=== PATIENT | male | born 1960 | race African-American/Black ===

== ENCOUNTER 2017-07-04 22:22 | Emergency (ER) | payer OTHER, MEDICAID ==
[~2017-07-04] VITALS: Ht 182.9 cm; Wt 102.1 kg
[2017-07-04] MEDS ORDERED: NS 1000ml 3,100 ML IVLG ONE (22:45)
[2017-07-04] MEDS ORDERED: levETIRAcetam 500mg/NS100ml 100 ML IVPB ONE (22:45)
[2017-07-04 23:15] LABS: APPEARANCE,URINE CLEAR; KETONES,URINE NEGATIVE (NEGATIVE); LEUKOCYTE ESTERASE ,URINE NEGATIVE (NEGATIVE); NITRITE,URINE NEGATIVE (NEGATIVE); PH,URINE 6.5 (4.5-8.0); PROTEIN,URINE NEGATIVE (NEGATIVE); UROBILINOGEN,URINE NORMAL MG/DL (0.0-1.0)
[2017-07-04 23:22] LABS: ABG ALLEN TEST POSITIVE; ABG BASE EXCESS 2.7; ABG PCO2 37.9 mmHg (35.0-45.0)
[2017-07-04 23:38] LABS: MEAN CORPUSCULAR HGB CONC 34.3 G/DL (32.0-36.0); MEAN CORPUSCULAR VOLUME 96 FL (80-99); MEAN PLATELET VOLUME 8.9 FL (6.5-10.1); PLATELET COUNT 90 K/UL (150-450); RED BLOOD COUNT 4.21 M/UL (4.70-6.10); RED CELL DISTRIBUTION WIDTH 14.3 % (11.6-14.8); WHITE BLOOD COUNT 10.4 K/UL (4.8-10.8)
[2017-07-04 23:40] LABS: RBC,URINE 0-2 /HPF (0 - 0); WBC,URINE 0 /HPF (0 - 0)
[2017-07-04 23:53] LABS: ALANINE AMINOTRANSFERASE 17 U/L (3-41); ALBUMIN/GLOBULIN RATIO 0.8 (1.0-2.7); ANION GAP 16 (5-15); ASPARTATE AMINO TRANSFERASE 15 U/L (5-40); CALCIUM 10.1 mg/dL (8.6-10.2); CARBON DIOXIDE 27 mEQ/L (20-30); CHLORIDE 100 mEQ/L (98-107); CREATININE 0.7 mg/dL (0.7-1.2); GLOMERULAR FILTRATION RATE > 60 mL/min (>60); HEMOLYSIS 21; SODIUM 143 mEQ/L (135-145); TOTAL PROTEIN 8.8 g/dL (6.6-8.7)
[2017-07-04 23:54] LABS: TROPONIN I < 0.30 ng/mL (<=0.30)
[2017-07-04 23:55] LABS: REFLEX LACTIC ACID YES OR NO YES
[2017-07-05] VITALS (8 sets, daily range): BP systolic 107–157; BP diastolic 55–96
[2017-07-05 00:04] LABS: CKMB 2.5 ng/mL (< 6.7)
[2017-07-05] MEDS ORDERED: Phenytoin 250mg/5ml vial ONE (00:20)
[2017-07-05] MEDS ORDERED: Phenytoin 500 MG in NS 110 ML IVPB ONE (00:30)
[2017-07-05] MEDS ORDERED: Acetaminophen 650 MG SUPP RECTAL ONE (01:15)
[2017-07-05] MEDS ORDERED: Piperacillin/Tazobactam 4.5 GM in NS 110 ML IVPB ONE (01:30)
[2017-07-05] MEDS ORDERED: Zosyn 4.5gm inj ONE ×2 (01:30→01:36)
--- NOTE | 2017-07-05 01:58 | Emergency Room Report ---
History of Present Illness General Chief Complaint: Seizure Source: Family Member, Medical Record, EMS Present Illness HPI Is a 57-year-old male with a history of childhood asthma. Currently he is taking Dilantin Keppra. He is in a shelter. He presents with chief complaint altered mental status and seizure activity. It was focal seizure with right arm twitching. EMS gave him IM Ativan to break it. According to family who came later, his been acting normally and eating normally. No fever or chills. No nausea no vomiting. Allergies: Coded Allergies: ACETAMINOPHEN (Verified Allergy, Unknown, 07/04/17) HYDROCODONE (Verified Allergy, Unknown, 07/04/17) Patient History Past Medical History: see triage record, old chart reviewed Past Surgical History: other Pertinent Family History: none Social History: Denies: smoking Immunizations: other Reviewed Nursing Documentation: PMH: Agreed, PSxH: Agreed Nursing Documentation-PMH Hx Hypertension: Yes Hx Seizures: Yes Review of Systems Eye: Denies: eye pain, blurred vision ENT: Denies: ear pain, nose congestion, throat swelling Respiratory: Denies: cough, shortness of breath Cardiovascular: Denies: chest pain, palpitations Gastrointestinal: Denies: abdominal pain, diarrhea, nausea, vomiting Musculoskeletal: Denies: back pain, joint pain Skin: Denies: rash Neurological: Denies: headache, numbness Endocrine: Denies: increased thirst, increased urine Hematologic/Lymphatic: Denies: easy bruising All Other Systems: negative except mentioned in HPI Physical Exam Vital Signs Date Time Temp Pulse Resp B/P (MAP) Pulse Ox O2 Delivery O2 Flow Rate FiO2 07/04/17 22:15 153 20 133/76 93 Non-Rebreather 15.0 vital with fever and tachycardia. Also hypoxia. Sp02 EP Interpretation: reviewed, abnormal General Appearance: well appearing, moderate distress Head: normocephalic, atraumatic Eyes: bilateral eye PERRL, bilateral eye EOMI ENT: hearing grossly normal, normal pharynx Neck: no meningismus, other - Neck is stiff Respiratory: chest non-tender, decreased breath sounds, accessory muscle use, rhonchi Cardiovascular #1: regular rate, rhythm, no murmur, tachycardia Gastrointestinal: normal bowel sounds, non tender, no mass, no organomegaly, no bruit, non-distended Musculoskeletal: other - Extremities very stiff Neurologic: other - Moans to painful stimuli Psychiatric: mood/affect normal Skin: warm/dry Procedures Critical Care Time Critical Care Time Critical care is mandated in this patient who presented with sepsis. Patient require my urgent intervention to attenuate the risks of metabolic which may lead to cardiovascular collapse and . Critical care time is 35 minutes excluding any reportable procedure. Critical care time included evaluation, multiple reevaluation, looking at old charts, interpreting laboratory and diagnostic data, discussing case with patient and family and consultants, and charting. Central Line Central Line : Consent: Verbal Central Line Lumen: triple Maximal Sterile Barrier Tech: yes cap, yes mask, yes sterile gown, yes sterile gloves, yes large sterile sheet, yes hand hygiene, yes chlorhexidine prep Central Line Postion: femoral (R) Anesthesia: local cc's of anesthesia: 10 Complications: none Central Line Post Position: sutured, good blood return Attempts: One Patient Tolerated: Well Complications: None Medical Decision Making Diagnostic Impression: Primary Impression: Sepsis Qualified Codes: A41.9 - Sepsis, unspecified organism Additional Impressions: Pneumonia Qualified Codes: J18.1 - Lobar pneumonia, unspecified organism Seizure disorder ER Course Patient with seizure. He has a fever. This may be secondary to sepsis versus from his seizure activity. Heart rate much improved after antibiotics and fluid. Lactic acid dropping. Mental status improving. He's recognizing his parents. Patient is stable for transfer to [place]. I gave him a dose of Keppra and here. Antibiotics given. Laboratory Tests Test 07/04/17 22:41 07/04/17 23:15 07/04/17 23:18 07/05/17 00:24 Urine Color Pale yellow Urine Appearance Clear Urine pH 6.5 (4.5-8.0) Urine Specific [place] 1.010 (1.005-1.035) Urine Protein Negative (NEGATIVE) Urine Glucose (UA) Negative (NEGATIVE) Urine Ketones Negative (NEGATIVE) Urine Occult Blood 1+ (NEGATIVE) H Urine Nitrite Negative (NEGATIVE) Urine Bilirubin Negative (NEGATIVE) Urine Urobilinogen Normal MG/DL (0.0-1.0) Urine Leukocyte Esterase Negative (NEGATIVE) Urine RBC 0-2 /HPF (0 - 0) H Urine WBC 0 /HPF (0 - 0) Urine Squamous Epithelial Cells None /LPF (NONE/OCC) Urine Bacteria None /HPF (NONE) White Blood Count 10.4 K/UL (4.8-10.8) Red Blood Count 4.21 M/UL (4.70-6.10) L Hemoglobin 13.9 G/DL (14.2-18.0) L Hematocrit 40.5 % (42.0-52.0) L Mean Corpuscular Volume 96 FL (80-99) Mean Corpuscular Hemoglobin 33.0 PG (27.0-31.0) H Mean Corpuscular Hemoglobin Concent 34.3 G/DL (32.0-36.0) Red Cell Distribution Width 14.3 % (11.6-14.8) Platelet Count 90 K/UL (150-450) L Mean Platelet Volume 8.9 FL (6.5-10.1) Neutrophils (%) (Auto) % (45.0-75.0) Lymphocytes (%) (Auto) % (20.0-45.0) Monocytes (%) (Auto) % (1.0-10.0) Eosinophils (%) (Auto) % (0.0-3.0) Basophils (%) (Auto) % (0.0-2.0) Prothrombin Time 10.0 SEC (9.30-11.50) Prothromb Time International Ratio 1.0 (0.9-1.1) Activated Partial Thromboplast Time 23 SEC (23-33) Sodium Level 143 mEQ/L (135-145) Potassium Level 4.0 mEQ/L (3.4-4.9) Chloride Level 100 mEQ/L (98-107) Carbon Dioxide Level 27 mEQ/L (20-30) Anion Gap 16 (5-15) H Blood Urea Nitrogen 10 mg/dL (7-23) Creatinine 0.7 mg/dL (0.7-1.2) Estimat Glomerular Filtration Rate > 60 mL/min (>60) Glucose Level 141 mg/dL (74-106) H Lactic Acid Level 3.20 mmol/L (0.66-2.22) H 2.90 mmol/L (0.66-2.22) H Calcium Level 10.1 mg/dL (8.6-10.2) Total Bilirubin 0.4 mg/dL (0.0-1.2) Aspartate Amino Transf (AST/SGOT) 15 U/L (5-40) Alanine Aminotransferase (ALT/SGPT) 17 U/L (3-41) Alkaline Phosphatase 218 U/L (40-129) H Total Creatine Kinase 110 U/L (38-174) Creatine Kinase MB 2.5 ng/mL (< 6.7) Creatine Kinase MB Relative Index 2.2 Troponin I < 0.30 ng/mL (<=0.30) Total Protein 8.8 g/dL (6.6-8.7) H Albumin 4.0 g/dL (3.5-5.2) Globulin 4.8 g/dL Albumin/Globulin Ratio 0.8 (1.0-2.7) L Phenytoin (Dilantin) Level 5.2 ug/mL (10-20) L Arterial Blood pH 7.461 (7.350-7.450) Arterial Blood Partial Pressure CO2 37.9 mmHg (35.0-45.0) Arterial Blood Partial Pressure O2 169.6 mmHg (75.0-100.0) H Arterial Blood HCO3 26.4 mmol/L (22.0-26.0) H Arterial Blood Oxygen Saturation 99.0 % (92.0-98.0) H Arterial Blood Base Excess 2.7 Chandan Test Positive Lab Results Impression labs unremarkable EKG Diagnostic Results EKG Time: 01:56 Rate: tachycardiac Rhythm: NSR ST Segments: other - Nonspecific ST changes Rhythm Strip Diag. Results Rhythm Strip Time: 01:57 EP Interpretation: yes Rate: 120 Rhythm: NSR, no PVC's, no ectopy Chest X-Ray Diagnostic Results Chest X-Ray Diagnostic Results : Chest X-Ray Ordered: Yes # of Views/Limited/Complete: 1 View Indication: Shortness of Breath EP Interpretation: Yes Interpretation: no consolidation, no effusion, no pneumothorax, other - atelectasis, interstitial infiltrate in RLL Impression: Other - atelectasis Interpreting ER Provider: Electronically signed by Akin Julien MD Last Vital Signs Date Time Temp Pulse Resp B/P (MAP) Pulse Ox O2 Delivery O2 Flow Rate FiO2 07/04/17 22:30 145 20 Non-Rebreather 15.0 07/04/17 22:15 133/76 93 Status: improved Disposition: XFER SHT-TRM HOSP Condition: Serious Referrals: [facility] (PCP) AKIN JULIEN M.D. Jul 05, 2017 01:58
--- NOTE | 2017-07-05 11:09 | Diagnostic Imaging Report ---
Indication: Dyspnea Comparison: None A single view chest radiograph was obtained. Findings: Some mild basilar densities are present. Heart size is normal. The bones are unremarkable. Impression: Basilar densities likely atelectasis. Pneumonia not entirely excludable. Please correlate clinically
--- NOTE | 2017-07-06 16:24 | Cardiology Report ---
APPROVED REPORT EKG Measurement Heart [id number] OR 136P [id number] Sinus tachycardia Left axis deviation Pulmonary disease pattern Abnormal ECG
== END 2017-07-05 09:05 | disposition short-term general hospital (02) ==
LOC: EDBD 22:22 → EMR 22:39
DX: A41.9 Sepsis, unspecified organism (principal); J18.1 Lobar pneumonia, unspecified organism; G40.909 Epilepsy, unspecified, not intractable, without status epilepticus; Z88.6 Allergy status to analgesic agent; I10 Essential (primary) hypertension; R00.0 Tachycardia, unspecified; J98.11 Atelectasis
CPT/HCPCS: 36415; 36569; 36600; 71010; 80053; 80185; 81003; 82550; 82553; 82803; 83605; 84484; 85025; 85610; 85730; 87040; 87081; 87181; 93005; 96361; 96365; 96367; 99291; J1165; J1956; J2543

== ENCOUNTER 2017-11-07 05:38 | Emergency (ER) | payer OTHER, MEDICAID ==
[2017-11-07] VITALS (8 sets, daily range): BP systolic 121–140; BP diastolic 59–94
[~2017-11-07] VITALS: Ht 167.6 cm; Wt 77.1 kg
--- NOTE | 2017-11-07 05:57 | Emergency Room Report ---
History of Present Illness General Chief Complaint: Dyspnea/Respdistress Source: Medical Record, EMS Present Illness HPI Patient is a 57-year-old male who presented after increased had desaturation. Patient had prior history of seizure disorder. Patient was noted to have decreased oxygen saturation is facility. Patient was sent for further evaluation. And started on supplemental oxygen. Patient is normally bed or wheelchair-bound. He had been taking Keppra as well as Dilantin and phenobarbital. Allergies: Coded Allergies: ACETAMINOPHEN (Verified Allergy, Unknown, 07/04/17) HYDROCODONE (Verified Allergy, Unknown, 07/04/17) Patient History Past Medical History: see triage record Reviewed Nursing Documentation: PMH: Agreed, PSxH: Agreed Nursing Documentation-PMH Past Medical History: No History, Except For Hx Cardiac Problems: No - Hyperlipidemia, Hypothyroidism Hx Hypertension: Yes Hx Asthma: No - Acute Resp. failure Hx Gastrointestinal Problems: Yes - Dysphagia Hx Dialysis: No - UTI, Obstructive sleep apnea Hx Seizures: Yes Review of Systems All Other Systems: limited - by poor historian Physical Exam Vital Signs Date Time Temp Pulse Resp B/P (MAP) Pulse Ox O2 Delivery O2 Flow Rate FiO2 11/07/17 05:29 98.8 113 17 140/82 98 Non-Rebreather 15.0 Sp02 EP Interpretation: reviewed, normal General Appearance: alert, Chronically Ill Head: atraumatic ENT: normal ENT inspection, hearing grossly normal, normal voice Neck: normal inspection, full range of motion, supple, no bony tend Respiratory: normal inspection, no respiratory distress, no retraction, no wheezing, decreased breath sounds Cardiovascular #1: regular rate, rhythm, no edema Gastrointestinal: normal inspection, normal bowel sounds, non tender, soft, no guarding, no hernia Genitourinary: no CVA tenderness Neurologic: normal inspection, alert, responsive Psychiatric: depressed affect Skin: normal inspection, normal color, no rash Medical Decision Making Diagnostic Impression: Primary Impression: Pneumonia ER Course The patient presented for shortness of breath. Differential included but was not limited to anemia, pneumonia, pneumothorax, myocardial infarction, pericardial effusion, congestive heart failure, acidosis. The patient was started on supplemental oxygen. This x-ray one view interpreted by me showed a left pleural effusion and mild hyperinflation with right-sided infiltrate. Patient given IV antibiotics were possible pneumonia. Patient will likely require IV antibiotics and further evaluation. The patient was discussed with Dr. Lamb at [facility]. The patient currently pending return contacted [facility] for laboratory testing results status that the patient will be transferred for continuity of care. The patient was endorsed to Dr. jenkins pending likely transfer to [facility]. Labs Test 11/07/17 06:05 White Blood Count 6.3 K/UL (4.8-10.8) Red Blood Count 4.78 M/UL (4.70-6.10) Hemoglobin 13.9 G/DL (14.2-18.0) Hematocrit 44.6 % (42.0-52.0) Mean Corpuscular Volume 93 FL (80-99) Mean Corpuscular Hemoglobin 29.0 PG (27.0-31.0) Mean Corpuscular Hemoglobin Concent 31.1 G/DL (32.0-36.0) Red Cell Distribution Width 14.0 % (11.6-14.8) Platelet Count 196 K/UL (150-450) Mean Platelet Volume 7.3 FL (6.5-10.1) Neutrophils (%) (Auto) 55.3 % (45.0-75.0) Lymphocytes (%) (Auto) 31.8 % (20.0-45.0) Monocytes (%) (Auto) 8.5 % (1.0-10.0) Eosinophils (%) (Auto) 3.8 % (0.0-3.0) Basophils (%) (Auto) 0.6 % (0.0-2.0) Sodium Level 141 MMOL/L (136-145) Potassium Level 3.4 MMOL/L (3.5-5.1) Chloride Level 102 MMOL/L (98-107) Carbon Dioxide Level 38 MMOL/L (21-32) Anion Gap 1 mmol/L (5-15) Blood Urea Nitrogen 6 mg/dL (7-18) Creatinine 0.7 MG/DL (0.55-1.30) Estimat Glomerular Filtration Rate > 60 mL/min (>60) Glucose Level 119 MG/DL (74-106) Lactic Acid Level 0.90 mmol/L (0.66-2.22) Calcium Level 8.1 MG/DL (8.5-10.1) Total Bilirubin 0.3 MG/DL (0.2-1.0) Aspartate Amino Transf (AST/SGOT) 11 U/L (15-37) Alanine Aminotransferase (ALT/SGPT) 14 U/L (12-78) Alkaline Phosphatase 166 U/L (46-116) Total Creatine Kinase 100 U/L (26-308) Creatine Kinase MB < 0.5 NG/ML (0.0-3.6) Creatine Kinase MB Relative Index 0.5 Troponin I 0.000 ng/mL (0.000-0.056) Total Protein 9.4 G/DL (6.4-8.2) Albumin 2.9 G/DL (3.4-5.0) Globulin 6.5 g/dL Albumin/Globulin Ratio 0.4 (1.0-2.7) Phenytoin (Dilantin) Level 9.6 ug/mL (10-20) Phenobarbital Level 30.3 ug/mL (15-40) EKG Diagnostic Results Rate: normal Rhythm: NSR ST Segments: no acute changes Last Vital Signs Date Time Temp Pulse Resp B/P (MAP) Pulse Ox O2 Delivery O2 Flow Rate FiO2 11/07/17 05:29 98.8 113 17 140/82 98 Non-Rebreather 15.0 Status: unchanged Disposition: XFER SHT-TRM HOSP Condition: Serious Jacob Lucero Nov 07, 2017 05:57
[2017-11-07 06:34] LABS: BASOPHILS % (AUTO) 0.6 % (0.0-2.0); EOSINOPHILS % (AUTO) 3.8 % (0.0-3.0); HEMATOCRIT 44.6 % (42.0-52.0); HEMOGLOBIN 13.9 G/DL (14.2-18.0); LYMPHOCYTES % (AUTO) 31.8 % (20.0-45.0); MEAN CORPUSCULAR VOLUME 93 FL (80-99); MONOCYTES % (AUTO) 8.5 % (1.0-10.0); NEUTROPHILS % (AUTO) 55.3 % (45.0-75.0); PLATELET COUNT 196 K/UL (150-450); RED BLOOD COUNT 4.78 M/UL (4.70-6.10); WHITE BLOOD COUNT 6.3 K/UL (4.8-10.8)
[2017-11-07 06:41] LABS: ANION GAP 1 mmol/L (5-15); BLOOD UREA NITROGEN 6 mg/dL (7-18); CALCIUM 8.1 MG/DL (8.5-10.1); CARBON DIOXIDE 38 MMOL/L (21-32); CHLORIDE 102 MMOL/L (98-107); CREATININE 0.7 MG/DL (0.55-1.30); POTASSIUM 3.4 MMOL/L (3.5-5.1); SODIUM 141 MMOL/L (136-145)
[2017-11-07 06:55] LABS: ALANINE AMINOTRANSFERASE 14 U/L (12-78); ALBUMIN 2.9 G/DL (3.4-5.0); ALBUMIN/GLOBULIN RATIO 0.4 (1.0-2.7); ALKALINE PHOSPHATASE 166 U/L (46-116); ASPARTATE AMINO TRANSFERASE 11 U/L (15-37); BILIRUBIN,TOTAL 0.3 MG/DL (0.2-1.0); CKMB < 0.5 NG/ML (0.0-3.6); CREATINE KINASE 100 U/L (26-308)
[2017-11-07] MEDS ORDERED: Ampicillin/Sulbactam Sod 3 GM in NS 110 ML IVPB ONE (07:30)
[2017-11-07] MEDS ORDERED: Unasyn 3gm Inj ONE (08:42)
[2017-11-07 08:45] LABS: APPEARANCE,URINE CLEAR; BILIRUBIN, URINE NEGATIVE (NEGATIVE); GLUCOSE, URINE (UA) NEGATIVE (NEGATIVE); KETONES,URINE NEGATIVE (NEGATIVE); LEUKOCYTE ESTERASE ,URINE NEGATIVE (NEGATIVE); NITRITE,URINE NEGATIVE (NEGATIVE); PH,URINE 6 (4.5-8.0); PROTEIN,URINE 2+ (NEGATIVE); UROBILINOGEN,URINE 1 MG/DL (0.0-1.0)
[2017-11-07 08:46] LABS: COLOR,URINE YELLOW
[2017-11-07] MEDS ORDERED: KEPPRA1000 MG ORAL (09:03)
[2017-11-07] MEDS ORDERED: MINERAL OIL EN133 ML RC (09:03)
[2017-11-07] MEDS ORDERED: LEVOTHYROXINE75 MCG ORAL (09:03)
[2017-11-07] MEDS ORDERED: FOLIC ACID1 MG ORAL (09:03)
[2017-11-07] MEDS ORDERED: CALCIUM CARBO2500 GM PO (09:03)
[2017-11-07] MEDS ORDERED: BISACODYL5 MG RECTAL (09:03)
[2017-11-07] MEDS ORDERED: DOCUSATE SODIU100 MG ORAL (09:03)
[2017-11-07] MEDS ORDERED: SORBITOL 70%30 ML PO (09:03)
[2017-11-07] MEDS ORDERED: PHENOBARBITAL30 MG ORAL (09:03)
[2017-11-07] MEDS ORDERED: VITAMIN D1000 UNI1 ORAL (09:03)
[2017-11-07] MEDS ORDERED: MULTIVITAMINS1 EAC8 ORAL (09:03)
[2017-11-07] MEDS ORDERED: DILANTIN100 MG ORAL (09:03)
[2017-11-07] MEDS ORDERED: ROBITUSSIN NIG237 ML PO (09:03)
[2017-11-07] MEDS ORDERED: SENNA8.6 M2 PO (09:03)
[2017-11-07] MEDS ORDERED: ACETAMINOPHEN325 M1 ORAL (09:03)
[2017-11-07] MEDS ORDERED: ASPIR 8181 MG ORAL (09:03)
[2017-11-07] MEDS ORDERED: ZOCOR20 MG ORAL (09:03)
--- NOTE | 2017-11-07 21:47 | Diagnostic Imaging Report ---
Indication: Dyspnea Comparison: 07/04/2017 A single view chest radiograph was obtained. Findings: There is basilar atelectasis versus infiltrate. Lung volumes are low. There is slight blunting of the left costophrenic angle. Bones are unremarkable. IMPRESSION: Basilar atelectasis versus infiltrate. Suspected small left pleural effusion. No change
--- NOTE | 2017-11-07 21:47 | Diagnostic Imaging Report ---
Indication: Altered mental status Technique: Contiguous 5 mm thick transaxial imaging of the head obtained in a Siemens Sensation [address] scanner. Soft tissue and bone windows generated. Automatic Exposure Control was utilized. Total Dose length Product (DLP): [address] Dose Index Volume (CTDIvol): 0.15, 0.15, 70.38 mGy Comparison: none Findings: There is moderate prominence of the ventricles, basal cisterns, and cerebral sulci consistent with atrophy. Moderate, nonspecific, white matter hypoattenuation is noted throughout the brain consistent with chronic small vessel disease. There is no midline shift, edema, acute hemorrhage, mass effect, or abnormal extra-axial fluid collections. Bones and extra osseous soft tissues are unremarkable. Impression: No acute intracranial bleed, mass effect or edema. Moderate atrophy of the brain. Evidence of chronic small vessel disease involving white matter tracts. The CT scanner at [facility] is accredited by the [employer] and the scans are performed using dose optimization techniques as appropriate to a performed exam including Automatic Exposure control.
== END 2017-11-07 16:25 | disposition short-term general hospital (02) ==
LOC: EDBD 05:38 → EMR 06:00
DX: J18.9 Pneumonia, unspecified organism (principal); I10 Essential (primary) hypertension; Z88.6 Allergy status to analgesic agent; E03.9 Hypothyroidism, unspecified; E78.5 Hyperlipidemia, unspecified; G40.909 Epilepsy, unspecified, not intractable, without status epilepticus; R41.82 Altered mental status, unspecified; G31.9 Degenerative disease of nervous system, unspecified
CPT/HCPCS: 36415; 36600; 70450; 71045; 80053; 80184; 80185; 81003; 82550; 82553; 82803; 83605; 84484; 85025; 86710; 87040; 87181; 93005; 94660; 94664; 96361; 96365; 99285; J0295

== ENCOUNTER 2020-03-04 20:13 | Inpatient (IN) | payer OTHER, MEDICAID ==
[~2020-03-04] VITALS: Ht 188 cm; Wt 93.6 kg
[~2020-03-04 20:13] MED LIST: ACETAMINOPHEN325 M1 GT; ASPIR 8181 MG ORAL; BISACODYL5 MG RECTAL; CALCIUM CARBO2500 GM PO; CARVEDILOL3.125 MG ORAL; DILANTIN100 MG ORAL; DOCUSATE SODIU100 MG ORAL; ELIQUIS5 MG PO; FOLIC ACID1 MG ORAL; KEPPRA1000 MG ORAL; LEVOTHYROXINE75 MCG ORAL; MINERAL OIL EN133 ML RC; MULTIVITAMINS1 EAC8 ORAL; PHENOBARBITAL30 MG ORAL; ROBITUSSIN NIG237 ML PO; SENNA8.6 M2 PO; SORBITOL 70%30 ML PO; VITAMIN D1000 UNI1 ORAL; ZOCOR20 MG ORAL
--- NOTE | 2020-03-04 20:30 | NUR ---
ED Nurse Note: Patient brought into ED by [facility] from [facility] c/o dyspnea, per EMS, states that patient de-satted to 82% on RA. at time of arrival patient's o2 sat is 99% via 15L, patient is hot to touch, rectal temp of 103.2, patient is obtunted and is unable to answer questions, patient does open eyes and is unresponsive to pain, IV started on right wrist 18 gauge. patient presents with a unstageable ulcer on the lower coccyx area, patient does present with a dawn cath. patient placed on a bed with padded side rails and in lowest position, will continue to monitor
--- NOTE | 2020-03-04 20:30 | NUR ---
ED Nurse Note: Received report from MARGARITA Yan. Patient stabilized.
[2020-03-04] MEDS ORDERED: cefTRIAXone 1 GM in NS 55 ML IVPB ONE (20:45)
[2020-03-04] MEDS ORDERED: Acetaminophen 650 MG SUPP RECTAL ONE ×2 (20:48→21:00)
[2020-03-04 20:49] VITALS: BP 90/62
[2020-03-04 20:55] LABS: BASOPHILS % (AUTO) 1.6 % (0.0-2.0); EOSINOPHILS % (AUTO) 6.3 % (0.0-3.0); HEMATOCRIT 39.1 % (42.0-52.0); HEMOGLOBIN 10.8 G/DL (14.2-18.0); LYMPHOCYTES % (AUTO) 36.3 % (20.0-45.0); MEAN CORPUSCULAR VOLUME 98 FL (80-99); MONOCYTES % (AUTO) 5.8 % (1.0-10.0); PLATELET COUNT 196 K/UL (150-450); RED CELL DISTRIBUTION WIDTH 19.5 % (11.6-14.8); WHITE BLOOD COUNT 10.9 K/UL (4.8-10.8)
[2020-03-04 20:59] LABS: APPEARANCE,URINE CLEAR; BILIRUBIN, URINE NEGATIVE (NEGATIVE); GLUCOSE, URINE (UA) NEGATIVE (NEGATIVE); KETONES,URINE NEGATIVE (NEGATIVE); LEUKOCYTE ESTERASE ,URINE NEGATIVE (NEGATIVE); NITRITE,URINE NEGATIVE (NEGATIVE); PH,URINE 6 (4.5-8.0); PROTEIN,URINE 3+ (NEGATIVE); UROBILINOGEN,URINE NORMAL MG/DL (0.0-1.0)
[2020-03-04] MEDS ORDERED: levETIRAcetam 500mg/NS100ml 100 ML IVPB ONE (21:15)
[2020-03-04] MEDS ORDERED: levETIRAcetam 1,000mg/NS100ml 100 ML IVPB ONE (21:15)
--- NOTE | 2020-03-04 21:18 | Emergency Room Report ---
History of Present Illness General Chief Complaint: Altered Mental Status Source: Patient Present Illness HPI Patient is a 59-year-old male sent in from [facility] for decreased oxygen saturation. Patient had recent hospitalization for pneumonia. Patient was started on supplemental oxygen by paramedics and was transferred to the hospital for further evaluation. He had recent hospitalization at [facility]. Had been noted to have increased respiratory difficulty. Prior history of developmental delay as well as seizure disorder. History is markedly limited by patient's mental status Allergies: Coded Allergies: HYDROCODONE (Verified Allergy, Unknown, 07/04/17) COVID-19 Screening Contact w/high risk pt: No Recent Travel to affected area: No Experienced COVID-19 symptoms?: No Patient History Past Medical History: see triage record Reviewed Nursing Documentation: PMH: Agreed; PSxH: Agreed Nursing Documentation-PMH Past Medical History: No History, Except For Hx Cardiac Problems: No - Hyperlipidemia, Hypothyroidism Hx Hypertension: Yes Hx Asthma: No - Acute Resp. failure Hx Gastrointestinal Problems: Yes - Dysphagia Hx Dialysis: No - UTI, Obstructive sleep apnea Hx Cerebrovascular Accident: Yes Hx Seizures: Yes Review of Systems All Other Systems: limited - Limited by poor historian Physical Exam Vital Signs Date Time Temp Pulse Resp B/P (MAP) Pulse Ox O2 Delivery O2 Flow Rate FiO2 03/04/20 20:14 98.8 140 18 135/80 (98) 98 Non-Rebreather 03/04/20 20:20 15.0 99 Sp02 EP Interpretation: reviewed, normal General Appearance: moderate distress, obese, Chronically Ill Head: atraumatic ENT: normal voice, dry mucus membranes Neck: normal inspection, supple, no bony tend, limited range of motion Respiratory: normal inspection, lungs clear, normal breath sounds, no respiratory distress, no retraction, no wheezing Cardiovascular #1: tachycardia Gastrointestinal: normal inspection, normal bowel sounds, non tender, soft, no guarding, no hernia, other - G-tube Genitourinary: other - Penaloza catheter in place with cloudy urine Musculoskeletal: decreased range of motion Neurologic: responsive, other - Somnolent, some grimacing to gag. Psychiatric: other Skin: other - Decubitus ulcers Procedures Critical Care Time Critical Care Time Patient had a critical medical condition which untreated could potentially result in life or limb threatening injury. Total critical care time excluding procedures approximately 45 minutes. Medical Decision Making Diagnostic Impression: Primary Impression: Altered mental status Additional Impressions: Pneumonia Respiratory acidosis Seizure disorder ER Course Patient presented for altered mental status and low oxygen saturation. Differential diagnosis include was not limited to pneumonia, CO2 narcosis, coronavirus infection, among others. Because of complexity of patient's case laboratory tests and imaging studies were ordered. Patient was noted to have initial ABG which showed some evidence of hypercapnia as well as hyperoxia. Patient was started on IV fluids due to hypotension. Blood cultures were obtained. Coronavirus swab was ordered due to current pandemic. Patient was noted to be initially febrile with a heart rate in the 140s and temperature greater than 103. He was loaded with IV Keppra due to a prior history of seizure disorder.Chest x-ray 1 view interpreted by me showed bilateral basilar infiltrates consistent with possible pneumonia.Patient was noted to have some CO2 retention. He was started on supplemental oxygen via nasal cannula after ABG showed metabolic respiratory acidosis.Given the patient's CO2 retention. He was started on BiPAP. End-tidal CO2 monitoring was started. Patient may require intubation if continued CO2 retention no improvement in ABG. Patient was discussed with Dr. Matthews due to [facility] physician for [facility] and patient was authorized by [facility] for admission to [place] Labs Test 03/04/20 20:25 03/04/20 21:05 White Blood Count 10.9 K/UL (4.8-10.8) Red Blood Count 4.00 M/UL (4.70-6.10) Hemoglobin 10.8 G/DL (14.2-18.0) Hematocrit 39.1 % (42.0-52.0) Mean Corpuscular Volume 98 FL (80-99) Mean Corpuscular Hemoglobin 27.0 PG (27.0-31.0) Mean Corpuscular Hemoglobin Concent 27.7 G/DL (32.0-36.0) Red Cell Distribution Width 19.5 % (11.6-14.8) Platelet Count 196 K/UL (150-450) Mean Platelet Volume 7.9 FL (6.5-10.1) Neutrophils (%) (Auto) 50.0 % (45.0-75.0) Lymphocytes (%) (Auto) 36.3 % (20.0-45.0) Monocytes (%) (Auto) 5.8 % (1.0-10.0) Eosinophils (%) (Auto) 6.3 % (0.0-3.0) Basophils (%) (Auto) 1.6 % (0.0-2.0) Lactic Acid Level 1.60 mmol/L (0.4-2.0) Troponin I 0.000 ng/mL (0.000-0.056) Arterial Blood pH 7.183 (7.350-7.450) Arterial Blood Partial Pressure CO2 126.3 mmHg (35.0-45.0) Arterial Blood Partial Pressure O2 234.8 mmHg (75.0-100.0) Arterial Blood HCO3 46.4 mmol/L (22.0-26.0) Arterial Blood Oxygen Saturation 99.0 % (95-100) Arterial Blood Base Excess 14.2 (-2-2) Chandan Test Positive EKG Diagnostic Results Rate: tachycardiac - 141 Rhythm: NSR ST Segments: no acute changes Last Vital Signs Date Time Temp Pulse Resp B/P (MAP) Pulse Ox O2 Delivery O2 Flow Rate FiO2 03/04/20 20:49 103.2 133 20 90/62 100 Non-Rebreather 15.0 03/04/20 20:20 99 Status: unchanged Disposition: ADMITTED INPATIENT Condition: Critical Referrals: Cb Chahal DO (PCP) Jacob Lucero MD March 04, 2020 21:18
[2020-03-04 21:21] LABS: ALANINE AMINOTRANSFERASE 27 U/L (12-78); ALBUMIN 2.5 G/DL (3.4-5.0); ALBUMIN/GLOBULIN RATIO 0.3 (1.0-2.7); ALKALINE PHOSPHATASE 147 U/L (46-116); ANION GAP 2 mmol/L (5-15); ASPARTATE AMINO TRANSFERASE 24 U/L (15-37); BILIRUBIN,TOTAL 0.2 MG/DL (0.2-1.0); BLOOD UREA NITROGEN 30 mg/dL (7-18); CALCIUM 9.7 MG/DL (8.5-10.1); CHLORIDE 119 MMOL/L (98-107); CKMB < 0.5 NG/ML (0.0-3.6); CREATINE KINASE 105 U/L (26-308); CREATININE 0.9 MG/DL (0.55-1.30); PHOSPHORUS 3.5 MG/DL (2.5-4.9); POTASSIUM 4.3 MMOL/L (3.5-5.1)
[2020-03-04 21:26] LABS: COLOR,URINE YELLOW
[2020-03-04 21:28] LABS: SODIUM 163 MMOL/L (136-145)
[2020-03-04 21:29] LABS: CARBON DIOXIDE 42 MMOL/L (21-32)
[2020-03-04] MEDS ORDERED: LORazepam Inj 2mg/ml 1ml ONE (21:40)
--- NOTE | 2020-03-04 21:45 | NUR ---
ED Nurse Note: Per ERMD, changed O2 to 6L nasal cannula. Patient tolerated well, O2 sat at 99-100%
--- NOTE | 2020-03-04 21:45 | NUR ---
ED Nurse Note: Pictures taken for pressure ulcers on coccyx, right heel, and right toe.
[2020-03-04 22:07] VITALS: BP 120/52
--- NOTE | 2020-03-04 22:30 | NUR ---
ED Nurse Note: Patient O2 sat low at 80%, per ERMD, place back on nonrebreather at 15L, O2 sat at 98% on nonrebreather.
--- NOTE | 2020-03-04 22:40 | NUR ---
ED Nurse Note: RT at bedside.
--- NOTE | 2020-03-04 23:06 | NUR ---
ED Nurse Note: Patient placed on full face CPAP. RT at bedside. Settings per RT 20/8 at 60% Patient O2 sat at 95%
[2020-03-05] VITALS (54 sets, daily range): BP systolic 59–154; BP diastolic 30–105
--- NOTE | 2020-03-05 00:05 | NUR ---
ED Nurse Note: Patient was found bradycardic, initiated code blue, see code blue sheet.
[2020-03-05] MEDS ORDERED: Sodium Bicarbonate 8.4% 50ml Inj ONE (00:15)
--- NOTE | 2020-03-05 00:15 | NUR ---
ED Nurse Note: Compressions initiated, RT at bedside, ERMD at bedside.
--- NOTE | 2020-03-05 00:19 | NUR ---
ED Nurse Note: ROSC achieved.
--- NOTE | 2020-03-05 00:22 | NUR ---
ED Nurse Note: ERMD at bedside for intubation. color changed achieved. 7mm ET tube used, 25cm at the lip.
[2020-03-05] MEDS ORDERED: propofoL 1,000mg/100ml 100 ML IV ONE (00:26)
--- NOTE | 2020-03-05 00:26 | NUR ---
ED Nurse Note: Per ERMD, administered 20mg Etomidate. 20mg Etomidate administered via IV on right wrist.
--- NOTE | 2020-03-05 00:31 | NUR ---
ED Nurse Note: 50mg sodium bicarbonate administered by ERMD on right wrist IV.
--- NOTE | 2020-03-05 00:35 | NUR ---
ED Nurse Note: Blood pressure at 59/40, NS 1L initiated.
--- NOTE | 2020-03-05 00:44 | Emergency Room Report ---
Physical Exam Vital Signs Date Time Temp Pulse Resp B/P (MAP) Pulse Ox O2 Delivery O2 Flow Rate FiO2 03/04/20 20:14 98.8 140 18 135/80 (98) 98 Non-Rebreather 03/04/20 20:20 15.0 99 Medical Decision Making Diagnostic Impression: Primary Impression: Altered mental status Additional Impressions: Respiratory acidosis Seizure disorder Pneumonia ER Course Called to patient bedside for CODE BLUE. Patient admitted to ICU for sepsis secondary to pneumonia and is a person under investigation for novel coronavirus 19. Labs of been showing acidosis and CO2 retention. Patient been on BiPAP. On my arrival in the room chest compressions were ongoing. At first pulse check the patient had palpable bilateral carotid pulses. The patient was intubated using glide scope on first attempt without complications. Oxygenating and ventilating well. Monitor showed sinus tachycardia following ROSC. The patient was hypotensive with pressures between 50 and 80 systolic. A central line was placed in the right internal jugular under ultrasound guidance without complications. Chest x-ray confirms position of chest tube and central line. Patient started on levo fed for hypotension. Remains in critical condition. Chest X-Ray Diagnostic Results Chest X-Ray Diagnostic Results : Chest X-Ray Ordered: Yes # of Views/Limited/Complete: 1 View Indication: Shortness of Breath EP Interpretation: Yes Interpretation: other - Right-sided consolidation and effusion. Right internal jugular tip projects over the right atrium. ET tube tip above the aleksandr Impression: Other - Worsening right lower lobe effusion and consolidation with interval intubation and central line placement Electronically Signed by: Electronically signed by Dr. Gianni Stanford Last Vital Signs Date Time Temp Pulse Resp B/P (MAP) Pulse Ox O2 Delivery O2 Flow Rate FiO2 03/04/20 22:07 120 29 120/52 100 Nasal Cannula 6.0 03/04/20 20:49 103.2 03/04/20 20:20 99 Disposition: ADMITTED INPATIENT Condition: Critical Referrals: Cb Chahal DO (PCP) Procedures Central Line Central Line : Consent: Emergent Central Line Lumen: triple No Max Barrier Tech Because: emergency insertion Central Line Postion: internal jugular (R) Complications: none Central Line Post Position: sutured, good blood return, position confirmed w / CXR Attempts: One Patient Tolerated: Well Complications: None Intubation Intubation : Consent: Emergent Intubation Method: orotracheal Tube Size (cm): 7.0 Medications: Etomidate - 20mg Breath Sounds after Intubation: equal Intubation Complications: no complications Post Intubation Xray: Yes Progress/Xray Impression: Endotracheal tube tip above the aleksandr Attempts: One Patient Tolerated: Well Complications: None Gianni Stanford MD March 05, 2020 00:44
[2020-03-05] MEDS ORDERED: Levophed 4mg/4mL Inj IV ONE ×4 (00:53→08:48)
--- NOTE | 2020-03-05 00:54 | NUR ---
ED Nurse Note: Per ERMD, administered additional 50mg Sodium Bicarbonate. Sodium Bicarbonate adminitered via IV on right wrist.
--- NOTE | 2020-03-05 00:57 | NUR ---
ED Nurse Note: ERMD at bedside, central line triple lumen cath completed. central line patent.
--- NOTE | 2020-03-05 01:25 | NUR ---
ED Nurse Note: Xray at bedside.
[2020-03-05] MEDS ORDERED: DOPamine 400mg/250ml 250 ML IV SCH (02:15)
--- NOTE | 2020-03-05 03:12 | NUR ---
ED Nurse Note: RT at bedside.
[2020-03-05] MEDS ORDERED: Vancomycin 1.5 GM in NS 275 ML IVPB ONE (04:00)
[2020-03-05] MEDS ORDERED: Phenylephrine 50 MG in D5W 245 ML IV SCH (04:00)
[2020-03-05] MEDS ORDERED: Piperacillin/Tazobactam 3.375 GM in NS 110 ML IVPB ONE (04:00)
[2020-03-05] MEDS ORDERED: Digoxin 0.5mg/2ml Inj IVP ONE (04:15)
[2020-03-05] MEDS: propofoL 1,000mg/100ml 100 ML IV SCH (04:18)
--- NOTE | 2020-03-05 04:30 | NUR ---
ED Nurse Note: Started ordered Zosyn, held Vancomycin d/t no open peripheral line and BP at 103/58. Will start infusion once Zosyn completed.
--- NOTE | 2020-03-05 04:40 | NUR ---
ED Nurse Note: CRE and MRSA swabs collected and sent to lab.
--- NOTE | 2020-03-05 05:36 | NUR ---
ED Nurse Note: Morning lab draw collected and sent to lab.
[2020-03-05] MEDS: Heparin 5000 units/ml inj SUBQ SCH ×2 (06:03→13:21)
[2020-03-05 06:11] LABS: BASOPHILS % (AUTO) 0.4 % (0.0-2.0); HEMOGLOBIN 9.2 G/DL (14.2-18.0); MEAN CORPUSCULAR VOLUME 91 FL (80-99); MONOCYTES % (AUTO) 5.2 % (1.0-10.0); NEUTROPHILS % (AUTO) 64.5 % (45.0-75.0); PLATELET COUNT 237 K/UL (150-450); RED BLOOD COUNT 3.31 M/UL (4.70-6.10); RED CELL DISTRIBUTION WIDTH 17.5 % (11.6-14.8); WHITE BLOOD COUNT 16.8 K/UL (4.8-10.8)
[2020-03-05 06:36] LABS: ALANINE AMINOTRANSFERASE 27 U/L (12-78); ALBUMIN/GLOBULIN RATIO 0.3 (1.0-2.7); ALKALINE PHOSPHATASE 129 U/L (46-116); ANION GAP 6 mmol/L (5-15); ASPARTATE AMINO TRANSFERASE 31 U/L (15-37); BILIRUBIN,TOTAL 0.6 MG/DL (0.2-1.0); BLOOD UREA NITROGEN 36 mg/dL (7-18); CALCIUM 8.5 MG/DL (8.5-10.1); CARBON DIOXIDE 37 MMOL/L (21-32); CHLORIDE 119 MMOL/L (98-107); CREATININE 1.4 MG/DL (0.55-1.30); TRIGLYCERIDES 276 MG/DL (30-150)
[2020-03-05 06:52] LABS: SODIUM 162 MMOL/L (136-145)
--- NOTE | 2020-03-05 07:11 | NUR ---
HAND-OFF: Report given to MARGARITA Echols.
[2020-03-05] MEDS ORDERED: KEPPRA LIQ100 MG/1 M GT (08:11)
[2020-03-05] MEDS ORDERED: ATIVAN2 MG/1 ML IM (08:11)
[2020-03-05] MEDS ORDERED: PHENYTOIN125 MG/5 M GT (08:11)
[2020-03-05] MEDS ORDERED: LOTRIMIN ULTRA12 GM TP (08:11)
[2020-03-05] MEDS ORDERED: LEVOTHYROXINE75 MCG GT (08:11)
[2020-03-05] MEDS ORDERED: OYSTER SHELL 51 EAC1 GT (08:11)
[2020-03-05] MEDS ORDERED: ASCORBIC ACID500 MG GT (08:11)
[2020-03-05] MEDS ORDERED: MINERAL OIL EN133 ML RC (08:11)
[2020-03-05] MEDS ORDERED: FOLIC ACID1 MG GT (08:11)
[2020-03-05] MEDS ORDERED: ALBUTEROL2.5 MG/3 M INH (08:11)
[2020-03-05] MEDS ORDERED: COREG3.125 MG GT (08:11)
[2020-03-05] MEDS ORDERED: SIMVASTATIN20 MG GT (08:12)
[2020-03-05] MEDS ORDERED: SENOKOT8.6 MG GT (08:12)
[2020-03-05] MEDS ORDERED: POLYETHYLENE GL17 GM GT (08:12)
[2020-03-05] MEDS ORDERED: VANCOMYCIN HCL1 G1 IV (08:12)
[2020-03-05] MEDS ORDERED: VITAMIN D32400 UNIT/ GT (08:12)
[2020-03-05] MEDS ORDERED: ZEGERID 20 MG1 EACH GT (08:12)
--- NOTE | 2020-03-05 08:45 | NUR ---
ED Nurse Note: Due to bp <55, Levophed given 10mcg
--- NOTE | 2020-03-05 08:55 | NUR ---
ED Nurse Note: Report given to MARGARITA Suero at ICU. Endorsed POC.
[2020-03-05] MEDS ORDERED: levETIRAcetam 500mg/NS100ml 100 ML IVPB SCH (09:00)
--- NOTE | 2020-03-05 09:02 | NUR ---
Note undone in EDM - 03/05/20 at 0951 by [email or web address] ED Nurse Note: Due to bp <55, Levophed given 10mcg
--- NOTE | 2020-03-05 09:11 | NUR ---
ED Nurse Note: Bp stable. Transffered to ICU.
--- NOTE | 2020-03-05 09:30 | NUR ---
NURSE NOTES: Report received from MARGARITA Echols from ER. Belonging list checked. Pt opens eyes spontaneously but eyes do not track. ST on electronic device monitor HR 120's. ETT 7.0/24cm at lip line. AC 20, TV 550, FiO2 100%, P 10. O2 sat 92-95%. GT in place and clamped. Penaloza in place draining to gravity. Right IJ TLC patent and asymptomatic. Pt is on Levo at 20mcg/min and Phenylephrine at 100mcg/min. Bed in lowest position. Side rails up x3. Seizure precaution initiated. Will resume plan of care.
--- NOTE | 2020-03-05 09:40 | NUR ---
NURSE NOTES: Dr Matthews here to see the patient. Updated him with pt's current condition, including vent setting and abnormal labs. Orders received, noted, and carried out.
--- NOTE | 2020-03-05 10:11 | Diagnostic Imaging Report ---
Indication: Shortness of breath Technique: One view of the chest Comparison: 5 hours earlier Findings: There is right lung volume loss again demonstrated, appears slightly increased.. Stable satisfactory positions of endotracheal tube and right jugular central venous catheter. Large right pleural effusion is again demonstrated. There is increasing parenchymal consolidation in the right lung. The left lung and pleural space remain clear. Impression: Increasing right lung volume loss, pleural and parenchymal consolidation, since prior exam of 5 hours earlier there is stable large right pleural effusion
[2020-03-05] MEDS: DOPamine 400mg/250ml 250 ML IV SCH (10:14)
--- NOTE | 2020-03-05 10:30 | NUR ---
NURSE NOTES: 2D echo is being done at bedside.
--- NOTE | 2020-03-05 10:49 | NUR ---
*-* INSURANCE *-* ALL AVAILABLE CLINICALS HAVE BEEN FAXED TO: [facility] REF#[id number] #[phone] FAX#[phone] REVIEWS/CLINICALS Addendum: 03/05/20 at 1109 by PATRICE REDDY Castillo Ref# [id number] # [phone] fax# [phone]
[2020-03-05] MEDS ORDERED: Hydroxychloroquine Fact Sheet MISC ONE (11:15)
[2020-03-05] MEDS: Norepinephrine Bitartrate 8 MG in D5W 500ml 492 ML IV SCH ×3 (11:15→23:04)
[2020-03-05] MEDS: Phenylephrine 50 MG in D5W 245 ML IV SCH ×2 (11:15→20:15)
--- NOTE | 2020-03-05 11:31 | NUR ---
CLIENT SERVICE COORDINATOR NOTE Pt had admitted to ICU on 03/05/2020. Pt is currently intubated and pending covid-19 result. SW reviewed the chart. [place] [address]. Emergency contacts listed: Jessi Reddy (mother) [phone] and [phone] and Celia Lancastervipul (sister) [phone]. There is a copy of POLST - full code in the chart, signed by Jessi Reddy. SW attempted to verify the information w/ pt's mother Jessi Reddy [phone] but the call was not answered. SW left a vm for call back. Other emergency contacts listed: Winnie Maureen (sister) [phone] and aLnce Reddy (father) [phone]
[2020-03-05] MEDS: levETIRAcetam 500mg/5ml Liquid GT SCH ×2 (12:45→20:17)
[2020-03-05] MEDS: Piperacillin/Tazobactam 3.375 GM in NS 110 ML IVPB SCH ×2 (13:20→22:06)
--- NOTE | 2020-03-05 14:09 | NUR ---
NURSE NOTES: Dr Ocampo here to see the patient. Updated him with pt's current condition, including abnormal lab results. Awaiting new orders.
--- NOTE | 2020-03-05 14:47 | NUR ---
CASE MANAGEMENT: [facility] 59[facility] CC: ALTERED MENTAL STATUS; LOW O2 SAT%< 80; BECAME UNRESPONSIVE SI:SEPSIS . ENCEPHALOPATHY . RESPIRATORY ACIDOSIS . SEIZURE DISORDER . PNA 98.7 140 18 135/80 95% 15L NON-REBREATHER-----> MECHANICAL VENT WBC 10.9 NA+ 163 CO2 42 BUN 30 PHENYTOIN 6.9 MG 2.9 ALKP 147 ABG: pCO2 61.8 pO2 57.0 HCO3 33.7 O2 SAT 87.5 ABG: pH 7.05 pCO2 167.1 pO2 112.8 HCO3 45.7 ABG: pH 7.183 pCO2 126.3 pO2 234.8 HCO3- 46.4 IS:IV ROCEPHIN X1 IV NS BOLUS X1 NM TYLENOL X1 IV KEPPRA X2 CHEST X-RAY- Increasing right lung volume loss, pleural and parenchymal consolidation, since prior exam of 5 hours earlier there is stable large right pleural effusion \: INTENSIVE CARE UNIT STATUS DCP: [facility] WHEN STABLE PLAN: INTUBATED CASE MANAGEMENT: REVIEW 03/05/2020 SI:CODED IN ICU SEPSIS . ENCEPHALOPATHY . RESPIRATORY ACIDOSIS . SEIZURE DISORDER . PNA 98.1 107 21 84/52 100% MECHANICAL VENT WBC 16.8 NA+ 162 K+ 3.0 CL- 119 CO2 37 BUN 36 CREAT 1.4 BG 138 LACTIC ACID 4.0 ALKP 129 ALB 2.0 TRIG 276 ABG: pCO2 59.6 pO2 38.0 HCO3 35.7 O2 SAT% 74.8 IS:IV PHENYLEPHRINE Q24 IV LEVOPHED Q24HR IV PROPOFOL Q24HR IV ZOSYN TID PLAQUENIL PO BID X2 DOSES KEPPRA GT BID WOUND CARE TREATMENT - MULTIPLE WOUNDS CHEST X-RAY- Satisfactory endotracheal intubation; Satisfactory right jugular central venous catheter placement; Increased right pleural fluid and basilar atelectasis CHEST X-RAY- Increasing right lung volume loss, pleural and parenchymal consolidation, since prior exam of 5 hours earlier there is stable large right pleural effusion \: INTENSIVE CARE UNIT STATUS DCP: [facility] WHEN STABLE PLAN: COVID-19 - PENDING BLOOD CX- PENDING
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
--- NOTE | 2020-03-05 14:57 | Diagnostic Imaging Report ---
Indication: Shortness of breath Technique: One view of the chest Comparison: 03/04/2020 Findings: Interim placement of a right jugular central venous catheter, tip of which projects at the level of the high right atrium. No gross pneumothorax. Interim endotracheal intubation, endotracheal tube tip projecting approximately 2 cm above the aleksandr. Interim increased right basilar opacity, likely reflect increasing pleural fluid and atelectasis. There is improved aeration of the left lung base. Impression: Satisfactory endotracheal intubation Satisfactory right jugular central venous catheter placement. Increased right pleural fluid and basilar atelectasis Decreased left basilar atelectasis
--- NOTE | 2020-03-05 15:52 | NUR ---
NURSE NOTES:WOUND CARE NOTES:Pt presented on admission with multiple pressure injuries. Unstageable Pressure injury R Buttocks. Base of wound is 100% necrotic. Sacrum, R and L Gluteal cheeks maroon with multiple partial thickness wounds with surrounding denuded and macerated skin.Dry, black borders noted Unstageable pressure injury R thoracic. Base of wound is 100% necrotic but dry. No erythema induration or fluctuance periwound. Full thickness pressure injury R heel. Base of wound is beefy red with macerated borders. periwound is necrotic and fluctuant. Full thickness pressure injury R Hallux. Base of wound is beefy red with surrounding pink granulation. Dry black borders noted. Loose dry eschar noted to L heel. Hyperpigmentation noted to R and L lateral Malleoli. Tx.Plan: Cleanse Sacral area with Saline.Apply Therahoney. Apply Moisture Barrier Paste periwound. Cover with Optifoam drsgs. Change Daily and Prn. Cleanse wound R thoracic with Saline. Apply TheraHoney. Apply Cavilon Skin Barrier Periwound. Cover with Optifoam drsg.Change every 3 days and prn. Cleanse wound R heel with Saline. Apply TheraHoney. Apply Cavilon Skin Barrier Periwound. Cover with Optifoam drsg. Change every 3 days and prn. Cleanse R Hallux with Saline. Apply Therahoney. Apply Cavilon Skin Barrier Periwound. Cover with Optifoam drsg. Change every 3 days and prn. Apply Cavilon Skin Barrier to L Heel. Cover with Optifoam drsg. Change every 7 days and prn. Reposition at least every 2hours or as tolerated. Place Pillow between knees. Off-load heels with Pillow. APM/NORM Mattress overlay.
--- NOTE | 2020-03-05 16:14 | History and Physical Report ---
DATE OF ADMISSION: 03/04/2020 REASON FOR ADMISSION: Sepsis, respiratory failure. HISTORY OF PRESENT ILLNESS: This is a 59-year-old male, sent in from [facility]. Patient with GT. Patient was noted to be in respiratory distress. Patient required intubation. Patient also noted to be septic, hypotensive, tachycardic. Patient with developmental delay and seizure disorder. Currently, patient is unable to give any history. Patient required intubation due to the above and noted to be tachycardiac requiring pressors. Patient's care discussed and reviewed. Patient admitted to the ICU for ongoing care and management. Patient placed on seizure medications for now. Patient is hypotensive. Oxygenation is improved. PAST MEDICAL HISTORY: Notable for prior history of pneumonia, probable aspiration, hyperlipidemia, hypothyroidism, seizure disorder, dysphagia, sleep apnea. MEDICATIONS: Reviewed. ALLERGIES: Reviewed. SOCIAL HISTORY: [facility] facility. REVIEW OF SYSTEMS: Unable due to patient's present state. PHYSICAL EXAMINATION: GENERAL: Ill-appearing male. VITAL SIGNS: Reviewed. Currently 101 is the heart rate, blood pressure 122/76, saturations 100% on the ventilator, respiratory rate is 20. HEENT: Negative. Patient is orally intubated. NECK: Supple. LUNGS: With coarse breath sounds. CARDIAC: Slightly tachycardic. ABDOMEN: Soft. EXTREMITIES: With chronic skin changes. Minimal edema. LABORATORY DATA: Reviewed. Notable for sodium 162, BUN 34, creatinine 1.6. Lactic acid is 4. Albumin is 2. Blood gases 7.39/59/38. White cell count 16.8, hemoglobin 9.2, hematocrit 30, platelets of 287. IMPRESSION: 1. Septic shock. 2. Hypotension. 3. Tachycardia. 4. Respiratory failure. 5. Hypoxemia. 6. Seizure disorder. 7. Hyperlipidemia. 8. Hypernatremia. 9. Acute renal failure. 10. Pulmonary edema. 11. Possible COVID. RECOMMENDATION: 1. Isolation for now. 2. Ventilator support. 3. Taper FiO2. 4. Avoid nebulized therapy. 5. ID evaluation. 6. Empiric antibiotics for fdc-related pneumonia and sepsis. 7. D5W hydration. 8. DVT prophylaxis. 9. Hold antihypertensive. 10. IV Keppra. 11. Seizure monitoring. 12. Monitoring acid-base. 13. Monitor lytes. 14. Monitor protein levels. 15. Feedings when patient is more stable. German Matthews M.D. DR: MELANIE JOB#: [id number] CC: TRACY
[2020-03-05] MEDS ORDERED: ELIQUIS2.5 MG PO (16:32)
--- NOTE | 2020-03-05 17:14 | NUR ---
NURSE NOTES: Called and notified Dr Matthews regarding mild fever and intermediate meds. Orders received, noted, and carried out. Will give Tylenol for temp 100.4 orally.
[2020-03-05] MEDS: Vancomycin 1gm/D5W 275ml IVPB SCH ×2 (17:41)
[2020-03-05] MEDS: Eliquis 2.5mg tablet GT SCH (17:41)
[2020-03-05] MEDS: Acetaminophen 650mg/20.3ml GT PRN ×2 (17:42→23:04)
[2020-03-05] MEDS ORDERED: Eliquis 2.5mg tablet GT SCH (18:00)
[2020-03-05] MEDS: NovoLOG Insulin Flexpen SUBQ SCH ×2 (18:04→23:36)
--- NOTE | 2020-03-05 19:21 | NUR ---
HAND-OFF: Report given to Rohan Camacho RN.
--- NOTE | 2020-03-05 19:51 | NUR ---
NURSE NOTES: PATIENT FLAT RESPONSE, ON ETT TO VENT AC20/TV500/FIO2 100%/PEEP10, O2 SATURATION 100%, HR 100'S/MIN ST, G TUBE INTACT AND PATENT, NPO STATUS, F/C INTACT AND PATENT, OLIGURIA NOTED, TLC TO RIGHT IJ, INTACT ONGOING LEVOPHED 26MCG/MIN, PHENYLEPHRINE 100MCG/MIN AND IV FLUID D5W W/KCL 30MEQ AT 150ML/HR VIA TLC, MADE LOWER BED POSITION, ON BED ALARM AND LOCKED, WILL CONTINUE TO MONITOR.
--- NOTE | 2020-03-05 20:00 | Consultation ---
DATE OF CONSULTATION: 03/05/2020 INFECTIOUS DISEASES CONSULTATION CONSULTING PHYSICIAN: Radha Calle MD. REFERRING PHYSICIAN: German Matthews MD. REASON FOR CONSULTATION: Septic shock. HISTORY OF PRESENTING ILLNESS: This is a 59-year-old gentleman with history of hypertension, hyperlipidemia, hypothyroidism who was transferred from [facility] for decreased O2 saturation. He was recently hospitalized for pneumonia at [facility], now he has been admitted to the ICU at [facility] and intubated and an Infectious Diseases consultation has been obtained for possibility of COVID-19 pneumonia. PAST MEDICAL HISTORY: 1. History of hypertension. 2. Hyperlipidemia. 3. Hypothyroidism. 4. Sleep apnea. 5. CVA. 6. Seizures. SOCIAL HISTORY: Unknown. FAMILY HISTORY: Unknown. REVIEW OF SYSTEMS: Unable to obtain currently. MEDICATIONS: As an inpatient, he is on norepinephrine, phenylephrine, dopamine, levetiracetam, subcutaneous heparin, propofol, IV vancomycin, and Zosyn. ALLERGIES: To hydrocodone noted. PHYSICAL EXAMINATION: VITAL SIGNS: Temperature of 99.7, T-max of 103.2, pulse of 115, respiratory rate 20, blood pressure 107/65, O2 saturation of 99%. Physical examination deferred due to possibility of COVID-19. LABORATORY AND DIAGNOSTIC DATA: White count 16.8, hemoglobin 9.2, hematocrit 30, MCV 91, platelet count 237 with neutrophils of 64%. Sodium 162, potassium 3, chloride 119, bicarb 37, BUN 36, creatinine 1.4, glucose 238, calcium 8.5. Total bilirubin 0.6, AST 31, ALT 27, alkaline phosphatase 129. Total protein 8.4, albumin of 2. UA showing 0 white cells. Chest x-ray is showing increasing right lung volume loss, parenchymal consolidation, and stable large right-sided pleural effusion. ASSESSMENT: This is a 59-year-old gentleman with history of hypertension, hyperlipidemia who comes in with decreasing O2 saturation and is found to have. 1. Pneumonia. Would like to rule out COVID-19 as a possibility. 2. Respiratory failure. 3. Hypertension. 4. CVA. 5. Seizures. 6. Septic shock. PLAN: 1. We will follow up on blood cultures. 2. We will follow up on COVID-19 testing. 3. Continue isolation. 4. We will order sputum for Gram stain and culture. 5. We will start the patient on IV vancomycin and Zosyn. 6. We will start the patient on hydroxychloroquine. 7. We will follow up cultures and adjust antibiotics accordingly. I would like to thank, Dr. Matthews, for this consultation. Radha Calle M.D. DR: PAPO JOB#: [id number] CC: German Matthews M.D.; Fax#: [phone]
[2020-03-05] MEDS: Dyna-Hex 2% Top Sol 2oz TOPIC SCH (20:15)
[2020-03-05] MEDS: Phenytoin Susp 100mg/4ml GT SCH (20:18)
[2020-03-05] MEDS ORDERED: Phenytoin Susp 100mg/4ml GT SCH (21:00)
--- NOTE | 2020-03-05 21:47 | NUR ---
NURSE NOTES: ONGOING LEVOPHED 28MCG/MIN AND PHENYLEPHRINE 140MCG/MIN VIA TLD, BP 95/59MMHG NOTED AT THIS TIME, WILL CONTINUE TO MONITOR.
--- NOTE | 2020-03-05 22:44 | Consultation ---
DATE OF CONSULTATION: 03/05/2020 CONSULTING PHYSICIAN: Raffaele Ocampo M.D. REFERRING PHYSICIAN: German Matthews M.D. REASON FOR CONSULTATION: Hypernatremia and acute kidney injury. HISTORY OF PRESENT ILLNESS: The patient was transferred from [facility] and subsequently developed cardiopulmonary arrest. He is in the ICU. He is a 59-year-old male with a recent hospitalization for pneumonia. He was at [place] recently with a diagnosis of pwopm-ep-btygnbl hypoxemic respiratory failure due to aspiration pneumonia, severe sepsis with organ dysfunction due to decubitus ulcers, DVT in right leg, anemia, epilepsy, hypertension, history of CHF, obstructive sleep apnea, gastrostomy, thrombocytopenia, systolic heart failure, chronic developmental delay, hypothyroid, and hypernatremia. He is now in the ICU, intubated, on pressors. ALLERGIES: Apparently hydrocodone. MEDICATIONS: List from the [facility], which include the following medications; albuterol nebulization, ascorbic acid, Ativan, butenafine cream, carvedilol, folic acid, Keppra, levothyroxine, mineral oil enema, multivitamins, Os-Mukesh, phenytoin, MiraLax, Senokot, Tylenol, vancomycin IV, vitamin D3, Zegerid. SYSTEM REVIEW: The patient is unable. PHYSICAL EXAMINATION: GENERAL: The patient is in the ICU. He is on pressors, 88/50, heart rate 112, respirations 20, FiO2 is 100%, temperature 98.1. HEAD, EYES, EARS, NOSE, AND THROAT: Oral mucosa is dry. He is intubated. LUNGS: Rhonchi. HEART: Regular rhythm. ABDOMEN: Soft. EXTREMITIES: No edema. NEUROLOGIC: He is unresponsive. PERTINENT LABORATORY DATA: On admission, sodium 163, potassium 4.3, chloride 119, CO2 42, BUN 30, creatinine 0.9, glucose 156. CK 105, most recent sodium 162, BUN 36, creatinine 1.4, glucose 238, lactic acid 4. IMPRESSION: 1. Status post cardiopulmonary arrest. 2. Pneumonia. 3. Hypernatremia. 4. Dehydration. 5. Hypokalemia. 6. Acute kidney injury. 7. Aekzrbsg-pp-qnskvd protein-calorie malnutrition. 8. Epilepsy. 9. Shock, likely septic shock, etiology unclear, likely from pneumonia. PLAN: Vigorous hydration, correction of electrolytes. Monitor mental status, pulmonary status, cardiac status. He is a high risk patient. Raffaele Ocampo M.D. DR: Thor JOB#: [id number] CC:
--- NOTE | 2020-03-05 23:20 | NUR ---
NURSE NOTES: GIVEN TYLENOL 650MG VIA G TUBE DUE TO TEMP 100.7F AT 2304PM. COOLING MEASURE WAS DONE, WILL CONTINUE PLAN OF CARE.
[2020-03-06] VITALS (73 sets, daily range): BP systolic 73–164; BP diastolic 40–87
--- NOTE | 2020-03-06 | NUR ---
NURSE NOTES: TEMP 101F NOTED, CONTINUED COOLING MEASURE AT THIS TIME.
--- NOTE | 2020-03-06 02:41 | NUR ---
NURSE NOTES: PATIENT CALM AND ASLEEP STATUS, WILL CONTINUE PLAN OF CARE.
[2020-03-06] MEDS: Phenylephrine 50 MG in D5W 245 ML IV SCH ×3 (03:07→20:00)
[2020-03-06] MEDS: propofoL 1,000mg/100ml 100 ML IV SCH (04:00)
[2020-03-06] MEDS: Norepinephrine Bitartrate 8 MG in D5W 500ml 492 ML IV SCH ×2 (04:59→18:53)
--- NOTE | 2020-03-06 05:00 | NUR ---
NURSE NOTES: MORNING CARE AND ORAL CARE WAS DONE,NO BM STATUS.
--- NOTE | 2020-03-06 05:29 | Consultation ---
DATE OF CONSULTATION: 03/04/2020 CARDIOLOGY CONSULT CONSULTING PHYSICIAN: Yfn Luna MD REFERRING PHYSICIAN: German Matthews MD. REASON FOR CONSULTATION: Shock. HISTORY OF PRESENT ILLNESS: This 59-year-old male who resides at a group home facility, developed cardiopulmonary arrest at the group home facility. He recently was treated for pneumonia and hypoxic respiratory failure due to aspiration pneumonia. He was discharged back to his group home facility but had full arrest prompting this transfer. He is now orally intubated, and mechanically ventilated in the intensive care unit and remains on pressor support. PAST MEDICAL HISTORY: Cerebrovascular disease, multiple decubitus, history of right lower extremity DVT, seizure disorder, anemia of chronic disease and dysphagia with G-tube, systolic congestive heart failure, hypertensive heart disease, sleep apnea, and hypothyroidism. MEDICATIONS: Reviewed and reconciled. ALLERGIES: Include hydrocodone SOCIAL HISTORY: Not known. FAMILY HISTORY: Not known. REVIEW OF SYSTEMS: Not obtainable. PHYSICAL EXAMINATION: GENERAL: Orally intubated. Mechanically ventilated. VITAL SIGNS: Blood pressure 80/50, heart rate 122, respiratory 20, temperature is 98.4. Presently, the patient is on pressor support. HEENT: Conjunctivae pink. Orally intubated. Mucous membranes dry. NECK: Supple. LUNGS: Bilateral rhonchi. CARDIAC: Regular rhythm and rate. Normal S1, S2 with no appreciable murmur. ABDOMEN: Soft and nontender. EXTREMITIES: Revealed no edema. Distal pulses palpable. The peripheral perfusion is slightly diminished. NEUROLOGIC: The patient is unresponsive at this time. LABORATORY DATA: Sodium 163, potassium 4.3, chloride 119, bicarb 42, BUN 30, creatinine 0.9, glucose 156. White count is 16.8, hemoglobin 9.2. ABG yesterday 7.18, 126, 234; today 7.39, 59, 38. Lactic acid is 4. Dilantin level of 6.9. EKG with sinus tachycardia, nonspecific ST-T wave changes. Chest x-ray reveals consolidation and pleural fluid on the right lung worsening since admission. IMPRESSION: 1. Hypovolemic and septic shock. 2. Critical and guarded. 3. Respiratory failure status post full arrest. Severe dehydration, hypernatremia and hypovolemia. 4. Healthcare acquired pneumonia with parapneumonic effusion. 5. Acute myocardial ischemia. 6. Lactic acidosis. 7. History of right lower extremity DVT. RECOMMENDATIONS: Ventilator support, pressor support. PLAN: 1. ICU cardiac monitoring. 2. Hypotonic IV fluids. 3. Pressor support, ventilator support, broad-spectrum antimicrobials. No additional antiarrhythmics. 4. Treatment for COVID-19, may require hydroxychloroquine which would pose an increased risk for arrhythmias in this clinical setting. I would recommend using it without azithromycin if needed. Yfn Luna M.D. DR: HASMUKH JOB#: [id number] CC:
[2020-03-06] MEDS: Vancomycin 1gm/D5W 275ml IVPB SCH ×2 (05:48)
[2020-03-06] MEDS: Piperacillin/Tazobactam 3.375 GM in NS 110 ML IVPB SCH ×3 (05:50→20:20)
[2020-03-06] MEDS: NovoLOG Insulin Flexpen SUBQ SCH ×4 (06:10→23:41)
--- NOTE | 2020-03-06 06:40 | NUR ---
NURSE NOTES: NO ACUTE DISTRESS NOTED AT THIS SHIFT.
--- NOTE | 2020-03-06 07:15 | NUR ---
HAND-OFF: Report given to Zahraa GONCALVES RN.
--- NOTE | 2020-03-06 07:16 | NUR ---
NURSE NOTES: Received patient from MARGARITA Madrigal. patient sleeping with no sign of acute distress. Patient does not open eyes to name but does wrinkle his brow when clench his teeth when cleaning his mouth. blood pressure 159/64. Levophed running at 12mcg/min and phenylephrine reduced to 120mcg/min at this time. Will continue to monitor and titrate per protocol. Patient orally intubated with size 7.0 ET tube with 24cm noted at the lip line. Patient showing normal sinus rhythm on the monitor with 1st degree AV block and frequent PVC. ventilator setting AC 20, tidal volume 500, FiO2 100%, and PEEP 10. Patient tolerating with RR 20 and SpO2 100%. Will titrate FiO2 as tolerated. Patient NPO at this time. patient has a gastrostomy tube that is patent, asymptomatic, and clamped. Patient has dawn for urine retention that is patent, asymptomatic, and draining light jessica urine. Urine collection bottle at the bedside for 24hour urine collection through 1600 today. Will follow up. Multiple wounds noted as follows: thigh/buttocks hyper pigmentation, sacral full thickness pressure injury, right big toe open wound, right/middle back unchangeable wound, right heel open wound, and left heel DTI. All wound dressings dry and intact. Patient has right internal jugular triple lumen catheter that is patent, asymptomatic, and running D5W with 40mEq KCl at 150mL/hr, levophed, and phenylephrine. Patient on bilateral soft wrist restraint as patient witnessed attempting to pull at ET tube. Peripheral pulses present, dependent edema noted, skin intact. Will continue to monitor. Bed in low position with bed alarm on and call light in reach. Oral care and repositioning done.
[2020-03-06 07:52] LABS: HEMATOCRIT 24.8 % (42.0-52.0); HEMOGLOBIN 7.8 G/DL (14.2-18.0); MEAN CORPUSCULAR VOLUME 88 FL (80-99); PLATELET COUNT 178 K/UL (150-450); RED BLOOD COUNT 2.82 M/UL (4.70-6.10); RED CELL DISTRIBUTION WIDTH 17.4 % (11.6-14.8)
[2020-03-06 08:15] LABS: ANION GAP 9 mmol/L (5-15); BLOOD UREA NITROGEN 42 mg/dL (7-18); CALCIUM 8.3 MG/DL (8.5-10.1); CARBON DIOXIDE 29 MMOL/L (21-32); CHLORIDE 111 MMOL/L (98-107); POTASSIUM 3.3 MMOL/L (3.5-5.1); SODIUM 149 MMOL/L (136-145)
--- NOTE | 2020-03-06 08:40 | NUR ---
RD ASSESSMENT & RECOMMENDATIONS SEE CARE ACTIVITY FOR COMPLETE ASSESSMENT DAILY ESTIMATED NEEDS: Needs based on Critical care, wounds 78.6abw 22-30 kcals/kg 8097-9529 total kcals 1.25-2 g protein/kg 98-157 g total protein 25-30 mL/kg 0886-9786 total fluid mLs NUTRITION DIAGNOSIS: Increased kcal and pro needs r/t wound care as evidenced by pt w/ full thickness wounds x2, unstageable wounds x2, refer to WC eval. ENTERAL NUTRITION RECOMMENDATIONS: Glucerna 1.5 @70ml/hr x18 hrs to provide 1260ml, 1890 kcal, 104g pro, 956ml free H2O - When stable rec to initiate GT feeds of Glucerna 1.5. Start @20ml/hr for 6 hrs, advance as tolerated 10ml/hr q4-6 hrs to goal. - HOLD TF 1 HOUR BEFORE AND AFTER SYNTHROID(QD) AND DILANTIN(BID), tf to run a max of 18 hrs - Flush per MD , HOB over 30 degrees WITHOUT HEMODYNAMIC STABILITY: rec trophic feeds of Glucerna 1.5 @5-10ml/hr to maintain gut integrity. ADDITIONAL RECOMMENDATIONS: 1) Wound care: add AJIT BID + Vit C 250mg daily 2) Per SNF: 69inches, 212lbs/96.36kg Maintain calibrated daily wts 3) Feed when hemodynamically stable, do not feed in the prone position
[2020-03-06] MEDS: Acetaminophen 650mg/20.3ml GT PRN ×3 (08:59→20:20)
[2020-03-06] MEDS: levETIRAcetam 500mg/5ml Liquid GT SCH ×2 (08:59→20:18)
[2020-03-06] MEDS: Phenytoin Susp 100mg/4ml GT SCH ×2 (09:00→20:18)
[2020-03-06] MEDS: Eliquis 2.5mg tablet GT SCH (09:04)
--- NOTE | 2020-03-06 09:12 | NUR ---
NURSE NOTES: Spo2 100%. Titrated FiO2 10 90%. Temp 101.2. Tylenol given. Cooling measures applied. WIll continue to monitor.
--- NOTE | 2020-03-06 09:14 | General Progress Note ---
Assessment/Plan Assessment/Plan: IMPRESSION: 1. Septic shock. 2. Hypotension. 3. Tachycardia. 4. Respiratory failure. 5. Hypoxemia. 6. Seizure disorder. 7. Hyperlipidemia. 8. Hypernatremia. 9. Acute renal failure. 10. Pulmonary edema. 11. Possible COVID. 12. pleural effusion PLAN pressors and taper vent as is for now need to tap effusion when able iv antibiotics ID follow up transfuse dietary start feeds off load too ill to wean impression, plan, and exam edited and reviewed in detail care discussed with RN Subjective ROS Limited/Unobtainable: Yes Allergies: Coded Allergies: HYDROCODONE (Verified Allergy, Unknown, 07/04/17) Subjective remains ill on vent on pressors not on feeds Objective Last 24 Hour Vital Signs Date Time Temp Pulse Resp B/P (MAP) Pulse Ox O2 Delivery O2 Flow Rate FiO2 03/06/20 09:02 92 136/50 03/06/20 07:46 96 20 100 03/06/20 07:00 95 20 159/85 (109) 100 03/06/20 07:00 159/85 03/06/20 06:30 93 20 03/06/20 06:30 92 20 135/67 (89) 100 03/06/20 06:15 95 20 141/69 (93) 100 03/06/20 06:00 125/77 03/06/20 06:00 94 20 125/77 (93) 100 03/06/20 05:45 93 22 128/57 (80) 100 03/06/20 05:30 103 20 89/43 (58) 100 03/06/20 05:15 96 21 112/62 (79) 100 03/06/20 05:00 92 20 127/63 (84) 100 03/06/20 05:00 127/63 03/06/20 04:59 147/65 03/06/20 04:45 95 20 147/65 (92) 100 03/06/20 04:30 87 20 131/60 (83) 100 03/06/20 04:00 Mechanical Ventilator 03/06/20 04:00 101/85 03/06/20 04:00 20 101/85 Mechanical Ventilator 100 03/06/20 04:00 98.7 87 20 101/85 (90) 100 03/06/20 04:00 87 03/06/20 03:30 89 20 116/44 (68) 100 03/06/20 03:25 86 20 100 03/06/20 03:15 91 20 120/62 (81) 100 03/06/20 03:07 98 85/51 03/06/20 03:00 96 20 85/51 (62) 100 03/06/20 03:00 85/51 03/06/20 02:30 87 20 122/52 (75) 100 03/06/20 02:00 90 20 116/49 (71) 100 03/06/20 02:00 116/49 03/06/20 01:30 90 20 118/60 (79) 100 03/06/20 01:00 93/82 03/06/20 01:00 96 20 93/82 (86) 100 03/06/20 00:30 99 20 111/63 (79) 100 03/06/20 00:00 103 20 122/62 (82) 100 03/06/20 00:00 103 03/06/20 00:00 Mechanical Ventilator 03/06/20 00:00 122/62 03/05/20 23:34 101.0 03/05/20 23:30 99 20 102/51 (68) 100 03/05/20 23:28 95 20 100 03/05/20 23:04 104/41 03/05/20 23:00 100.7 97 20 104/41 (62) 100 03/05/20 22:30 97 20 97/61 (73) 100 03/05/20 22:00 96 20 94/50 (65) 100 03/05/20 21:30 97 20 101/56 (71) 100 03/05/20 21:15 98 20 88/44 (59) 100 20 21:00 100 20 98/57 (71) 100 03/05/20 21:00 98/57 03/05/20 20:45 100 20 88/56 (67) 100 20 20:45 88/56 5 20:30 76/49 520 20:30 102 20 76/49 (58) 100 03/05/20 20:28 103 20 85/50 (62) 100 03/05/20 20:15 107 97/61 03/05/20 20:15 100.0 106 20 94/57 (69) 100 5/6/20 20:00 107 20 97/61 (73) 100 20 20:00 Mechanical Ventilator 03/05/20 19:45 108 20 92/48 (63) 100 03/05/20 19:30 110 20 92/60 (71) 100 03/05/20 19:18 113 03/05/20 19:10 111 20 100 03/05/20 19:00 112 20 93/62 (72) 100 03/05/20 19:00 87/53 03/05/20 18:30 115 20 92/52 (65) 100 03/05/20 18:15 99.5 03/05/20 18:00 Mechanical Ventilator 03/05/20 18:00 111 20 108/57 (74) 100 03/05/20 18:00 108/57 03/05/20 17:42 105/65 03/05/20 17:30 113 20 105/65 (78) 100 03/05/20 17:15 112 20 100 03/05/20 17:00 115 20 106/56 (73) 100 03/05/20 17:00 95/53 03/05/20 16:30 100.4 114 20 94/65 (75) 100 03/05/20 16:30 119 20 88/63 (71) 100 03/05/20 16:00 Mechanical Ventilator 03/05/20 16:00 105/53 03/05/20 16:00 119 20 88/63 (71) 100 03/05/20 15:47 119 03/05/20 15:45 119 20 86/54 (65) 100 03/05/20 15:30 117 20 92/54 (67) 100 03/05/20 15:27 119 20 100 03/05/20 15:15 119 20 89/45 (60) 100 03/05/20 15:00 89/45 03/05/20 15:00 118 20 82/44 (57) 100 03/05/20 14:45 117 20 84/52 (63) 100 03/05/20 14:30 98.2 114 20 84/46 (59) 100 03/05/20 14:00 98/66 5 14:00 113 20 98/66 (77) 100 03/05/20 13:30 112 20 88/50 (63) 100 03/05/20 13:05 111 20 100 03/05/20 13:00 113 20 95/55 (68) 100 03/05/20 13:00 57/44 03/05/20 12:30 113 20 95/55 (68) 100 03/05/20 12:30 113 20 75/52 (60) 100 03/05/20 12:00 Mechanical Ventilator 03/05/20 12:00 89/60 03/05/20 12:00 110 20 91/54 (66) 100 03/05/20 11:37 108 03/05/20 11:30 98.1 107 21 84/52 (63) 100 03/05/20 11:28 106 20 100 03/05/20 11:15 107 20 87/54 (65) 100 03/05/20 11:15 73/52 03/05/20 11:15 106 73/52 03/05/20 11:00 73/52 03/05/20 11:00 108 20 73/30 (44) 100 03/05/20 10:45 105 20 154/82 (106) 100 03/05/20 10:30 106 20 154/82 (106) 92 03/05/20 10:15 111 20 125/105 (112) 92 03/05/20 10:07 Mechanical Ventilator 03/05/20 10:00 117 20 89/53 (65) 92 03/05/20 10:00 74/40 03/05/20 10:00 100 03/05/20 09:52 115 20 100 03/05/20 09:45 120 19 74/40 (51) 92 03/05/20 09:37 99.7 17 107/65 99 Endotracheal Tube 100 03/05/20 09:33 121 03/05/20 09:30 99.2 117 21 82/38 (53) 84 Intake and Output 03/05/20 03/06/20 19:00 07:00 Intake Total 1967.958 ml 3727.792 ml Output Total 215 ml 330 ml Balance 1752.958 ml 3397.792 ml Intake IV Total 1967.958 ml 3507.792 ml Other 220 ml Output Urine Total 215 ml 330 ml Laboratory Tests 03/05/20 13:18: Lactic Acid Level 3.20H 03/05/20 19:05: Lactic Acid Level 3.40H 03/06/20 05:30: Lactic Acid Level 2.50H, White Blood Count 14.0H, Red Blood Count 2.82L, Hemoglobin 7.8L, Hematocrit 24.8L, Mean Corpuscular Volume 88, Mean Corpuscular Hemoglobin 27.5, Mean Corpuscular Hemoglobin Concent 31.3L, Red Cell Distribution Width 17.4H, Platelet Count 178, Mean Platelet Volume 8.0, Neutrophils (%) (Auto) , Lymphocytes (%) (Auto) , Monocytes (%) (Auto) , Eosinophils (%) (Auto) , Basophils (%) (Auto) , Neutrophils % (Manual) [Pending] , Lymphocytes % (Manual) [Pending], Platelet Estimate [Pending], Platelet Morphology [Pending], Sodium Level 149#H, Potassium Level 3.3L, Chloride Level 111H, Carbon Dioxide Level 29, Anion Gap 9, Blood Urea Nitrogen 42H, Creatinine 2.0H, Estimat Glomerular Filtration Rate 41.3, Glucose Level 213H, Calcium Level 8.3L, Magnesium Level 1.9, Troponin I 0.033 Height (Feet): 6 Height (Inches): 2.00 Weight (Pounds): 186 Objective GENERAL: Ill-appearing male. on vent deferred due to possible COVID German Matthews MD March 06, 2020 09:14
--- NOTE | 2020-03-06 09:27 | Infectious Diseases Prog Note ---
Assessment/Plan Assessment/Plan A: 1. Pneumonia. Would like to rule out COVID-19 as a possibility. 2. Respiratory failure. 3. Hypertension. 4. CVA. 5. Seizures. 6. Septic shock. 7. Anemia PLAN: 1. We will follow up on blood cultures. 2. We will follow up on COVID-19 testing. 3. Continue isolation. 4. We will follow up sputum for Gram stain and culture. 5. We will continue IV vancomycin and Zosyn. 6. We will continue hydroxychloroquine. Subjective ROS Limited/Unobtainable: Yes Constitutional: Reports: fever, other - T=101.2 Allergies: Coded Allergies: HYDROCODONE (Verified Allergy, Unknown, 07/04/17) Objective Vital Signs Last 24 Hour Vital Signs Date Time Temp Pulse Resp B/P (MAP) Pulse Ox O2 Delivery O2 Flow Rate FiO2 03/06/20 09:15 90 03/06/20 09:02 92 136/50 03/06/20 09:00 92 20 130/51 (77) 100 03/06/20 08:45 90 20 136/50 (78) 100 03/06/20 08:30 91 20 113/87 (96) 100 03/06/20 08:15 95 19 149/71 (97) 100 03/06/20 08:00 101.2 96 20 159/64 (95) 100 03/06/20 07:46 96 20 100 03/06/20 07:45 97 20 158/62 (94) 100 03/06/20 07:30 94 18 164/70 (101) 100 03/06/20 07:00 95 20 159/85 (109) 100 03/06/20 07:00 159/85 03/06/20 06:30 93 20 03/06/20 06:30 92 20 135/67 (89) 100 03/06/20 06:15 95 20 141/69 (93) 100 03/06/20 06:00 125/77 03/06/20 06:00 94 20 125/77 (93) 100 03/06/20 05:45 93 22 128/57 (80) 100 03/06/20 05:30 103 20 89/43 (58) 100 03/06/20 05:15 96 21 112/62 (79) 100 03/06/20 05:00 92 20 127/63 (84) 100 03/06/20 05:00 127/63 03/06/20 04:59 147/65 03/06/20 04:45 95 20 147/65 (92) 100 03/06/20 04:30 87 20 131/60 (83) 100 03/06/20 04:00 Mechanical Ventilator 03/06/20 04:00 101/85 03/06/20 04:00 20 101/85 Mechanical Ventilator 100 03/06/20 04:00 98.7 87 20 101/85 (90) 100 03/06/20 04:00 87 03/06/20 03:30 89 20 116/44 (68) 100 03/06/20 03:25 86 20 100 03/06/20 03:15 91 20 120/62 (81) 100 03/06/20 03:07 98 85/51 03/06/20 03:00 96 20 85/51 (62) 100 03/06/20 03:00 85/51 03/06/20 02:30 87 20 122/52 (75) 100 03/06/20 02:00 90 20 116/49 (71) 100 03/06/20 02:00 116/49 03/06/20 01:30 90 20 118/60 (79) 100 03/06/20 01:00 93/82 03/06/20 01:00 96 20 93/82 (86) 100 03/06/20 00:30 99 20 111/63 (79) 100 03/06/20 00:00 103 20 122/62 (82) 100 03/06/20 00:00 103 03/06/20 00:00 Mechanical Ventilator 03/06/20 00:00 122/62 03/05/20 23:34 101.0 03/05/20 23:30 99 20 102/51 (68) 100 03/05/20 23:28 95 20 100 03/05/20 23:04 104/41 03/05/20 23:00 100.7 97 20 104/41 (62) 100 03/05/20 22:30 97 20 97/61 (73) 100 03/05/20 22:00 96 20 94/50 (65) 100 03/05/20 21:30 97 20 101/56 (71) 100 03/05/20 21:15 98 20 88/44 (59) 100 20 21:00 100 20 98/57 (71) 100 5/20 21:00 98/57 520 20:45 100 20 88/56 (67) 100 520 20:45 88/56 520 20:30 76/49 520 20:30 102 20 76/49 (58) 100 20 20:28 103 20 85/50 (62) 100 20 20:15 107 97/61 5 20:15 100.0 106 20 94/57 (69) 100 03/05/20 20:00 107 20 97/61 (73) 100 03/05/20 20:00 Mechanical Ventilator 03/05/20 19:45 108 20 92/48 (63) 100 03/05/20 19:30 110 20 92/60 (71) 100 03/05/20 19:18 113 03/05/20 19:10 111 20 100 03/05/20 19:00 112 20 93/62 (72) 100 03/05/20 19:00 87/53 03/05/20 18:30 115 20 92/52 (65) 100 03/05/20 18:15 99.5 03/05/20 18:00 Mechanical Ventilator 03/05/20 18:00 111 20 108/57 (74) 100 03/05/20 18:00 108/57 03/05/20 17:42 105/65 5 17:30 113 20 105/65 (78) 100 03/05/20 17:15 112 20 100 03/05/20 17:00 115 20 106/56 (73) 100 20 17:00 95/53 20 16:30 100.4 114 20 94/65 (75) 100 03/05/20 16:30 119 20 88/63 (71) 100 03/05/20 16:00 Mechanical Ventilator 03/05/20 16:00 105/53 520 16:00 119 20 88/63 (71) 100 03/05/20 15:47 119 20 15:45 119 20 86/54 (65) 100 03/05/20 15:30 117 20 92/54 (67) 100 03/05/20 15:27 119 20 100 03/05/20 15:15 119 20 89/45 (60) 100 03/05/20 15:00 89/45 03/05/20 15:00 118 20 82/44 (57) 100 03/05/20 14:45 117 20 84/52 (63) 100 03/05/20 14:30 98.2 114 20 84/46 (59) 100 03/05/20 14:00 98/66 03/05/20 14:00 113 20 98/66 (77) 100 03/05/20 13:30 112 20 88/50 (63) 100 03/05/20 13:05 111 20 100 03/05/20 13:00 113 20 95/55 (68) 100 03/05/20 13:00 57/44 03/05/20 12:30 113 20 95/55 (68) 100 03/05/20 12:30 113 20 75/52 (60) 100 03/05/20 12:00 Mechanical Ventilator 03/05/20 12:00 89/60 03/05/20 12:00 110 20 91/54 (66) 100 03/05/20 11:37 108 03/05/20 11:30 98.1 107 21 84/52 (63) 100 03/05/20 11:28 106 20 100 03/05/20 11:15 107 20 87/54 (65) 100 03/05/20 11:15 73/52 03/05/20 11:15 106 73/52 03/05/20 11:00 73/52 03/05/20 11:00 108 20 73/30 (44) 100 03/05/20 10:45 105 20 154/82 (106) 100 03/05/20 10:30 106 20 154/82 (106) 92 03/05/20 10:15 111 20 125/105 (112) 92 03/05/20 10:07 Mechanical Ventilator 03/05/20 10:00 117 20 89/53 (65) 92 03/05/20 10:00 74/40 03/05/20 10:00 100 03/05/20 09:52 115 20 100 03/05/20 09:45 120 19 74/40 (51) 92 03/05/20 09:37 99.7 17 107/65 99 Endotracheal Tube 100 03/05/20 09:33 121 03/05/20 09:30 99.2 117 21 82/38 (53) 84 Height (Feet): 6 Height (Inches): 2.00 Weight (Pounds): 186 HEENT: other - orally intubated Cardiovascular: normal rate Abdomen: soft, non tender Extremities: no edema Neurologic/Psychiatric: unresponsiveness Microbiology Date/Time Source Procedure Growth Status 03/04/20 20:30 Blood Blood Culture - Preliminary NO GROWTH AFTER 24 HOURS Resulted 03/04/20 20:15 Blood Blood Culture - Preliminary NO GROWTH AFTER 24 HOURS Resulted 03/05/20 16:00 Sputum Gram Stain - Final Resulted 03/05/20 16:00 Sputum Sputum Culture Pending Resulted Laboratory Tests Test 03/05/20 13:18 03/05/20 19:05 03/06/20 05:30 Lactic Acid Level 3.20 mmol/L (0.4-2.0) H 3.40 mmol/L (0.4-2.0) H 2.50 mmol/L (0.4-2.0) H White Blood Count 14.0 K/UL (4.8-10.8) H Red Blood Count 2.82 M/UL (4.70-6.10) L Hemoglobin 7.8 G/DL (14.2-18.0) L Hematocrit 24.8 % (42.0-52.0) L Mean Corpuscular Volume 88 FL (80-99) Mean Corpuscular Hemoglobin 27.5 PG (27.0-31.0) Mean Corpuscular Hemoglobin Concent 31.3 G/DL (32.0-36.0) L Red Cell Distribution Width 17.4 % (11.6-14.8) H Platelet Count 178 K/UL (150-450) Mean Platelet Volume 8.0 FL (6.5-10.1) Neutrophils (%) (Auto) % (45.0-75.0) Lymphocytes (%) (Auto) % (20.0-45.0) Monocytes (%) (Auto) % (1.0-10.0) Eosinophils (%) (Auto) % (0.0-3.0) Basophils (%) (Auto) % (0.0-2.0) Neutrophils % (Manual) Pending Lymphocytes % (Manual) Pending Platelet Estimate Pending Platelet Morphology Pending Sodium Level 149 MMOL/L (136-145) #H Potassium Level 3.3 MMOL/L (3.5-5.1) L Chloride Level 111 MMOL/L (98-107) H Carbon Dioxide Level 29 MMOL/L (21-32) Anion Gap 9 mmol/L (5-15) Blood Urea Nitrogen 42 mg/dL (7-18) H Creatinine 2.0 MG/DL (0.55-1.30) H Estimat Glomerular Filtration Rate 41.3 mL/min (>60) Glucose Level 213 MG/DL (74-106) H Calcium Level 8.3 MG/DL (8.5-10.1) L Magnesium Level 1.9 MG/DL (1.8-2.4) Troponin I 0.033 ng/mL (0.000-0.056) Current Medications Medications (Trade) Dose Ordered Sig/Kolby Route PRN Reason Start Time Stop Time Status Last Admin Dose Admin Acetaminophen (Tylenol) 650 mg Q4H PRN GT Temp >100.5 03/05/20 16:45 04/04/20 16:44 03/06/20 08:59 Apixaban (Eliquis) 5 mg BID GT 03/05/20 18:00 06/03/20 17:59 03/06/20 09:04 Chlorhexidine Gluconate (Brandy-Hex 2%) 1 applic DAILY@2000 TOPIC 03/05/20 20:00 06/03/20 19:59 03/05/20 20:15 Dextrose (Dextrose 50%) 25 ml Q30M PRN IV Hypoglycemia 03/05/20 14:00 06/03/20 13:59 Dextrose (Dextrose 50%) 50 ml Q30M PRN IV Hypoglycemia 03/05/20 14:00 06/03/20 13:59 Dopamine HCl/ Dextrose 250 ml @ 0 mls/hr Q24H IV 03/05/20 10:14 06/03/20 10:13 Hydroxychloroquine Sulfate (Plaquenil) 200 mg Q12HR ORAL 03/06/20 09:00 04/05/20 08:59 03/06/20 09:03 Insulin Aspart (NovoLOG) EVERY 6 HOURS SUBQ 03/05/20 18:00 06/03/20 17:59 03/06/20 06:10 Levetiracetam (Keppra) 1,500 mg Q12HR GT 03/05/20 11:45 04/04/20 11:44 03/06/20 08:59 Levothyroxine Sodium (Synthroid) 75 mcg ACBREAKFAST GT 03/06/20 06:30 04/05/20 06:29 03/06/20 05:48 Norepinephrine Bitartrate 8 mg/ Dextrose 500 ml @ 0 mls/hr Q24H IV 03/05/20 10:30 04/04/20 10:14 03/06/20 04:59 Phenylephrine HCl 50 mg/Dextrose 250 ml @ 0 mls/hr Q24H IV 03/05/20 10:15 04/04/20 10:14 03/06/20 09:02 Phenytoin (Dilantin) 250 mg Q12HR GT 03/05/20 21:00 04/04/20 20:59 03/06/20 09:00 Piperacillin Sod/ Tazobactam Sod 3.375 gm/Sodium Chloride 110 ml @ 27.5 mls/hr EVERY 8 HOURS IVPB 03/05/20 14:00 03/10/20 13:59 03/06/20 05:50 Potassium Chloride 30 meq/ Dextrose 1,015 ml @ 150 mls/hr Q6H46M IV 03/05/20 15:00 04/04/20 14:59 03/06/20 04:58 Propofol 100 ml @ 0 mls/hr Q24H IV 03/05/20 04:00 03/07/20 03:59 03/05/20 04:18 Vancomycin HCl (Vanco rx to dose) 1 ea DAILY PRN MISC Per rx protocol 03/05/20 11:15 04/04/20 11:14 Vancomycin HCl 1 gm/Dextrose 275 ml @ 183.708 mls/hr Q12H IVPB 03/05/20 18:00 03/10/20 17:59 03/06/20 05:48 Xavi Earl MD March 06, 2020 09:27
--- NOTE | 2020-03-06 09:48 | NUR ---
RADIOLOGY DEPT., CHEST X-RAY DONE.-P.DYE
[2020-03-06] MEDS: DOPamine 400mg/250ml 250 ML IV SCH (10:08)
--- NOTE | 2020-03-06 10:59 | NUR ---
NURSE NOTES: Temperature now 99.8. Cooling measures remain in place. Will continue to monitor.
--- NOTE | 2020-03-06 12:00 | NUR ---
NURSE NOTES: Patient alert to name. Patient able to answer simple yes/no question by nodding and shaking head. blood pressure 103/52 on Levophed running at 10mcg/min and phenylephrine reduced to 120mcg/min at this time. Will continue to monitor and titrate per protocol. Patient showing normal sinus rhythm on the monitor with 1st degree AV block and frequent PVC. Patient remains orally intubated ventilator setting AC 20, tidal volume 500, FiO2 90%, and PEEP 10. Patient tolerating with RR 20 and SpO2 100%. Patient NPO at this time. Nutrition consult ordered. Awaiting recommendation. Gastrostomy tube patent, asymptomatic, and clamped. Penaloza patent, asymptomatic, and draining light jessica urine. All wound dressings dry and intact. Right internal jugular triple lumen catheter patent, asymptomatic, and running D5W with 40mEq KCl at 100mL/hr, levophed, and phenylephrine. bilateral soft wrist restraint remain in place. Peripheral pulses present, dependent edema noted, skin intact. Will continue to monitor. Bed in low position with bed alarm on and call light in reach. Oral care and repositioning done.
--- NOTE | 2020-03-06 12:08 | Diagnostic Imaging Report ---
Indication: Dyspnea Technique: One view of the chest Comparison: 03/05/2020 Findings: There is improved aeration of the right lung. There is decreased consolidation at the right lung. However, right pleural fluid and some basilar consolidation persists. There is current development of pleural fluid on the left. The heart size is normal. Stable satisfactory positions of endotracheal tube and right jugular central venous catheter. Impression: New left pleural effusion Improved aeration of the right lung, with persistent consolidation and pleural fluid
--- NOTE | 2020-03-06 12:40 | Nephrology Progress Note ---
Assessment/Plan Problem List: (1) Hypernatremia (2) ACE (acute kidney injury) (3) Cardiopulmonary arrest (4) Respiratory acidosis (5) Seizure disorder (6) Altered mental status (7) Pneumonia (8) Sepsis Plan iv adjusted, grafve prognosis Subjective ROS Limited/Unobtainable: Yes Objective Objective Last 24 Hour Vital Signs Date Time Temp Pulse Resp B/P (MAP) Pulse Ox O2 Delivery O2 Flow Rate FiO2 03/06/20 12:30 120/59 03/06/20 12:00 Mechanical Ventilator 03/06/20 11:30 85 20 114/55 (74) 100 03/06/20 11:15 89 20 119/55 (76) 100 03/06/20 11:13 83 20 100 03/06/20 11:00 114/55 03/06/20 11:00 85 20 102/57 (72) 100 03/06/20 10:45 85 20 115/51 (72) 100 03/06/20 10:30 86 20 101/46 (64) 100 03/06/20 10:15 88 20 102/54 (70) 100 03/06/20 10:08 103/52 03/06/20 10:07 88 20 100 03/06/20 10:00 89 20 103/52 (69) 100 03/06/20 09:45 92 20 115/61 (79) 100 03/06/20 09:30 90 20 113/58 (76) 100 03/06/20 09:29 100.0 03/06/20 09:15 90 03/06/20 09:15 100.0 92 20 140/52 (81) 100 03/06/20 09:02 92 136/50 03/06/20 09:00 92 20 130/51 (77) 100 03/06/20 08:45 90 20 136/50 (78) 100 03/06/20 08:30 91 20 113/87 (96) 100 03/06/20 08:15 95 19 149/71 (97) 100 03/06/20 08:00 Mechanical Ventilator 03/06/20 08:00 101.2 96 20 159/64 (95) 100 03/06/20 07:46 96 20 100 03/06/20 07:45 97 20 158/62 (94) 100 03/06/20 07:30 94 18 164/70 (101) 100 03/06/20 07:00 95 20 159/85 (109) 100 03/06/20 07:00 159/85 03/06/20 06:30 93 20 03/06/20 06:30 92 20 135/67 (89) 100 03/06/20 06:15 95 20 141/69 (93) 100 03/06/20 06:00 125/77 03/06/20 06:00 94 20 125/77 (93) 100 03/06/20 05:45 93 22 128/57 (80) 100 03/06/20 05:30 103 20 89/43 (58) 100 03/06/20 05:15 96 21 112/62 (79) 100 03/06/20 05:00 92 20 127/63 (84) 100 03/06/20 05:00 127/63 03/06/20 04:59 147/65 03/06/20 04:45 95 20 147/65 (92) 100 03/06/20 04:30 87 20 131/60 (83) 100 03/06/20 04:00 Mechanical Ventilator 03/06/20 04:00 101/85 03/06/20 04:00 20 101/85 Mechanical Ventilator 100 03/06/20 04:00 98.7 87 20 101/85 (90) 100 03/06/20 04:00 87 03/06/20 03:30 89 20 116/44 (68) 100 03/06/20 03:25 86 20 100 03/06/20 03:15 91 20 120/62 (81) 100 03/06/20 03:07 98 85/51 03/06/20 03:00 96 20 85/51 (62) 100 03/06/20 03:00 85/51 03/06/20 02:30 87 20 122/52 (75) 100 03/06/20 02:00 90 20 116/49 (71) 100 03/06/20 02:00 116/49 03/06/20 01:30 90 20 118/60 (79) 100 03/06/20 01:00 93/82 03/06/20 01:00 96 20 93/82 (86) 100 03/06/20 00:30 99 20 111/63 (79) 100 03/06/20 00:00 103 20 122/62 (82) 100 03/06/20 00:00 103 5 00:00 Mechanical Ventilator 03/06/20 00:00 122/62 5 23:30 99 20 102/51 (68) 100 03/05/20 23:28 95 20 100 20 23:04 104/41 5 23:00 100.7 97 20 104/41 (62) 100 03/05/20 22:30 97 20 97/61 (73) 100 03/05/20 22:00 96 20 94/50 (65) 100 20 21:30 97 20 101/56 (71) 100 20 21:15 98 20 88/44 (59) 100 03/05/20 21:00 100 20 98/57 (71) 100 03/05/20 21:00 98/57 20 20:45 100 20 88/56 (67) 100 03/05/20 20:45 88/56 03/05/20 20:30 76/49 03/05/20 20:30 102 20 76/49 (58) 100 20 20:28 103 20 85/50 (62) 100 20 20:15 107 97/61 03/05/20 20:15 100.0 106 20 94/57 (69) 100 03/05/20 20:00 107 20 97/61 (73) 100 20 20:00 Mechanical Ventilator 03/05/20 19:45 108 20 92/48 (63) 100 03/05/20 19:30 110 20 92/60 (71) 100 03/05/20 19:18 113 03/05/20 19:10 111 20 100 03/05/20 19:00 112 20 93/62 (72) 100 03/05/20 19:00 87/53 03/05/20 18:30 115 20 92/52 (65) 100 03/05/20 18:15 99.5 03/05/20 18:00 Mechanical Ventilator 03/05/20 18:00 111 20 108/57 (74) 100 20 18:00 108/57 03/05/20 17:42 105/65 5 17:30 113 20 105/65 (78) 100 03/05/20 17:15 112 20 100 03/05/20 17:00 115 20 106/56 (73) 100 03/05/20 17:00 95/53 03/05/20 16:30 100.4 114 20 94/65 (75) 100 03/05/20 16:30 119 20 88/63 (71) 100 03/05/20 16:00 Mechanical Ventilator 03/05/20 16:00 105/53 03/05/20 16:00 119 20 88/63 (71) 100 03/05/20 15:47 119 03/05/20 15:45 119 20 86/54 (65) 100 03/05/20 15:30 117 20 92/54 (67) 100 03/05/20 15:27 119 20 100 03/05/20 15:15 119 20 89/45 (60) 100 03/05/20 15:00 89/45 03/05/20 15:00 118 20 82/44 (57) 100 03/05/20 14:45 117 20 84/52 (63) 100 03/05/20 14:30 98.2 114 20 84/46 (59) 100 03/05/20 14:00 98/66 03/05/20 14:00 113 20 98/66 (77) 100 03/05/20 13:30 112 20 88/50 (63) 100 03/05/20 13:05 111 20 100 03/05/20 13:00 113 20 95/55 (68) 100 03/05/20 13:00 57/44 Intake and Output 03/05/20 03/06/20 19:00 07:00 Intake Total 1967.958 ml 3727.792 ml Output Total 215 ml 330 ml Balance 1752.958 ml 3397.792 ml Intake IV Total 1967.958 ml 3507.792 ml Other 220 ml Output Urine Total 215 ml 330 ml Laboratory Tests 03/05/20 13:18: Lactic Acid Level 3.20H 03/05/20 19:05: Lactic Acid Level 3.40H 03/06/20 05:30: Lactic Acid Level 2.50H, White Blood Count 14.0H, Red Blood Count 2.82L, Hemoglobin 7.8L, Hematocrit 24.8L, Mean Corpuscular Volume 88, Mean Corpuscular Hemoglobin 27.5, Mean Corpuscular Hemoglobin Concent 31.3L, Red Cell Distribution Width 17.4H, Platelet Count 178, Mean Platelet Volume 8.0, Neutrophils (%) (Auto) , Lymphocytes (%) (Auto) , Monocytes (%) (Auto) , Eosinophils (%) (Auto) , Basophils (%) (Auto) , Differential Total Cells Counted 100, Neutrophils % (Manual) 64, Lymphocytes % (Manual) 24, Monocytes % ( Manual) 4, Eosinophils % (Manual) 8H, Basophils % (Manual) 0, Band Neutrophils 0 , Platelet Estimate Adequate, Platelet Morphology Normal, Hypochromasia 3+, Anisocytosis 1+, Sodium Level 149#H, Potassium Level 3.3L, Chloride Level 111H, Carbon Dioxide Level 29, Anion Gap 9, Blood Urea Nitrogen 42H, Creatinine 2.0H, Estimat Glomerular Filtration Rate 41.3, Glucose Level 213H, Calcium Level 8.3L , Magnesium Level 1.9, Troponin I 0.033 03/06/20 09:30: Arterial Blood pH 7.493H, Arterial Blood Partial Pressure CO2 36.2, Arterial Blood Partial Pressure O2 224.7H, Arterial Blood HCO3 27.2H, Arterial Blood Oxygen Saturation 99.0, Arterial Blood Base Excess 3.7H, Chandan Test Positive Height (Feet): 6 Height (Inches): 2.00 Weight (Pounds): 186 General Appearance: other - intubated on 2 pressors Cardiovascular: regular rhythm Respiratory/Chest: rhonchi - bilaterally Abdomen: soft Extremities: no edema Neurologic: unresponsive Raffaele Ocampo MD March 06, 2020 12:40
--- NOTE | 2020-03-06 14:00 | NUR ---
NURSE NOTES: Patient blood pressure 114/58 on levophed at 10mcg/min and phenylephrine at 80mcg/min at this time. Patient continues to have fever. Tylenol will continue to be given as ordered. Cooling measures in place. Patient repositioned.
--- NOTE | 2020-03-06 14:22 | NUR ---
*-* INSURANCE *-* UPDATED CLINICALS HAVE BEEN FAXED TO: Ron Ref# [id number] # [phone] fax# [phone]
--- NOTE | 2020-03-06 15:51 | NUR ---
CASE MANAGEMENT: REVIEW 03/06/2020 SI:SEPSIS. AMS. VS: T 100 HR 92 RR 20 B/P 140/52 SATS 100% ON MECH VENT FIO2 100 LABS: WBC 14 HGB 7.8 HCT 24.8 NA 149 K 3.3 CL 111 BUN 42 CR 2 [id number] CA 8.3 LACTIC ACID 2.5 ABGs PH 7.493 PO2 224.7 HCO3 27.2 BE 3.7 IS:KCL @ 100 ML/HR INSULIN ASPART SUBQ Q6H ZOSYN IV Q8H ELIQUIS GT BID KEPPRA GT Q12H DILANTIN GT Q12H PLAQUENIL PO Q12H PROPOFOL IV PER PARAMETERS DOPAMINE IV Q24H PHENYLEPHRINE IV PER PARAMETERS LEVOPHED PER PARAMETERS CXR Impression: New left pleural effusion, persistent consolidation and pleural fluid ICU PLAN OF CARE: VENOUS DUPLEX WOUND CARE need to tap effusion when able
--- NOTE | 2020-03-06 16:00 | NUR ---
NURSE NOTES: Patient alert to name. Patient able to answer simple yes/no question by nodding and shaking head. blood pressure 108/58 on Levophed running at 10mcg/min and phenylephrine reduced to 80mcg/min at this time. Will continue to monitor and titrate per protocol. Patient showing normal sinus rhythm on the monitor with 1st degree AV block and frequent PVC. Patient remains orally intubated ventilator setting AC 20, tidal volume 500, FiO2 80%, and PEEP 10. Patient tolerating with RR 20 and SpO2 100%. Gastrostomy tube patent, asymptomatic, and running glucerna 1.5 at 10mL/hr at this time with no residual. Penaloza patent, asymptomatic, and draining light jessica urine. All wound dressings dry and intact. Right internal jugular triple lumen catheter patent, asymptomatic, and running D5W with 40mEq KCl at 100mL/hr, levophed, and phenylephrine. bilateral soft wrist restraint remain in place. Peripheral pulses present, dependent edema noted, skin intact. Will continue to monitor. Bed in low position with bed alarm on and call light in reach. Oral care and repositioning done.
--- NOTE | 2020-03-06 18:00 | NUR ---
NURSE NOTES: Temperature 98.6. Cooling measures remain in place. Will continue to monitor. Patient repositioned.
--- NOTE | 2020-03-06 18:35 | Consultation ---
History of Present Illness General Date patient seen: March 06, 2020 Chief Complaint: Altered Mental Status Present Illness HPI 59 year old male retirement resident with multiple medical comorbidities presented to [facility] for evaluation of respiratory distress. intubated and admitted to the ICU. surgery called to evaluate and assist with care. abnormal labs. sepsis. imaging noted, multiple decubitus, malnutrition Allergies: Coded Allergies: HYDROCODONE (Verified Allergy, Unknown, 07/04/17) Medication History Scheduled Apixaban (Eliquis), 2.5 MG PO BID, (Reported) Ascorbic Acid* (Ascorbic Acid*), 500 MG GT DAILY, (Reported) Butenafine Hcl (Lotrimin Ultra), 12 GM TP DAILY, (Reported) Calcium Carbonate/Vitamin D3 (Oyster Shell 500 Mg + Vit D Tb), 1 EACH GT BID, ( Reported) Carvedilol (Coreg), 3.125 MG GT EVERY 12 HOURS, (Reported) Cholecalciferol (Vitamin D3) (Vitamin D3), 1,000 UNIT GT DAILY, (Reported) Folic Acid* (Folic Acid*), 400 MCG GT DAILY, (Reported) Levetiracetam (Keppra), 15 ML GT TWICE A DAY, (Reported) Levothyroxine Sodium* (Levothyroxine Sodium*), 75 MCG GT DAILY, (Reported) Lorazepam* (Ativan*), 1 MG IM Q4H, (Reported) Mineral Oil (Mineral Oil Enema), 133 ML RC EVERY 48HOURS, (Reported) Phenytoin (Phenytoin), 125 MG GT BID, (Reported) Polyethylene Glycol 3350* (Polyethylene Glycol 3350*), 17 GM GT DAILY, (Reported ) Sennosides (Senokot), 17.2 MG GT DAILY, (Reported) Simvastatin (Zocor), 20 MG GT BEDTIME, (Reported) Vancomycin Hcl (Vancomycin Hcl), 1.25 GM IV EVERY 18 HOURS, (Reported) Scheduled PRN Acetaminophen* (Acetaminophen 325MG Tablet*), 650 MG GT Q4H PRN for Mild Pain ( Pain Scale 1-3), (Reported) Albuterol Sulfate* (Albuterol Sulfate Hhn*), 3 ML INH Q4H PRN for Shortness of Breath, (Reported) Miscellaneous Medications Omeprazole/Sodium Bicarbonate (Zegerid 20 Mg Capsule), 20 MG GT, (Reported) Discontinued Medications Apixaban (Eliquis), 5 MG PO BID, (Reported) Discontinued Reason: Medication dose changed Aspirin* (Aspir 81*), 81 MG ORAL DAILY, (Reported) Discontinued Reason: Medication dose changed Bisacodyl* (Dulcolax*), 10 MG RECTAL DAILY PRN for Constipation, (Reported) Discontinued Reason: Medication dose changed Calcium Carbonate (Calcium Carbonate), 1,250 MG PO BID, (Reported) Discontinued Reason: Medication dose changed Carvedilol* (Carvedilol*), 3.125 MG ORAL EVERY 12 HOURS, (Reported) Discontinued Reason: Medication dose changed Cholecalciferol (Vitamin D3)* (Vitamin D*), 1,000 UNITS ORAL TWICE A DAY, ( Reported) Discontinued Reason: Medication dose changed Dextromethorphan Hb/Doxylamine (Robitussin Nighttime Cough Dm), 10 ML PO Q6HR PRN for For Cough, (Reported) Discontinued Reason: Medication dose changed Docusate Sodium* (Docusate Sodium*), 200 MG ORAL TWICE A DAY, (Reported) Discontinued Reason: Medication dose changed Folic Acid* (Folic Acid*), 0.4 MG ORAL DAILY, (Reported) Discontinued Reason: Medication dose changed Folic Acid* (Folic Acid*), 400 ORAL DAILY, (Reported) Discontinued Reason: Medication dose changed Levetiracetam (Keppra), 1,500 MG ORAL BID, (Reported) Discontinued Reason: Medication dose changed Levothyroxine Sodium* (Levothyroxine Sodium*), 75 MCG ORAL DAILY, (Reported) Discontinued Reason: Medication dose changed Levothyroxine Sodium* (Levothyroxine Sodium*), 75 MCG ORAL DAILY, (Reported) Discontinued Reason: Medication dose changed Mineral Oil (Mineral Oil Enema), 133 ML RC DAILY PRN for Constipation, (Reported ) Discontinued Reason: Medication dose changed Multivitamin With Minerals (Multivitamins With Minerals*), 1 TAB ORAL DAILY, ( Reported) Discontinued Reason: Medication dose changed Phenobarbital* (Phenobarbital*), 15 ML ORAL Q12HR, (Reported) Discontinued Reason: Medication dose changed Phenytoin Sodium Extended* (Dilantin*), 125 MG ORAL TWICE A DAY, (Reported) Discontinued Reason: Medication dose changed Sennosides (Senna), 17.2 MG PO QHS PRN for Constipation, (Reported) Discontinued Reason: Medication dose changed Simvastatin (Zocor), 20 MG ORAL BEDTIME, (Reported) Discontinued Reason: Medication dose changed Sorbitol (Sorbitol), 30 ML PO Q6HR PRN for Constipation, (Reported) Discontinued Reason: Medication dose changed Patient History Limited by: medical condition History Provided By: Medical Record, PMD Healthcare decision maker Resuscitation status Advanced Directive on File Past Medical/Surgical History Past Medical/Surgical History: (1) Respiratory acidosis (2) Seizure disorder (3) Altered mental status (4) Pneumonia (5) Cardiopulmonary arrest (6) Hypernatremia (7) Sepsis (8) ACE (acute kidney injury) Review of Systems ROS Narrative cannot obtain given medical condition Physical Exam General Appearance: moderate distress Lines, tubes and drains: central line HEENT: mucous membranes moist Neck: other Respiratory/Chest: on vent Cardiovascular/Chest: tachycardia Abdomen: soft, no organomegaly, no mass, abnormal bowel sounds Extremities: non-tender Skin Exam: warm/dry Neurologic: unresponsiveness Last 24 Hour Vital Signs Date Time Temp Pulse Resp B/P (MAP) Pulse Ox O2 Delivery O2 Flow Rate FiO2 03/06/20 17:37 99 20 108/61 (77) 100 03/06/20 17:00 101 20 103/55 (71) 100 03/06/20 16:33 118 24 80 03/06/20 16:30 109 20 111/81 (91) 100 03/06/20 16:14 112 03/06/20 16:00 113 20 126/66 (86) 99 03/06/20 15:30 99 20 123/46 (71) 100 03/06/20 15:24 89 20 100 03/06/20 15:16 100.1 03/06/20 15:00 88 20 123/63 (83) 100 03/06/20 14:30 86 20 121/51 (74) 100 03/06/20 14:00 114/58 03/06/20 14:00 89 20 90/64 (73) 100 03/06/20 13:45 86 20 111/60 (77) 100 03/06/20 13:30 85 20 108/48 (68) 100 03/06/20 13:27 86 20 100 03/06/20 13:15 87 20 117/54 (75) 100 03/06/20 13:00 89 20 116/54 (74) 100 03/06/20 13:00 117/54 03/06/20 12:45 87 20 109/57 (74) 100 03/06/20 12:30 83 20 120/59 (79) 100 03/06/20 12:30 120/59 03/06/20 12:15 81 20 100/55 (70) 100 03/06/20 12:00 Mechanical Ventilator 03/06/20 12:00 84 03/06/20 12:00 100/55 03/06/20 12:00 99.6 82 20 119/57 (77) 100 03/06/20 11:45 83 20 110/53 (72) 100 03/06/20 11:30 85 20 114/55 (74) 100 03/06/20 11:15 89 20 119/55 (76) 100 03/06/20 11:13 83 20 100 03/06/20 11:00 114/55 03/06/20 11:00 85 20 102/57 (72) 100 03/06/20 10:45 85 20 115/51 (72) 100 03/06/20 10:30 86 20 101/46 (64) 100 03/06/20 10:15 88 20 102/54 (70) 100 03/06/20 10:08 103/52 03/06/20 10:07 88 20 100 03/06/20 10:00 89 20 103/52 (69) 100 03/06/20 10:00 103/52 03/06/20 09:45 92 20 115/61 (79) 100 03/06/20 09:30 90 20 113/58 (76) 100 03/06/20 09:15 90 03/06/20 09:15 100.0 92 20 140/52 (81) 100 03/06/20 09:02 92 136/50 03/06/20 09:00 130/51 03/06/20 09:00 92 20 130/51 (77) 100 03/06/20 08:45 90 20 136/50 (78) 100 03/06/20 08:30 91 20 113/87 (96) 100 03/06/20 08:15 95 19 149/71 (97) 100 03/06/20 08:00 Mechanical Ventilator 03/06/20 08:00 99 03/06/20 08:00 159/64 03/06/20 08:00 101.2 96 20 159/64 (95) 100 03/06/20 07:46 96 20 100 03/06/20 07:45 97 20 158/62 (94) 100 03/06/20 07:30 94 18 164/70 (101) 100 03/06/20 07:00 95 20 159/85 (109) 100 03/06/20 07:00 159/85 03/06/20 06:30 93 20 03/06/20 06:30 92 20 135/67 (89) 100 03/06/20 06:15 95 20 141/69 (93) 100 03/06/20 06:00 125/77 03/06/20 06:00 94 20 125/77 (93) 100 03/06/20 05:45 93 22 128/57 (80) 100 03/06/20 05:30 103 20 89/43 (58) 100 03/06/20 05:15 96 21 112/62 (79) 100 03/06/20 05:00 92 20 127/63 (84) 100 03/06/20 05:00 127/63 03/06/20 04:59 147/65 03/06/20 04:45 95 20 147/65 (92) 100 03/06/20 04:30 87 20 131/60 (83) 100 03/06/20 04:00 Mechanical Ventilator 03/06/20 04:00 101/85 03/06/20 04:00 20 101/85 Mechanical Ventilator 100 03/06/20 04:00 98.7 87 20 101/85 (90) 100 03/06/20 04:00 87 03/06/20 03:30 89 20 116/44 (68) 100 03/06/20 03:25 86 20 100 03/06/20 03:15 91 20 120/62 (81) 100 03/06/20 03:07 98 85/51 03/06/20 03:00 96 20 85/51 (62) 100 03/06/20 03:00 85/51 03/06/20 02:30 87 20 122/52 (75) 100 03/06/20 02:00 90 20 116/49 (71) 100 03/06/20 02:00 116/49 03/06/20 01:30 90 20 118/60 (79) 100 03/06/20 01:00 93/82 03/06/20 01:00 96 20 93/82 (86) 100 03/06/20 00:30 99 20 111/63 (79) 100 03/06/20 00:00 103 20 122/62 (82) 100 03/06/20 00:00 103 03/06/20 00:00 Mechanical Ventilator 03/06/20 00:00 122/62 03/05/20 23:30 99 20 102/51 (68) 100 03/05/20 23:28 95 20 100 03/05/20 23:04 104/41 03/05/20 23:00 100.7 97 20 104/41 (62) 100 03/05/20 22:30 97 20 97/61 (73) 100 03/05/20 22:00 96 20 94/50 (65) 100 03/05/20 21:30 97 20 101/56 (71) 100 03/05/20 21:15 98 20 88/44 (59) 100 03/05/20 21:00 100 20 98/57 (71) 100 03/05/20 21:00 98/57 03/05/20 20:45 100 20 88/56 (67) 100 03/05/20 20:45 88/56 03/05/20 20:30 76/49 03/05/20 20:30 102 20 76/49 (58) 100 03/05/20 20:28 103 20 85/50 (62) 100 03/05/20 20:15 107 97/61 03/05/20 20:15 100.0 106 20 94/57 (69) 100 03/05/20 20:00 107 20 97/61 (73) 100 03/05/20 20:00 Mechanical Ventilator 03/05/20 19:45 108 20 92/48 (63) 100 03/05/20 19:30 110 20 92/60 (71) 100 03/05/20 19:18 113 03/05/20 19:10 111 20 100 03/05/20 19:00 112 20 93/62 (72) 100 03/05/20 19:00 87/53 Intake and Output 03/05/20 03/06/20 19:00 07:00 Intake Total 1967.958 ml 3727.792 ml Output Total 215 ml 330 ml Balance 1752.958 ml 3397.792 ml Intake IV Total 1967.958 ml 3507.792 ml Other 220 ml Output Urine Total 215 ml 330 ml Laboratory Tests Test 03/05/20 19:05 03/06/20 05:30 03/06/20 09:30 03/06/20 13:00 Lactic Acid Level 3.40 mmol/L (0.4-2.0) H 2.50 mmol/L (0.4-2.0) H 3.20 mmol/L (0.4-2.0) H White Blood Count 14.0 K/UL (4.8-10.8) H Red Blood Count 2.82 M/UL (4.70-6.10) L Hemoglobin 7.8 G/DL (14.2-18.0) L Hematocrit 24.8 % (42.0-52.0) L Mean Corpuscular Volume 88 FL (80-99) Mean Corpuscular Hemoglobin 27.5 PG (27.0-31.0) Mean Corpuscular Hemoglobin Concent 31.3 G/DL (32.0-36.0) L Red Cell Distribution Width 17.4 % (11.6-14.8) H Platelet Count 178 K/UL (150-450) Mean Platelet Volume 8.0 FL (6.5-10.1) Neutrophils (%) (Auto) % (45.0-75.0) Lymphocytes (%) (Auto) % (20.0-45.0) Monocytes (%) (Auto) % (1.0-10.0) Eosinophils (%) (Auto) % (0.0-3.0) Basophils (%) (Auto) % (0.0-2.0) Differential Total Cells Counted 100 Neutrophils % (Manual) 64 % (45-75) Lymphocytes % (Manual) 24 % (20-45) Monocytes % (Manual) 4 % (1-10) Eosinophils % (Manual) 8 % (0-3) H Basophils % (Manual) 0 % (0-2) Band Neutrophils 0 % (0-8) Platelet Estimate Adequate Platelet Morphology Normal Hypochromasia 3+ Anisocytosis 1+ Sodium Level 149 MMOL/L (136-145) #H Potassium Level 3.3 MMOL/L (3.5-5.1) L Chloride Level 111 MMOL/L (98-107) H Carbon Dioxide Level 29 MMOL/L (21-32) Anion Gap 9 mmol/L (5-15) Blood Urea Nitrogen 42 mg/dL (7-18) H Creatinine 2.0 MG/DL (0.55-1.30) H Estimat Glomerular Filtration Rate 41.3 mL/min (>60) Glucose Level 213 MG/DL (74-106) H Calcium Level 8.3 MG/DL (8.5-10.1) L Magnesium Level 1.9 MG/DL (1.8-2.4) Troponin I 0.033 ng/mL (0.000-0.056) Arterial Blood pH 7.493 (7.350-7.450) Arterial Blood Partial Pressure CO2 36.2 mmHg (35.0-45.0) Arterial Blood Partial Pressure O2 224.7 mmHg (75.0-100.0) H Arterial Blood HCO3 27.2 mmol/L (22.0-26.0) H Arterial Blood Oxygen Saturation 99.0 % (95-100) Arterial Blood Base Excess 3.7 (-2-2) H Chandan Test Positive Test 03/06/20 14:57 03/06/20 16:50 Urine Random Sodium Pending Urine Creatinine Pending Lactic Acid Level 2.90 mmol/L (0.4-2.0) H Vancomycin Level Trough 23.9 ug/mL (5.0-12.0) H Height (Feet): 6 Height (Inches): 2.00 Weight (Pounds): 186 Medications Current Medications Medications (Trade) Dose Ordered Sig/Kolby Route PRN Reason Start Time Stop Time Status Last Admin Dose Admin Acetaminophen (Tylenol) 650 mg Q4H PRN GT Temp >100.5 03/05/20 16:45 04/04/20 16:44 03/06/20 14:46 Apixaban (Eliquis) 5 mg BID GT 03/06/20 18:00 06/03/20 17:59 Chlorhexidine Gluconate (Brandy-Hex 2%) 1 applic DAILY@2000 TOPIC 03/05/20 20:00 06/03/20 19:59 03/05/20 20:15 Dextrose (Dextrose 50%) 25 ml Q30M PRN IV Hypoglycemia 03/05/20 14:00 06/03/20 13:59 Dextrose (Dextrose 50%) 50 ml Q30M PRN IV Hypoglycemia 03/05/20 14:00 06/03/20 13:59 Dopamine HCl/ Dextrose 250 ml @ 0 mls/hr Q24H IV 03/05/20 10:14 06/03/20 10:13 Hydroxychloroquine Sulfate (Plaquenil) 200 mg Q12HR ORAL 03/06/20 09:00 04/05/20 08:59 03/06/20 09:03 Insulin Aspart (NovoLOG) EVERY 6 HOURS SUBQ 03/05/20 18:00 06/03/20 17:59 03/06/20 12:32 Levetiracetam (Keppra) 1,500 mg Q12HR GT 03/05/20 11:45 04/04/20 11:44 03/06/20 08:59 Levothyroxine Sodium (Synthroid) 75 mcg ACBREAKFAST GT 03/06/20 06:30 04/05/20 06:29 03/06/20 05:48 Norepinephrine Bitartrate 8 mg/ Dextrose 500 ml @ 0 mls/hr Q24H IV 03/05/20 10:30 04/04/20 10:14 03/06/20 04:59 Phenylephrine HCl 50 mg/Dextrose 250 ml @ 0 mls/hr Q24H IV 03/05/20 10:15 04/04/20 10:14 03/06/20 09:02 Phenytoin (Dilantin) 250 mg Q12HR GT 03/05/20 21:00 04/04/20 20:59 03/06/20 09:00 Piperacillin Sod/ Tazobactam Sod 3.375 gm/Sodium Chloride 110 ml @ 27.5 mls/hr EVERY 8 HOURS IVPB 03/05/20 14:00 03/10/20 13:59 03/06/20 14:45 Potassium Chloride 30 meq/ Dextrose 1,015 ml @ 100 mls/hr Q10H9M IV 03/06/20 13:00 04/05/20 12:59 03/06/20 13:26 Propofol 100 ml @ 0 mls/hr Q24H IV 03/05/20 04:00 03/07/20 03:59 03/05/20 04:18 Vancomycin HCl (Vanco rx to dose) 1 ea DAILY PRN MISC Per rx protocol 03/05/20 11:15 04/04/20 11:14 Assessment/Plan Problem List: (1) Respiratory acidosis ICD Codes: E87.2 - Acidosis SNOMED: 48619915 (2) Seizure disorder ICD Codes: G40.909 - Epilepsy, unspecified, not intractable, without status epilepticus SNOMED: 243055831 (3) Altered mental status ICD Codes: R41.82 - Altered mental status, unspecified SNOMED: 832441099 (4) Pneumonia ICD Codes: J18.9 - Pneumonia, unspecified organism SNOMED: 616526709 (5) Cardiopulmonary arrest ICD Codes: I46.9 - Cardiac arrest, cause unspecified SNOMED: 759424767 (6) Hypernatremia ICD Codes: E87.0 - Hyperosmolality and hypernatremia SNOMED: 069403767 (7) Sepsis Assessment & Plan: Pt presented on admission with multiple pressure injuries. Unstageable Pressure injury R Buttocks. Base of wound is 100% necrotic. Sacrum, R and L Gluteal cheeks maroon with multiple partial thickness wounds with surrounding denuded and macerated skin. Dry, black borders noted Unstageable pressure injury R thoracic. Base of wound is 100% necrotic but dry. No erythema induration or fluctuance periwound. Full thickness stage 3 pressure injury R heel. Base of wound is beefy red with macerated borders. periwound is necrotic and fluctuant. Full thickness stage 3 pressure injury R Hallux. Base of wound is beefy red with surrounding pink granulation. Dry black borders noted. Loose dry eschar noted to L heel. Hyperpigmentation noted to R and L lateral Malleoli. unlikely etiology of sepsis will monitor Tx.Plan: Cleanse Sacral area with Saline.Apply Therahoney. Apply Moisture Barrier Paste periwound. Cover with Optifoam drsgs. Change Daily and Prn. Cleanse wound R thoracic with Saline. Apply TheraHoney. Apply Cavilon Skin Barrier Periwound. Cover with Optifoam drsg.Change every 3 days and prn. Cleanse wound R heel with Saline. Apply TheraHoney. Apply Cavilon Skin Barrier Periwound. Cover with Optifoam drsg. Change every 3 days and prn. Cleanse R Hallux with Saline. Apply Therahoney. Apply Cavilon Skin Barrier Periwound. Cover with Optifoam drsg. Change every 3 days and prn. Apply Cavilon Skin Barrier to L Heel. Cover with Optifoam drsg. Change every 7 days and prn. Reposition at least every 2hours or as tolerated. Place Pillow between knees. Off-load heels with Pillow. APM/NORM Mattress overlay. ICD Codes: A41.9 - Sepsis, unspecified organism SNOMED: 67063180 (8) ACE (acute kidney injury) ICD Codes: N17.9 - Acute kidney failure, unspecified SNOMED: 8439348, [id number] Gary Vicente March 06, 2020 18:35
[2020-03-06] MEDS: Eliquis 5mg tablet GT SCH (18:52)
--- NOTE | 2020-03-06 19:29 | NUR ---
HAND-OFF: Report given to MARGARITA guerin.
--- NOTE | 2020-03-06 20:00 | NUR ---
NURSE NOTES: Received patient from MARGARITA Katz. patient sleeping with no sign of acute distress. Open eyes spontaneously and to name but does wrinkle his brow when clench his teeth when cleaning his mouth. Levophed running at 12mcg/min and phenylephrine at 60mcg/min at this time. Will continue to monitor and titrate per protocol. Patient orally intubated with size 7.0 ET tube with 24cm noted at the lip line. Patient showing normal sinus rhythm on the monitor with 1st degree AV block and frequent PVC. ventilator setting AC 20, tidal volume 500, FiO2 100%, and PEEP 10. Patient tolerating with RR 20 and SpO2 100%. Will titrate FiO2 as tolerated. Patient has a gastrostomy tube that is patent, asymptomatic, currently receiving Glucerna 1.5 at 10ml/hr with goal of 70ml/hr when hemodynamically stable. Patient has dawn for urine retention that is patent, asymptomatic, and draining light jessica urine. Multiple wounds noted as follows: thigh/buttocks hyper pigmentation, sacral full thickness pressure injury, right big toe open wound, right/middle back unchangeable wound, right heel open wound, and left heel DTI. All wound dressings dry and intact. Patient has right internal jugular triple lumen catheter that is patent, asymptomatic, and running D5W with 30mEq KCl at 100mL/hr, levophed, and phenylephrine. Patient on bilateral soft wrist restraint as patient witnessed attempting to pull at ET tube. Peripheral pulses present, dependent edema noted, skin intact. Will continue to monitor. Bed in low position with bed alarm on and call light in reach. Oral care and repositioning done.
[2020-03-06] MEDS: Dyna-Hex 2% Top Sol 2oz TOPIC SCH (20:17)
--- NOTE | 2020-03-06 22:00 | NUR ---
NURSE NOTES: Patient repositioned and oral care. NAD at this time, titrating pressors according to protocol.
[2020-03-07] VITALS (57 sets, daily range): BP systolic 85–139; BP diastolic 44–84
--- NOTE | 2020-03-07 00:20 | NUR ---
NURSE NOTES: Repositioned patient, oral care provided and suctioned patient. Temperature is 99.5F. Cooling measures provided. Pressors ongoing. Breathing pattern normal, pulses noted. Will continue to monitor.
--- NOTE | 2020-03-07 02:00 | NUR ---
NURSE NOTES: Repositioned and oral care provided, slowly titrating pressings according to protocol.
[2020-03-07] MEDS: Acetaminophen 650mg/20.3ml GT PRN (02:56)
--- NOTE | 2020-03-07 04:00 | NUR ---
NURSE NOTES: Patients temperature now is 101F. Cooling measures continue. Patient was given a cooling bath and Tylenol 650mg already given earlier. Patient had large BM soft/diarrhea. Pressors slowly being titrated down according to unit protocol. Blood drawn and sent to lab.
--- NOTE | 2020-03-07 04:44 | Progress Note ---
DATE: 03/06/2020 CARDIOLOGY PROGRESS NOTE SUBJECTIVE: The patient remains in the intensive care unit. Condition remains critical. Prognosis guarded. The patient is status post cardiopulmonary arrest. Since the patient remains on pressors, which has been tapered. He is on full ventilator support. OBJECTIVE: VITAL SIGNS: Blood pressure 91/47, temperature 90, respiratory rate 20, afebrile, T-max is 100. HEENT: Thin secretions from the endotracheal tube. LUNGS: Bilateral breath sounds with rhonchi. HEART: Regular rhythm. Rapid rate. Normal S1, S2. ABDOMEN: Soft. EXTREMITIES: Trace edema. LABORATORY DATA: White count 14, hemoglobin 7.8, ABG 7.49, 36, 224. Urinalysis with no white cells. Lactic acids still remaining elevated at 3.2. Troponin 0.033. Sodium 149, potassium 3.3, chloride 111, bicarb 29, BUN 42, and creatinine 2. IMPRESSION: 1. Status post full arrest. 2. Severe anemia. 3. Respiratory failure. 4. Shock due to sepsis and hypovolemia. 5. Severe dehydration. 6. Acute respiratory acidosis, resolved. 7. Lactic acidosis. 8. Dehydration. 9. Hyponatremia. 10. Hypokalemia. 11. Hyperchloremia. 12. Acute renal failure. 13. Severe protein-calorie malnutrition. 14. Acute myocardial ischemia, resolving. 15. Healthcare acquired pneumonia with parapneumonic effusion. PLAN: 1. Pressor support with taper. 2. Hypotonic IV fluids. 3. Potassium replacement. 4. Recheck magnesium. 5. Ventilator support wean as able. 6. Antimicrobials. 7. Respiratory hygiene. 8. Await sputum cultures. 9. Await COVID-19 results. 10. DVT and stress ulcer prophylaxis. Once pressors are tapered off, may be able to consider thoracentesis. Yfn Luna M.D. DR: Franck JOB#: [id number] CC:
[2020-03-07 05:46] LABS: HEMATOCRIT 21.7 % (42.0-52.0); MEAN CORPUSCULAR VOLUME 87 FL (80-99); PLATELET COUNT 155 K/UL (150-450); RED CELL DISTRIBUTION WIDTH 17.2 % (11.6-14.8); WHITE BLOOD COUNT 15.9 K/UL (4.8-10.8)
--- NOTE | 2020-03-07 06:00 | NUR ---
NURSE NOTES: Temperature now is 100.0. Patient had another BM right now, patient was given cooling bath and repositioned and suctioned. New Levophed and neosineprhine hung
[2020-03-07] MEDS: Phenylephrine 50 MG in D5W 245 ML IV SCH (06:01)
[2020-03-07] MEDS: Norepinephrine Bitartrate 8 MG in D5W 500ml 492 ML IV SCH (06:01)
[2020-03-07] MEDS: Piperacillin/Tazobactam 3.375 GM in NS 110 ML IVPB SCH ×3 (06:01→21:19)
[2020-03-07] MEDS: NovoLOG Insulin Flexpen SUBQ SCH ×3 (06:02→18:41)
[2020-03-07 06:26] LABS: ANION GAP 13 mmol/L (5-15); BLOOD UREA NITROGEN 34 mg/dL (7-18); CALCIUM 8.5 MG/DL (8.5-10.1); CARBON DIOXIDE 26 MMOL/L (21-32); CHLORIDE 107 MMOL/L (98-107); CREATININE 1.7 MG/DL (0.55-1.30); POTASSIUM 3.1 MMOL/L (3.5-5.1); SODIUM 146 MMOL/L (136-145)
--- NOTE | 2020-03-07 07:04 | NUR ---
HAND-OFF: Report given to Yfn AVILA.
[2020-03-07 07:09] LABS: CREATINE KINASE 3007 U/L (26-308)
--- NOTE | 2020-03-07 08:55 | NUR ---
NURSE NOTES: Lactic acid collected and sent to laboratory for analysis.
--- NOTE | 2020-03-07 09:30 | NUR ---
CASE MANAGEMENT: REVIEW 03/07/2020 SI:SEPSIS. AMS. VS: T 99.5 HR 92 RR 20 B/P 93/54 SATS 100% ON MECH VENT FIO2 40 LABS: WBC 15.9 HGB 7 HCT 21.7 NA 146 K 3.1 BUN 34 CR 1.7 GLU 196 LACTIC ACID 2.7 TOTAL CK 3007 IS:KCL @ 100 ML/HR INSULIN ASPART SUBQ Q6H ZOSYN IV Q8H ELIQUIS GT BID KEPPRA GT Q12H VANCO IV QD DILANTIN GT Q12H PLAQUENIL PO Q12H DOPAMINE IV Q24H PHENYLEPHRINE IV PER PARAMETERS LEVOPHED PER PARAMETERS ICU PLAN OF CARE: TAPER PRESSORS VENOUS DUPLEX WOUND CARE need to tap effusion when pressors are tapered Ventilator support wean as able Antimicrobials Respiratory hygiene
[2020-03-07] MEDS: levETIRAcetam 500mg/5ml Liquid GT SCH ×2 (10:04→21:18)
[2020-03-07] MEDS: Eliquis 5mg tablet GT SCH ×2 (10:04→18:43)
[2020-03-07] MEDS: Phenytoin Susp 100mg/4ml GT SCH ×2 (10:05→21:19)
[2020-03-07] MEDS: DOPamine 400mg/250ml 250 ML IV SCH (10:14)
--- NOTE | 2020-03-07 10:15 | NUR ---
NURSE NOTES: Dr. Matthews updated on patient respiratory status no verbal orders given at this time. patient remains on Levophed at 60mcg/min and phenylephrine at 60mcg/min.
--- NOTE | 2020-03-07 11:05 | Infectious Diseases Prog Note ---
Assessment/Plan Assessment/Plan antibiotics : vancomycin iv, zosyn, hydroxychloroquine A 1. gram negative pneumonia on Fi O2 40 percent, PEEP 10, saturation 98 percent 2. COVID 19 test negative x 1 3. respiratory failure 4. renal failure 5. shock 6. hypertension 7. seizures 8. leucocytosis P 1. continue zosyn 2. d/c iv vancomycin 3. d/c hydroxychloroquine 4. will follow up cultures Subjective ROS Limited/Unobtainable: Yes Allergies: Coded Allergies: HYDROCODONE (Verified Allergy, Unknown, 07/04/17) Objective Vital Signs Last 24 Hour Vital Signs Date Time Temp Pulse Resp B/P (MAP) Pulse Ox O2 Delivery O2 Flow Rate FiO2 03/07/20 10:14 109/59 03/07/20 09:09 84 20 40 03/07/20 08:53 95 03/07/20 08:30 84 20 97/61 (73) 100 03/07/20 08:00 40 03/07/20 08:00 Mechanical Ventilator 03/07/20 08:00 99.5 92 20 93/54 (67) 100 03/07/20 07:30 83 20 101/51 (68) 100 03/07/20 07:01 83 20 93/52 (66) 100 03/07/20 07:00 93/52 03/07/20 07:00 78 20 40 03/07/20 06:30 82 20 94/54 (67) 100 03/07/20 06:30 81 20 03/07/20 06:01 106/50 03/07/20 06:01 86 106/50 03/07/20 06:00 100.0 84 20 93/51 (65) 100 03/07/20 05:30 84 20 94/51 (65) 100 03/07/20 05:00 86 20 91/51 (64) 100 03/07/20 05:00 106/50 03/07/20 04:45 86 20 87/51 (63) 100 03/07/20 04:30 87 20 90/52 (65) 100 03/07/20 04:15 91 20 85/49 (61) 100 03/07/20 04:00 84 03/07/20 04:00 110/63 03/07/20 04:00 Mechanical Ventilator 03/07/20 04:00 101.0 91 20 95/45 (62) 100 03/07/20 03:45 97 20 101/54 (70) 100 03/07/20 03:30 95 20 103/54 (70) 100 03/07/20 03:26 101.0 03/07/20 03:25 96 19 109/61 (77) 100 03/07/20 03:18 98 23 40 03/07/20 03:15 95 20 94/52 (66) 100 03/07/20 03:00 100/56 03/07/20 03:00 102.0 99 22 97/50 (66) 100 03/07/20 02:45 100 19 112/84 (93) 99 03/07/20 02:30 94 18 99/53 (68) 99 03/07/20 02:15 86 20 92/47 (62) 100 03/07/20 02:00 91 20 95/44 (61) 100 03/07/20 02:00 99/47 03/07/20 01:30 89 20 94/49 (64) 100 03/07/20 01:00 92/45 03/07/20 01:00 89 20 98/54 (69) 100 03/07/20 00:36 90 20 40 03/07/20 00:30 86 20 90/49 (63) 100 03/07/20 00:00 99.5 85 20 94/47 (63) 100 03/07/20 00:00 89/46 03/07/20 00:00 Mechanical Ventilator 03/07/20 00:00 89 03/06/20 23:31 86 20 40 03/06/20 23:30 86 20 96/51 (66) 100 03/06/20 23:00 90 21 93/48 (63) 100 03/06/20 23:00 88/45 03/06/20 22:30 85 20 95/47 (63) 100 03/06/20 22:00 88 20 91/46 (61) 100 03/06/20 22:00 89/49 03/06/20 21:45 90 20 91/47 (62) 100 03/06/20 21:30 92 21 87/41 (56) 100 03/06/20 21:15 92 20 73/42 (52) 100 03/06/20 21:09 84 20 50 03/06/20 21:00 100/55 5/7/20 21:00 93 20 86/40 (55) 100 03/06/20 20:45 96 20 83/42 (56) 100 03/06/20 20:30 99.7 91 20 102/55 (71) 100 03/06/20 20:25 89 19 101/51 (68) 100 03/06/20 20:15 87 20 104/61 (75) 100 03/06/20 20:00 86 03/06/20 20:00 100.0 89 20 100/58 (72) 100 03/06/20 20:00 109/52 03/06/20 20:00 89 99/67 03/06/20 20:00 Mechanical Ventilator 03/06/20 19:46 89 20 50 03/06/20 19:45 85 20 113/61 (78) 100 03/06/20 19:30 87 20 113/66 (82) 100 03/06/20 19:00 88 20 99/67 (78) 100 03/06/20 19:00 100/59 03/06/20 18:53 98/66 03/06/20 18:52 108/61 03/06/20 18:45 98.6 91 18 98/66 (77) 100 03/06/20 18:30 94 20 88/45 (59) 100 03/06/20 18:00 108/61 03/06/20 18:00 96 20 86/54 (65) 100 03/06/20 17:37 99 20 108/61 (77) 100 03/06/20 17:00 101 20 103/55 (71) 100 03/06/20 17:00 114/68 03/06/20 16:33 118 24 80 03/06/20 16:30 109 20 111/81 (91) 100 03/06/20 16:14 112 03/06/20 16:00 113 20 126/66 (86) 99 03/06/20 16:00 108/58 03/06/20 16:00 Mechanical Ventilator 03/06/20 15:30 99 20 123/46 (71) 100 03/06/20 15:24 89 20 100 03/06/20 15:00 123/63 03/06/20 15:00 88 20 123/63 (83) 100 03/06/20 14:30 86 20 121/51 (74) 100 03/06/20 14:00 114/58 03/06/20 14:00 89 20 90/64 (73) 100 03/06/20 13:45 86 20 111/60 (77) 100 03/06/20 13:30 85 20 108/48 (68) 100 03/06/20 13:27 86 20 100 03/06/20 13:15 87 20 117/54 (75) 100 03/06/20 13:00 89 20 116/54 (74) 100 03/06/20 13:00 117/54 03/06/20 12:45 87 20 109/57 (74) 100 03/06/20 12:30 83 20 120/59 (79) 100 03/06/20 12:30 120/59 03/06/20 12:15 81 20 100/55 (70) 100 03/06/20 12:00 Mechanical Ventilator 03/06/20 12:00 84 03/06/20 12:00 100/55 03/06/20 12:00 99.6 82 20 119/57 (77) 100 03/06/20 11:45 83 20 110/53 (72) 100 03/06/20 11:30 85 20 114/55 (74) 100 03/06/20 11:15 89 20 119/55 (76) 100 03/06/20 11:13 83 20 100 Height (Feet): 6 Height (Inches): 2.00 Weight (Pounds): 184 HEENT: other - intubated Microbiology Date/Time Source Procedure Growth Status 03/04/20 20:30 Blood Blood Culture - Preliminary NO GROWTH AFTER 48 HOURS Resulted 03/04/20 20:15 Blood Blood Culture - Preliminary NO GROWTH AFTER 48 HOURS Resulted 03/05/20 18:30 Nasal Nares MRSA Culture - Final Staphylococcus Aureus - Mrsa Complete 03/05/20 16:00 Sputum Gram Stain - Final Resulted 03/05/20 16:00 Sputum Culture - Preliminary Gram Negative Bacillus 1 Gram Negative Bacillus 2 Resulted 03/04/20 20:25 Nasopharynx Coronavirus COVID-19 PCR ([facility]IE) - Final Complete 03/05/20 18:30 Rectal Mucosa VRE Culture - Final Enterococcus Faecalis - Vre Complete Laboratory Tests Test 03/06/20 13:00 03/06/20 14:57 03/06/20 16:50 03/07/20 04:30 Lactic Acid Level 3.20 mmol/L (0.4-2.0) H 2.90 mmol/L (0.4-2.0) H 2.70 mmol/L (0.4-2.0) H Urine Random Sodium Pending Urine Creatinine Pending Vancomycin Level Trough 23.9 ug/mL (5.0-12.0) H White Blood Count 15.9 K/UL (4.8-10.8) H Red Blood Count 2.50 M/UL (4.70-6.10) L Hemoglobin 7.0 G/DL (14.2-18.0) L Hematocrit 21.7 % (42.0-52.0) L Mean Corpuscular Volume 87 FL (80-99) Mean Corpuscular Hemoglobin 28.0 PG (27.0-31.0) Mean Corpuscular Hemoglobin Concent 32.2 G/DL (32.0-36.0) Red Cell Distribution Width 17.2 % (11.6-14.8) H Platelet Count 155 K/UL (150-450) Mean Platelet Volume 8.7 FL (6.5-10.1) Neutrophils (%) (Auto) % (45.0-75.0) Lymphocytes (%) (Auto) % (20.0-45.0) Monocytes (%) (Auto) % (1.0-10.0) Eosinophils (%) (Auto) % (0.0-3.0) Basophils (%) (Auto) % (0.0-2.0) Differential Total Cells Counted 100 Neutrophils % (Manual) 68 % (45-75) Lymphocytes % (Manual) 19 % (20-45) L Monocytes % (Manual) 3 % (1-10) Eosinophils % (Manual) 10 % (0-3) H Basophils % (Manual) 0 % (0-2) Band Neutrophils 0 % (0-8) Platelet Estimate Adequate Platelet Morphology Normal Hypochromasia 3+ Anisocytosis 1+ Sodium Level 146 MMOL/L (136-145) H Potassium Level 3.1 MMOL/L (3.5-5.1) L Chloride Level 107 MMOL/L (98-107) Carbon Dioxide Level 26 MMOL/L (21-32) Anion Gap 13 mmol/L (5-15) Blood Urea Nitrogen 34 mg/dL (7-18) H Creatinine 1.7 MG/DL (0.55-1.30) H Estimat Glomerular Filtration Rate 49.9 mL/min (>60) Glucose Level 196 MG/DL (74-106) H Uric Acid 6.3 MG/DL (2.6-7.2) Calcium Level 8.5 MG/DL (8.5-10.1) Magnesium Level 2.1 MG/DL (1.8-2.4) Total Creatine Kinase 3007 U/L (26-308) H Random Vancomycin Level 17.8 ug/mL Test 03/07/20 09:00 Lactic Acid Level 2.60 mmol/L (0.4-2.0) H Current Medications Medications (Trade) Dose Ordered Sig/Kolby Route PRN Reason Start Time Stop Time Status Last Admin Dose Admin Acetaminophen (Tylenol) 650 mg Q4H PRN GT Temp >100.5 03/05/20 16:45 04/04/20 16:44 03/07/20 02:56 Apixaban (Eliquis) 5 mg BID GT 03/06/20 18:00 06/03/20 17:59 03/07/20 10:04 Chlorhexidine Gluconate (Brandy-Hex 2%) 1 applic DAILY@2000 TOPIC 03/05/20 20:00 06/03/20 19:59 03/06/20 20:17 Dextrose (Dextrose 50%) 25 ml Q30M PRN IV Hypoglycemia 03/05/20 14:00 06/03/20 13:59 Dextrose (Dextrose 50%) 50 ml Q30M PRN IV Hypoglycemia 03/05/20 14:00 06/03/20 13:59 Dopamine HCl/ Dextrose 250 ml @ 0 mls/hr Q24H IV 03/05/20 10:14 06/03/20 10:13 Insulin Aspart (NovoLOG) EVERY 6 HOURS SUBQ 03/05/20 18:00 06/03/20 17:59 03/07/20 06:02 Levetiracetam (Keppra) 1,500 mg Q12HR GT 03/05/20 11:45 04/04/20 11:44 03/07/20 10:04 Levothyroxine Sodium (Synthroid) 75 mcg ACBREAKFAST GT 03/06/20 06:30 04/05/20 06:29 03/07/20 06:00 Norepinephrine Bitartrate 8 mg/ Dextrose 500 ml @ 0 mls/hr Q24H IV 03/05/20 10:30 04/04/20 10:14 03/07/20 06:01 Phenylephrine HCl 50 mg/Dextrose 250 ml @ 0 mls/hr Q24H IV 03/05/20 10:15 04/04/20 10:14 03/07/20 06:01 Phenytoin (Dilantin) 250 mg Q12HR GT 03/05/20 21:00 04/04/20 20:59 03/07/20 10:05 Piperacillin Sod/ Tazobactam Sod 3.375 gm/Sodium Chloride 110 ml @ 27.5 mls/hr EVERY 8 HOURS IVPB 03/05/20 14:00 03/10/20 13:59 03/07/20 06:01 Potassium Chloride 30 meq/ Dextrose 1,015 ml @ 100 mls/hr Q10H9M IV 03/06/20 13:00 04/05/20 12:59 03/07/20 10:04 Vancomycin HCl (Vanco rx to dose) 1 ea DAILY PRN MISC Per rx protocol 03/05/20 11:15 04/04/20 11:14 Vancomycin HCl 1 gm/Dextrose 275 ml @ 183.708 mls/hr ONCE IVPB 03/07/20 15:00 03/07/20 17:00 Radha Calle MD March 07, 2020 11:05
--- NOTE | 2020-03-07 11:18 | NUR ---
INSURANCE PROGRESS NOTE AND REVIEW HAVE BEEN FAXED TO: Ron Ref# [id number] # [phone] fax# [phone]
--- NOTE | 2020-03-07 11:59 | Nephrology Progress Note ---
Assessment/Plan Problem List: (1) Hypernatremia (2) ACE (acute kidney injury) (3) Cardiopulmonary arrest (4) Respiratory acidosis (5) Seizure disorder (6) Altered mental status (7) Pneumonia (8) Sepsis Plan iv adjusted, kcl, grave prognosis Subjective ROS Limited/Unobtainable: Yes Objective Objective Last 24 Hour Vital Signs Date Time Temp Pulse Resp B/P (MAP) Pulse Ox O2 Delivery O2 Flow Rate FiO2 03/07/20 10:14 109/59 03/07/20 09:09 84 20 40 03/07/20 08:53 95 03/07/20 08:30 84 20 97/61 (73) 100 03/07/20 08:00 40 03/07/20 08:00 Mechanical Ventilator 03/07/20 08:00 99.5 92 20 93/54 (67) 100 03/07/20 07:30 83 20 101/51 (68) 100 03/07/20 07:01 83 20 93/52 (66) 100 03/07/20 07:00 93/52 03/07/20 07:00 78 20 40 03/07/20 06:30 82 20 94/54 (67) 100 03/07/20 06:30 81 20 03/07/20 06:01 106/50 03/07/20 06:01 86 106/50 03/07/20 06:00 100.0 84 20 93/51 (65) 100 03/07/20 05:30 84 20 94/51 (65) 100 03/07/20 05:00 86 20 91/51 (64) 100 03/07/20 05:00 106/50 03/07/20 04:45 86 20 87/51 (63) 100 03/07/20 04:30 87 20 90/52 (65) 100 03/07/20 04:15 91 20 85/49 (61) 100 03/07/20 04:00 84 03/07/20 04:00 110/63 03/07/20 04:00 Mechanical Ventilator 03/07/20 04:00 101.0 91 20 95/45 (62) 100 03/07/20 03:45 97 20 101/54 (70) 100 03/07/20 03:30 95 20 103/54 (70) 100 03/07/20 03:26 101.0 03/07/20 03:25 96 19 109/61 (77) 100 03/07/20 03:18 98 23 40 03/07/20 03:15 95 20 94/52 (66) 100 03/07/20 03:00 100/56 03/07/20 03:00 102.0 99 22 97/50 (66) 100 03/07/20 02:45 100 19 112/84 (93) 99 03/07/20 02:30 94 18 99/53 (68) 99 03/07/20 02:15 86 20 92/47 (62) 100 03/07/20 02:00 91 20 95/44 (61) 100 03/07/20 02:00 99/47 03/07/20 01:30 89 20 94/49 (64) 100 03/07/20 01:00 92/45 03/07/20 01:00 89 20 98/54 (69) 100 03/07/20 00:36 90 20 40 03/07/20 00:30 86 20 90/49 (63) 100 03/07/20 00:00 99.5 85 20 94/47 (63) 100 03/07/20 00:00 89/46 03/07/20 00:00 Mechanical Ventilator 03/07/20 00:00 89 03/06/20 23:31 86 20 40 03/06/20 23:30 86 20 96/51 (66) 100 03/06/20 23:00 90 21 93/48 (63) 100 03/06/20 23:00 88/45 03/06/20 22:30 85 20 95/47 (63) 100 03/06/20 22:00 88 20 91/46 (61) 100 03/06/20 22:00 89/49 03/06/20 21:45 90 20 91/47 (62) 100 03/06/20 21:30 92 21 87/41 (56) 100 03/06/20 21:15 92 20 73/42 (52) 100 03/06/20 21:09 84 20 50 03/06/20 21:00 100/55 03/06/20 21:00 93 20 86/40 (55) 100 03/06/20 20:45 96 20 83/42 (56) 100 03/06/20 20:30 99.7 91 20 102/55 (71) 100 03/06/20 20:25 89 19 101/51 (68) 100 03/06/20 20:15 87 20 104/61 (75) 100 03/06/20 20:00 86 03/06/20 20:00 100.0 89 20 100/58 (72) 100 03/06/20 20:00 109/52 03/06/20 20:00 89 99/67 03/06/20 20:00 Mechanical Ventilator 03/06/20 19:46 89 20 50 03/06/20 19:45 85 20 113/61 (78) 100 03/06/20 19:30 87 20 113/66 (82) 100 03/06/20 19:00 88 20 99/67 (78) 100 03/06/20 19:00 100/59 03/06/20 18:53 98/66 03/06/20 18:52 108/61 03/06/20 18:45 98.6 91 18 98/66 (77) 100 03/06/20 18:30 94 20 88/45 (59) 100 03/06/20 18:00 108/61 03/06/20 18:00 96 20 86/54 (65) 100 03/06/20 17:37 99 20 108/61 (77) 100 03/06/20 17:00 101 20 103/55 (71) 100 03/06/20 17:00 114/68 03/06/20 16:33 118 24 80 03/06/20 16:30 109 20 111/81 (91) 100 03/06/20 16:14 112 03/06/20 16:00 113 20 126/66 (86) 99 03/06/20 16:00 108/58 03/06/20 16:00 Mechanical Ventilator 03/06/20 15:30 99 20 123/46 (71) 100 03/06/20 15:24 89 20 100 03/06/20 15:00 123/63 03/06/20 15:00 88 20 123/63 (83) 100 03/06/20 14:30 86 20 121/51 (74) 100 03/06/20 14:00 114/58 03/06/20 14:00 89 20 90/64 (73) 100 03/06/20 13:45 86 20 111/60 (77) 100 03/06/20 13:30 85 20 108/48 (68) 100 03/06/20 13:27 86 20 100 03/06/20 13:15 87 20 117/54 (75) 100 03/06/20 13:00 89 20 116/54 (74) 100 03/06/20 13:00 117/54 03/06/20 12:45 87 20 109/57 (74) 100 03/06/20 12:30 83 20 120/59 (79) 100 03/06/20 12:30 120/59 03/06/20 12:15 81 20 100/55 (70) 100 03/06/20 12:00 Mechanical Ventilator 03/06/20 12:00 84 03/06/20 12:00 100/55 03/06/20 12:00 99.6 82 20 119/57 (77) 100 Intake and Output 03/06/20 03/07/20 19:00 07:00 Intake Total 2345.25 ml 2037.5 ml Output Total 1200 ml 835 ml Balance 1145.25 ml 1202.5 ml Intake Free Water 200 ml IV Total 2275.25 ml 1667.5 ml Tube Feeding 40 ml 170 ml Other 30 ml Output Urine Total 1200 ml 835 ml # Bowel Movements 2 4 Laboratory Tests 03/06/20 13:00: Lactic Acid Level 3.20H 03/06/20 14:57: Urine Random Sodium [Pending], Urine Creatinine [Pending] 03/06/20 16:50: Lactic Acid Level 2.90H, Vancomycin Level Trough 23.9H 03/07/20 04:30: Lactic Acid Level 2.70H, White Blood Count 15.9H, Red Blood Count 2.50L, Hemoglobin 7.0L, Hematocrit 21.7L, Mean Corpuscular Volume 87, Mean Corpuscular Hemoglobin 28.0, Mean Corpuscular Hemoglobin Concent 32.2, Red Cell Distribution Width 17.2H, Platelet Count 155, Mean Platelet Volume 8.7, Neutrophils (%) (Auto) , Lymphocytes (%) (Auto) , Monocytes (%) (Auto) , Eosinophils (%) (Auto) , Basophils (%) (Auto) , Differential Total Cells Counted 100, Neutrophils % (Manual) 68, Lymphocytes % (Manual) 19L, Monocytes % (Manual) 3, Eosinophils % (Manual) 10H, Basophils % (Manual) 0, Band Neutrophils 0, Platelet Estimate Adequate, Platelet Morphology Normal, Hypochromasia 3+, Anisocytosis 1+, Sodium Level 146H, Potassium Level 3.1L, Chloride Level 107, Carbon Dioxide Level 26, Anion Gap 13, Blood Urea Nitrogen 34H, Creatinine 1.7H, Estimat Glomerular Filtration Rate 49.9, Glucose Level 196H, Uric Acid 6.3, Calcium Level 8.5, Magnesium Level 2.1, Total Creatine Kinase 3007H, Random Vancomycin Level 17.8 03/07/20 09:00: Lactic Acid Level 2.60H Height (Feet): 6 Height (Inches): 2.00 Weight (Pounds): 184 General Appearance: other - intubated Cardiovascular: regular rhythm Respiratory/Chest: crackles/rales Abdomen: non tender Extremities: no edema Neurologic: unresponsive Raffaele Ocampo MD March 07, 2020 11:59
--- NOTE | 2020-03-07 14:00 | NUR ---
NURSE NOTES: First unit of Blood started with Temperature of 98.9 F axillary. patient remains able to track staff. Penaloza remains draining clear straw urine. tube feeding remains at 20ml/hr through G-tube.
[2020-03-07] MEDS ORDERED: Vancomycin 1gm in D5W 275ml IVPB SCH ×2 (15:00→18:00)
--- NOTE | 2020-03-07 15:03 | Surgery Progress Note ---
Surgery Progress Note Subjective Additional Comments worsening leukocytosis anemia lactic acidosis ill appearing no n/v. micro noted Objective Last 24 Hour Vital Signs Date Time Temp Pulse Resp B/P (MAP) Pulse Ox O2 Delivery O2 Flow Rate FiO2 03/07/20 14:00 84 20 108/60 (76) 100 03/07/20 13:30 82 20 114/68 (83) 100 03/07/20 13:00 82 20 108/60 (76) 100 03/07/20 12:37 81 20 40 03/07/20 12:30 87 20 104/62 (76) 100 03/07/20 12:00 98.0 83 20 105/64 (78) 100 03/07/20 12:00 Mechanical Ventilator 03/07/20 11:30 88 20 96/58 (71) 100 03/07/20 11:13 94 20 40 03/07/20 11:00 88 20 98/53 (68) 100 03/07/20 10:30 82 20 105/59 (74) 100 03/07/20 10:14 109/59 03/07/20 10:00 81 20 102/57 (72) 100 03/07/20 09:30 79 20 99/62 (74) 100 03/07/20 09:09 84 20 40 03/07/20 09:00 82 20 104/62 (76) 100 03/07/20 08:53 95 03/07/20 08:30 84 20 97/61 (73) 100 03/07/20 08:00 40 03/07/20 08:00 Mechanical Ventilator 03/07/20 08:00 99.5 92 20 93/54 (67) 100 03/07/20 07:30 83 20 101/51 (68) 100 03/07/20 07:01 83 20 93/52 (66) 100 03/07/20 07:00 93/52 03/07/20 07:00 78 20 40 03/07/20 06:30 82 20 94/54 (67) 100 03/07/20 06:30 81 20 03/07/20 06:01 106/50 03/07/20 06:01 86 106/50 03/07/20 06:00 100.0 84 20 93/51 (65) 100 03/07/20 05:30 84 20 94/51 (65) 100 03/07/20 05:00 86 20 91/51 (64) 100 03/07/20 05:00 106/50 03/07/20 04:45 86 20 87/51 (63) 100 03/07/20 04:30 87 20 90/52 (65) 100 03/07/20 04:15 91 20 85/49 (61) 100 03/07/20 04:00 84 03/07/20 04:00 110/63 03/07/20 04:00 Mechanical Ventilator 03/07/20 04:00 101.0 91 20 95/45 (62) 100 03/07/20 03:45 97 20 101/54 (70) 100 03/07/20 03:30 95 20 103/54 (70) 100 03/07/20 03:26 101.0 03/07/20 03:25 96 19 109/61 (77) 100 03/07/20 03:18 98 23 40 03/07/20 03:15 95 20 94/52 (66) 100 03/07/20 03:00 100/56 03/07/20 03:00 102.0 99 22 97/50 (66) 100 03/07/20 02:45 100 19 112/84 (93) 99 03/07/20 02:30 94 18 99/53 (68) 99 03/07/20 02:15 86 20 92/47 (62) 100 03/07/20 02:00 91 20 95/44 (61) 100 03/07/20 02:00 99/47 03/07/20 01:30 89 20 94/49 (64) 100 03/07/20 01:00 92/45 03/07/20 01:00 89 20 98/54 (69) 100 03/07/20 00:36 90 20 40 03/07/20 00:30 86 20 90/49 (63) 100 03/07/20 00:00 99.5 85 20 94/47 (63) 100 03/07/20 00:00 89/46 03/07/20 00:00 Mechanical Ventilator 03/07/20 00:00 89 03/06/20 23:31 86 20 40 03/06/20 23:30 86 20 96/51 (66) 100 03/06/20 23:00 90 21 93/48 (63) 100 5/7/20 23:00 88/45 03/06/20 22:30 85 20 95/47 (63) 100 03/06/20 22:00 88 20 91/46 (61) 100 03/06/20 22:00 89/49 03/06/20 21:45 90 20 91/47 (62) 100 03/06/20 21:30 92 21 87/41 (56) 100 03/06/20 21:15 92 20 73/42 (52) 100 03/06/20 21:09 84 20 50 03/06/20 21:00 100/55 03/06/20 21:00 93 20 86/40 (55) 100 03/06/20 20:45 96 20 83/42 (56) 100 03/06/20 20:30 99.7 91 20 102/55 (71) 100 03/06/20 20:25 89 19 101/51 (68) 100 03/06/20 20:15 87 20 104/61 (75) 100 03/06/20 20:00 86 03/06/20 20:00 100.0 89 20 100/58 (72) 100 03/06/20 20:00 109/52 03/06/20 20:00 89 99/67 03/06/20 20:00 Mechanical Ventilator 03/06/20 19:46 89 20 50 03/06/20 19:45 85 20 113/61 (78) 100 03/06/20 19:30 87 20 113/66 (82) 100 03/06/20 19:00 88 20 99/67 (78) 100 03/06/20 19:00 100/59 03/06/20 18:53 98/66 03/06/20 18:52 108/61 03/06/20 18:45 98.6 91 18 98/66 (77) 100 03/06/20 18:30 94 20 88/45 (59) 100 03/06/20 18:00 108/61 03/06/20 18:00 96 20 86/54 (65) 100 03/06/20 17:37 99 20 108/61 (77) 100 03/06/20 17:00 101 20 103/55 (71) 100 03/06/20 17:00 114/68 03/06/20 16:33 118 24 80 03/06/20 16:30 109 20 111/81 (91) 100 03/06/20 16:14 112 03/06/20 16:00 113 20 126/66 (86) 99 03/06/20 16:00 108/58 03/06/20 16:00 Mechanical Ventilator 03/06/20 15:30 99 20 123/46 (71) 100 03/06/20 15:24 89 20 100 I&O Intake and Output 03/06/20 03/07/20 19:00 07:00 Intake Total 2345.25 ml 2037.5 ml Output Total 1200 ml 835 ml Balance 1145.25 ml 1202.5 ml Intake Free Water 200 ml IV Total 2275.25 ml 1667.5 ml Tube Feeding 40 ml 170 ml Other 30 ml Output Urine Total 1200 ml 835 ml # Bowel Movements 2 4 Laboratory Tests Test 03/06/20 16:50 03/07/20 04:30 03/07/20 09:00 Lactic Acid Level 2.90 mmol/L (0.4-2.0) H 2.70 mmol/L (0.4-2.0) H 2.60 mmol/L (0.4-2.0) H Vancomycin Level Trough 23.9 ug/mL (5.0-12.0) H White Blood Count 15.9 K/UL (4.8-10.8) H Red Blood Count 2.50 M/UL (4.70-6.10) L Hemoglobin 7.0 G/DL (14.2-18.0) L Hematocrit 21.7 % (42.0-52.0) L Mean Corpuscular Volume 87 FL (80-99) Mean Corpuscular Hemoglobin 28.0 PG (27.0-31.0) Mean Corpuscular Hemoglobin Concent 32.2 G/DL (32.0-36.0) Red Cell Distribution Width 17.2 % (11.6-14.8) H Platelet Count 155 K/UL (150-450) Mean Platelet Volume 8.7 FL (6.5-10.1) Neutrophils (%) (Auto) % (45.0-75.0) Lymphocytes (%) (Auto) % (20.0-45.0) Monocytes (%) (Auto) % (1.0-10.0) Eosinophils (%) (Auto) % (0.0-3.0) Basophils (%) (Auto) % (0.0-2.0) Differential Total Cells Counted 100 Neutrophils % (Manual) 68 % (45-75) Lymphocytes % (Manual) 19 % (20-45) L Monocytes % (Manual) 3 % (1-10) Eosinophils % (Manual) 10 % (0-3) H Basophils % (Manual) 0 % (0-2) Band Neutrophils 0 % (0-8) Platelet Estimate Adequate Platelet Morphology Normal Hypochromasia 3+ Anisocytosis 1+ Sodium Level 146 MMOL/L (136-145) H Potassium Level 3.1 MMOL/L (3.5-5.1) L Chloride Level 107 MMOL/L (98-107) Carbon Dioxide Level 26 MMOL/L (21-32) Anion Gap 13 mmol/L (5-15) Blood Urea Nitrogen 34 mg/dL (7-18) H Creatinine 1.7 MG/DL (0.55-1.30) H Estimat Glomerular Filtration Rate 49.9 mL/min (>60) Glucose Level 196 MG/DL (74-106) H Uric Acid 6.3 MG/DL (2.6-7.2) Calcium Level 8.5 MG/DL (8.5-10.1) Magnesium Level 2.1 MG/DL (1.8-2.4) Total Creatine Kinase 3007 U/L (26-308) H Random Vancomycin Level 17.8 ug/mL Plan Problems: (1) Respiratory acidosis (2) Seizure disorder (3) Altered mental status (4) Pneumonia Assessment & Plan: New left pleural effusion Improved aeration of the right lung, with persistent consolidation and pleural fluid (5) Cardiopulmonary arrest (6) Hypernatremia (7) Sepsis Assessment & Plan: Pt presented on admission with multiple pressure injuries. Unstageable Pressure injury R Buttocks. Base of wound is 100% necrotic. Sacrum, R and L Gluteal cheeks maroon with multiple partial thickness wounds with surrounding denuded and macerated skin. Dry, black borders noted Unstageable pressure injury R thoracic. Base of wound is 100% necrotic but dry. No erythema induration or fluctuance periwound. Full thickness stage 3 pressure injury R heel. Base of wound is beefy red with macerated borders. periwound is necrotic and fluctuant. Full thickness stage 3 pressure injury R Hallux. Base of wound is beefy red with surrounding pink granulation. Dry black borders noted. Loose dry eschar noted to L heel. Hyperpigmentation noted to R and L lateral Malleoli. unlikely etiology of sepsis will monitor Tx.Plan: Cleanse Sacral area with Saline.Apply Therahoney. Apply Moisture Barrier Paste periwound. Cover with Optifoam drsgs. Change Daily and Prn. Cleanse wound R thoracic with Saline. Apply TheraHoney. Apply Cavilon Skin Barrier Periwound. Cover with Optifoam drsg.Change every 3 days and prn. Cleanse wound R heel with Saline. Apply TheraHoney. Apply Cavilon Skin Barrier Periwound. Cover with Optifoam drsg. Change every 3 days and prn. Cleanse R Hallux with Saline. Apply Therahoney. Apply Cavilon Skin Barrier Periwound. Cover with Optifoam drsg. Change every 3 days and prn. Apply Cavilon Skin Barrier to L Heel. Cover with Optifoam drsg. Change every 7 days and prn. Reposition at least every 2hours or as tolerated. Place Pillow between knees. Off-load heels with Pillow. APM/NORM Mattress overlay. DAILY ESTIMATED NEEDS: Needs based on Critical care, wounds 78.6abw 22-30 kcals/kg 4568-3646 total kcals 1.25-2 g protein/kg 98-157 g total protein 25-30 mL/kg 9228-3763 total fluid mLs NUTRITION DIAGNOSIS: Increased kcal and pro needs r/t wound care as evidenced by pt w/ full thickness wounds x2, unstageable wounds x2, refer to WC eval. ENTERAL NUTRITION RECOMMENDATIONS: Glucerna 1.5 @70ml/hr x18 hrs to provide 1260ml, 1890 kcal, 104g pro, 956ml free H2O - When stable rec to initiate GT feeds of Glucerna 1.5. Start @20ml/hr for 6 hrs, advance as tolerated 10ml/hr q4-6 hrs to goal. - HOLD TF 1 HOUR BEFORE AND AFTER SYNTHROID(QD) AND DILANTIN(BID), tf to run a max of 18 hrs - Flush per MD , HOB over 30 degrees WITHOUT HEMODYNAMIC STABILITY: rec trophic feeds of Glucerna 1.5 @5-10ml/hr to maintain gut integrity. ADDITIONAL RECOMMENDATIONS: 1) Wound care: add AJIT BID + Vit C 250mg daily 2) Per SNF: 69inches, 212lbs/96.36kg Maintain calibrated daily wts 3) Feed when hemodynamically stable, do not feed in the prone position (8) ACE (acute kidney injury) Gary Vicente March 07, 2020 15:03
--- NOTE | 2020-03-07 15:20 | NUR ---
*-* INSURANCE *-* UPDATED CLINICALS HAVE BEEN FAXED TO: [facility] Ref# [id number] # [phone] fax# [phone]
--- NOTE | 2020-03-07 16:12 | NUR ---
NURSE NOTES: Blood transfusion continues at 120ml/hr with temperature of 99.2F axillary. remains of 20mcg/min with levophed at 4mcg/min. Bp is 119/64 with HR at 77 in sinus rhythm
--- NOTE | 2020-03-07 16:12 | NUR ---
NURSE NOTES: Dr. Murcia aware of positive blood culture- Gram+ cocci in cluster-11/03
--- NOTE | 2020-03-07 16:14 | NUR ---
NURSE NOTES: First unit of PRBC started with HR at 81 in sinus rhythm, Bp of 114/68 and temperature of 98.9 F axillary. no reaction noted and increased to infuse
--- NOTE | 2020-03-07 16:36 | General Progress Note ---
Assessment/Plan Assessment/Plan: IMPRESSION: 1. Septic shock. 2. Hypotension. 3. Tachycardia. 4. Respiratory failure. 5. Hypoxemia. 6. Seizure disorder. 7. Hyperlipidemia. 8. Hypernatremia. 9. Acute renal failure. 10. Pulmonary edema. 11. Possible COVID. 12. pleural effusion PLAN pressors and taper vent as is for now and try to wean need to tap effusion when able iv antibiotics ID follow up transfusion needed dietary feeds off load still critical impression, plan, and exam edited and reviewed in detail care discussed with RN Subjective ROS Limited/Unobtainable: Yes Allergies: Coded Allergies: HYDROCODONE (Verified Allergy, Unknown, 07/04/17) Subjective remains ill on vent on pressors on feeds Objective Last 24 Hour Vital Signs Date Time Temp Pulse Resp B/P (MAP) Pulse Ox O2 Delivery O2 Flow Rate FiO2 03/07/20 16:30 80 20 108/60 (76) 100 03/07/20 16:00 99.2 75 20 119/64 (82) 100 03/07/20 16:00 74 03/07/20 16:00 Mechanical Ventilator 03/07/20 15:30 75 20 113/63 (80) 100 03/07/20 15:00 80 20 107/62 (77) 100 03/07/20 14:51 78 20 40 03/07/20 14:30 80 20 111/62 (78) 100 03/07/20 14:00 84 20 108/60 (76) 100 03/07/20 13:30 82 20 114/68 (83) 100 03/07/20 13:00 82 20 108/60 (76) 100 03/07/20 12:37 81 20 40 03/07/20 12:30 87 20 104/62 (76) 100 03/07/20 12:00 82 03/07/20 12:00 98.0 83 20 105/64 (78) 100 03/07/20 12:00 Mechanical Ventilator 03/07/20 11:30 88 20 96/58 (71) 100 03/07/20 11:13 94 20 40 03/07/20 11:00 88 20 98/53 (68) 100 03/07/20 10:30 82 20 105/59 (74) 100 03/07/20 10:14 109/59 03/07/20 10:00 81 20 102/57 (72) 100 03/07/20 09:30 79 20 99/62 (74) 100 03/07/20 09:09 84 20 40 03/07/20 09:00 82 20 104/62 (76) 100 03/07/20 08:30 84 20 97/61 (73) 100 03/07/20 08:00 40 03/07/20 08:00 Mechanical Ventilator 03/07/20 08:00 99.5 92 20 93/54 (67) 100 03/07/20 08:00 95 03/07/20 07:30 83 20 101/51 (68) 100 03/07/20 07:01 83 20 93/52 (66) 100 03/07/20 07:00 93/52 03/07/20 07:00 78 20 40 03/07/20 06:30 82 20 94/54 (67) 100 03/07/20 06:30 81 20 03/07/20 06:01 106/50 03/07/20 06:01 86 106/50 03/07/20 06:00 100.0 84 20 93/51 (65) 100 03/07/20 05:30 84 20 94/51 (65) 100 03/07/20 05:00 86 20 91/51 (64) 100 03/07/20 05:00 106/50 03/07/20 04:45 86 20 87/51 (63) 100 03/07/20 04:30 87 20 90/52 (65) 100 03/07/20 04:15 91 20 85/49 (61) 100 03/07/20 04:00 84 03/07/20 04:00 110/63 03/07/20 04:00 Mechanical Ventilator 03/07/20 04:00 101.0 91 20 95/45 (62) 100 03/07/20 03:45 97 20 101/54 (70) 100 03/07/20 03:30 95 20 103/54 (70) 100 03/07/20 03:26 101.0 03/07/20 03:25 96 19 109/61 (77) 100 03/07/20 03:18 98 23 40 03/07/20 03:15 95 20 94/52 (66) 100 03/07/20 03:00 100/56 03/07/20 03:00 102.0 99 22 97/50 (66) 100 03/07/20 02:45 100 19 112/84 (93) 99 03/07/20 02:30 94 18 99/53 (68) 99 03/07/20 02:15 86 20 92/47 (62) 100 03/07/20 02:00 91 20 95/44 (61) 100 03/07/20 02:00 99/47 03/07/20 01:30 89 20 94/49 (64) 100 03/07/20 01:00 92/45 03/07/20 01:00 89 20 98/54 (69) 100 03/07/20 00:36 90 20 40 03/07/20 00:30 86 20 90/49 (63) 100 03/07/20 00:00 99.5 85 20 94/47 (63) 100 03/07/20 00:00 89/46 03/07/20 00:00 Mechanical Ventilator 03/07/20 00:00 89 03/06/20 23:31 86 20 40 03/06/20 23:30 86 20 96/51 (66) 100 03/06/20 23:00 90 21 93/48 (63) 100 03/06/20 23:00 88/45 03/06/20 22:30 85 20 95/47 (63) 100 03/06/20 22:00 88 20 91/46 (61) 100 03/06/20 22:00 89/49 03/06/20 21:45 90 20 91/47 (62) 100 03/06/20 21:30 92 21 87/41 (56) 100 03/06/20 21:15 92 20 73/42 (52) 100 03/06/20 21:09 84 20 50 03/06/20 21:00 100/55 03/06/20 21:00 93 20 86/40 (55) 100 03/06/20 20:45 96 20 83/42 (56) 100 03/06/20 20:30 99.7 91 20 102/55 (71) 100 03/06/20 20:25 89 19 101/51 (68) 100 03/06/20 20:15 87 20 104/61 (75) 100 03/06/20 20:00 86 03/06/20 20:00 100.0 89 20 100/58 (72) 100 03/06/20 20:00 109/52 03/06/20 20:00 89 99/67 03/06/20 20:00 Mechanical Ventilator 03/06/20 19:46 89 20 50 03/06/20 19:45 85 20 113/61 (78) 100 03/06/20 19:30 87 20 113/66 (82) 100 03/06/20 19:00 88 20 99/67 (78) 100 03/06/20 19:00 100/59 03/06/20 18:53 98/66 03/06/20 18:52 108/61 03/06/20 18:45 98.6 91 18 98/66 (77) 100 03/06/20 18:30 94 20 88/45 (59) 100 03/06/20 18:00 108/61 03/06/20 18:00 96 20 86/54 (65) 100 03/06/20 17:37 99 20 108/61 (77) 100 03/06/20 17:00 101 20 103/55 (71) 100 03/06/20 17:00 114/68 Intake and Output 03/06/20 03/07/20 19:00 07:00 Intake Total 2345.25 ml 2037.5 ml Output Total 1200 ml 835 ml Balance 1145.25 ml 1202.5 ml Intake Free Water 200 ml IV Total 2275.25 ml 1667.5 ml Tube Feeding 40 ml 170 ml Other 30 ml Output Urine Total 1200 ml 835 ml # Bowel Movements 2 4 Laboratory Tests 03/06/20 16:50: Lactic Acid Level 2.90H, Vancomycin Level Trough 23.9H 03/07/20 04:30: Lactic Acid Level 2.70H, White Blood Count 15.9H, Red Blood Count 2.50L, Hemoglobin 7.0L, Hematocrit 21.7L, Mean Corpuscular Volume 87, Mean Corpuscular Hemoglobin 28.0, Mean Corpuscular Hemoglobin Concent 32.2, Red Cell Distribution Width 17.2H, Platelet Count 155, Mean Platelet Volume 8.7, Neutrophils (%) (Auto) , Lymphocytes (%) (Auto) , Monocytes (%) (Auto) , Eosinophils (%) (Auto) , Basophils (%) (Auto) , Differential Total Cells Counted 100, Neutrophils % (Manual) 68, Lymphocytes % (Manual) 19L, Monocytes % (Manual) 3, Eosinophils % (Manual) 10H, Basophils % (Manual) 0, Band Neutrophils 0, Platelet Estimate Adequate, Platelet Morphology Normal, Hypochromasia 3+, Anisocytosis 1+, Sodium Level 146H, Potassium Level 3.1L, Chloride Level 107, Carbon Dioxide Level 26, Anion Gap 13, Blood Urea Nitrogen 34H, Creatinine 1.7H, Estimat Glomerular Filtration Rate 49.9, Glucose Level 196H, Uric Acid 6.3, Calcium Level 8.5, Magnesium Level 2.1, Total Creatine Kinase 3007H, Random Vancomycin Level 17.8 03/07/20 09:00: Lactic Acid Level 2.60H Height (Feet): 6 Height (Inches): 2.00 Weight (Pounds): 184 Objective GENERAL: Ill-appearing male. on vent deferred due to possible COVID German Matthews MD March 07, 2020 16:36
--- NOTE | 2020-03-07 17:47 | NUR ---
NURSE NOTES: Dr. Matthews ordered to have patient ventialtor setting changed to AC 14 with peep of 5, tomorrow morning patient is to be started on weaning protocol. Dr. Calle made aware of patient loose stools and ordered to have C Diff toxin collected.
--- NOTE | 2020-03-07 17:50 | NUR ---
NURSE NOTES: Dr. Jung rounded at the bedside and assessed patient wound. no verbal orders given at this time. will place orders for wound treatment.
[2020-03-07] MEDS: Dyna-Hex 2% Top Sol 2oz TOPIC SCH (19:43)
--- NOTE | 2020-03-07 19:43 | NUR ---
HAND-OFF: Report given to MARGARITA Camacho. endorsed C-diff toxin collected and placed in icu specimen bin. .
--- NOTE | 2020-03-07 19:45 | NUR ---
NURSE NOTES: LE: PATIENT OPEN EYES, ON ETT TO VENT AC14/TV550/FIO2 40%/PEEP5, O2 SATURATION 100%, HR 90'S/MIN SR, G TUBE INTACT AND PATENT, ONGOING GLUCERNA 1.5 AT 20ML/HR, NO RESIDUE STATUS, F/C INTACT AND PATENT, OLIGURIA NOTED, TLC TO RIGHT IJ, INTACT ONGOING LEVOPHED 4MCG/MIN AND IV FLUID D5W W/KCL 30MEQ AT 100ML/HR VIA TLC, MADE LOWER BED POSITION, ON BED ALARM AND LOCKED, WILL CONTINUE TO MONITOR.
--- NOTE | 2020-03-07 20:00 | NUR ---
NURSE NOTES: LE: PATIENT CALM, 1 POINT SOFT RESTRAINT TO LEFT SIDE STATUS, DISCONTINUED RESTRAINTS, FOUND EDEMATOUS RIGHT HAND, MULTIPLE BLISTERS AND TEARED BLISTER TO LEFT INTERIOR PALM, FINGERS DARK LOVE COLOR, WILL CONTINUE TO MONITOR.
--- NOTE | 2020-03-07 21:45 | NUR ---
NURSE NOTES: LE: STARTED 1 UNIT PRBC BLOOD TRANSFUSION AFTER 2 NURSES VERIFIED AT 2130PM. NO SIDE REACTION NOTED AT THIS TIME.
[2020-03-08] VITALS (48 sets, daily range): BP systolic 91–120; BP diastolic 52–71
--- NOTE | 2020-03-08 00:30 | NUR ---
NURSE NOTES: FINISHED TRANSFUSION, NO SIDE REACTION NOTED.
--- NOTE | 2020-03-08 01:57 | NUR ---
NURSE NOTES: ONGOING LEVOPHED 2MCG/MIN, VSS, NO SIDE REACTION NOTED AT THIS TIME.
--- NOTE | 2020-03-08 03:50 | NUR ---
NURSE NOTES: LE: MORNING CARE WAS DONE.
[2020-03-08 04:43] LABS: BASOPHILS % (AUTO) 0.2 % (0.0-2.0); HEMATOCRIT 25.8 % (42.0-52.0); HEMOGLOBIN 8.5 G/DL (14.2-18.0); LYMPHOCYTES % (AUTO) 15.3 % (20.0-45.0); MEAN CORPUSCULAR VOLUME 86 FL (80-99); MONOCYTES % (AUTO) 4.2 % (1.0-10.0); NEUTROPHILS % (AUTO) 76.3 % (45.0-75.0); PLATELET COUNT 140 K/UL (150-450); RED BLOOD COUNT 3.01 M/UL (4.70-6.10); RED CELL DISTRIBUTION WIDTH 16.3 % (11.6-14.8)
[2020-03-08 05:38] LABS: ALANINE AMINOTRANSFERASE 31 U/L (12-78); ALBUMIN 1.5 G/DL (3.4-5.0); ALBUMIN/GLOBULIN RATIO 0.3 (1.0-2.7); ALKALINE PHOSPHATASE 135 U/L (46-116); ANION GAP 11 mmol/L (5-15); ASPARTATE AMINO TRANSFERASE 74 U/L (15-37); BILIRUBIN,TOTAL 0.7 MG/DL (0.2-1.0); BLOOD UREA NITROGEN 24 mg/dL (7-18); CARBON DIOXIDE 27 MMOL/L (21-32); CHLORIDE 110 MMOL/L (98-107); CREATININE 1.4 MG/DL (0.55-1.30); PHOSPHORUS 2.9 MG/DL (2.5-4.9); POTASSIUM 3.5 MMOL/L (3.5-5.1); SODIUM 147 MMOL/L (136-145)
[2020-03-08] MEDS: Piperacillin/Tazobactam 3.375 GM in NS 110 ML IVPB SCH (05:52)
[2020-03-08] MEDS: NovoLOG Insulin Flexpen SUBQ SCH ×5 (05:53→23:33)
--- NOTE | 2020-03-08 06:36 | NUR ---
NURSE NOTES: NO ACUTE DISTRESS NOTED AT THIS SHIFT.
--- NOTE | 2020-03-08 07:20 | NUR ---
HAND-OFF: Report given to MARGARITA YEBOAH.
--- NOTE | 2020-03-08 07:21 | NUR ---
NURSE NOTES: Received report from MARGARITA Madrigal. Patient asleep. ETT 7.0/24cm at lip line with vent setting AC 14, VT 550, Peep 5 and FiO2 40%. Gtube intact and held at this time. Rectal tube intact and draining with brown color liquid stool. Penaloza intact and draining with yellow color urine. Right IJ TLC intact, clean and running with D5W with KCL 30meq @ 100ml/hr and levophed 2mcg/min. Left soft wrist band restraints on. Left hand is warm to touch. Kept dry, clean, comfortable and HOB>30. Will continue plan of care.
--- NOTE | 2020-03-08 07:29 | Progress Note ---
DATE: 03/07/2020 CARDIOLOGY PROGRESS NOTE SUBJECTIVE: Patient's condition remains critical with guarded prognosis. He is in the intensive care unit on pressor support and full ventilator support. He is status post cardiopulmonary arrest. PHYSICAL EXAMINATION: VITAL SIGNS: Blood pressure 98/53, heart rate 88, respirations 20, afebrile, T-max 101. LUNGS: Coarse breath sounds. Rhonchi. CARDIAC: Regular rhythm and rate. Normal S1, S2. ABDOMEN: Soft. EXTREMITIES: Trace dependent edema. LABORATORY DATA: White count 15.9, hemoglobin 7. Lactic acid 2.6. CK 3000. Potassium 3.1, BUN 34, creatinine 1.7, sodium 146. IMPRESSION: 1. Status post full arrest. 2. Respiratory failure. 3. Sepsis with shock. 4. Lactic acidosis. 5. Dehydration. 6. Severe anemia. 7. Hypokalemia. 8. Acute renal failure. 9. Healthcare-acquired pneumonia. 10. Parapneumonic effusion. PLAN: 1. Volume support. 2. Pressor support with taper as able. 3. Antimicrobials per Infectious Disease internal controls consultant. 4. Continue ventilator support. 5. DVT prophylaxis. 6. Free water replacement. 7. Antiseizure therapy with phenytoin. Yfn Luna M.D. DR: BRANDI JOB#: [id number] CC:
--- NOTE | 2020-03-08 08:50 | NUR ---
NURSE NOTES: All due medication given.
[2020-03-08] MEDS: Ascorbic Acid 500mg tab ORAL SCH (08:51)
[2020-03-08] MEDS: levETIRAcetam 500mg/5ml Liquid GT SCH ×2 (08:51→20:24)
[2020-03-08] MEDS: Phenytoin Susp 100mg/4ml GT SCH ×2 (08:51→20:24)
[2020-03-08] MEDS: Eliquis 5mg tablet GT SCH ×2 (08:51→17:21)
--- NOTE | 2020-03-08 09:00 | NUR ---
RESPIRATORY NOTES SBT initiated on patient - CPAP +5, PS 8. Patient unable to maintain adequate spontaneous tidal volumes. Patient then returned to previous vent settings. Will continue to monitor.
[2020-03-08] MEDS: DOPamine 400mg/250ml 250 ML IV SCH (10:14)
[2020-03-08] MEDS: Phenylephrine 50 MG in D5W 245 ML IV SCH (10:15)
[2020-03-08] MEDS: Norepinephrine Bitartrate 8 MG in D5W 500ml 492 ML IV SCH (10:30)
--- NOTE | 2020-03-08 10:46 | General Progress Note ---
Assessment/Plan Assessment/Plan: IMPRESSION: 1. Septic shock. 2. Hypotension. 3. Tachycardia. 4. Respiratory failure. 5. Hypoxemia. 6. Seizure disorder. 7. Hyperlipidemia. 8. Hypernatremia. 9. Acute renal failure. 10. Pulmonary edema. 11. Possible COVID. 12. pleural effusion PLAN still on pressors try to wean need to tap effusion when able and more stable iv antibiotics ID follow up transfusion needed maintain feeds off load still critical impression, plan, and exam edited and reviewed in detail care discussed with RN Subjective ROS Limited/Unobtainable: Yes Allergies: Coded Allergies: HYDROCODONE (Verified Allergy, Unknown, 07/04/17) Subjective has stabilized on vent hemodynamics better on feeds Objective Last 24 Hour Vital Signs Date Time Temp Pulse Resp B/P (MAP) Pulse Ox O2 Delivery O2 Flow Rate FiO2 03/08/20 10:00 81 16 110/60 (77) 100 03/08/20 09:30 82 18 109/61 (77) 100 03/08/20 09:00 80 15 102/62 (75) 100 03/08/20 08:30 82 15 99/59 (72) 100 03/08/20 08:00 83 03/08/20 08:00 98.2 84 14 102/60 (74) 100 03/08/20 08:00 Mechanical Ventilator 03/08/20 07:30 86 15 101/58 (72) 100 03/08/20 07:05 83 16 40 03/08/20 07:00 89 16 101/57 (72) 100 03/08/20 07:00 101/57 03/08/20 06:30 88 14 101/56 (71) 100 03/08/20 06:30 88 14 03/08/20 06:00 98/53 03/08/20 06:00 87 14 98/53 (68) 100 03/08/20 05:30 92 15 97/58 (71) 100 03/08/20 05:00 94/53 03/08/20 05:00 91 15 94/53 (67) 100 03/08/20 04:44 95 16 40 03/08/20 04:30 94 17 91/55 (67) 100 03/08/20 04:00 Mechanical Ventilator 03/08/20 04:00 95 03/08/20 04:00 98/52 03/08/20 04:00 98.1 95 16 98/52 (67) 100 03/08/20 03:30 95 16 92/56 (68) 100 03/08/20 03:05 99 19 40 03/08/20 03:00 101/62 03/08/20 03:00 99 15 101/62 (75) 100 03/08/20 02:30 98 16 100/56 (71) 100 03/08/20 02:00 99 15 101/59 (73) 100 03/08/20 02:00 101/59 03/08/20 01:30 100 16 107/59 (75) 100 03/08/20 01:00 102/59 03/08/20 01:00 99 15 102/59 (73) 100 03/08/20 00:47 101 16 40 03/08/20 00:30 100 17 98/60 (73) 100 03/08/20 00:04 104 03/08/20 00:00 98.0 104 18 104/59 (74) 100 03/08/20 00:00 Mechanical Ventilator 03/08/20 00:00 104/59 03/07/20 23:45 111 21 117/81 (93) 100 03/07/20 23:30 105 17 106/64 (78) 100 03/07/20 23:15 102 17 105/59 (74) 100 03/07/20 23:00 103 18 102/56 (71) 100 03/07/20 23:00 102/56 03/07/20 22:59 102 16 40 03/07/20 22:30 102 16 108/56 (73) 100 03/07/20 22:00 111 23 104/66 (79) 100 03/07/20 22:00 104/66 03/07/20 21:30 108 29 139/65 (89) 100 03/07/20 21:00 123/69 03/07/20 21:00 98 29 123/69 (87) 100 03/07/20 20:36 94 16 40 03/07/20 20:30 95 18 108/66 (80) 100 03/07/20 20:00 Mechanical Ventilator 03/07/20 20:00 106/71 03/07/20 20:00 98.1 97 19 109/72 (84) 100 03/07/20 19:30 104 16 107/65 (79) 100 03/07/20 19:23 98 03/07/20 19:20 104 28 40 03/07/20 19:00 105 23 115/64 (81) 96 03/07/20 18:30 88 18 114/63 (80) 100 03/07/20 18:00 86 17 110/65 (80) 100 03/07/20 17:50 40 03/07/20 17:30 85 20 103/64 (77) 100 03/07/20 17:28 80 20 40 03/07/20 17:00 78 20 101/59 (73) 100 03/07/20 16:30 80 20 108/60 (76) 100 03/07/20 16:00 99.2 75 20 119/64 (82) 100 03/07/20 16:00 74 03/07/20 16:00 Mechanical Ventilator 03/07/20 15:30 75 20 113/63 (80) 100 03/07/20 15:00 80 20 107/62 (77) 100 03/07/20 14:51 78 20 40 03/07/20 14:30 80 20 111/62 (78) 100 03/07/20 14:00 84 20 108/60 (76) 100 03/07/20 13:30 82 20 114/68 (83) 100 03/07/20 13:00 82 20 108/60 (76) 100 03/07/20 12:37 81 20 40 03/07/20 12:30 87 20 104/62 (76) 100 03/07/20 12:00 82 03/07/20 12:00 98.0 83 20 105/64 (78) 100 03/07/20 12:00 Mechanical Ventilator 03/07/20 11:30 88 20 96/58 (71) 100 03/07/20 11:13 94 20 40 03/07/20 11:00 88 20 98/53 (68) 100 Intake and Output 03/07/20 03/08/20 19:00 07:00 Intake Total 1808.5 ml 1768.75 ml Output Total 1325 ml 1340 ml Balance 483.5 ml 428.75 ml IV Total 1518.5 ml 1148.75 ml Tube Feeding 240 ml 220 ml Blood Product 250 ml Other 50 ml 150 ml Output Urine Total 1325 ml 1340 ml Stool Total 0 ml # Bowel Movements 2 2 Laboratory Tests 5/8/20 16:30: Lactic Acid Level 2.30H 03/08/20 04:00: Lactic Acid Level 2.30H, White Blood Count 11.0H, Red Blood Count 3.01L, Hemoglobin 8.5L, Hematocrit 25.8L, Mean Corpuscular Volume 86, Mean Corpuscular Hemoglobin 28.2, Mean Corpuscular Hemoglobin Concent 32.9, Red Cell Distribution Width 16.3H, Platelet Count 140L, Mean Platelet Volume 9.8, Neutrophils (%) (Auto) 76.3H, Lymphocytes (%) (Auto) 15.3L, Monocytes (%) (Auto ) 4.2, Eosinophils (%) (Auto) 4.0H, Basophils (%) (Auto) 0.2, Erythrocyte Sedimentation Rate 127H, Prothrombin Time 10.9, Prothromb Time International Ratio 1.0, Activated Partial Thromboplast Time 41H, Sodium Level 147H, Potassium Level 3.5, Chloride Level 110H, Carbon Dioxide Level 27, Anion Gap 11 , Blood Urea Nitrogen 24H, Creatinine 1.4H, Estimat Glomerular Filtration Rate > 60, Glucose Level 134H, Calcium Level 8.0L, Phosphorus Level 2.9, Magnesium Level 2.1, Total Bilirubin 0.7, Aspartate Amino Transf (AST/SGOT) 74H, Alanine Aminotransferase (ALT/SGPT) 31, Alkaline Phosphatase 135H, C-Reactive Protein, Quantitative 46.1H, Total Protein 7.4, Albumin 1.5L, Globulin 5.9, Albumin/ Globulin Ratio 0.3L, Amylase Level 37, Lipase 193 Height (Feet): 6 Height (Inches): 2.00 Weight (Pounds): 198 Objective GENERAL: Ill-appearing male. on vent deferred due to possible COVID German Matthews MD March 08, 2020 10:46
--- NOTE | 2020-03-08 10:50 | NUR ---
NURSE NOTES: Seen by Dr. Matthews and assessed patient. No new orders at this time.
--- NOTE | 2020-03-08 11:32 | Infectious Diseases Prog Note ---
"Assessment/Plan Assessment/Plan antibiotics : vancomycin iv, zosyn A 1. pseudomonas | staph aureus pneumonia on Fi O2 40 percent, PEEP 5, saturation 100 percent 2. COVID 19 test negative x 1 3. respiratory failure 4. renal failure improving 5. shock improving 6. hypertension 7. seizures 8. leucocytosis improving P 1. continue iv vancomycin 2. d/c zosyn 3. start levoquin 4. will follow up cultures Subjective ROS Limited/Unobtainable: Yes Allergies: Coded Allergies: HYDROCODONE (Verified Allergy, Unknown, 07/04/17) Objective Vital Signs Last 24 Hour Vital Signs Date Time Temp Pulse Resp B/P (MAP) Pulse Ox O2 Delivery O2 Flow Rate FiO2 03/08/20 11:05 100 27 95/68 (77) 100 03/08/20 10:30 81 16 107/59 (75) 100 03/08/20 10:00 81 16 110/60 (77) 100 03/08/20 10:00 40 03/08/20 09:30 82 18 109/61 (77) 100 03/08/20 09:00 80 15 102/62 (75) 100 03/08/20 08:30 82 15 99/59 (72) 100 03/08/20 08:00 83 03/08/20 08:00 98.2 84 14 102/60 (74) 100 03/08/20 08:00 Mechanical Ventilator 03/08/20 07:30 86 15 101/58 (72) 100 03/08/20 07:05 83 16 40 03/08/20 07:00 89 16 101/57 (72) 100 03/08/20 07:00 101/57 03/08/20 06:30 88 14 101/56 (71) 100 03/08/20 06:30 88 14 03/08/20 06:00 98/53 03/08/20 06:00 87 14 98/53 (68) 100 03/08/20 05:30 92 15 97/58 (71) 100 03/08/20 05:00 94/53 03/08/20 05:00 91 15 94/53 (67) 100 03/08/20 04:44 95 16 40 03/08/20 04:30 94 17 91/55 (67) 100 03/08/20 04:00 Mechanical Ventilator 03/08/20 04:00 95 03/08/20 04:00 98/52 03/08/20 04:00 98.1 95 16 98/52 (67) 100 03/08/20 03:30 95 16 92/56 (68) 100 03/08/20 03:05 99 19 40 03/08/20 03:00 101/62 03/08/20 03:00 99 15 101/62 (75) 100 03/08/20 02:30 98 16 100/56 (71) 100 03/08/20 02:00 99 15 101/59 (73) 100 03/08/20 02:00 101/59 03/08/20 01:30 100 16 107/59 (75) 100 03/08/20 01:00 102/59 03/08/20 01:00 99 15 102/59 (73) 100 03/08/20 00:47 101 16 40 03/08/20 00:30 100 17 98/60 (73) 100 03/08/20 00:04 104 03/08/20 00:00 98.0 104 18 104/59 (74) 100 03/08/20 00:00 Mechanical Ventilator 03/08/20 00:00 104/59 03/07/20 23:45 111 21 117/81 (93) 100 03/07/20 23:30 105 17 106/64 (78) 100 03/07/20 23:15 102 17 105/59 (74) 100 03/07/20 23:00 103 18 102/56 (71) 100 03/07/20 23:00 102/56 03/07/20 22:59 102 16 40 03/07/20 22:30 102 16 108/56 (73) 100 03/07/20 22:00 111 23 104/66 (79) 100 03/07/20 22:00 104/66 03/07/20 21:30 108 29 139/65 (89) 100 03/07/20 21:00 123/69 03/07/20 21:00 98 29 123/69 (87) 100 03/07/20 20:36 94 16 40 03/07/20 20:30 95 18 108/66 (80) 100 03/07/20 20:00 Mechanical Ventilator 03/07/20 20:00 106/71 03/07/20 20:00 98.1 97 19 109/72 (84) 100 03/07/20 19:30 104 16 107/65 (79) 100 03/07/20 19:23 98 03/07/20 19:20 104 28 40 03/07/20 19:00 105 23 115/64 (81) 96 03/07/20 18:30 88 18 114/63 (80) 100 03/07/20 18:00 86 17 110/65 (80) 100 03/07/20 17:50 40 03/07/20 17:30 85 20 103/64 (77) 100 03/07/20 17:28 80 20 40 03/07/20 17:00 78 20 101/59 (73) 100 03/07/20 16:30 80 20 108/60 (76) 100 03/07/20 16:00 99.2 75 20 119/64 (82) 100 03/07/20 16:00 74 03/07/20 16:00 Mechanical Ventilator 03/07/20 15:30 75 20 113/63 (80) 100 03/07/20 15:00 80 20 107/62 (77) 100 03/07/20 14:51 78 20 40 03/07/20 14:30 80 20 111/62 (78) 100 03/07/20 14:00 84 20 108/60 (76) 100 03/07/20 13:30 82 20 114/68 (83) 100 03/07/20 13:00 82 20 108/60 (76) 100 03/07/20 12:37 81 20 40 03/07/20 12:30 87 20 104/62 (76) 100 03/07/20 12:00 82 03/07/20 12:00 98.0 83 20 105/64 (78) 100 03/07/20 12:00 Mechanical Ventilator 03/07/20 11:30 88 20 96/58 (71) 100 Height (Feet): 6 Height (Inches): 2.00 Weight (Pounds): 198 HEENT: other - intubated Microbiology Date/Time Source Procedure Growth Status 03/05/20 18:30 Nasal Nares MRSA Culture - Final Staphylococcus Aureus - Mrsa Complete 03/05/20 16:00 Sputum Gram Stain - Final Resulted 03/05/20 16:00 Sputum Culture - Preliminary Pseudomonas Aeruginosa Staphylococcus Aureus Usual Respiratory Conchis Resulted 03/07/20 18:30 Stool Clostridium difficile Toxin Assay - Final Complete 03/05/20 18:30 Rectal Mucosa VRE Culture - Final Enterococcus Faecalis - Vre Complete Laboratory Tests Test 03/07/20 16:30 03/08/20 04:00 Lactic Acid Level 2.30 mmol/L (0.4-2.0) H 2.30 mmol/L (0.4-2.0) H White Blood Count 11.0 K/UL (4.8-10.8) H Red Blood Count 3.01 M/UL (4.70-6.10) L Hemoglobin 8.5 G/DL (14.2-18.0) L Hematocrit 25.8 % (42.0-52.0) L Mean Corpuscular Volume 86 FL (80-99) Mean Corpuscular Hemoglobin 28.2 PG (27.0-31.0) Mean Corpuscular Hemoglobin Concent 32.9 G/DL (32.0-36.0) Red Cell Distribution Width 16.3 % (11.6-14.8) H Platelet Count 140 K/UL (150-450) L Mean Platelet Volume 9.8 FL (6.5-10.1) Neutrophils (%) (Auto) 76.3 % (45.0-75.0) H Lymphocytes (%) (Auto) 15.3 % (20.0-45.0) L Monocytes (%) (Auto) 4.2 % (1.0-10.0) Eosinophils (%) (Auto) 4.0 % (0.0-3.0) H Basophils (%) (Auto) 0.2 % (0.0-2.0) Erythrocyte Sedimentation Rate 127 MM/HR (0-20) H Prothrombin Time 10.9 SEC (9.30-11.50) Prothromb Time International Ratio 1.0 (0.9-1.1) Activated Partial Thromboplast Time 41 SEC (23-33) H Sodium Level 147 MMOL/L (136-145) H Potassium Level 3.5 MMOL/L (3.5-5.1) Chloride Level 110 MMOL/L (98-107) H Carbon Dioxide Level 27 MMOL/L (21-32) Anion Gap 11 mmol/L (5-15) Blood Urea Nitrogen 24 mg/dL (7-18) H Creatinine 1.4 MG/DL (0.55-1.30) H Estimat Glomerular Filtration Rate > 60 mL/min (>60) Glucose Level 134 MG/DL (74-106) H Calcium Level 8.0 MG/DL (8.5-10.1) L Phosphorus Level 2.9 MG/DL (2.5-4.9) Magnesium Level 2.1 MG/DL (1.8-2.4) Total Bilirubin 0.7 MG/DL (0.2-1.0) Aspartate Amino Transf (AST/SGOT) 74 U/L (15-37) H Alanine Aminotransferase (ALT/SGPT) 31 U/L (12-78) Alkaline Phosphatase 135 U/L (46-116) H C-Reactive Protein, Quantitative 46.1 mg/dL (0.00-0.90) H Total Protein 7.4 G/DL (6.4-8.2) Albumin 1.5 G/DL (3.4-5.0) L Globulin 5.9 g/dL Albumin/Globulin Ratio 0.3 (1.0-2.7) L Amylase Level 37 U/L (25-115) Lipase 193 U/L (73-393) Current Medications Medications (Trade) Dose Ordered Sig/[place] Route PRN Reason Start Time Stop Time Status Last Admin Dose Admin Acetaminophen (Tylenol) 650 mg Q4H PRN GT Temp >100.5 03/05/20 16:45 04/04/20 16:44 03/07/20 02:56 Apixaban (Eliquis) 5 mg BID GT 03/06/20 18:00 06/03/20 17:59 03/08/20 08:51 Ascorbic Acid (Vitamin C) 250 mg DAILY ORAL 03/08/20 09:00 04/07/20 08:59 03/08/20 08:51 Chlorhexidine Gluconate (Brandy-Hex 2%) 1 applic DAILY@2000 TOPIC 03/05/20 20:00 06/03/20 19:59 03/07/20 19:43 Dextrose (Dextrose 50%) 25 ml Q30M PRN IV Hypoglycemia 03/05/20 14:00 06/03/20 13:59 Dextrose (Dextrose 50%) 50 ml Q30M PRN IV Hypoglycemia 03/05/20 14:00 06/03/20 13:59 Dopamine HCl/ Dextrose 250 ml @ 0 mls/hr Q24H IV 03/05/20 10:14 06/03/20 10:13 Insulin Aspart (NovoLOG) EVERY 6 HOURS SUBQ 03/05/20 18:00 06/03/20 17:59 03/07/20 18:41 Levetiracetam (Keppra) 1,500 mg Q12HR GT 03/05/20 11:45 04/04/20 11:44 03/08/20 08:51 Levothyroxine Sodium (Synthroid) 75 mcg ACBREAKFAST GT 03/06/20 06:30 04/05/20 06:29 03/08/20 05:53 Norepinephrine Bitartrate 4 mg/ Dextrose 250 ml @ 0 mls/hr Q24H IV 03/08/20 11:00 04/07/20 10:59 Norepinephrine Bitartrate 8 mg/ Dextrose 500 ml @ 0 mls/hr Q24H IV 03/05/20 10:30 03/08/20 11:30 03/07/20 06:01 Phenylephrine HCl 50 mg/Dextrose 250 ml @ 0 mls/hr Q24H IV 03/05/20 10:15 04/04/20 10:14 03/07/20 06:01 Phenytoin (Dilantin) 250 mg Q12HR GT 03/05/20 21:00 04/04/20 20:59 03/08/20 08:51 Piperacillin Sod/ Tazobactam Sod 3.375 gm/Sodium Chloride 110 ml @ 27.5 mls/hr EVERY 8 HOURS IVPB 03/05/20 14:00 03/10/20 13:59 03/08/20 05:52 Potassium Chloride 30 meq/ Dextrose 1,015 ml @ 100 mls/hr Q10H9M IV 03/06/20 13:00 04/05/20 12:59 03/07/20 19:43 Vancomycin HCl (Vanco rx to dose) 1 ea DAILY PRN MISC Per rx protocol 03/07/20 16:15 04/06/20 16:14 Radha Calle MD March 08, 2020 11:32"
[2020-03-08] MEDS ORDERED: Levofloxacin 500mg tab ORAL SCH (11:45)
--- NOTE | 2020-03-08 12:00 | NUR ---
NURSE NOTES: Repositioned patient. Provided oral and trach suction.
--- NOTE | 2020-03-08 12:12 | Diagnostic Imaging Report ---
EXAM: XR Abdomen, 1 view CLINICAL HISTORY: F/U TECHNIQUE: Frontal view of the abdomen/pelvis. COMPARISON: No relevant prior studies available. FINDINGS: Intraperitoneal space: No evidence of intraperitoneal free air. Gastrointestinal tract: There is a relative paucity of bowel gas with a nonobstructive, nonspecific pattern. Bones/joints: Extensive degenerative changes throughout the lumbar spine and bilateral hip joints. Vasculature: Radiodense phleboliths in the pelvis bilaterally. IMPRESSION: No acute findings. Relative paucity of bowel gas with a nonobstructive, nonspecific pattern.
--- NOTE | 2020-03-08 12:17 | Diagnostic Imaging Report ---
EXAM: XR Chest, 1 View CLINICAL HISTORY: F/U TECHNIQUE: Frontal view of the chest. COMPARISON: Chest x-ray dated 03/06/20 FINDINGS: Lungs: Subsegmental atelectasis versus infiltrates in bilateral lung bases, not significantly changed. Pleural space: Small bilateral pleural effusions, not significant changed. Heart: Unremarkable. No cardiomegaly. Mediastinum: Unremarkable. Bones/joints: Unremarkable. Soft tissues: Stable 5 mm radiodense foreign body projecting over the right infrahilar region. Tubes, lines and devices: Stable positioning of the right IJ central venous catheter and endotracheal tube, with expected positioning. Telemetry leads overlie the thorax. IMPRESSION: No significant interval change from the prior chest x-ray. Small bilateral pleural effusions with subsegmental atelectasis versus infiltrates in bilateral lung bases.
--- NOTE | 2020-03-08 14:02 | NUR ---
NURSE NOTES: COVID #2 swab done and sent to the lab.
[2020-03-08] MEDS ORDERED: Tubing Blood Filter IV ONE (14:21)
[2020-03-08] MEDS ORDERED: Tubing IV Blood Pump IV ONE (14:21)
[2020-03-08] MEDS ORDERED: NS 275ml ONE ×2 (14:21→17:47)
--- NOTE | 2020-03-08 16:00 | NUR ---
NURSE NOTES: Repositioned patient.
--- NOTE | 2020-03-08 17:22 | NUR ---
NURSE NOTES: Bed bath given and provided trach and oral care.
[2020-03-08] MEDS ORDERED: Tubing IV Secondary IV ONE (17:47)
--- NOTE | 2020-03-08 18:22 | NUR ---
NURSE NOTES: Repositioned patient. Kept dry, clean and comfortable.
--- NOTE | 2020-03-08 18:58 | Nephrology Progress Note ---
Assessment/Plan Problem List: (1) Hypernatremia (2) ACE (acute kidney injury) (3) Cardiopulmonary arrest (4) Respiratory acidosis (5) Seizure disorder (6) Altered mental status (7) Pneumonia (8) Sepsis Plan iv adjusted, kcl, grave prognosis lytes better Subjective ROS Limited/Unobtainable: Yes Objective Objective Last 24 Hour Vital Signs Date Time Temp Pulse Resp B/P (MAP) Pulse Ox O2 Delivery O2 Flow Rate FiO2 03/08/20 18:00 82 15 113/64 (80) 100 03/08/20 17:30 83 15 112/62 (79) 100 03/08/20 17:00 90 15 112/63 (79) 100 03/08/20 16:30 86 17 111/65 (80) 100 03/08/20 16:00 86 17 115/66 (82) 100 03/08/20 16:00 86 03/08/20 15:30 82 14 116/62 (80) 100 03/08/20 15:00 84 14 107/58 (74) 100 03/08/20 14:45 83 14 40 03/08/20 14:30 85 14 105/59 (74) 100 03/08/20 14:14 111/60 03/08/20 14:00 86 15 112/58 (76) 100 03/08/20 13:30 85 16 114/65 (81) 100 03/08/20 13:00 87 16 115/66 (82) 100 03/08/20 12:30 82 18 107/58 (74) 100 03/08/20 12:00 Mechanical Ventilator 03/08/20 12:00 87 16 110/69 (83) 100 03/08/20 12:00 87 03/08/20 11:30 87 27 109/64 (79) 100 03/08/20 11:05 100 27 95/68 (77) 100 03/08/20 10:55 85 18 40 03/08/20 10:30 81 16 107/59 (75) 100 03/08/20 10:30 109/64 03/08/20 10:15 87 109/64 03/08/20 10:14 109/64 03/08/20 10:00 81 16 110/60 (77) 100 03/08/20 10:00 40 03/08/20 09:30 82 18 109/61 (77) 100 03/08/20 09:00 100 03/08/20 09:00 80 15 102/62 (75) 100 03/08/20 08:30 82 15 99/59 (72) 100 03/08/20 08:00 83 03/08/20 08:00 98.2 84 14 102/60 (74) 100 03/08/20 08:00 Mechanical Ventilator 03/08/20 07:30 86 15 101/58 (72) 100 03/08/20 07:05 83 16 40 03/08/20 07:00 89 16 101/57 (72) 100 03/08/20 07:00 101/57 03/08/20 06:30 88 14 101/56 (71) 100 03/08/20 06:30 88 14 03/08/20 06:00 98/53 03/08/20 06:00 87 14 98/53 (68) 100 03/08/20 05:30 92 15 97/58 (71) 100 03/08/20 05:00 94/53 03/08/20 05:00 91 15 94/53 (67) 100 03/08/20 04:44 95 16 40 03/08/20 04:30 94 17 91/55 (67) 100 03/08/20 04:00 Mechanical Ventilator 03/08/20 04:00 95 03/08/20 04:00 98/52 03/08/20 04:00 98.1 95 16 98/52 (67) 100 03/08/20 03:30 95 16 92/56 (68) 100 03/08/20 03:05 99 19 40 03/08/20 03:00 101/62 03/08/20 03:00 99 15 101/62 (75) 100 03/08/20 02:30 98 16 100/56 (71) 100 03/08/20 02:00 99 15 101/59 (73) 100 03/08/20 02:00 101/59 03/08/20 01:30 100 16 107/59 (75) 100 03/08/20 01:00 102/59 03/08/20 01:00 99 15 102/59 (73) 100 03/08/20 00:47 101 16 40 03/08/20 00:30 100 17 98/60 (73) 100 03/08/20 00:04 104 5/9/20 00:00 98.0 104 18 104/59 (74) 100 03/08/20 00:00 Mechanical Ventilator 03/08/20 00:00 104/59 03/07/20 23:45 111 21 117/81 (93) 100 03/07/20 23:30 105 17 106/64 (78) 100 03/07/20 23:15 102 17 105/59 (74) 100 03/07/20 23:00 103 18 102/56 (71) 100 03/07/20 23:00 102/56 03/07/20 22:59 102 16 40 03/07/20 22:30 102 16 108/56 (73) 100 03/07/20 22:00 111 23 104/66 (79) 100 03/07/20 22:00 104/66 03/07/20 21:30 108 29 139/65 (89) 100 03/07/20 21:00 123/69 03/07/20 21:00 98 29 123/69 (87) 100 03/07/20 20:36 94 16 40 03/07/20 20:30 95 18 108/66 (80) 100 03/07/20 20:00 Mechanical Ventilator 03/07/20 20:00 106/71 03/07/20 20:00 98.1 97 19 109/72 (84) 100 03/07/20 19:30 104 16 107/65 (79) 100 03/07/20 19:23 98 03/07/20 19:20 104 28 40 03/07/20 19:00 105 23 115/64 (81) 96 Intake and Output 03/07/20 03/08/20 19:00 07:00 Intake Total 1808.5 ml 1768.75 ml Output Total 1325 ml 1340 ml Balance 483.5 ml 428.75 ml IV Total 1518.5 ml 1148.75 ml Tube Feeding 240 ml 220 ml Blood Product 250 ml Other 50 ml 150 ml Output Urine Total 1325 ml 1340 ml Stool Total 0 ml # Bowel Movements 2 2 Laboratory Tests 03/08/20 04:00: White Blood Count 11.0H, Red Blood Count 3.01L, Hemoglobin 8.5L, Hematocrit 25.8L, Mean Corpuscular Volume 86, Mean Corpuscular Hemoglobin 28.2, Mean Corpuscular Hemoglobin Concent 32.9, Red Cell Distribution Width 16.3H, Platelet Count 140L, Mean Platelet Volume 9.8, Neutrophils (%) (Auto) 76.3H, Lymphocytes (%) (Auto) 15.3L, Monocytes (%) (Auto) 4.2, Eosinophils (%) (Auto) 4.0H, Basophils (%) (Auto) 0.2, Erythrocyte Sedimentation Rate 127H, Prothrombin Time 10.9, Prothromb Time International Ratio 1.0, Activated Partial Thromboplast Time 41H, Sodium Level 147H, Potassium Level 3.5, Chloride Level 110H, Carbon Dioxide Level 27, Anion Gap 11, Blood Urea Nitrogen 24H, Creatinine 1.4H, Estimat Glomerular Filtration Rate > 60, Glucose Level 134H, Lactic Acid Level 2.30H, Calcium Level 8.0L, Phosphorus Level 2.9, Magnesium Level 2.1, Total Bilirubin 0.7, Aspartate Amino Transf (AST/SGOT) 74H, Alanine Aminotransferase (ALT/SGPT) 31, Alkaline Phosphatase 135H, C-Reactive Protein, Quantitative 46.1H, Total Protein 7.4, Albumin 1.5L, Globulin 5.9, Albumin/ Globulin Ratio 0.3L, Amylase Level 37, Lipase 193 Height (Feet): 6 Height (Inches): 2.00 Weight (Pounds): 198 General Appearance: lethargic, other - on vent Cardiovascular: regular rhythm Respiratory/Chest: crackles/rales Extremities: trace edema Neurologic: unresponsive Raffaele Ocampo MD March 08, 2020 18:58
--- NOTE | 2020-03-08 19:20 | NUR ---
HAND-OFF: Report given to MARGARITA Madrigal. Endorsed plan of care.
--- NOTE | 2020-03-08 19:51 | NUR ---
NURSE NOTES: PATIENT OPEN EYES, ON ETT TO VENT AC14/TV550/FIO2 40%/PEEP5, O2 SATURATION 100%, HR 80'S/MIN SR, G TUBE INTACT AND PATENT, ONGOING GLUCERNA 1.5 AT 30ML/HR, NO RESIDUE STATUS, F/C INTACT AND PATENT, YELLOW URINE COLOR NOTED, RECTAL TUBE INTACT AND PATENT, BROWN COLOR LIQUID STOOL OUTED, TLC TO RIGHT IJ, INTACT ONGOING LEVOPHED 2MCG/MIN AND IV FLUID D5W W/KCL 30MEQ AT 100ML/HR VIA TLC, ON P200 BED, MADE LOWER BED POSITION, ON BED ALARM AND LOCKED, WILL CONTINUE TO MONITOR.
[2020-03-08] MEDS: Dyna-Hex 2% Top Sol 2oz TOPIC SCH (20:24)
--- NOTE | 2020-03-08 20:24 | Surgery Progress Note ---
Surgery Progress Note Subjective Additional Comments no acute events labs noted exam unchanged Objective Last 24 Hour Vital Signs Date Time Temp Pulse Resp B/P (MAP) Pulse Ox O2 Delivery O2 Flow Rate FiO2 03/08/20 19:19 85 17 40 03/08/20 19:00 84 14 108/63 (78) 100 03/08/20 18:30 84 14 107/64 (78) 100 03/08/20 18:00 113/64 03/08/20 18:00 82 15 113/64 (80) 100 03/08/20 17:30 83 15 112/62 (79) 100 03/08/20 17:00 90 15 112/63 (79) 100 03/08/20 17:00 125/60 03/08/20 16:30 86 17 111/65 (80) 100 03/08/20 16:00 86 17 115/66 (82) 100 03/08/20 16:00 115/66 03/08/20 16:00 98.0 86 17 115/66 (82) 100 03/08/20 16:00 Mechanical Ventilator 03/08/20 16:00 86 03/08/20 15:30 82 14 116/62 (80) 100 03/08/20 15:00 107/58 03/08/20 15:00 84 14 107/58 (74) 100 03/08/20 14:45 83 14 40 03/08/20 14:30 85 14 105/59 (74) 100 03/08/20 14:14 111/60 03/08/20 14:13 112/58 03/08/20 14:00 86 15 112/58 (76) 100 03/08/20 14:00 112/58 03/08/20 13:30 85 16 114/65 (81) 100 03/08/20 13:00 127/66 03/08/20 13:00 87 16 115/66 (82) 100 03/08/20 12:30 82 18 107/58 (74) 100 03/08/20 12:00 98.2 87 16 110/69 (83) 100 03/08/20 12:00 Mechanical Ventilator 03/08/20 12:00 111/64 03/08/20 12:00 87 16 110/69 (83) 100 03/08/20 12:00 87 03/08/20 11:30 87 27 109/64 (79) 100 03/08/20 11:30 109/64 03/08/20 11:05 100 27 95/68 (77) 100 03/08/20 11:00 105/67 03/08/20 10:55 85 18 40 03/08/20 10:30 81 16 107/59 (75) 100 03/08/20 10:30 109/64 03/08/20 10:15 87 109/64 03/08/20 10:14 109/64 03/08/20 10:00 81 16 110/60 (77) 100 03/08/20 10:00 40 03/08/20 10:00 105/64 03/08/20 09:30 82 18 109/61 (77) 100 03/08/20 09:00 100 03/08/20 09:00 80 15 102/62 (75) 100 03/08/20 09:00 112/63 03/08/20 08:30 82 15 99/59 (72) 100 03/08/20 08:00 83 03/08/20 08:00 101/57 03/08/20 08:00 98.2 84 14 102/60 (74) 100 03/08/20 08:00 Mechanical Ventilator 03/08/20 07:30 86 15 101/58 (72) 100 03/08/20 07:05 83 16 40 03/08/20 07:00 89 16 101/57 (72) 100 03/08/20 07:00 101/57 03/08/20 06:30 88 14 101/56 (71) 100 03/08/20 06:30 88 14 03/08/20 06:00 98/53 03/08/20 06:00 87 14 98/53 (68) 100 03/08/20 05:30 92 15 97/58 (71) 100 03/08/20 05:00 94/53 03/08/20 05:00 91 15 94/53 (67) 100 03/08/20 04:44 95 16 40 03/08/20 04:30 94 17 91/55 (67) 100 03/08/20 04:00 Mechanical Ventilator 03/08/20 04:00 95 03/08/20 04:00 98/52 03/08/20 04:00 98.1 95 16 98/52 (67) 100 03/08/20 03:30 95 16 92/56 (68) 100 03/08/20 03:05 99 19 40 03/08/20 03:00 101/62 03/08/20 03:00 99 15 101/62 (75) 100 03/08/20 02:30 98 16 100/56 (71) 100 03/08/20 02:00 99 15 101/59 (73) 100 03/08/20 02:00 101/59 03/08/20 01:30 100 16 107/59 (75) 100 03/08/20 01:00 102/59 03/08/20 01:00 99 15 102/59 (73) 100 03/08/20 00:47 101 16 40 03/08/20 00:30 100 17 98/60 (73) 100 03/08/20 00:04 104 03/08/20 00:00 98.0 104 18 104/59 (74) 100 03/08/20 00:00 Mechanical Ventilator 03/08/20 00:00 104/59 03/07/20 23:45 111 21 117/81 (93) 100 03/07/20 23:30 105 17 106/64 (78) 100 03/07/20 23:15 102 17 105/59 (74) 100 03/07/20 23:00 103 18 102/56 (71) 100 03/07/20 23:00 102/56 03/07/20 22:59 102 16 40 03/07/20 22:30 102 16 108/56 (73) 100 03/07/20 22:00 111 23 104/66 (79) 100 03/07/20 22:00 104/66 03/07/20 21:30 108 29 139/65 (89) 100 03/07/20 21:00 123/69 03/07/20 21:00 98 29 123/69 (87) 100 03/07/20 20:36 94 16 40 03/07/20 20:30 95 18 108/66 (80) 100 I&O Intake and Output 03/07/20 03/08/20 19:00 07:00 Intake Total 1808.5 ml 1768.75 ml Output Total 1325 ml 1340 ml Balance 483.5 ml 428.75 ml IV Total 1518.5 ml 1148.75 ml Tube Feeding 240 ml 220 ml Blood Product 250 ml Other 50 ml 150 ml Output Urine Total 1325 ml 1340 ml Stool Total 0 ml # Bowel Movements 2 2 Dressing: other Wound: other Drains: other Cardiovascular: RSR Respiratory: decreased breath sounds Abdomen: non-tender, present bowel sounds Extremities: no cyanosis, other Laboratory Tests Test 03/08/20 04:00 White Blood Count 11.0 K/UL (4.8-10.8) H Red Blood Count 3.01 M/UL (4.70-6.10) L Hemoglobin 8.5 G/DL (14.2-18.0) L Hematocrit 25.8 % (42.0-52.0) L Mean Corpuscular Volume 86 FL (80-99) Mean Corpuscular Hemoglobin 28.2 PG (27.0-31.0) Mean Corpuscular Hemoglobin Concent 32.9 G/DL (32.0-36.0) Red Cell Distribution Width 16.3 % (11.6-14.8) H Platelet Count 140 K/UL (150-450) L Mean Platelet Volume 9.8 FL (6.5-10.1) Neutrophils (%) (Auto) 76.3 % (45.0-75.0) H Lymphocytes (%) (Auto) 15.3 % (20.0-45.0) L Monocytes (%) (Auto) 4.2 % (1.0-10.0) Eosinophils (%) (Auto) 4.0 % (0.0-3.0) H Basophils (%) (Auto) 0.2 % (0.0-2.0) Erythrocyte Sedimentation Rate 127 MM/HR (0-20) H Prothrombin Time 10.9 SEC (9.30-11.50) Prothromb Time International Ratio 1.0 (0.9-1.1) Activated Partial Thromboplast Time 41 SEC (23-33) H Sodium Level 147 MMOL/L (136-145) H Potassium Level 3.5 MMOL/L (3.5-5.1) Chloride Level 110 MMOL/L (98-107) H Carbon Dioxide Level 27 MMOL/L (21-32) Anion Gap 11 mmol/L (5-15) Blood Urea Nitrogen 24 mg/dL (7-18) H Creatinine 1.4 MG/DL (0.55-1.30) H Estimat Glomerular Filtration Rate > 60 mL/min (>60) Glucose Level 134 MG/DL (74-106) H Lactic Acid Level 2.30 mmol/L (0.4-2.0) H Calcium Level 8.0 MG/DL (8.5-10.1) L Phosphorus Level 2.9 MG/DL (2.5-4.9) Magnesium Level 2.1 MG/DL (1.8-2.4) Total Bilirubin 0.7 MG/DL (0.2-1.0) Aspartate Amino Transf (AST/SGOT) 74 U/L (15-37) H Alanine Aminotransferase (ALT/SGPT) 31 U/L (12-78) Alkaline Phosphatase 135 U/L (46-116) H C-Reactive Protein, Quantitative 46.1 mg/dL (0.00-0.90) H Total Protein 7.4 G/DL (6.4-8.2) Albumin 1.5 G/DL (3.4-5.0) L Globulin 5.9 g/dL Albumin/Globulin Ratio 0.3 (1.0-2.7) L Amylase Level 37 U/L (25-115) Lipase 193 U/L (73-393) Plan Problems: (1) Respiratory acidosis (2) Seizure disorder (3) Altered mental status (4) Pneumonia Assessment & Plan: New left pleural effusion Improved aeration of the right lung, with persistent consolidation and pleural fluid (5) Cardiopulmonary arrest (6) Hypernatremia (7) Sepsis Assessment & Plan: Pt presented on admission with multiple pressure injuries. Unstageable Pressure injury R Buttocks. Base of wound is 100% necrotic. Sacrum, R and L Gluteal cheeks maroon with multiple partial thickness wounds with surrounding denuded and macerated skin. Dry, black borders noted Unstageable pressure injury R thoracic. Base of wound is 100% necrotic but dry. No erythema induration or fluctuance periwound. Full thickness stage 3 pressure injury R heel. Base of wound is beefy red with macerated borders. periwound is necrotic and fluctuant. Full thickness stage 3 pressure injury R Hallux. Base of wound is beefy red with surrounding pink granulation. Dry black borders noted. Loose dry eschar noted to L heel. Hyperpigmentation noted to R and L lateral Malleoli. unlikely etiology of sepsis will monitor Tx.Plan: Cleanse Sacral area with Saline.Apply Therahoney. Apply Moisture Barrier Paste periwound. Cover with Optifoam drsgs. Change Daily and Prn. Cleanse wound R thoracic with Saline. Apply TheraHoney. Apply Cavilon Skin Barrier Periwound. Cover with Optifoam drsg.Change every 3 days and prn. Cleanse wound R heel with Saline. Apply TheraHoney. Apply Cavilon Skin Barrier Periwound. Cover with Optifoam drsg. Change every 3 days and prn. Cleanse R Hallux with Saline. Apply Therahoney. Apply Cavilon Skin Barrier Periwound. Cover with Optifoam drsg. Change every 3 days and prn. Apply Cavilon Skin Barrier to L Heel. Cover with Optifoam drsg. Change every 7 days and prn. Reposition at least every 2hours or as tolerated. Place Pillow between knees. Off-load heels with Pillow. APM/NORM Mattress overlay. DAILY ESTIMATED NEEDS: Needs based on Critical care, wounds 78.6abw 22-30 kcals/kg 8753-9275 total kcals 1.25-2 g protein/kg 98-157 g total protein 25-30 mL/kg 3292-6460 total fluid mLs NUTRITION DIAGNOSIS: Increased kcal and pro needs r/t wound care as evidenced by pt w/ full thickness wounds x2, unstageable wounds x2, refer to WC eval. ENTERAL NUTRITION RECOMMENDATIONS: Glucerna 1.5 @70ml/hr x18 hrs to provide 1260ml, 1890 kcal, 104g pro, 956ml free H2O - When stable rec to initiate GT feeds of Glucerna 1.5. Start @20ml/hr for 6 hrs, advance as tolerated 10ml/hr q4-6 hrs to goal. - HOLD TF 1 HOUR BEFORE AND AFTER SYNTHROID(QD) AND DILANTIN(BID), tf to run a max of 18 hrs - Flush per MD , HOB over 30 degrees WITHOUT HEMODYNAMIC STABILITY: rec trophic feeds of Glucerna 1.5 @5-10ml/hr to maintain gut integrity. ADDITIONAL RECOMMENDATIONS: 1) Wound care: add AJIT BID + Vit C 250mg daily 2) Per SNF: 69inches, 212lbs/96.36kg Maintain calibrated daily wts 3) Feed when hemodynamically stable, do not feed in the prone position (8) ACE (acute kidney injury) Gary Vicente March 08, 2020 20:24
--- NOTE | 2020-03-08 22:15 | NUR ---
NURSE NOTES: LE: PATIENT ASLEEP STATUS, NO PAIN OR SOB NOTED.
--- NOTE | 2020-03-08 23:15 | Progress Note ---
DATE: 03/08/2020 SUBJECTIVE: The patient remains in the intensive care unit. Condition remains critical. Prognosis guarded. He remains on full ventilator support. Blood pressure parameters slightly better, but he remains on pressors, ongoing taper efforts are noted and discussed with nursing staff. PHYSICAL EXAMINATION: VITAL SIGNS: Blood pressure 105/59, heart rate 85, respirations 14, on 40% FiO2. LUNGS: Bilateral breath sounds. Thin secretions. CARDIAC: Regular rhythm and rate. Normal S1, S2. No murmur. ABDOMEN: Soft. EXTREMITIES: Trace edema. LABORATORY AND DIAGNOSTIC DATA: White count 11, hemoglobin 8.5. Sodium 147, potassium 3.5, bicarb 27, lactic acid 2.3. BUN 24, creatinine 1.4. C-reactive protein 46. Albumin 1.5. Chest x-ray today revealed persisting effusions, atelectasis, and bilateral infiltrates. IMPRESSION: 1. Respiratory failure. 2. Sepsis with shock. 3. Staph aureus and Pseudomonas pneumonia. 4. Acute on chronic renal failure, improved status post full arrest. 5. Status post cardiopulmonary arrest. PLAN: 1. Ventilator support. 2. Continue efforts to taper off pressors. 3. Antimicrobials per Infectious Disease siebel consultant. 4. DVT prophylaxis. 5. Hypotonic IV fluids. 6. Replace electrolytes as needed. 7. We will continue to follow clinically. Yfn Luna M.D. DR: HILDA JOB#: [id number] CC:
--- NOTE | 2020-03-08 23:47 | NUR ---
NURSE NOTES: LE: BS 134MG/DL NOTED, NO COVERAGE PER PROTOCOLS.
[2020-03-09] VITALS (38 sets, daily range): BP systolic 95–124; BP diastolic 55–76
--- NOTE | 2020-03-09 01:52 | NUR ---
NURSE NOTES: PATIENT ASLEEP STATUS, VSS WITH LEVOPHED 2MCG/MIN VIA TLC.
--- NOTE | 2020-03-09 03:46 | NUR ---
NURSE NOTES: MORNING CARE WAS DONE, RECTAL TUBE INTACT, GREENISH LIQUID STOOL DRAINING GRAVITY.
--- NOTE | 2020-03-09 05:18 | NUR ---
NURSE NOTES: PATIENT ASLEEP STATUS, NO DISTRESS NOTED AT THIS TIME.
[2020-03-09] MEDS: NovoLOG Insulin Flexpen SUBQ SCH ×3 (05:47→18:00)
[2020-03-09 06:34] LABS: ANION GAP 5 mmol/L (5-15); BLOOD UREA NITROGEN 20 mg/dL (7-18); CALCIUM 8.4 MG/DL (8.5-10.1); CARBON DIOXIDE 28 MMOL/L (21-32); CHLORIDE 111 MMOL/L (98-107); CREATININE 1.1 MG/DL (0.55-1.30); POTASSIUM 3.8 MMOL/L (3.5-5.1); SODIUM 144 MMOL/L (136-145)
--- NOTE | 2020-03-09 07:20 | NUR ---
HAND-OFF: Report given to MARGARITA YEBOAH.
--- NOTE | 2020-03-09 07:21 | NUR ---
NURSE NOTES: Received report from MARGARITA Madrigal. Patient awake and responsive to verbal, open his eyes with tracking. ETT 7/24cm at lip line with vent setting AC 14, VT 550, FiO2 40% and Peep 5. O2 Sat 99% on the monitor. Gtube intact and held for now s/p Synthroid given. Penaloza intact and draining with yellow color urine. Rectal tube intact and draining with brown liquid stool. Right IJ TLC intact and clean with running with levophed 2mcg/min at this time. BP stable. Left soft wrist band restraint on. Left hand is warm to touch. Kept dry, clean, comfortable and HOB>30.
--- NOTE | 2020-03-09 08:06 | General Progress Note ---
Assessment/Plan Assessment/Plan: IMPRESSION: 1. Septic shock. 2. Hypotension. 3. Tachycardia. 4. Respiratory failure. 5. Hypoxemia. 6. Seizure disorder. 7. Hyperlipidemia. 8. Hypernatremia. 9. Acute renal failure. 10. Pulmonary edema. 11. Possible COVID. 12. pleural effusion PLAN monitor hemodynamics try to wean/ discussed need to tap effusion - will order iv antibiotics ID follow up maintain feeds off load still critical impression, plan, and exam edited and reviewed in detail care discussed with RN Subjective ROS Limited/Unobtainable: Yes Allergies: Coded Allergies: HYDROCODONE (Verified Allergy, Unknown, 07/04/17) Subjective on vent hemodynamics noted on feeds Objective Last 24 Hour Vital Signs Date Time Temp Pulse Resp B/P (MAP) Pulse Ox O2 Delivery O2 Flow Rate FiO2 03/09/20 07:00 81 15 106/58 (74) 100 03/09/20 06:30 78 14 03/09/20 06:30 78 14 117/66 (83) 100 03/09/20 06:00 82 14 116/67 (83) 100 03/09/20 05:30 82 14 113/68 (83) 100 03/09/20 05:00 83 15 119/65 (83) 100 03/09/20 05:00 119/65 03/09/20 04:30 82 12 119/74 (89) 100 03/09/20 04:00 Mechanical Ventilator 03/09/20 04:00 98.1 84 17 117/68 (84) 100 03/09/20 04:00 117/68 03/09/20 04:00 84 03/09/20 03:30 84 15 112/65 (81) 100 03/09/20 03:00 107/65 03/09/20 03:00 87 15 107/65 (79) 100 03/09/20 02:30 86 15 101/76 (84) 100 03/09/20 02:00 108/60 03/09/20 02:00 82 14 108/60 (76) 100 03/09/20 01:56 110/64 03/09/20 01:42 81 17 40 03/09/20 01:30 82 15 114/62 (79) 100 03/09/20 01:00 112/62 03/09/20 01:00 83 14 112/62 (79) 100 03/09/20 00:30 86 15 116/63 (80) 100 03/09/20 00:00 98.1 85 16 110/63 (79) 100 03/09/20 00:00 110/63 03/09/20 00:00 85 03/09/20 00:00 Mechanical Ventilator 03/08/20 23:30 85 17 120/66 (84) 100 03/08/20 23:01 84 17 40 03/08/20 23:00 108/68 03/08/20 23:00 86 15 108/68 (81) 100 03/08/20 22:30 82 14 111/71 (84) 100 03/08/20 22:00 84 14 113/64 (80) 100 03/08/20 22:00 113/64 03/08/20 21:30 85 15 111/65 (80) 100 03/08/20 21:00 113/65 03/08/20 21:00 86 17 113/65 (81) 100 03/08/20 20:30 84 14 110/61 (77) 100 03/08/20 20:00 112/63 03/08/20 20:00 98.6 83 17 112/63 (79) 100 03/08/20 20:00 Mechanical Ventilator 03/08/20 19:36 83 03/08/20 19:30 85 16 112/64 (80) 100 03/08/20 19:19 85 17 40 03/08/20 19:00 84 14 108/63 (78) 100 03/08/20 19:00 108/63 03/08/20 18:30 84 14 107/64 (78) 100 03/08/20 18:00 113/64 03/08/20 18:00 82 15 113/64 (80) 100 03/08/20 17:30 83 15 112/62 (79) 100 03/08/20 17:00 90 15 112/63 (79) 100 03/08/20 17:00 125/60 03/08/20 16:30 86 17 111/65 (80) 100 03/08/20 16:00 86 17 115/66 (82) 100 03/08/20 16:00 115/66 03/08/20 16:00 98.0 86 17 115/66 (82) 100 03/08/20 16:00 Mechanical Ventilator 03/08/20 16:00 86 03/08/20 15:30 82 14 116/62 (80) 100 03/08/20 15:00 107/58 03/08/20 15:00 84 14 107/58 (74) 100 03/08/20 14:45 83 14 40 03/08/20 14:30 85 14 105/59 (74) 100 03/08/20 14:14 111/60 03/08/20 14:13 112/58 03/08/20 14:00 86 15 112/58 (76) 100 03/08/20 14:00 112/58 03/08/20 13:30 85 16 114/65 (81) 100 03/08/20 13:00 127/66 03/08/20 13:00 87 16 115/66 (82) 100 03/08/20 12:30 82 18 107/58 (74) 100 03/08/20 12:00 98.2 87 16 110/69 (83) 100 03/08/20 12:00 Mechanical Ventilator 03/08/20 12:00 111/64 03/08/20 12:00 87 16 110/69 (83) 100 03/08/20 12:00 87 03/08/20 11:30 87 27 109/64 (79) 100 03/08/20 11:30 109/64 03/08/20 11:05 100 27 95/68 (77) 100 03/08/20 11:00 105/67 03/08/20 10:55 85 18 40 03/08/20 10:30 81 16 107/59 (75) 100 03/08/20 10:30 109/64 03/08/20 10:15 87 109/64 03/08/20 10:14 109/64 03/08/20 10:00 81 16 110/60 (77) 100 03/08/20 10:00 40 03/08/20 10:00 105/64 03/08/20 09:30 82 18 109/61 (77) 100 03/08/20 09:00 100 03/08/20 09:00 80 15 102/62 (75) 100 03/08/20 09:00 112/63 03/08/20 08:30 82 15 99/59 (72) 100 Intake and Output 03/08/20 03/09/20 19:00 07:00 Intake Total 988.05 ml 1475.0 ml Output Total 1300 ml 930 ml Balance -311.95 ml 545.0 ml Intake Free Water 150 ml 0 ml IV Total 478.05 ml 1075.0 ml Tube Feeding 360 ml 300 ml Other 100 ml Output Urine Total 1200 ml 930 ml Stool Total 100 ml Laboratory Tests 03/09/20 04:30: Sodium Level 144, Potassium Level 3.8, Chloride Level 111H, Carbon Dioxide Level 28, Anion Gap 5, Blood Urea Nitrogen 20H, Creatinine 1.1, Estimat Glomerular Filtration Rate > 60, Glucose Level 119H, Lactic Acid Level 1.60, Calcium Level 8.4L, Random Vancomycin Level 10.3 Height (Feet): 6 Height (Inches): 2.00 Weight (Pounds): 204 Objective GENERAL: Ill-appearing male. on vent deferred due to possible COVID German Matthews MD March 09, 2020 08:06
[2020-03-09] MEDS: Ascorbic Acid 500mg tab ORAL SCH (08:27)
[2020-03-09] MEDS: Phenytoin Susp 100mg/4ml GT SCH ×2 (08:27→21:12)
[2020-03-09] MEDS: Levofloxacin 500mg tab GT SCH (08:27)
[2020-03-09] MEDS: levETIRAcetam 500mg/5ml Liquid GT SCH ×2 (08:27→21:11)
[2020-03-09] MEDS: Eliquis 5mg tablet GT SCH ×2 (08:28→18:33)
--- NOTE | 2020-03-09 08:28 | NUR ---
NURSE NOTES: Seen by Dr. Matthews and assessed patient. No new order at this time. Will try weaning.
[2020-03-09] MEDS: DOPamine 400mg/250ml 250 ML IV SCH (10:14)
[2020-03-09] MEDS: Phenylephrine 50 MG in D5W 245 ML IV SCH (10:14)
--- NOTE | 2020-03-09 10:35 | NUR ---
RESPIRATORY NOTES Unable to initiate SBT - patient's NIF and VC do not meet weaning criteria.
--- NOTE | 2020-03-09 11:07 | Infectious Diseases Prog Note ---
Assessment/Plan Assessment/Plan A: 1. Pneumonia with MRSA & Pseudomonas 2. Respiratory failure. 3. Hypertension. 4. CVA. 5. Seizures. 6. Septic shock. 7. Anemia 8. Diarrhea, C. difficile: negative PLAN: 1. We will continue IV vancomycin and Levaquin Subjective ROS Limited/Unobtainable: Yes Constitutional: Denies: fever Cardiovascular: Reports: other - on levophed Gastrointestinal/Abdominal: Reports: diarrhea Allergies: Coded Allergies: HYDROCODONE (Verified Allergy, Unknown, 07/04/17) Objective Vital Signs Last 24 Hour Vital Signs Date Time Temp Pulse Resp B/P (MAP) Pulse Ox O2 Delivery O2 Flow Rate FiO2 03/09/20 10:30 95 23 99/57 (71) 100 03/09/20 10:14 102/55 03/09/20 10:14 88 102/55 03/09/20 10:14 102/55 03/09/20 10:00 96 16 108/61 (77) 100 03/09/20 10:00 133/68 03/09/20 09:45 117/68 03/09/20 09:30 88 12 102/55 (71) 100 03/09/20 09:30 106/60 03/09/20 09:15 102/55 03/09/20 09:00 103/57 03/09/20 09:00 88 14 103/58 (73) 100 03/09/20 08:30 76 14 110/60 (77) 100 03/09/20 08:00 98.2 82 14 113/57 (75) 100 03/09/20 08:00 89 03/09/20 08:00 109/56 03/09/20 08:00 Mechanical Ventilator 03/09/20 07:30 75 14 104/60 (75) 100 03/09/20 07:00 81 15 106/58 (74) 100 03/09/20 07:00 103/60 03/09/20 06:30 78 14 03/09/20 06:30 78 14 117/66 (83) 100 03/09/20 06:00 82 14 116/67 (83) 100 03/09/20 05:30 82 14 113/68 (83) 100 03/09/20 05:00 83 15 119/65 (83) 100 03/09/20 05:00 119/65 03/09/20 04:30 82 12 119/74 (89) 100 03/09/20 04:00 Mechanical Ventilator 03/09/20 04:00 98.1 84 17 117/68 (84) 100 03/09/20 04:00 117/68 03/09/20 04:00 84 03/09/20 03:30 84 15 112/65 (81) 100 03/09/20 03:00 107/65 03/09/20 03:00 87 15 107/65 (79) 100 03/09/20 02:30 86 15 101/76 (84) 100 03/09/20 02:00 108/60 03/09/20 02:00 82 14 108/60 (76) 100 03/09/20 01:56 110/64 03/09/20 01:42 81 17 40 03/09/20 01:30 82 15 114/62 (79) 100 03/09/20 01:00 112/62 03/09/20 01:00 83 14 112/62 (79) 100 03/09/20 00:30 86 15 116/63 (80) 100 03/09/20 00:00 98.1 85 16 110/63 (79) 100 03/09/20 00:00 110/63 03/09/20 00:00 85 03/09/20 00:00 Mechanical Ventilator 03/08/20 23:30 85 17 120/66 (84) 100 03/08/20 23:01 84 17 40 03/08/20 23:00 108/68 03/08/20 23:00 86 15 108/68 (81) 100 03/08/20 22:30 82 14 111/71 (84) 100 03/08/20 22:00 84 14 113/64 (80) 100 03/08/20 22:00 113/64 03/08/20 21:30 85 15 111/65 (80) 100 03/08/20 21:00 113/65 03/08/20 21:00 86 17 113/65 (81) 100 03/08/20 20:30 84 14 110/61 (77) 100 03/08/20 20:00 112/63 03/08/20 20:00 98.6 83 17 112/63 (79) 100 03/08/20 20:00 Mechanical Ventilator 03/08/20 19:36 83 03/08/20 19:30 85 16 112/64 (80) 100 03/08/20 19:19 85 17 40 03/08/20 19:00 84 14 108/63 (78) 100 03/08/20 19:00 108/63 03/08/20 18:30 84 14 107/64 (78) 100 03/08/20 18:00 113/64 03/08/20 18:00 82 15 113/64 (80) 100 03/08/20 17:30 83 15 112/62 (79) 100 03/08/20 17:00 90 15 112/63 (79) 100 03/08/20 17:00 125/60 03/08/20 16:30 86 17 111/65 (80) 100 03/08/20 16:00 86 17 115/66 (82) 100 03/08/20 16:00 115/66 03/08/20 16:00 98.0 86 17 115/66 (82) 100 03/08/20 16:00 Mechanical Ventilator 03/08/20 16:00 86 03/08/20 15:30 82 14 116/62 (80) 100 03/08/20 15:00 107/58 03/08/20 15:00 84 14 107/58 (74) 100 03/08/20 14:45 83 14 40 03/08/20 14:30 85 14 105/59 (74) 100 03/08/20 14:14 111/60 03/08/20 14:13 112/58 03/08/20 14:00 86 15 112/58 (76) 100 03/08/20 14:00 112/58 03/08/20 13:30 85 16 114/65 (81) 100 03/08/20 13:00 127/66 03/08/20 13:00 87 16 115/66 (82) 100 03/08/20 12:30 82 18 107/58 (74) 100 03/08/20 12:00 98.2 87 16 110/69 (83) 100 03/08/20 12:00 Mechanical Ventilator 03/08/20 12:00 111/64 03/08/20 12:00 87 16 110/69 (83) 100 03/08/20 12:00 87 03/08/20 11:30 87 27 109/64 (79) 100 03/08/20 11:30 109/64 03/08/20 11:05 100 27 95/68 (77) 100 Height (Feet): 6 Height (Inches): 2.00 Weight (Pounds): 204 HEENT: other - orally intubated Respiratory/Chest: rhonchi - bilaterally, other - on ventilator Cardiovascular: normal rate, other - RIJ central line Abdomen: soft, non tender, other - GT feeding, rectal tube Genitourinary: other - Penaloza catheter Extremities: other - hands edema Neurologic/Psychiatric: alert, responsive Microbiology Date/Time Source Procedure Growth Status 03/07/20 18:30 Stool Clostridium difficile Toxin Assay - Final Complete Laboratory Tests Test 03/09/20 04:30 Sodium Level 144 MMOL/L (136-145) Potassium Level 3.8 MMOL/L (3.5-5.1) Chloride Level 111 MMOL/L (98-107) H Carbon Dioxide Level 28 MMOL/L (21-32) Anion Gap 5 mmol/L (5-15) Blood Urea Nitrogen 20 mg/dL (7-18) H Creatinine 1.1 MG/DL (0.55-1.30) Estimat Glomerular Filtration Rate > 60 mL/min (>60) Glucose Level 119 MG/DL (74-106) H Lactic Acid Level 1.60 mmol/L (0.4-2.0) Calcium Level 8.4 MG/DL (8.5-10.1) L Random Vancomycin Level 10.3 ug/mL Current Medications Medications (Trade) Dose Ordered Sig/Kolby Route PRN Reason Start Time Stop Time Status Last Admin Dose Admin Acetaminophen (Tylenol) 650 mg Q4H PRN GT Temp >100.5 03/05/20 16:45 04/04/20 16:44 03/07/20 02:56 Apixaban (Eliquis) 5 mg BID GT 03/06/20 18:00 06/03/20 17:59 03/09/20 08:28 Ascorbic Acid (Vitamin C) 250 mg DAILY ORAL 03/08/20 09:00 04/07/20 08:59 03/09/20 08:27 Chlorhexidine Gluconate (Brandy-Hex 2%) 1 applic DAILY@1999 TOPIC 03/05/20 20:00 06/03/20 19:59 03/08/20 20:24 Dextrose (Dextrose 50%) 25 ml Q30M PRN IV Hypoglycemia 03/05/20 14:00 06/03/20 13:59 Dextrose (Dextrose 50%) 50 ml Q30M PRN IV Hypoglycemia 03/05/20 14:00 06/03/20 13:59 Dopamine HCl/ Dextrose 250 ml @ 0 mls/hr Q24H IV 03/05/20 10:14 06/03/20 10:13 Insulin Aspart (NovoLOG) EVERY 6 HOURS SUBQ 03/05/20 18:00 06/03/20 17:59 03/07/20 18:41 Levetiracetam (Keppra) 1,500 mg Q12HR GT 03/05/20 11:45 04/04/20 11:44 03/09/20 08:27 Levofloxacin (Levaquin) 500 mg DAILY GT 03/09/20 09:00 03/15/20 11:44 03/09/20 08:27 Levothyroxine Sodium (Synthroid) 75 mcg ACBREAKFAST GT 03/06/20 06:30 04/05/20 06:29 03/09/20 05:32 Norepinephrine Bitartrate 4 mg/ Dextrose 250 ml @ 0 mls/hr Q24H IV 03/08/20 11:00 04/07/20 10:59 03/09/20 01:56 Phenylephrine HCl 50 mg/Dextrose 250 ml @ 0 mls/hr Q24H IV 03/05/20 10:15 04/04/20 10:14 03/07/20 06:01 Phenytoin (Dilantin) 250 mg Q12HR GT 03/05/20 21:00 04/04/20 20:59 03/09/20 08:27 Potassium Chloride 30 meq/ Dextrose 1,015 ml @ 100 mls/hr Q10H9M IV 03/06/20 13:00 04/05/20 12:59 03/09/20 01:42 Vancomycin HCl (Vanco rx to dose) 1 ea DAILY PRN MISC Per rx protocol 03/07/20 16:15 04/06/20 16:14 Vancomycin HCl 1 gm/Dextrose 275 ml @ 183.708 mls/hr Q24H IVPB 03/09/20 11:00 03/14/20 10:59 Xavi Earl MD March 09, 2020 11:07
[2020-03-09] MEDS: Vancomycin 1gm/D5W 275ml IVPB SCH ×2 (11:22)
--- NOTE | 2020-03-09 12:02 | NUR ---
NURSE NOTES: No distress noted. Kept dry, clean and comfortable.
[2020-03-09] MEDS ORDERED: NS 275ml ONE (14:50)
--- NOTE | 2020-03-09 16:02 | NUR ---
NURSE NOTES: Repositioned patient. Provided oral and trach care.
--- NOTE | 2020-03-09 17:17 | Surgery Progress Note ---
Surgery Progress Note Subjective Additional Comments kub and cxr reviewed no n/v wbc improved crp noted Objective Last 24 Hour Vital Signs Date Time Temp Pulse Resp B/P (MAP) Pulse Ox O2 Delivery O2 Flow Rate FiO2 03/09/20 16:00 90 18 119/66 (83) 100 03/09/20 16:00 89 03/09/20 15:20 89 19 40 03/09/20 15:00 88 19 107/62 (77) 100 03/09/20 14:00 85 17 108/63 (78) 100 03/09/20 13:00 85 17 99/59 (72) 100 03/09/20 12:30 87 14 95/57 (70) 100 03/09/20 12:30 86 14 107/60 (76) 100 03/09/20 12:00 83 14 100/60 (73) 100 03/09/20 12:00 84 03/09/20 12:00 98.1 90 21 105/56 (72) 100 03/09/20 11:30 85 14 95/57 (70) 100 03/09/20 11:30 88 17 101/55 (70) 100 03/09/20 11:15 88 14 40 03/09/20 11:00 91 26 103/58 (73) 100 03/09/20 10:30 95 23 99/57 (71) 100 03/09/20 10:14 102/55 03/09/20 10:14 88 102/55 03/09/20 10:14 102/55 03/09/20 10:00 96 16 108/61 (77) 100 03/09/20 10:00 133/68 03/09/20 09:45 117/68 03/09/20 09:30 88 12 102/55 (71) 100 03/09/20 09:30 106/60 03/09/20 09:15 102/55 03/09/20 09:00 103/57 03/09/20 09:00 88 14 103/58 (73) 100 03/09/20 08:30 76 14 110/60 (77) 100 03/09/20 08:00 98.2 82 14 113/57 (75) 100 03/09/20 08:00 89 03/09/20 08:00 109/56 03/09/20 08:00 40 03/09/20 08:00 Mechanical Ventilator 5/10/20 07:30 75 14 104/60 (75) 100 03/09/20 07:20 78 15 40 03/09/20 07:00 81 15 106/58 (74) 100 03/09/20 07:00 103/60 03/09/20 06:30 78 14 03/09/20 06:30 78 14 117/66 (83) 100 03/09/20 06:00 82 14 116/67 (83) 100 03/09/20 05:30 82 14 113/68 (83) 100 03/09/20 05:00 83 15 119/65 (83) 100 03/09/20 05:00 119/65 03/09/20 04:30 82 12 119/74 (89) 100 03/09/20 04:00 Mechanical Ventilator 03/09/20 04:00 98.1 84 17 117/68 (84) 100 03/09/20 04:00 117/68 03/09/20 04:00 84 03/09/20 03:30 84 15 112/65 (81) 100 03/09/20 03:00 107/65 03/09/20 03:00 87 15 107/65 (79) 100 03/09/20 02:30 86 15 101/76 (84) 100 03/09/20 02:00 108/60 03/09/20 02:00 82 14 108/60 (76) 100 03/09/20 01:56 110/64 03/09/20 01:42 81 17 40 03/09/20 01:30 82 15 114/62 (79) 100 03/09/20 01:00 112/62 03/09/20 01:00 83 14 112/62 (79) 100 03/09/20 00:30 86 15 116/63 (80) 100 03/09/20 00:00 98.1 85 16 110/63 (79) 100 03/09/20 00:00 110/63 03/09/20 00:00 85 03/09/20 00:00 Mechanical Ventilator 03/08/20 23:30 85 17 120/66 (84) 100 03/08/20 23:01 84 17 40 03/08/20 23:00 108/68 03/08/20 23:00 86 15 108/68 (81) 100 03/08/20 22:30 82 14 111/71 (84) 100 03/08/20 22:00 84 14 113/64 (80) 100 03/08/20 22:00 113/64 03/08/20 21:30 85 15 111/65 (80) 100 03/08/20 21:00 113/65 03/08/20 21:00 86 17 113/65 (81) 100 03/08/20 20:30 84 14 110/61 (77) 100 03/08/20 20:00 112/63 03/08/20 20:00 98.6 83 17 112/63 (79) 100 03/08/20 20:00 Mechanical Ventilator 03/08/20 19:36 83 03/08/20 19:30 85 16 112/64 (80) 100 03/08/20 19:19 85 17 40 03/08/20 19:00 84 14 108/63 (78) 100 03/08/20 19:00 108/63 03/08/20 18:30 84 14 107/64 (78) 100 03/08/20 18:00 113/64 03/08/20 18:00 82 15 113/64 (80) 100 03/08/20 17:30 83 15 112/62 (79) 100 I&O Intake and Output 03/08/20 03/09/20 18:59 06:59 Intake Total 988.05 ml 1612.5 ml Output Total 1230 ml 1060 ml Balance -241.95 ml 552.5 ml Intake Free Water 150 ml 0 ml IV Total 508.05 ml 1182.5 ml Tube Feeding 330 ml 330 ml Other 100 ml Output Urine Total 1230 ml 960 ml Stool Total 100 ml Dressing: saturated Wound: other Drains: other Cardiovascular: RSR Respiratory: decreased breath sounds Abdomen: soft, non-tender, present bowel sounds Extremities: no cyanosis Laboratory Tests Test 03/09/20 04:30 Sodium Level 144 MMOL/L (136-145) Potassium Level 3.8 MMOL/L (3.5-5.1) Chloride Level 111 MMOL/L (98-107) H Carbon Dioxide Level 28 MMOL/L (21-32) Anion Gap 5 mmol/L (5-15) Blood Urea Nitrogen 20 mg/dL (7-18) H Creatinine 1.1 MG/DL (0.55-1.30) Estimat Glomerular Filtration Rate > 60 mL/min (>60) Glucose Level 119 MG/DL (74-106) H Lactic Acid Level 1.60 mmol/L (0.4-2.0) Calcium Level 8.4 MG/DL (8.5-10.1) L Random Vancomycin Level 10.3 ug/mL Plan Problems: (1) Respiratory acidosis (2) Seizure disorder (3) Altered mental status (4) Pneumonia Assessment & Plan: New left pleural effusion Improved aeration of the right lung, with persistent consolidation and pleural fluid (5) Cardiopulmonary arrest (6) Hypernatremia (7) Sepsis Assessment & Plan: Pt presented on admission with multiple pressure injuries. Unstageable Pressure injury R Buttocks. Base of wound is 100% necrotic. Sacrum, R and L Gluteal cheeks maroon with multiple partial thickness wounds with surrounding denuded and macerated skin. Dry, black borders noted Unstageable pressure injury R thoracic. Base of wound is 100% necrotic but dry. No erythema induration or fluctuance periwound. Full thickness stage 3 pressure injury R heel. Base of wound is beefy red with macerated borders. periwound is necrotic and fluctuant. Full thickness stage 3 pressure injury R Hallux. Base of wound is beefy red with surrounding pink granulation. Dry black borders noted. Loose dry eschar noted to L heel. Hyperpigmentation noted to R and L lateral Malleoli. unlikely etiology of sepsis will monitor Tx.Plan: Cleanse Sacral area with Saline.Apply Therahoney. Apply Moisture Barrier Paste periwound. Cover with Optifoam drsgs. Change Daily and Prn. Cleanse wound R thoracic with Saline. Apply TheraHoney. Apply Cavilon Skin Barrier Periwound. Cover with Optifoam drsg.Change every 3 days and prn. Cleanse wound R heel with Saline. Apply TheraHoney. Apply Cavilon Skin Barrier Periwound. Cover with Optifoam drsg. Change every 3 days and prn. Cleanse R Hallux with Saline. Apply Therahoney. Apply Cavilon Skin Barrier Periwound. Cover with Optifoam drsg. Change every 3 days and prn. Apply Cavilon Skin Barrier to L Heel. Cover with Optifoam drsg. Change every 7 days and prn. Reposition at least every 2hours or as tolerated. Place Pillow between knees. Off-load heels with Pillow. APM/NORM Mattress overlay. DAILY ESTIMATED NEEDS: Needs based on Critical care, wounds 78.6abw 22-30 kcals/kg 1766-2907 total kcals 1.25-2 g protein/kg 98-157 g total protein 25-30 mL/kg 9570-4335 total fluid mLs NUTRITION DIAGNOSIS: Increased kcal and pro needs r/t wound care as evidenced by pt w/ full thickness wounds x2, unstageable wounds x2, refer to WC eval. ENTERAL NUTRITION RECOMMENDATIONS: Glucerna 1.5 @70ml/hr x18 hrs to provide 1260ml, 1890 kcal, 104g pro, 956ml free H2O - When stable rec to initiate GT feeds of Glucerna 1.5. Start @20ml/hr for 6 hrs, advance as tolerated 10ml/hr q4-6 hrs to goal. - HOLD TF 1 HOUR BEFORE AND AFTER SYNTHROID(QD) AND DILANTIN(BID), tf to run a max of 18 hrs - Flush per MD , HOB over 30 degrees WITHOUT HEMODYNAMIC STABILITY: rec trophic feeds of Glucerna 1.5 @5-10ml/hr to maintain gut integrity. ADDITIONAL RECOMMENDATIONS: 1) Wound care: add AJIT BID + Vit C 250mg daily 2) Per SNF: 69inches, 212lbs/96.36kg Maintain calibrated daily wts 3) Feed when hemodynamically stable, do not feed in the prone position (8) ACE (acute kidney injury) Gary Vicente March 09, 2020 17:17
--- NOTE | 2020-03-09 18:00 | NUR ---
NURSE NOTES: Bed bath given.
--- NOTE | 2020-03-09 19:25 | NUR ---
HAND-OFF: Report given to MARGARITA Garcia. Endorsed plan of care.
--- NOTE | 2020-03-09 19:33 | Nephrology Progress Note ---
Assessment/Plan Problem List: (1) Hypernatremia (2) AEC (acute kidney injury) (3) Cardiopulmonary arrest (4) Respiratory acidosis (5) Seizure disorder (6) Altered mental status (7) Pneumonia (8) Sepsis Plan iv adjusted, kcl, grave prognosis lytes better Subjective ROS Limited/Unobtainable: Yes Objective Objective Last 24 Hour Vital Signs Date Time Temp Pulse Resp B/P (MAP) Pulse Ox O2 Delivery O2 Flow Rate FiO2 03/09/20 17:30 88 18 108/63 (78) 100 03/09/20 17:00 89 18 111/65 (80) 100 03/09/20 16:00 90 18 119/66 (83) 100 03/09/20 16:00 89 03/09/20 15:20 89 19 40 03/09/20 15:00 88 19 107/62 (77) 100 03/09/20 14:00 85 17 108/63 (78) 100 03/09/20 13:00 85 17 99/59 (72) 100 03/09/20 12:30 87 14 95/57 (70) 100 03/09/20 12:30 86 14 107/60 (76) 100 03/09/20 12:00 83 14 100/60 (73) 100 03/09/20 12:00 84 03/09/20 12:00 98.1 90 21 105/56 (72) 100 03/09/20 11:30 85 14 95/57 (70) 100 03/09/20 11:30 88 17 101/55 (70) 100 03/09/20 11:15 88 14 40 03/09/20 11:00 91 26 103/58 (73) 100 03/09/20 10:30 95 23 99/57 (71) 100 03/09/20 10:14 102/55 03/09/20 10:14 88 102/55 03/09/20 10:14 102/55 03/09/20 10:00 96 16 108/61 (77) 100 03/09/20 10:00 133/68 03/09/20 09:45 117/68 03/09/20 09:30 88 12 102/55 (71) 100 03/09/20 09:30 106/60 03/09/20 09:15 102/55 03/09/20 09:00 103/57 03/09/20 09:00 88 14 103/58 (73) 100 03/09/20 08:30 76 14 110/60 (77) 100 03/09/20 08:00 98.2 82 14 113/57 (75) 100 03/09/20 08:00 89 03/09/20 08:00 109/56 03/09/20 08:00 40 03/09/20 08:00 Mechanical Ventilator 03/09/20 07:30 75 14 104/60 (75) 100 03/09/20 07:20 78 15 40 03/09/20 07:00 81 15 106/58 (74) 100 03/09/20 07:00 103/60 03/09/20 06:30 78 14 03/09/20 06:30 78 14 117/66 (83) 100 03/09/20 06:00 82 14 116/67 (83) 100 03/09/20 05:30 82 14 113/68 (83) 100 03/09/20 05:00 83 15 119/65 (83) 100 03/09/20 05:00 119/65 03/09/20 04:30 82 12 119/74 (89) 100 03/09/20 04:00 Mechanical Ventilator 03/09/20 04:00 98.1 84 17 117/68 (84) 100 03/09/20 04:00 117/68 03/09/20 04:00 84 03/09/20 03:30 84 15 112/65 (81) 100 03/09/20 03:00 107/65 03/09/20 03:00 87 15 107/65 (79) 100 03/09/20 02:30 86 15 101/76 (84) 100 03/09/20 02:00 108/60 03/09/20 02:00 82 14 108/60 (76) 100 03/09/20 01:56 110/64 03/09/20 01:42 81 17 40 03/09/20 01:30 82 15 114/62 (79) 100 03/09/20 01:00 112/62 03/09/20 01:00 83 14 112/62 (79) 100 03/09/20 00:30 86 15 116/63 (80) 100 03/09/20 00:00 98.1 85 16 110/63 (79) 100 03/09/20 00:00 110/63 03/09/20 00:00 85 03/09/20 00:00 Mechanical Ventilator 03/08/20 23:30 85 17 120/66 (84) 100 03/08/20 23:01 84 17 40 03/08/20 23:00 108/68 03/08/20 23:00 86 15 108/68 (81) 100 03/08/20 22:30 82 14 111/71 (84) 100 03/08/20 22:00 84 14 113/64 (80) 100 03/08/20 22:00 113/64 03/08/20 21:30 85 15 111/65 (80) 100 03/08/20 21:00 113/65 03/08/20 21:00 86 17 113/65 (81) 100 03/08/20 20:30 84 14 110/61 (77) 100 03/08/20 20:00 112/63 03/08/20 20:00 98.6 83 17 112/63 (79) 100 03/08/20 20:00 Mechanical Ventilator 03/08/20 19:36 83 Intake and Output 03/08/20 03/09/20 19:00 07:00 Intake Total 988.05 ml 1690.0 ml Output Total 1300 ml 930 ml Balance -311.95 ml 760.0 ml Intake Free Water 150 ml 0 ml IV Total 478.05 ml 1290.0 ml Tube Feeding 360 ml 300 ml Other 100 ml Output Urine Total 1200 ml 930 ml Stool Total 100 ml Laboratory Tests 03/09/20 04:30: Sodium Level 144, Potassium Level 3.8, Chloride Level 111H, Carbon Dioxide Level 28, Anion Gap 5, Blood Urea Nitrogen 20H, Creatinine 1.1, Estimat Glomerular Filtration Rate > 60, Glucose Level 119H, Lactic Acid Level 1.60, Calcium Level 8.4L, Random Vancomycin Level 10.3 Height (Feet): 6 Height (Inches): 2.00 Weight (Pounds): 204 General Appearance: other Cardiovascular: regular rhythm Respiratory/Chest: crackles/rales Abdomen: soft Extremities: no edema Neurologic: unresponsive Raffaele Ocampo MD March 09, 2020 19:33
--- NOTE | 2020-03-09 20:01 | NUR ---
NURSE NOTES: received report from mel de los santos pt orally intubated-vent with [id number] reposition and suction no acute rest distress noted dawn to bed side drainage
[2020-03-09] MEDS: Dyna-Hex 2% Top Sol 2oz TOPIC SCH (21:10)
--- NOTE | 2020-03-09 22:00 | NUR ---
REPOSITION AND SUCTION
[2020-03-10] VITALS (28 sets, daily range): BP systolic 93–122; BP diastolic 52–66
--- NOTE | 2020-03-10 02:00 | NUR ---
NURSE NOTES: NO ACUTE RESP DISTRESS NOTED
--- NOTE | 2020-03-10 02:14 | Progress Note ---
DATE: 03/09/2020 SUBJECTIVE: The patient remains in the intensive care unit. Orally intubated and mechanically ventilated. The patient's blood pressure parameters are slightly improved. Pressors are being tapered off, but remained ____. Monitor sinus and sinus tachycardia with atrial ectopy. PHYSICAL EXAMINATION: LUNGS: Coarse breath sounds, rhonchi. CARDIAC: Regular rhythm. Rapid rate. Normal S1 and S2. ABDOMEN: Soft. EXTREMITIES: Trace edema. LABORATORY DATA: Sodium 144, potassium 3.8, bicarb 28, BUN 20, creatinine 1.1. Lactic acid is 1.6. IMPRESSION: 1. Lactic acidosis, resolved. 2. Sepsis with shock, persists. 3. Respiratory failure with hypoxia. 4. Status post full arrest. 5. Polymicrobial pneumonia. 6. Dehydration and hypernatremia, corrected. PLAN: 1. Wean off pressors. 2. Continue IV fluid hydration. 3. Antimicrobials. 4. Respiratory hygiene. 5. Chronic ____. 6. Follow up chest radiograph. 7. DVT prophylaxis. Yfn Luna M.D. DR: SHIRLEY JOB#: [id number] CC:
--- NOTE | 2020-03-10 04:00 | NUR ---
NURSE NOTES: COMPL BED BATH ORAL CARE BACK CARE DONE REPOSITION AND SUCTION
[2020-03-10] MEDS: NovoLOG Insulin Flexpen SUBQ SCH ×4 (06:00→18:00)
--- NOTE | 2020-03-10 06:00 | NUR ---
NURSE NOTES: BS 97 NO COVERAGE
[2020-03-10 06:07] LABS: ANION GAP 9 mmol/L (5-15); BLOOD UREA NITROGEN 14 mg/dL (7-18); CALCIUM 8.4 MG/DL (8.5-10.1); CARBON DIOXIDE 28 MMOL/L (21-32); CHLORIDE 110 MMOL/L (98-107); CREATININE 0.8 MG/DL (0.55-1.30); PHOSPHORUS 3.1 MG/DL (2.5-4.9); POTASSIUM 3.8 MMOL/L (3.5-5.1); SODIUM 147 MMOL/L (136-145)
--- NOTE | 2020-03-10 07:10 | NUR ---
NURSE NOTES: Received report from MARGARITA Garcia. Observed patient in bed, appears to be sleeping, eyes closed. Patient is orally intubated with vent settings as follows: AC 14, TV 550, FiO2 40%, and PEEP 5. Patient is saturating 100% at this time. Patient has right IJ TLC, intact, patent, and asymptomatic. Patient has a GT, feeding on hold at this time, per medication protocol. Patient has a dawn catheter and rectal tube, draining to gravity. Patient has left wrist soft restraint; safety precautions in place, bed locked, alarmed, and in lowest position, side rails up x3, will continue to monitor patient. Will continue assessment and will continue plan of care.
--- NOTE | 2020-03-10 07:27 | NUR ---
HAND-OFF: Report given to .BERTHA HIGGINS
[2020-03-10] MEDS: Ascorbic Acid 500mg tab ORAL SCH (08:08)
[2020-03-10] MEDS: Phenytoin Susp 100mg/4ml GT SCH ×2 (08:08→20:44)
[2020-03-10] MEDS: levETIRAcetam 500mg/5ml Liquid GT SCH ×2 (08:08→20:43)
[2020-03-10] MEDS: Levofloxacin 500mg tab GT SCH (08:09)
[2020-03-10] MEDS: Eliquis 5mg tablet GT SCH ×2 (08:09→17:43)
--- NOTE | 2020-03-10 08:28 | NUR ---
RD ASSESSMENT & RECOMMENDATIONS SEE CARE ACTIVITY FOR COMPLETE ASSESSMENT DAILY ESTIMATED NEEDS: Needs based on Critical care, wounds 78.6abw 22-30 kcals/kg 7704-9604 total kcals 1.25-2 g protein/kg 98-157 g total protein 25-30 mL/kg 1820-6800 total fluid mLs NUTRITION DIAGNOSIS: Increased kcal and pro needs r/t wound care as evidenced by pt w/ full thickness wounds x2, unstageable wounds x2, refer to WC eval. CURRENT TF:Glucerna 1.5 @70ml/hr x18 hrs ENTERAL NUTRITION RECOMMENDATIONS: Glucerna 1.5 @70ml/hr x18 hrs to provide 1260ml, 1890 kcal, 104g pro, 956ml free H2O - W/ HD stability, continue current TF - HOLD TF 1 HOUR BEFORE AND AFTER SYNTHROID(QD) AND DILANTIN(BID), tf to run a max of 18 hrs - Flush per MD , HOB over 30 degrees WITHOUT HEMODYNAMIC STABILITY: rec trophic feeds of Glucerna 1.5 @5-10ml/hr to maintain gut integrity. ADDITIONAL RECOMMENDATIONS: 1) Wound care: add AJIT BID + Vit C 250mg daily 2) Per SNF: 69inches, 212lbs/96.36kg Maintain calibrated daily wts 3) Feed when hemodynamically stable, do not feed in the prone position -> pressors held at this time 4) Monitor lytes, replete as needed
--- NOTE | 2020-03-10 08:28 | NUR ---
NURSE NOTES: Patient is awake at this time, able to follow simple commands such as nodding and blinking. Patient remains orally intubated, tolerating current vent settings. Scheduled medications given to patient. TF remains on hold, Dilantin scheduled given. Oral care provided. Patient was repositioned. Rectal tube and dawn catheter in place. Left wrist restraint in place, released and reapplied. Patient remains on P200 mattress. Bed locked, alarmed, and in lowest position, side rails up x3, will continue to monitor patient.
--- NOTE | 2020-03-10 08:54 | General Progress Note ---
Assessment/Plan Assessment/Plan: IMPRESSION: 1. Septic shock. 2. Hypotension. 3. Tachycardia. 4. Respiratory failure. 5. Hypoxemia. 6. Seizure disorder. 7. Hyperlipidemia. 8. Hypernatremia. 9. Acute renal failure. 10. Pulmonary edema. 11. Possible COVID. 12. pleural effusion PLAN monitor hemodynamics try to wean/ discussed effusions better iv antibiotics ID follow up maintain feeds off load still critical pressors to off feeds impression, plan, and exam edited and reviewed in detail care discussed with RN Subjective ROS Limited/Unobtainable: Yes Allergies: Coded Allergies: HYDROCODONE (Verified Allergy, Unknown, 07/04/17) Subjective on vent hemodynamics noted on feeds Objective Last 24 Hour Vital Signs Date Time Temp Pulse Resp B/P (MAP) Pulse Ox O2 Delivery O2 Flow Rate FiO2 03/10/20 08:00 Mechanical Ventilator 03/10/20 08:00 98.9 93 13 108/59 (75) 100 03/10/20 07:46 92 14 40 03/10/20 07:30 92 14 111/58 (75) 100 03/10/20 07:15 96 20 115/65 (82) 100 03/10/20 07:00 95 14 113/57 (75) 100 03/10/20 06:30 95 13 104/56 (72) 100 03/10/20 06:30 78 14 03/10/20 06:15 97 14 103/60 (74) 100 03/10/20 06:00 90 15 114/60 (78) 100 03/10/20 06:00 101 16 120/61 (80) 100 03/10/20 05:00 90 15 114/60 (78) 100 03/10/20 04:00 Mechanical Ventilator 03/10/20 04:00 98.5 97 5 107/63 (78) 100 03/10/20 04:00 90 03/10/20 03:20 104 16 40 03/10/20 03:00 85 14 100/59 (73) 100 03/10/20 02:00 88 14 106/58 (74) 100 03/10/20 01:00 90 14 111/61 (78) 100 03/10/20 00:00 91 03/10/20 00:00 Mechanical Ventilator 03/10/20 00:00 98.5 91 14 112/64 (80) 100 03/09/20 23:20 88 16 40 03/09/20 23:00 91 13 114/67 (83) 100 03/09/20 22:00 89 14 112/64 (80) 100 03/09/20 21:00 91 14 117/65 (82) 100 03/09/20 20:00 Mechanical Ventilator 03/09/20 20:00 98.0 92 16 119/61 (80) 100 03/09/20 20:00 90 03/09/20 19:20 89 15 40 03/09/20 19:00 100 34 124/63 (83) 100 03/09/20 18:00 91 21 113/69 (84) 100 03/09/20 17:30 88 18 108/63 (78) 100 03/09/20 17:00 89 18 111/65 (80) 100 03/09/20 16:00 90 18 119/66 (83) 100 03/09/20 16:00 Mechanical Ventilator 03/09/20 16:00 98.2 90 18 119/66 (83) 100 03/09/20 16:00 89 03/09/20 15:20 89 19 40 03/09/20 15:00 88 19 107/62 (77) 100 03/09/20 14:00 85 17 108/63 (78) 100 03/09/20 13:00 85 17 99/59 (72) 100 03/09/20 12:30 87 14 95/57 (70) 100 03/09/20 12:30 86 14 107/60 (76) 100 03/09/20 12:00 83 14 100/60 (73) 100 03/09/20 12:00 84 03/09/20 12:00 Mechanical Ventilator 03/09/20 12:00 98.1 90 21 105/56 (72) 100 03/09/20 11:30 85 14 95/57 (70) 100 03/09/20 11:30 88 17 101/55 (70) 100 03/09/20 11:15 88 14 40 03/09/20 11:00 91 26 103/58 (73) 100 03/09/20 10:30 95 23 99/57 (71) 100 03/09/20 10:14 102/55 03/09/20 10:14 88 102/55 03/09/20 10:14 102/55 03/09/20 10:00 96 16 108/61 (77) 100 03/09/20 10:00 133/68 03/09/20 09:45 117/68 03/09/20 09:30 88 12 102/55 (71) 100 03/09/20 09:30 106/60 03/09/20 09:15 102/55 03/09/20 09:00 103/57 03/09/20 09:00 88 14 103/58 (73) 100 Intake and Output 03/09/20 03/10/20 19:00 07:00 Intake Total 1390.000 ml 350 ml Output Total 1270 ml 1000 ml Balance 120.000 ml -650 ml Intake Free Water 150 ml IV Total 690.000 ml Tube Feeding 550 ml 300 ml Blood Product 50 ml Output Urine Total 1170 ml 1000 ml Stool Total 100 ml # Bowel Movements 50 Laboratory Tests 03/10/20 05:09: Sodium Level 147H, Potassium Level 3.8, Chloride Level 110H, Carbon Dioxide Level 28, Anion Gap 9, Blood Urea Nitrogen 14, Creatinine 0.8, Estimat Glomerular Filtration Rate > 60, Glucose Level 105, Calcium Level 8.4L, Phosphorus Level 3.1, Magnesium Level 1.8 Height (Feet): 6 Height (Inches): 2.00 Weight (Pounds): 198 Objective GENERAL: Ill-appearing male. on vent deferred due to possible COVID German Matthews MD March 10, 2020 08:54
--- NOTE | 2020-03-10 09:43 | NUR ---
RESPIRATORY NOTE: attempted to wean pt on CPAP PS10 [id number]%. pt able to understand and follow commands. per weaning protocol, RSBI and VC are not met. RN notified. Addendum: 03/10/20 at 0945 by GEORGES HAYNES RT placed pt on SIMV with R10 550 40% +5 PS10.
[2020-03-10] MEDS: DOPamine 400mg/250ml 250 ML IV SCH (10:14)
[2020-03-10] MEDS: Phenylephrine 50 MG in D5W 245 ML IV SCH (10:15)
--- NOTE | 2020-03-10 11:02 | NUR ---
CASE MANAGEMENT: REVIEW SI: PNA . SEPSIS . RESPIRATORY FAILURE T 98.9 HR 104 RR 37 BP 103/56 SAT 100% MECH VENT FIO2 40 NA 147 CALCIUM 8.4 IS: DOPAMINE IV Q24HR LEVAQUIN GT QD PHENYLEPHRINE IV Q24HR LEVOPHED IV Q24HR VANCOMYCIN IV Q24HR ICU STATUS DCP: PATIENT IS FROM [facility]
[2020-03-10] MEDS: Vancomycin 1gm/D5W 275ml IVPB SCH ×2 (11:20)
--- NOTE | 2020-03-10 11:44 | Infectious Diseases Prog Note ---
"Assessment/Plan Assessment/Plan antibiotics : vancomycin iv, levoquin A 1. pseudomonas | MRSA pneumonia 2. COVID 19 test negative x 1 3. respiratory failure 4. renal failure resolved 5. shock resolved 6. hypertension 7. seizures 8. leucocytosis resolved P 1. continue iv vancomycin 4 more days 2. continue po levoquin 7 more days 3. will follow up cultures Subjective ROS Limited/Unobtainable: Yes Allergies: Coded Allergies: HYDROCODONE (Verified Allergy, Unknown, 07/04/17) Objective Vital Signs Last 24 Hour Vital Signs Date Time Temp Pulse Resp B/P (MAP) Pulse Ox O2 Delivery O2 Flow Rate FiO2 03/10/20 11:05 90 14 40 03/10/20 11:00 104/54 03/10/20 11:00 88 14 105/56 (72) 100 03/10/20 10:15 95 103/56 03/10/20 10:14 103/56 03/10/20 10:00 95 15 103/56 (72) 100 03/10/20 10:00 40 03/10/20 09:40 100 03/10/20 09:40 104 37 40 03/10/20 09:00 89 14 102/55 (71) 100 03/10/20 08:00 Mechanical Ventilator 03/10/20 08:00 98.9 93 13 108/59 (75) 100 03/10/20 08:00 96 03/10/20 07:46 92 14 40 03/10/20 07:30 92 14 111/58 (75) 100 03/10/20 07:15 96 20 115/65 (82) 100 03/10/20 07:00 95 14 113/57 (75) 100 03/10/20 06:30 95 13 104/56 (72) 100 03/10/20 06:30 78 14 03/10/20 06:15 97 14 103/60 (74) 100 03/10/20 06:00 90 15 114/60 (78) 100 03/10/20 06:00 101 16 120/61 (80) 100 03/10/20 05:00 90 15 114/60 (78) 100 03/10/20 04:00 Mechanical Ventilator 03/10/20 04:00 98.5 97 5 107/63 (78) 100 03/10/20 04:00 90 03/10/20 03:20 104 16 40 03/10/20 03:00 85 14 100/59 (73) 100 03/10/20 02:00 88 14 106/58 (74) 100 03/10/20 01:00 90 14 111/61 (78) 100 03/10/20 00:00 91 03/10/20 00:00 Mechanical Ventilator 03/10/20 00:00 98.5 91 14 112/64 (80) 100 03/09/20 23:20 88 16 40 03/09/20 23:00 91 13 114/67 (83) 100 03/09/20 22:00 89 14 112/64 (80) 100 03/09/20 21:00 91 14 117/65 (82) 100 03/09/20 20:00 Mechanical Ventilator 03/09/20 20:00 98.0 92 16 119/61 (80) 100 03/09/20 20:00 90 03/09/20 19:20 89 15 40 03/09/20 19:00 100 34 124/63 (83) 100 03/09/20 18:00 91 21 113/69 (84) 100 03/09/20 17:30 88 18 108/63 (78) 100 03/09/20 17:00 89 18 111/65 (80) 100 03/09/20 16:00 90 18 119/66 (83) 100 03/09/20 16:00 Mechanical Ventilator 03/09/20 16:00 98.2 90 18 119/66 (83) 100 03/09/20 16:00 89 03/09/20 15:20 89 19 40 03/09/20 15:00 88 19 107/62 (77) 100 03/09/20 14:00 85 17 108/63 (78) 100 03/09/20 13:00 85 17 99/59 (72) 100 03/09/20 12:30 87 14 95/57 (70) 100 03/09/20 12:30 86 14 107/60 (76) 100 03/09/20 12:00 83 14 100/60 (73) 100 03/09/20 12:00 84 03/09/20 12:00 Mechanical Ventilator 03/09/20 12:00 98.1 90 21 105/56 (72) 100 Height (Feet): 6 Height (Inches): 2.00 Weight (Pounds): 198 HEENT: other - intubated Microbiology Date/Time Source Procedure Growth Status 03/07/20 18:30 Stool Clostridium difficile Toxin Assay - Final Complete Laboratory Tests Test 03/10/20 05:09 Sodium Level 147 MMOL/L (136-145) H Potassium Level 3.8 MMOL/L (3.5-5.1) Chloride Level 110 MMOL/L (98-107) H Carbon Dioxide Level 28 MMOL/L (21-32) Anion Gap 9 mmol/L (5-15) Blood Urea Nitrogen 14 mg/dL (7-18) Creatinine 0.8 MG/DL (0.55-1.30) Estimat Glomerular Filtration Rate > 60 mL/min (>60) Glucose Level 105 MG/DL (74-106) Calcium Level 8.4 MG/DL (8.5-10.1) L Phosphorus Level 3.1 MG/DL (2.5-4.9) Magnesium Level 1.8 MG/DL (1.8-2.4) Current Medications Medications (Trade) Dose Ordered Sig/Kolby Route PRN Reason Start Time Stop Time Status Last Admin Dose Admin Acetaminophen (Tylenol) 650 mg Q4H PRN GT Temp >100.5 03/05/20 16:45 04/04/20 16:44 03/07/20 02:56 Apixaban (Eliquis) 5 mg BID GT 03/06/20 18:00 06/03/20 17:59 03/10/20 08:09 Ascorbic Acid (Vitamin C) 250 mg DAILY ORAL 03/08/20 09:00 04/07/20 08:59 03/10/20 08:08 Chlorhexidine Gluconate (Brandy-Hex 2%) 1 applic DAILY@2000 TOPIC 03/05/20 20:00 06/03/20 19:59 03/09/20 21:10 Dextrose (Dextrose 50%) 25 ml Q30M PRN IV Hypoglycemia 03/05/20 14:00 06/03/20 13:59 Dextrose (Dextrose 50%) 50 ml Q30M PRN IV Hypoglycemia 03/05/20 14:00 06/03/20 13:59 Dopamine HCl/ Dextrose 250 ml @ 0 mls/hr Q24H IV 03/05/20 10:14 06/03/20 10:13 Insulin Aspart (NovoLOG) EVERY 6 HOURS SUBQ 03/05/20 18:00 06/03/20 17:59 03/07/20 18:41 Levetiracetam (Keppra) 1,500 mg Q12HR GT 03/05/20 11:45 04/04/20 11:44 03/10/20 08:08 Levofloxacin (Levaquin) 500 mg DAILY GT 03/09/20 09:00 03/15/20 11:44 03/10/20 08:09 Levothyroxine Sodium (Synthroid) 75 mcg ACBREAKFAST GT 03/06/20 06:30 04/05/20 06:29 03/10/20 06:20 Norepinephrine Bitartrate 4 mg/ Dextrose 250 ml @ 0 mls/hr Q24H IV 03/08/20 11:00 04/07/20 10:59 03/09/20 01:56 Phenylephrine HCl 50 mg/Dextrose 250 ml @ 0 mls/hr Q24H IV 03/05/20 10:15 04/04/20 10:14 03/07/20 06:01 Phenytoin (Dilantin) 250 mg Q12HR GT 03/05/20 21:00 04/04/20 20:59 03/10/20 08:08 Potassium Chloride 30 meq/ Dextrose 1,015 ml @ 75 mls/hr [id number] IV 03/09/20 21:00 04/08/20 20:59 03/10/20 08:09 Vancomycin HCl (Vanco rx to dose) 1 ea DAILY PRN MISC Per rx protocol 03/07/20 16:15 04/06/20 16:14 Vancomycin HCl 1 gm/Dextrose 275 ml @ 183.708 mls/hr Q24H IVPB 03/09/20 11:00 03/14/20 10:59 03/10/20 11:20 Radha Calle MD March 10, 2020 11:44"
--- NOTE | 2020-03-10 11:45 | NUR ---
NURSE NOTES: Patient remains in bed, opens eyes spontaneously and able to follow simple commands. Scheduled medications given. Blood sugar checked, no insulin coverage. Turned and repositioned patient. Oral care provided. Will continue to monitor.
--- NOTE | 2020-03-10 13:43 | Surgery Progress Note ---
Surgery Progress Note Subjective Additional Comments awake and follows simple commands no n/v fever curve improved esr/crp elevated wbc improved on support weaning Objective Last 24 Hour Vital Signs Date Time Temp Pulse Resp B/P (MAP) Pulse Ox O2 Delivery O2 Flow Rate FiO2 03/10/20 13:00 83 14 98/52 (67) 100 03/10/20 12:00 Mechanical Ventilator 03/10/20 12:00 99.0 84 15 112/57 (75) 100 03/10/20 12:00 85 03/10/20 11:05 90 14 40 03/10/20 11:00 104/54 03/10/20 11:00 88 14 105/56 (72) 100 03/10/20 10:15 95 103/56 03/10/20 10:14 103/56 03/10/20 10:00 95 15 103/56 (72) 100 03/10/20 10:00 40 03/10/20 09:40 100 03/10/20 09:40 104 37 40 03/10/20 09:00 89 14 102/55 (71) 100 03/10/20 08:00 Mechanical Ventilator 03/10/20 08:00 98.9 93 13 108/59 (75) 100 03/10/20 08:00 96 03/10/20 07:46 92 14 40 03/10/20 07:30 92 14 111/58 (75) 100 03/10/20 07:15 96 20 115/65 (82) 100 03/10/20 07:00 95 14 113/57 (75) 100 03/10/20 06:30 95 13 104/56 (72) 100 03/10/20 06:30 78 14 03/10/20 06:15 97 14 103/60 (74) 100 03/10/20 06:00 90 15 114/60 (78) 100 03/10/20 06:00 101 16 120/61 (80) 100 03/10/20 05:00 90 15 114/60 (78) 100 03/10/20 04:00 Mechanical Ventilator 03/10/20 04:00 98.5 97 5 107/63 (78) 100 03/10/20 04:00 90 03/10/20 03:20 104 16 40 03/10/20 03:00 85 14 100/59 (73) 100 03/10/20 02:00 88 14 106/58 (74) 100 03/10/20 01:00 90 14 111/61 (78) 100 03/10/20 00:00 91 03/10/20 00:00 Mechanical Ventilator 03/10/20 00:00 98.5 91 14 112/64 (80) 100 03/09/20 23:20 88 16 40 03/09/20 23:00 91 13 114/67 (83) 100 03/09/20 22:00 89 14 112/64 (80) 100 03/09/20 21:00 91 14 117/65 (82) 100 03/09/20 20:00 Mechanical Ventilator 03/09/20 20:00 98.0 92 16 119/61 (80) 100 03/09/20 20:00 90 03/09/20 19:20 89 15 40 03/09/20 19:00 100 34 124/63 (83) 100 03/09/20 18:00 91 21 113/69 (84) 100 03/09/20 17:30 88 18 108/63 (78) 100 03/09/20 17:00 89 18 111/65 (80) 100 03/09/20 16:00 90 18 119/66 (83) 100 03/09/20 16:00 Mechanical Ventilator 03/09/20 16:00 98.2 90 18 119/66 (83) 100 03/09/20 16:00 89 03/09/20 15:20 89 19 40 03/09/20 15:00 88 19 107/62 (77) 100 03/09/20 14:00 85 17 108/63 (78) 100 I&O Intake and Output 03/09/20 03/10/20 19:00 07:00 Intake Total 1390.000 ml 350 ml Output Total 1270 ml 1000 ml Balance 120.000 ml -650 ml Intake Free Water 150 ml IV Total 690.000 ml Tube Feeding 550 ml 300 ml Blood Product 50 ml Output Urine Total 1170 ml 1000 ml Stool Total 100 ml # Bowel Movements 50 Dressing: other Wound: other Drains: other Cardiovascular: RSR Respiratory: decreased breath sounds Abdomen: soft, present bowel sounds Extremities: no cyanosis Laboratory Tests Test 03/10/20 05:09 Sodium Level 147 MMOL/L (136-145) H Potassium Level 3.8 MMOL/L (3.5-5.1) Chloride Level 110 MMOL/L (98-107) H Carbon Dioxide Level 28 MMOL/L (21-32) Anion Gap 9 mmol/L (5-15) Blood Urea Nitrogen 14 mg/dL (7-18) Creatinine 0.8 MG/DL (0.55-1.30) Estimat Glomerular Filtration Rate > 60 mL/min (>60) Glucose Level 105 MG/DL (74-106) Calcium Level 8.4 MG/DL (8.5-10.1) L Phosphorus Level 3.1 MG/DL (2.5-4.9) Magnesium Level 1.8 MG/DL (1.8-2.4) Plan Problems: (1) Respiratory acidosis (2) Seizure disorder (3) Altered mental status (4) Pneumonia Assessment & Plan: New left pleural effusion Improved aeration of the right lung, with persistent consolidation and pleural fluid (5) Cardiopulmonary arrest (6) Hypernatremia (7) Sepsis Assessment & Plan: Pt presented on admission with multiple pressure injuries. Unstageable Pressure injury R Buttocks. Base of wound is 100% necrotic. Sacrum, R and L Gluteal cheeks maroon with multiple partial thickness wounds with surrounding denuded and macerated skin. Dry, black borders noted Unstageable pressure injury R thoracic. Base of wound is 100% necrotic but dry. No erythema induration or fluctuance periwound. Full thickness stage 3 pressure injury R heel. Base of wound is beefy red with macerated borders. periwound is necrotic and fluctuant. Full thickness stage 3 pressure injury R Hallux. Base of wound is beefy red with surrounding pink granulation. Dry black borders noted. Loose dry eschar noted to L heel. Hyperpigmentation noted to R and L lateral Malleoli. unlikely etiology of sepsis will monitor Tx.Plan: Cleanse Sacral area with Saline.Apply Therahoney. Apply Moisture Barrier Paste periwound. Cover with Optifoam drsgs. Change Daily and Prn. Cleanse wound R thoracic with Saline. Apply TheraHoney. Apply Cavilon Skin Barrier Periwound. Cover with Optifoam drsg.Change every 3 days and prn. Cleanse wound R heel with Saline. Apply TheraHoney. Apply Cavilon Skin Barrier Periwound. Cover with Optifoam drsg. Change every 3 days and prn. Cleanse R Hallux with Saline. Apply Therahoney. Apply Cavilon Skin Barrier Periwound. Cover with Optifoam drsg. Change every 3 days and prn. Apply Cavilon Skin Barrier to L Heel. Cover with Optifoam drsg. Change every 7 days and prn. Reposition at least every 2hours or as tolerated. Place Pillow between knees. Off-load heels with Pillow. APM/NORM Mattress overlay. DAILY ESTIMATED NEEDS: Needs based on Critical care, wounds 78.6abw 22-30 kcals/kg 6004-7225 total kcals 1.25-2 g protein/kg 98-157 g total protein 25-30 mL/kg 2605-8096 total fluid mLs NUTRITION DIAGNOSIS: Increased kcal and pro needs r/t wound care as evidenced by pt w/ full thickness wounds x2, unstageable wounds x2, refer to WC eval. CURRENT TF:Glucerna 1.5 @70ml/hr x18 hrs ENTERAL NUTRITION RECOMMENDATIONS: Glucerna 1.5 @70ml/hr x18 hrs to provide 1260ml, 1890 kcal, 104g pro, 956ml free H2O - W/ HD stability, continue current TF - HOLD TF 1 HOUR BEFORE AND AFTER SYNTHROID(QD) AND DILANTIN(BID), tf to run a max of 18 hrs - Flush per , HOB over 30 degrees WITHOUT HEMODYNAMIC STABILITY: rec trophic feeds of Glucerna 1.5 @5-10ml/hr to maintain gut integrity. ADDITIONAL RECOMMENDATIONS: 1) Wound care: add AJIT BID + Vit C 250mg daily 2) Per SNF: 69inches, 212lbs/96.36kg Maintain calibrated daily wts 3) Feed when hemodynamically stable, do not feed in the prone position -> pressors held at this time 4) Monitor lytes, replete as needed (8) ACE (acute kidney injury) Gary Vicente March 10, 2020 13:43
--- NOTE | 2020-03-10 13:44 | NUR ---
*-* INSURANCE *-* UPDATED CLINICALS HAVE BEEN FAXED TO: [facility] Ref# [id number] # [phone] fax# [phone] Addendum: 03/11/20 at 1337 by PATRICE [facility]DY [facility] NOT GOING THRU CALLED [facility] THEY GAVE ME NEW F# [phone]
--- NOTE | 2020-03-10 14:11 | NUR ---
NURSE NOTES: Patient appears to be sleeping at this time. IV fluids D5W with 20mEq KCL infusing at 75ml/hr on the right IJ TLC. No distress noted at this time. Will continue to monitor.
--- NOTE | 2020-03-10 15:44 | NUR ---
NURSE NOTES: Dr Ocampo present in the unit, made rounds and seen patient. No new orders received at this time
--- NOTE | 2020-03-10 16:00 | NUR ---
NURSE NOTES: Patient appears to be sleeping. No s/s of distress at this time. Will continue to monitor.
[2020-03-10] MEDS ORDERED: Tubing IV Secondary IV ONE (17:10)
--- NOTE | 2020-03-10 18:00 | NUR ---
NURSE NOTES: Patient remains awake and responsive. Right IJ TLC intact, D5W with 30mEq KCL infusing at 75ml/hr. Bed bath given to patient. Linens changed, placed patient in clean gown. Rectal tube and Penaloza catheter intact, no leaks noted. Optifoam dressings clean and intact. Right hand dressing changed. Blood sugar checked, no insulin given. All due medications administered. Repositioned patient and provided oral care. Restraints released and reapplied. Left patient clean and dry. Will continue to monitor.
--- NOTE | 2020-03-10 19:10 | NUR ---
HAND-OFF: Report given to MARGARITA Garcia. Endorsed plan of care.
--- NOTE | 2020-03-10 19:28 | NUR ---
NURSE NOTES: received report from nidhi de los santos pt orally intubated to vent with o2 sat 100% no resp distress noted tolerating tube feeding no residual reposition and suction iv infusing well site good dressing dry and intact dwan with good urinary output
--- NOTE | 2020-03-10 19:57 | Nephrology Progress Note ---
Assessment/Plan Problem List: (1) Hypernatremia (2) ACE (acute kidney injury) (3) Cardiopulmonary arrest (4) Respiratory acidosis (5) Seizure disorder (6) Altered mental status (7) Pneumonia (8) Sepsis Plan iv hypotonic, grave prognosis lytes better Subjective ROS Limited/Unobtainable: Yes Objective Objective Last 24 Hour Vital Signs Date Time Temp Pulse Resp B/P (MAP) Pulse Ox O2 Delivery O2 Flow Rate FiO2 03/10/20 19:00 87 10 116/61 (79) 100 03/10/20 18:00 88 14 116/63 (80) 100 03/10/20 17:00 98.9 85 9 122/66 (84) 100 03/10/20 16:00 88 03/10/20 16:00 78 14 93/55 (68) 100 03/10/20 16:00 Mechanical Ventilator 03/10/20 15:32 81 14 40 03/10/20 15:00 78 15 95/56 (69) 100 03/10/20 14:00 79 16 98/53 (68) 100 03/10/20 13:00 83 14 98/52 (67) 100 03/10/20 12:00 Mechanical Ventilator 03/10/20 12:00 99.0 84 15 112/57 (75) 100 03/10/20 12:00 85 03/10/20 11:05 90 14 40 03/10/20 11:00 104/54 03/10/20 11:00 88 14 105/56 (72) 100 03/10/20 10:15 95 103/56 03/10/20 10:14 103/56 03/10/20 10:00 95 15 103/56 (72) 100 03/10/20 10:00 40 03/10/20 09:40 100 03/10/20 09:40 104 37 40 03/10/20 09:00 89 14 102/55 (71) 100 03/10/20 08:00 Mechanical Ventilator 03/10/20 08:00 98.9 93 13 108/59 (75) 100 03/10/20 08:00 96 03/10/20 07:46 92 14 40 03/10/20 07:30 92 14 111/58 (75) 100 03/10/20 07:15 96 20 115/65 (82) 100 03/10/20 07:00 95 14 113/57 (75) 100 03/10/20 06:30 95 13 104/56 (72) 100 03/10/20 06:30 78 14 03/10/20 06:15 97 14 103/60 (74) 100 03/10/20 06:00 90 15 114/60 (78) 100 03/10/20 06:00 101 16 120/61 (80) 100 03/10/20 05:00 90 15 114/60 (78) 100 03/10/20 04:00 Mechanical Ventilator 03/10/20 04:00 98.5 97 5 107/63 (78) 100 03/10/20 04:00 90 03/10/20 03:20 104 16 40 03/10/20 03:00 85 14 100/59 (73) 100 03/10/20 02:00 88 14 106/58 (74) 100 03/10/20 01:00 90 14 111/61 (78) 100 03/10/20 00:00 91 03/10/20 00:00 Mechanical Ventilator 03/10/20 00:00 98.5 91 14 112/64 (80) 100 03/09/20 23:20 88 16 40 03/09/20 23:00 91 13 114/67 (83) 100 03/09/20 22:00 89 14 112/64 (80) 100 03/09/20 21:00 91 14 117/65 (82) 100 03/09/20 20:00 Mechanical Ventilator 03/09/20 20:00 98.0 92 16 119/61 (80) 100 03/09/20 20:00 90 Intake and Output 03/09/20 03/10/20 19:00 07:00 Intake Total 1390.000 ml 350 ml Output Total 1270 ml 1000 ml Balance 120.000 ml -650 ml Intake Free Water 150 ml IV Total 690.000 ml Tube Feeding 550 ml 300 ml Blood Product 50 ml Output Urine Total 1170 ml 1000 ml Stool Total 100 ml # Bowel Movements 50 Laboratory Tests 03/10/20 05:09: Sodium Level 147H, Potassium Level 3.8, Chloride Level 110H, Carbon Dioxide Level 28, Anion Gap 9, Blood Urea Nitrogen 14, Creatinine 0.8, Estimat Glomerular Filtration Rate > 60, Glucose Level 105, Calcium Level 8.4L, Phosphorus Level 3.1, Magnesium Level 1.8 Height (Feet): 6 Height (Inches): 2.00 Weight (Pounds): 198 General Appearance: other - on vent Cardiovascular: regular rhythm Respiratory/Chest: crackles/rales Abdomen: soft Extremities: trace edema Raffaele Ocampo MD March 10, 2020 19:57
[2020-03-10] MEDS: Dyna-Hex 2% Top Sol 2oz TOPIC SCH (20:43)
--- NOTE | 2020-03-10 22:00 | NUR ---
NURSE NOTES: reposition and suction
[2020-03-11] VITALS (27 sets, daily range): BP systolic 100–127; BP diastolic 53–66
--- NOTE | 2020-03-11 | NUR ---
NURSE NOTES: dc restraint pt non complaint restraint reorder
--- NOTE | 2020-03-11 02:00 | NUR ---
NURSE NOTES: reposition and suction no a cute destress noted
--- NOTE | 2020-03-11 04:00 | NUR ---
NURSE NOTES: complete bed bath oral care back care and wound care done
[2020-03-11] MEDS: NovoLOG Insulin Flexpen SUBQ SCH ×4 (06:00→18:00)
--- NOTE | 2020-03-11 06:00 | NUR ---
NURSE NOTES: bs 106 no coverage
--- NOTE | 2020-03-11 07:03 | NUR ---
HAND-OFF: Report given to [].
--- NOTE | 2020-03-11 07:06 | NUR ---
HAND-OFF: Report given to [].
--- NOTE | 2020-03-11 07:10 | NUR ---
NURSE NOTES: Received report from MARGARITA Garcia. Patient is in bed, opens eyes spontaneously, able to follow simple commands. Patient is orally intubated with ETT 7.0 at 24 lip line with vent settings AC 14, TV 550, FiO2 40%, and PEEP 5. Patient has right IJ TLC, intact, patent, asymptomatic with IV fluids infusing D5W with 30mEq KCL infusing at 75ml/hr. Patient has GT, TF Glucerna 1.5 at 70ml/hr infusing. Penaloza catheter noted with clear yellow urine output, draining to gravity. Rectal tube in place. Patient has left wrist restraint in place to avoid self extubation. Right hand wrapped in kerlix and gauze dressing. Safety precautions in place, bed is locked, alarmed, and in lowest position, side rails up x3; will continue plan of care and will continue to monitor patient.
[2020-03-11 07:14] LABS: ANION GAP 8 mmol/L (5-15); BLOOD UREA NITROGEN 15 mg/dL (7-18); CALCIUM 8.7 MG/DL (8.5-10.1); CARBON DIOXIDE 28 MMOL/L (21-32); CHLORIDE 111 MMOL/L (98-107); CREATININE 0.9 MG/DL (0.55-1.30); POTASSIUM 4.3 MMOL/L (3.5-5.1); SODIUM 147 MMOL/L (136-145)
[2020-03-11] MEDS: Phenytoin Susp 100mg/4ml GT SCH ×2 (08:03→20:37)
[2020-03-11] MEDS: Ascorbic Acid 500mg tab ORAL SCH (08:04)
[2020-03-11] MEDS: levETIRAcetam 500mg/5ml Liquid GT SCH ×2 (08:04→20:38)
[2020-03-11] MEDS: Levofloxacin 500mg tab GT SCH (08:04)
[2020-03-11] MEDS: Eliquis 5mg tablet GT SCH ×2 (08:04→17:04)
--- NOTE | 2020-03-11 08:56 | General Progress Note ---
Assessment/Plan Assessment/Plan: IMPRESSION: 1. Septic shock. 2. Hypotension. 3. Tachycardia. 4. Respiratory failure. 5. Hypoxemia. 6. Seizure disorder. 7. Hyperlipidemia. 8. Hypernatremia. 9. Acute renal failure. 10. Pulmonary edema. 11. Possible COVID. 12. pleural effusion PLAN monitor hemodynamics try to wean/ discussed but still on AC effusions better- monitor imaging iv antibiotics ID follow up maintain feeds off load still critical pressors as needed feeds off COVID isolation impression, plan, and exam edited and reviewed in detail care discussed with RN Subjective ROS Limited/Unobtainable: Yes Allergies: Coded Allergies: HYDROCODONE (Verified Allergy, Unknown, 07/04/17) Subjective on vent hemodynamics noted on feeds Objective Last 24 Hour Vital Signs Date Time Temp Pulse Resp B/P (MAP) Pulse Ox O2 Delivery O2 Flow Rate FiO2 03/11/20 07:52 91 15 40 03/11/20 07:00 89 14 113/63 (80) 100 03/11/20 06:19 78 14 03/11/20 06:00 90 14 110/61 (77) 100 03/11/20 05:00 84 14 107/57 (74) 100 03/11/20 04:00 88 03/11/20 04:00 98.8 89 10 110/63 (79) 100 03/11/20 04:00 Mechanical Ventilator 03/11/20 03:30 86 14 40 03/11/20 03:00 90 15 112/63 (79) 100 03/11/20 02:00 87 13 115/59 (77) 100 03/11/20 01:00 82 11 107/55 (72) 100 03/11/20 00:00 85 03/11/20 00:00 Mechanical Ventilator 03/11/20 00:00 83 17 114/59 (77) 100 03/10/20 23:30 85 14 40 03/10/20 23:00 84 14 110/56 (74) 100 03/10/20 22:00 82 13 110/57 (74) 100 03/10/20 21:00 86 7 113/61 (78) 100 03/10/20 20:00 98.6 88 9 116/64 (81) 100 03/10/20 20:00 85 03/10/20 20:00 Mechanical Ventilator 03/10/20 19:30 82 14 40 03/10/20 19:00 87 10 116/61 (79) 100 03/10/20 18:00 88 14 116/63 (80) 100 03/10/20 17:00 98.9 85 9 122/66 (84) 100 03/10/20 16:00 88 03/10/20 16:00 78 14 93/55 (68) 100 03/10/20 16:00 Mechanical Ventilator 03/10/20 15:32 81 14 40 03/10/20 15:00 78 15 95/56 (69) 100 03/10/20 14:00 79 16 98/53 (68) 100 03/10/20 13:00 83 14 98/52 (67) 100 03/10/20 12:00 Mechanical Ventilator 03/10/20 12:00 99.0 84 15 112/57 (75) 100 03/10/20 12:00 85 03/10/20 11:05 90 14 40 03/10/20 11:00 104/54 03/10/20 11:00 88 14 105/56 (72) 100 03/10/20 10:15 95 103/56 03/10/20 10:14 103/56 03/10/20 10:00 95 15 103/56 (72) 100 03/10/20 10:00 40 03/10/20 09:40 100 03/10/20 09:40 104 37 40 03/10/20 09:00 89 14 102/55 (71) 100 Intake and Output 03/10/20 03/11/20 19:00 07:00 Intake Total 1807.500 ml 1815 ml Output Total 1010 ml 1020 ml Balance 797.500 ml 795 ml Intake Free Water 150 ml IV Total 1087.500 ml 825 ml Tube Feeding 620 ml 840 ml Other 100 ml Output Urine Total 910 ml 1020 ml Stool Total 100 ml # Bowel Movements 100 Laboratory Tests 03/11/20 05:49: Sodium Level 147H, Potassium Level 4.3, Chloride Level 111H, Carbon Dioxide Level 28, Anion Gap 8, Blood Urea Nitrogen 15, Creatinine 0.9, Estimat Glomerular Filtration Rate > 60, Glucose Level 117H, Calcium Level 8.7 Height (Feet): 6 Height (Inches): 2.00 Weight (Pounds): 200 Objective GENERAL: Ill-appearing male. on vent deferred due to possible COVID German Matthews MD March 11, 2020 08:56
--- NOTE | 2020-03-11 08:59 | Progress Note ---
DATE: 03/10/2020 CARDIOLOGY PROGRESS NOTE SUBJECTIVE: The patient remains on ventilator support. Blood pressure parameters have improved and the patient is now off pressors. PHYSICAL EXAMINATION: LUNGS: Bilateral breath sounds. Thin trach secretions. CARDIAC: Regular rhythm and rate. Normal S1 and S2. ABDOMEN: Soft. EXTREMITIES: Trace edema. LABORATORY DATA: Sodium 147, potassium 3.8, bicarb 28, BUN 14, creatinine 0.8, magnesium 1.8. IMPRESSION: 1. Sepsis with shock, recovered. 2. Respiratory failure with hypoxia. 3. Cardiopulmonary arrest. 4. Polymicrobial pneumonia. 5. Dehydration and hypernatremia, recurring. 6. Lactic acidosis, resolved. PLAN: 1. Avoid pressors. 2. Hypotonic IV fluids. 3. Respiratory hygiene. 4. Weaning efforts. 5. Antimicrobials. 6. DVT prophylaxis. Yfn Luna M.D. DR: SHIRLEY JOB#: [id number] CC:
--- NOTE | 2020-03-11 09:47 | NUR ---
NURSE NOTES: RT at bedside for weaning.
--- NOTE | 2020-03-11 10:10 | NUR ---
NURSE NOTES: Venous duplex at bedside.
[2020-03-11] MEDS: DOPamine 400mg/250ml 250 ML IV SCH (10:14)
[2020-03-11] MEDS: Phenylephrine 50 MG in D5W 245 ML IV SCH (10:15)
--- NOTE | 2020-03-11 10:23 | NUR ---
NURSE NOTES: Dr Calle present in the unit, made rounds and seen patient. Updated on patient's status, notified and made aware of second Covid swab negative. No new orders received at this time.
--- NOTE | 2020-03-11 10:55 | Infectious Diseases Prog Note ---
"Assessment/Plan Assessment/Plan antibiotics : vancomycin iv, levoquin A 1. pseudomonas | MRSA pneumonia 2. COVID 19 test negative x 1 3. respiratory failure 4. renal failure resolved 5. shock resolved 6. hypertension 7. seizures 8. leucocytosis resolved P 1. continue iv vancomycin 3 more days 2. continue po levoquin 6 more days 3. will follow up cultures Subjective ROS Limited/Unobtainable: Yes Allergies: Coded Allergies: HYDROCODONE (Verified Allergy, Unknown, 07/04/17) Objective Vital Signs Last 24 Hour Vital Signs Date Time Temp Pulse Resp B/P (MAP) Pulse Ox O2 Delivery O2 Flow Rate FiO2 03/11/20 10:15 93 104/62 03/11/20 10:14 104/62 03/11/20 10:00 93 30 104/62 (76) 100 03/11/20 09:44 93 33 40 40 03/11/20 09:00 90 14 112/58 (76) 100 03/11/20 08:00 98.3 90 14 112/62 (79) 100 03/11/20 08:00 92 03/11/20 08:00 40 03/11/20 08:00 Mechanical Ventilator 03/11/20 07:52 91 15 40 03/11/20 07:00 89 14 113/63 (80) 100 03/11/20 06:19 78 14 03/11/20 06:00 90 14 110/61 (77) 100 03/11/20 05:00 84 14 107/57 (74) 100 03/11/20 04:00 88 03/11/20 04:00 98.8 89 10 110/63 (79) 100 03/11/20 04:00 Mechanical Ventilator 03/11/20 03:30 86 14 40 03/11/20 03:00 90 15 112/63 (79) 100 03/11/20 02:00 87 13 115/59 (77) 100 03/11/20 01:00 82 11 107/55 (72) 100 03/11/20 00:00 85 03/11/20 00:00 Mechanical Ventilator 03/11/20 00:00 83 17 114/59 (77) 100 03/10/20 23:30 85 14 40 03/10/20 23:00 84 14 110/56 (74) 100 03/10/20 22:00 82 13 110/57 (74) 100 03/10/20 21:00 86 7 113/61 (78) 100 03/10/20 20:00 98.6 88 9 116/64 (81) 100 03/10/20 20:00 85 03/10/20 20:00 Mechanical Ventilator 03/10/20 19:30 82 14 40 03/10/20 19:00 87 10 116/61 (79) 100 03/10/20 18:00 88 14 116/63 (80) 100 03/10/20 17:00 98.9 85 9 122/66 (84) 100 03/10/20 16:00 88 03/10/20 16:00 78 14 93/55 (68) 100 03/10/20 16:00 Mechanical Ventilator 03/10/20 15:32 81 14 40 03/10/20 15:00 78 15 95/56 (69) 100 03/10/20 14:00 79 16 98/53 (68) 100 03/10/20 13:00 83 14 98/52 (67) 100 03/10/20 12:00 Mechanical Ventilator 03/10/20 12:00 99.0 84 15 112/57 (75) 100 03/10/20 12:00 85 03/10/20 11:05 90 14 40 03/10/20 11:00 104/54 03/10/20 11:00 88 14 105/56 (72) 100 Height (Feet): 6 Height (Inches): 2.00 Weight (Pounds): 200 HEENT: other - intubated Respiratory/Chest: lungs clear Cardiovascular: normal rate, regular rhythm, no gallop/murmur Abdomen: soft, non tender Extremities: no edema, other - right IJ catheter Microbiology Date/Time Source Procedure Growth Status 03/08/20 13:20 Nasopharynx Coronavirus COVID-19 PCR ([facility]) - Final Complete Laboratory Tests Test 03/11/20 05:49 Sodium Level 147 MMOL/L (136-145) H Potassium Level 4.3 MMOL/L (3.5-5.1) Chloride Level 111 MMOL/L (98-107) H Carbon Dioxide Level 28 MMOL/L (21-32) Anion Gap 8 mmol/L (5-15) Blood Urea Nitrogen 15 mg/dL (7-18) Creatinine 0.9 MG/DL (0.55-1.30) Estimat Glomerular Filtration Rate > 60 mL/min (>60) Glucose Level 117 MG/DL (74-106) H Calcium Level 8.7 MG/DL (8.5-10.1) Current Medications Medications (Trade) Dose Ordered Sig/Kolby Route PRN Reason Start Time Stop Time Status Last Admin Dose Admin Acetaminophen (Tylenol) 650 mg Q4H PRN GT Temp >100.5 03/05/20 16:45 04/04/20 16:44 03/07/20 02:56 Apixaban (Eliquis) 5 mg BID GT 03/06/20 18:00 06/03/20 17:59 03/11/20 08:04 Ascorbic Acid (Vitamin C) 250 mg DAILY ORAL 03/08/20 09:00 04/07/20 08:59 03/11/20 08:04 Chlorhexidine Gluconate (Brandy-Hex 2%) 1 applic DAILY@2000 TOPIC 03/05/20 20:00 06/03/20 19:59 03/10/20 20:43 Dextrose (Dextrose 50%) 25 ml Q30M PRN IV Hypoglycemia 03/05/20 14:00 06/03/20 13:59 Dextrose (Dextrose 50%) 50 ml Q30M PRN IV Hypoglycemia 03/05/20 14:00 06/03/20 13:59 Dopamine HCl/ Dextrose 250 ml @ 0 mls/hr Q24H IV 03/05/20 10:14 06/03/20 10:13 Insulin Aspart (NovoLOG) EVERY 6 HOURS SUBQ 03/05/20 18:00 06/03/20 17:59 03/07/20 18:41 Levetiracetam (Keppra) 1,500 mg Q12HR GT 03/05/20 11:45 04/04/20 11:44 03/11/20 08:04 Levofloxacin (Levaquin) 500 mg DAILY GT 03/09/20 09:00 03/15/20 11:44 03/11/20 08:04 Levothyroxine Sodium (Synthroid) 75 mcg ACBREAKFAST GT 03/06/20 06:30 04/05/20 06:29 03/11/20 06:01 Norepinephrine Bitartrate 4 mg/ Dextrose 250 ml @ 0 mls/hr Q24H IV 03/08/20 11:00 04/07/20 10:59 03/09/20 01:56 Phenylephrine HCl 50 mg/Dextrose 250 ml @ 0 mls/hr Q24H IV 03/05/20 10:15 04/04/20 10:14 03/07/20 06:01 Phenytoin (Dilantin) 250 mg Q12HR GT 03/05/20 21:00 04/04/20 20:59 03/11/20 08:03 Vancomycin HCl (Vanco rx to dose) 1 ea DAILY PRN MISC Per rx protocol 03/07/20 16:15 04/06/20 16:14 Vancomycin HCl 1 gm/Dextrose 275 ml @ 183.708 mls/hr Q24H IVPB 03/09/20 11:00 03/14/20 10:59 03/10/20 11:20 Radha Calle MD March 11, 2020 10:55"
[2020-03-11] MEDS: Vancomycin 1gm/D5W 275ml IVPB SCH ×2 (11:14)
--- NOTE | 2020-03-11 12:08 | NUR ---
NURSE NOTES: Patient remains awake, follows simple commands. Notified Dr Matthews regarding ABG results post weaning and notified regarding Venous Duplex results. Received order to extubate patient and to increase Eliquis dose. Will enter, will carry out order. RT Miguel, notified. TF remains at 70ml/hr. Right IJ TLC remains intact and patent. Will continue to monitor.
--- NOTE | 2020-03-11 13:02 | Surgery Progress Note ---
Surgery Progress Note Subjective Additional Comments tolerating tube feeds plan extubation labs noted abg noted duplex on eliquis Objective Last 24 Hour Vital Signs Date Time Temp Pulse Resp B/P (MAP) Pulse Ox O2 Delivery O2 Flow Rate FiO2 03/11/20 12:00 98.2 96 7 119/59 (79) 100 03/11/20 12:00 96 03/11/20 12:00 Mechanical Ventilator 03/11/20 11:10 93 34 40 40 03/11/20 11:00 117/62 03/11/20 11:00 94 32 117/62 (80) 100 03/11/20 10:15 93 104/62 03/11/20 10:14 104/62 03/11/20 10:00 93 30 104/62 (76) 100 03/11/20 09:44 93 33 40 40 03/11/20 09:00 90 14 112/58 (76) 100 03/11/20 08:00 98.3 90 14 112/62 (79) 100 03/11/20 08:00 92 03/11/20 08:00 40 03/11/20 08:00 Mechanical Ventilator 03/11/20 07:52 91 15 40 03/11/20 07:00 89 14 113/63 (80) 100 03/11/20 06:19 78 14 03/11/20 06:00 90 14 110/61 (77) 100 03/11/20 05:00 84 14 107/57 (74) 100 03/11/20 04:00 88 03/11/20 04:00 98.8 89 10 110/63 (79) 100 03/11/20 04:00 Mechanical Ventilator 03/11/20 03:30 86 14 40 03/11/20 03:00 90 15 112/63 (79) 100 03/11/20 02:00 87 13 115/59 (77) 100 03/11/20 01:00 82 11 107/55 (72) 100 03/11/20 00:00 85 03/11/20 00:00 Mechanical Ventilator 03/11/20 00:00 83 17 114/59 (77) 100 03/10/20 23:30 85 14 40 03/10/20 23:00 84 14 110/56 (74) 100 03/10/20 22:00 82 13 110/57 (74) 100 03/10/20 21:00 86 7 113/61 (78) 100 03/10/20 20:00 98.6 88 9 116/64 (81) 100 03/10/20 20:00 85 03/10/20 20:00 Mechanical Ventilator 03/10/20 19:30 82 14 40 03/10/20 19:00 87 10 116/61 (79) 100 03/10/20 18:00 88 14 116/63 (80) 100 03/10/20 17:00 98.9 85 9 122/66 (84) 100 03/10/20 16:00 88 03/10/20 16:00 78 14 93/55 (68) 100 03/10/20 16:00 Mechanical Ventilator 03/10/20 15:32 81 14 40 03/10/20 15:00 78 15 95/56 (69) 100 03/10/20 14:00 79 16 98/53 (68) 100 I&O Intake and Output 03/10/20 03/11/20 19:00 07:00 Intake Total 1807.500 ml 1815 ml Output Total 1010 ml 1020 ml Balance 797.500 ml 795 ml Intake Free Water 150 ml IV Total 1087.500 ml 825 ml Tube Feeding 620 ml 840 ml Other 100 ml Output Urine Total 910 ml 1020 ml Stool Total 100 ml # Bowel Movements 100 Dressing: other Wound: other Drains: other Cardiovascular: RSR Respiratory: decreased breath sounds Abdomen: soft, non-tender, present bowel sounds Extremities: no cyanosis Laboratory Tests Test 03/11/20 05:49 03/11/20 10:45 Sodium Level 147 MMOL/L (136-145) H Potassium Level 4.3 MMOL/L (3.5-5.1) Chloride Level 111 MMOL/L (98-107) H Carbon Dioxide Level 28 MMOL/L (21-32) Anion Gap 8 mmol/L (5-15) Blood Urea Nitrogen 15 mg/dL (7-18) Creatinine 0.9 MG/DL (0.55-1.30) Estimat Glomerular Filtration Rate > 60 mL/min (>60) Glucose Level 117 MG/DL (74-106) H Calcium Level 8.7 MG/DL (8.5-10.1) Arterial Blood pH 7.328 (7.350-7.450) Arterial Blood Partial Pressure CO2 57.6 mmHg (35.0-45.0) *H Arterial Blood Partial Pressure O2 141.1 mmHg (75.0-100.0) H Arterial Blood HCO3 29.6 mmol/L (22.0-26.0) H Arterial Blood Oxygen Saturation 98.3 % (95-100) Arterial Blood Base Excess 2.8 (-2-2) H Chandan Test Positive Plan Problems: (1) Respiratory acidosis (2) Seizure disorder (3) Altered mental status (4) Pneumonia Assessment & Plan: New left pleural effusion Improved aeration of the right lung, with persistent consolidation and pleural fluid (5) Cardiopulmonary arrest (6) Hypernatremia (7) Sepsis Assessment & Plan: Pt presented on admission with multiple pressure injuries. Unstageable Pressure injury R Buttocks. Base of wound is 100% necrotic. Sacrum, R and L Gluteal cheeks maroon with multiple partial thickness wounds with surrounding denuded and macerated skin. Dry, black borders noted Unstageable pressure injury R thoracic. Base of wound is 100% necrotic but dry. No erythema induration or fluctuance periwound. Full thickness stage 3 pressure injury R heel. Base of wound is beefy red with macerated borders. periwound is necrotic and fluctuant. Full thickness stage 3 pressure injury R Hallux. Base of wound is beefy red with surrounding pink granulation. Dry black borders noted. Loose dry eschar noted to L heel. Hyperpigmentation noted to R and L lateral Malleoli. unlikely etiology of sepsis will monitor improved Tx.Plan: Cleanse Sacral area with Saline.Apply Therahoney. Apply Moisture Barrier Paste periwound. Cover with Optifoam drsgs. Change Daily and Prn. Cleanse wound R thoracic with Saline. Apply TheraHoney. Apply Cavilon Skin Barrier Periwound. Cover with Optifoam drsg.Change every 3 days and prn. Cleanse wound R heel with Saline. Apply TheraHoney. Apply Cavilon Skin Barrier Periwound. Cover with Optifoam drsg. Change every 3 days and prn. Cleanse R Hallux with Saline. Apply Therahoney. Apply Cavilon Skin Barrier Periwound. Cover with Optifoam drsg. Change every 3 days and prn. Apply Cavilon Skin Barrier to L Heel. Cover with Optifoam drsg. Change every 7 days and prn. Reposition at least every 2hours or as tolerated. Place Pillow between knees. Off-load heels with Pillow. APM/NORM Mattress overlay. DAILY ESTIMATED NEEDS: Needs based on Critical care, wounds 78.6abw 22-30 kcals/kg 0390-1079 total kcals 1.25-2 g protein/kg 98-157 g total protein 25-30 mL/kg 9731-7885 total fluid mLs NUTRITION DIAGNOSIS: Increased kcal and pro needs r/t wound care as evidenced by pt w/ full thickness wounds x2, unstageable wounds x2, refer to WC eval. CURRENT TF:Glucerna 1.5 @70ml/hr x18 hrs ENTERAL NUTRITION RECOMMENDATIONS: Glucerna 1.5 @70ml/hr x18 hrs to provide 1260ml, 1890 kcal, 104g pro, 956ml free H2O - W/ HD stability, continue current TF - HOLD TF 1 HOUR BEFORE AND AFTER SYNTHROID(QD) AND DILANTIN(BID), tf to run a max of 18 hrs - Flush per , HOB over 30 degrees WITHOUT HEMODYNAMIC STABILITY: rec trophic feeds of Glucerna 1.5 @5-10ml/hr to maintain gut integrity. ADDITIONAL RECOMMENDATIONS: 1) Wound care: add AJIT BID + Vit C 250mg daily 2) Per SNF: 69inches, 212lbs/96.36kg Maintain calibrated daily wts 3) Feed when hemodynamically stable, do not feed in the prone position -> pressors held at this time 4) Monitor lytes, replete as needed (8) ACE (acute kidney injury) Gary Vicente March 11, 2020 13:02
--- NOTE | 2020-03-11 13:15 | NUR ---
NURSE NOTES: Assisted RT Miguel with extubation of patient. Patient remains awake, follows simple commands. Patient was placed on Venturi Mask at 45% FiO2, 10L oxygen. Patient is saturating 100%, no distress noted at this time. Will continue to monitor patient. Addendum: 03/11/20 at 1419 by Yashira Collins RN Restraints removed.
--- NOTE | 2020-03-11 13:16 | NUR ---
RESPIRATORY NOTE: Extubated with RN at [address]. Pt placed on venturi 45 %. Pt not in distress. pt sating 100% will continue to monitor.
--- NOTE | 2020-03-11 13:37 | NUR ---
*-* INSURANCE *-* UPDATED CLINICALS HAVE BEEN FAXED TO: Ron Ref# [id number] # [phone] fax# [phone] F# [phone]
--- NOTE | 2020-03-11 13:46 | NUR ---
CASE MANAGEMENT: REVIEW SI: PNA . SEPSIS . RESPIRATORY FAILURE T 98.8 HR 89 RR 10 BP 107/57 SAT 100% MECH VENT FIO2 40 NA 147 CHLORIDE 111 GLUCOSE 117 IS: DOPAMINE IV Q24HR LEVAQUIN GT QD PHENYLEPHRINE IV Q24HR LEVOPHED IV Q24HR VANCOMYCIN IV Q24HR KEPPRA GT Q12HR DILANTIN GT Q12HR ICU STATUS DCP: PATIENT IS FROM [facility] PLAN: EXTUBATION
--- NOTE | 2020-03-11 14:18 | NUR ---
NURSE NOTES: Patient is asleep at this time. On Venturi Mask, 45%FiO2, 10L. Patient is saturating 100% at this time. No s/s of distress noted. Will continue to monitor.
--- NOTE | 2020-03-11 16:00 | NUR ---
NURSE NOTES: Patient remains on Venturi Mask 35% 6L, tolerating well. Saturating 100%. No distress at this time. Will continue to monitor.
--- NOTE | 2020-03-11 18:12 | NUR ---
NURSE NOTES: Complete bed bath given, all linens changed. Rectal tube replaced. Patient tolerating 4L ox oxygen via nasal cannula. TF infusing at 70ml/hr, tolerating well. Right IJ TLC intact and patent. Patient afebrile. VSS. No distress noted. Will continue to monitor.
--- NOTE | 2020-03-11 19:05 | NUR ---
HAND-OFF: Report given to MARGARITA Garcia. Endorsed plan of care.
--- NOTE | 2020-03-11 19:44 | NUR ---
NURSE NOTES: received report from bean de los santos pt extubated at 4l n/c with o2 sat 100%no acute resp distress note on tube feeding tolerating well no residual dawn to bedside drainage reposition and suction
[2020-03-11] MEDS: Dyna-Hex 2% Top Sol 2oz TOPIC SCH (20:37)
--- NOTE | 2020-03-11 20:43 | Nephrology Progress Note ---
Assessment/Plan Problem List: (1) Hypernatremia (2) ACE (acute kidney injury) (3) Cardiopulmonary arrest (4) Respiratory acidosis (5) Seizure disorder (6) Altered mental status (7) Pneumonia (8) Sepsis Plan iv hypotonic,can dc grave prognosis lytes better Subjective ROS Limited/Unobtainable: Yes Objective Objective Last 24 Hour Vital Signs Date Time Temp Pulse Resp B/P (MAP) Pulse Ox O2 Delivery O2 Flow Rate FiO2 03/11/20 19:00 106 21 122/61 (81) 100 03/11/20 18:00 107 18 120/60 (80) 100 03/11/20 17:00 103 30 120/63 (82) 100 03/11/20 16:15 98.9 103 20 119/66 (83) 100 03/11/20 16:00 102 18 119/62 (81) 100 03/11/20 16:00 Nasal Cannula 4.0 Nasal Cannula 4.0 03/11/20 16:00 103 03/11/20 15:00 102 10 115/61 (79) 100 03/11/20 14:00 100 12 100/58 (72) 100 03/11/20 13:30 102 29 118/53 (74) 100 03/11/20 13:15 100 32 124/60 (81) 100 03/11/20 13:14 100 Venturi Mask 10.0 45 03/11/20 13:12 Venturi Mask 10.0 45 03/11/20 13:11 100 03/11/20 13:00 98 28 118/62 (80) 100 03/11/20 12:00 98.2 96 7 119/59 (79) 100 03/11/20 12:00 96 03/11/20 12:00 Mechanical Ventilator 03/11/20 11:10 93 34 40 40 03/11/20 11:00 117/62 03/11/20 11:00 94 32 117/62 (80) 100 03/11/20 10:15 93 104/62 03/11/20 10:14 104/62 03/11/20 10:00 93 30 104/62 (76) 100 03/11/20 09:44 93 33 40 40 03/11/20 09:00 90 14 112/58 (76) 100 03/11/20 08:00 98.3 90 14 112/62 (79) 100 03/11/20 08:00 92 03/11/20 08:00 40 03/11/20 08:00 Mechanical Ventilator 03/11/20 07:52 91 15 40 03/11/20 07:00 89 14 113/63 (80) 100 03/11/20 06:19 78 14 03/11/20 06:00 90 14 110/61 (77) 100 03/11/20 05:00 84 14 107/57 (74) 100 03/11/20 04:00 88 03/11/20 04:00 98.8 89 10 110/63 (79) 100 03/11/20 04:00 Mechanical Ventilator 03/11/20 03:30 86 14 40 03/11/20 03:00 90 15 112/63 (79) 100 03/11/20 02:00 87 13 115/59 (77) 100 03/11/20 01:00 82 11 107/55 (72) 100 03/11/20 00:00 85 03/11/20 00:00 Mechanical Ventilator 03/11/20 00:00 83 17 114/59 (77) 100 03/10/20 23:30 85 14 40 03/10/20 23:00 84 14 110/56 (74) 100 03/10/20 22:00 82 13 110/57 (74) 100 03/10/20 21:00 86 7 113/61 (78) 100 Intake and Output 03/10/20 03/11/20 19:00 07:00 Intake Total 1807.500 ml 1815 ml Output Total 1010 ml 1020 ml Balance 797.500 ml 795 ml Intake Free Water 150 ml IV Total 1087.500 ml 825 ml Tube Feeding 620 ml 840 ml Other 100 ml Output Urine Total 910 ml 1020 ml Stool Total 100 ml # Bowel Movements 100 Laboratory Tests 03/11/20 05:49: Sodium Level 147H, Potassium Level 4.3, Chloride Level 111H, Carbon Dioxide Level 28, Anion Gap 8, Blood Urea Nitrogen 15, Creatinine 0.9, Estimat Glomerular Filtration Rate > 60, Glucose Level 117H, Calcium Level 8.7 03/11/20 10:45: Arterial Blood pH 7.328L, Arterial Blood Partial Pressure CO2 57.6*H, Arterial Blood Partial Pressure O2 141.1H, Arterial Blood HCO3 29.6H, Arterial Blood Oxygen Saturation 98.3, Arterial Blood Base Excess 2.8H, Chandan Test Positive Height (Feet): 6 Height (Inches): 2.00 Weight (Pounds): 200 General Appearance: lethargic Neck: normal alignment Cardiovascular: regular rhythm Respiratory/Chest: crackles/rales Abdomen: soft Extremities: no edema Neurologic: unresponsive Raffaele Ocampo MD March 11, 2020 20:43
[2020-03-12] VITALS (34 sets, daily range): BP systolic 115–128; BP diastolic 56–79
--- NOTE | 2020-03-12 | NUR ---
NURSE NOTES: bs 104
--- NOTE | 2020-03-12 02:00 | NUR ---
NURSE NOTES: reposition and suction condition and un change
--- NOTE | 2020-03-12 04:00 | NUR ---
NURSE NOTES: complete bed bath back care and wound care done
--- NOTE | 2020-03-12 04:30 | Progress Note ---
DATE: 03/11/2020 SUBJECTIVE: The patient remains in the intensive care unit. Condition remains critical with guarded prognosis. COVID-19 is negative and isolation discontinued. The patient remains off pressors, but remains on full ventilator support. OBJECTIVE: LUNGS: Bilateral breath sounds with few rhonchi.. CARDIAC: Regular rhythm and rate. Normal S1 and S2 with no new murmur. ABDOMEN: Soft. EXTREMITIES: There is no edema. LABORATORY DATA: Sodium 147, potassium 4.3, bicarb 28, BUN 15, and creatinine 0.9. ABG, 7.33, 57, and 141. IMPRESSION: 1. Acute on chronic respiratory acidosis. 2. Respiratory failure. 3. Sepsis with shock, now recovered. 4. Paroxysmal sinus tachycardia. 5. Acute myocardial ischemia, status post full cardiopulmonary arrest. 6. Lactic acidosis, resolved. 7. Dehydration and hypernatremia, persisting. PLAN: 1. Ventilator support with weaning efforts. 2. Antimicrobials. 3. DVT prophylaxis. 4. Hypotonic IV fluids. 5. Avoiding pressors again. Yfn Luna M.D. DR: MARIA G JOB#: [id number] CC:
[2020-03-12 05:21] LABS: BASOPHILS % (AUTO) 0.4 % (0.0-2.0); EOSINOPHILS % (AUTO) 7.4 % (0.0-3.0); HEMATOCRIT 27.6 % (42.0-52.0); HEMOGLOBIN 9.1 G/DL (14.2-18.0); LYMPHOCYTES % (AUTO) 29.8 % (20.0-45.0); MEAN CORPUSCULAR VOLUME 86 FL (80-99); MONOCYTES % (AUTO) 8.7 % (1.0-10.0); NEUTROPHILS % (AUTO) 53.6 % (45.0-75.0); PLATELET COUNT 250 K/UL (150-450); RED BLOOD COUNT 3.22 M/UL (4.70-6.10); WHITE BLOOD COUNT 5.1 K/UL (4.8-10.8)
[2020-03-12 05:51] LABS: ANION GAP 6 mmol/L (5-15); BLOOD UREA NITROGEN 15 mg/dL (7-18); CALCIUM 8.9 MG/DL (8.5-10.1); CARBON DIOXIDE 31 MMOL/L (21-32); CHLORIDE 110 MMOL/L (98-107); CREATININE 0.8 MG/DL (0.55-1.30); POTASSIUM 4.3 MMOL/L (3.5-5.1); SODIUM 147 MMOL/L (136-145)
[2020-03-12] MEDS: NovoLOG Insulin Flexpen SUBQ SCH ×5 (06:00→23:38)
--- NOTE | 2020-03-12 07:15 | NUR ---
HAND-OFF: Report given to gabe de los santos using sbar.
--- NOTE | 2020-03-12 07:20 | NUR ---
NURSE NOTES: Received report from MARGARITA Caputo. The patient is resting on the bed but being lethergic and oxygen saturation dropped to 85%. Per order, ABG completed and paged Dr. Matthews. Dr. Matthews ordered the patient to be on Bipap 15/8 and titrate FiO2 to keep SpO2>92%. The patient's bed in the lowest position, call light in reach, and fall, aspiration, and seizure precaution reinforced. The patient is AOx1 and nodding his head upon asking question. The patient has G tube that is intact and patent and running tube feeing formula per order. The patient has Penaloza and Rectal tube that is intact and draining by gravity. Skin issue noted. The patient has R leg DVT and is on Elliquis. Will closely monitor the patient. Will continue plan of care. Addendum: 03/12/20 at 1514 by Dawood Ramirez RN Tube feeding will be on hold for 6 hours since the order is Glucerna 1.5 @70mL/hr for 18 hours.
--- NOTE | 2020-03-12 09:00 | NUR ---
NURSE NOTES: With Bipap, the patient is more arousable upon minimal stimuli. Will closely monitor the patient. Will continue plan of care.
[2020-03-12] MEDS: Phenytoin Susp 100mg/4ml GT SCH ×2 (09:19→20:45)
[2020-03-12] MEDS: Ascorbic Acid 500mg tab ORAL SCH (09:20)
[2020-03-12] MEDS: Eliquis 5mg tablet GT SCH ×2 (09:20→18:56)
[2020-03-12] MEDS: Levofloxacin 750mg tab GT SCH (09:20)
[2020-03-12] MEDS: levETIRAcetam 500mg/5ml Liquid GT SCH ×2 (09:20→20:45)
--- NOTE | 2020-03-12 09:35 | General Progress Note ---
Assessment/Plan Assessment/Plan: IMPRESSION: 1. Septic shock. 2. Hypotension. 3. Tachycardia. 4. Respiratory failure. 5. Hypoxemia. 6. Seizure disorder. 7. Hyperlipidemia. 8. Hypernatremia. 9. Acute renal failure. 10. Pulmonary edema. 11. Possible COVID. 12. pleural effusion PLAN monitor hemodynamics BIPAP for now and repeat ABG iv antibiotics ID follow up maintain feeds off load still critical watch off pressors feeds off COVID isolation impression, plan, and exam edited and reviewed in detail care discussed with RN Subjective Allergies: Coded Allergies: HYDROCODONE (Verified Allergy, Unknown, 07/04/17) Subjective off vent hemodynamics noted on feeds respiratory distress and oxygen desaturation Objective Last 24 Hour Vital Signs Date Time Temp Pulse Resp B/P (MAP) Pulse Ox O2 Delivery O2 Flow Rate FiO2 03/12/20 06:00 103 26 120/57 (78) 100 03/12/20 05:00 104 25 126/79 (95) 100 03/12/20 04:00 Nasal Cannula 4.0 Nasal Cannula 4.0 03/12/20 04:00 104 03/12/20 04:00 102 27 120/62 (81) 100 03/12/20 03:00 104 28 119/60 (79) 100 03/12/20 02:00 106 25 128/61 (83) 100 03/12/20 01:00 108 31 125/67 (86) 100 03/12/20 00:00 98.5 108 27 123/64 (83) 100 03/12/20 00:00 Nasal Cannula 4.0 Nasal Cannula 4.0 03/11/20 23:00 108 31 122/60 (80) 100 03/11/20 22:00 107 34 122/65 (84) 100 03/11/20 21:00 109 31 127/61 (83) 100 03/11/20 20:00 98.5 107 29 123/62 (82) 100 03/11/20 20:00 Nasal Cannula 4.0 Nasal Cannula 4.0 03/11/20 20:00 106 03/11/20 19:48 100 Nasal Cannula 3.0 32 03/11/20 19:00 106 21 122/61 (81) 100 03/11/20 18:00 107 18 120/60 (80) 100 03/11/20 17:00 103 30 120/63 (82) 100 03/11/20 16:15 98.9 103 20 119/66 (83) 100 03/11/20 16:00 102 18 119/62 (81) 100 03/11/20 16:00 Nasal Cannula 4.0 Nasal Cannula 4.0 03/11/20 16:00 103 03/11/20 15:00 102 10 115/61 (79) 100 03/11/20 14:00 100 12 100/58 (72) 100 03/11/20 13:30 102 29 118/53 (74) 100 03/11/20 13:15 100 32 124/60 (81) 100 03/11/20 13:14 100 Venturi Mask 10.0 45 03/11/20 13:12 Venturi Mask 10.0 45 03/11/20 13:11 100 03/11/20 13:00 98 28 118/62 (80) 100 03/11/20 12:00 98.2 96 7 119/59 (79) 100 03/11/20 12:00 96 03/11/20 12:00 Mechanical Ventilator 03/11/20 11:10 93 34 40 40 03/11/20 11:00 117/62 03/11/20 11:00 94 32 117/62 (80) 100 03/11/20 10:15 93 104/62 03/11/20 10:14 104/62 03/11/20 10:00 93 30 104/62 (76) 100 03/11/20 09:44 93 33 40 40 Intake and Output 03/11/20 03/12/20 19:00 07:00 Intake Total 880 ml 920 ml Output Total 1030 ml 1180 ml Balance -150 ml -260 ml Intake Free Water 150 ml IV Total 150 ml Tube Feeding 630 ml 770 ml Other 100 ml Output Urine Total 930 ml 1180 ml Stool Total 100 ml Laboratory Tests 03/11/20 10:45: Arterial Blood pH 7.328L, Arterial Blood Partial Pressure CO2 57.6*H, Arterial Blood Partial Pressure O2 141.1H, Arterial Blood HCO3 29.6H, Arterial Blood Oxygen Saturation 98.3, Arterial Blood Base Excess 2.8H, Chandan Test Positive 03/12/20 04:34: White Blood Count 5.1, Red Blood Count 3.22L, Hemoglobin 9.1L, Hematocrit 27.6L , Mean Corpuscular Volume 86, Mean Corpuscular Hemoglobin 28.3, Mean Corpuscular Hemoglobin Concent 33.0, Red Cell Distribution Width 16.0H, Platelet Count 250, Mean Platelet Volume 7.4, Neutrophils (%) (Auto) 53.6, Lymphocytes (%) (Auto) 29.8, Monocytes (%) (Auto) 8.7, Eosinophils (%) (Auto) 7.4H, Basophils (%) (Auto) 0.4, Sodium Level 147H, Potassium Level 4.3, Chloride Level 110H, Carbon Dioxide Level 31, Anion Gap 6, Blood Urea Nitrogen 15, Creatinine 0.8, Estimat Glomerular Filtration Rate > 60, Glucose Level 107H , Calcium Level 8.9, Magnesium Level 1.9, Pro-B-Type Natriuretic Peptide 451H 03/12/20 07:18: Arterial Blood pH 7.342L, Arterial Blood Partial Pressure CO2 51.8H, Arterial Blood Partial Pressure O2 49.3*L, Arterial Blood HCO3 27.4H, Arterial Blood Oxygen Saturation 80.4*L, Arterial Blood Base Excess 1.2, Chandan Test Positive Height (Feet): 6 Height (Inches): 2.00 Weight (Pounds): 160 Objective GENERAL: Ill-appearing male. coarse breath sounds RRR NABS nontender no CCE on BIPAP German Matthews MD March 12, 2020 09:35
--- NOTE | 2020-03-12 09:53 | NUR ---
CASE MANAGEMENT: REVIEW SI: PNA . SEPSIS . RESPIRATORY FAILURE . S/P ORAL INTUBATION T 98.5 HR 109 RR 34 BP 120/57 SAT 100% NC/4L H/H 9.1/27.6 NA 147 BNP 451 IS: DOPAMINE IV Q24HR LEVAQUIN GT QD PHENYLEPHRINE IV Q24HR LEVOPHED IV Q24HR VANCOMYCIN IV Q24HR KEPPRA GT Q12HR DILANTIN GT Q12HR ICU STATUS DCP: PATIENT IS FROM [facility] PLAN: EXTUBATION
--- NOTE | 2020-03-12 10:00 | NUR ---
NURSE NOTES: Medication administered per order. Notified Dr. Matthews regarding second ABG. Per Dr. Matthews, titrate FiO2 to keep SpO2>92%. Notified Dr. Matthews that the patient is on FiO2 70% now. Will closely monitor the patient.
[2020-03-12] MEDS: DOPamine 400mg/250ml 250 ML IV SCH (10:14)
[2020-03-12] MEDS: Phenylephrine 50 MG in D5W 245 ML IV SCH (10:15)
[2020-03-12] MEDS: Vancomycin 1gm/D5W 275ml IVPB SCH ×2 (10:37)
--- NOTE | 2020-03-12 10:44 | Infectious Diseases Prog Note ---
"Assessment/Plan Assessment/Plan antibiotics : vancomycin iv, levoquin A 1. pseudomonas | MRSA pneumonia 2. COVID 19 test negative x 2, 5.5.20, 5.9.20 3. respiratory failure 4. renal failure resolved 5. shock resolved 6. hypertension 7. seizures 8. leucocytosis resolved P 1. continue iv vancomycin 2 more days 2. continue po levoquin 5 more days 3. will follow up cultures Subjective ROS Limited/Unobtainable: Yes Allergies: Coded Allergies: HYDROCODONE (Verified Allergy, Unknown, 07/04/17) Objective Vital Signs Last 24 Hour Vital Signs Date Time Temp Pulse Resp B/P (MAP) Pulse Ox O2 Delivery O2 Flow Rate FiO2 03/12/20 06:00 103 26 120/57 (78) 100 03/12/20 05:00 104 25 126/79 (95) 100 03/12/20 04:00 Nasal Cannula 4.0 Nasal Cannula 4.0 03/12/20 04:00 104 03/12/20 04:00 102 27 120/62 (81) 100 03/12/20 03:00 104 28 119/60 (79) 100 03/12/20 02:00 106 25 128/61 (83) 100 03/12/20 01:00 108 31 125/67 (86) 100 03/12/20 00:00 98.5 108 27 123/64 (83) 100 03/12/20 00:00 Nasal Cannula 4.0 Nasal Cannula 4.0 03/11/20 23:00 108 31 122/60 (80) 100 03/11/20 22:00 107 34 122/65 (84) 100 03/11/20 21:00 109 31 127/61 (83) 100 03/11/20 20:00 98.5 107 29 123/62 (82) 100 03/11/20 20:00 Nasal Cannula 4.0 Nasal Cannula 4.0 03/11/20 20:00 106 03/11/20 19:48 100 Nasal Cannula 3.0 32 03/11/20 19:00 106 21 122/61 (81) 100 03/11/20 18:00 107 18 120/60 (80) 100 03/11/20 17:00 103 30 120/63 (82) 100 03/11/20 16:15 98.9 103 20 119/66 (83) 100 03/11/20 16:00 102 18 119/62 (81) 100 03/11/20 16:00 Nasal Cannula 4.0 Nasal Cannula 4.0 03/11/20 16:00 103 03/11/20 15:00 102 10 115/61 (79) 100 03/11/20 14:00 100 12 100/58 (72) 100 03/11/20 13:30 102 29 118/53 (74) 100 03/11/20 13:15 100 32 124/60 (81) 100 03/11/20 13:14 100 Venturi Mask 10.0 45 03/11/20 13:12 Venturi Mask 10.0 45 03/11/20 13:11 100 03/11/20 13:00 98 28 118/62 (80) 100 03/11/20 12:00 98.2 96 7 119/59 (79) 100 03/11/20 12:00 96 03/11/20 12:00 Mechanical Ventilator 03/11/20 11:10 93 34 40 40 03/11/20 11:00 117/62 03/11/20 11:00 94 32 117/62 (80) 100 Height (Feet): 6 Height (Inches): 2.00 Weight (Pounds): 160 HEENT: other - on bipap Respiratory/Chest: lungs clear Cardiovascular: normal rate, regular rhythm, no gallop/murmur Abdomen: soft, non tender, other - GT Extremities: no edema, other - right IJ catheter Laboratory Tests Test 03/11/20 10:45 03/12/20 04:34 03/12/20 07:18 03/12/20 09:47 Arterial Blood pH 7.328 (7.350-7.450) 7.342 (7.350-7.450) 7.365 (7.350-7.450) Arterial Blood Partial Pressure CO2 57.6 mmHg (35.0-45.0) *H 51.8 mmHg (35.0-45.0) H 56.0 mmHg (35.0-45.0) *H Arterial Blood Partial Pressure O2 141.1 mmHg (75.0-100.0) H 49.3 mmHg (75.0-100.0) 197.0 mmHg (75.0-100.0) H Arterial Blood HCO3 29.6 mmol/L (22.0-26.0) H 27.4 mmol/L (22.0-26.0) H 31.3 mmol/L (22.0-26.0) H Arterial Blood Oxygen Saturation 98.3 % (95-100) 80.4 % (95-100) *L 98.6 % (95-100) Arterial Blood Base Excess 2.8 (-2-2) H 1.2 (-2-2) 5.0 (-2-2) H Chandan Test Positive Positive Positive White Blood Count 5.1 K/UL (4.8-10.8) Red Blood Count 3.22 M/UL (4.70-6.10) L Hemoglobin 9.1 G/DL (14.2-18.0) L Hematocrit 27.6 % (42.0-52.0) L Mean Corpuscular Volume 86 FL (80-99) Mean Corpuscular Hemoglobin 28.3 PG (27.0-31.0) Mean Corpuscular Hemoglobin Concent 33.0 G/DL (32.0-36.0) Red Cell Distribution Width 16.0 % (11.6-14.8) H Platelet Count 250 K/UL (150-450) Mean Platelet Volume 7.4 FL (6.5-10.1) Neutrophils (%) (Auto) 53.6 % (45.0-75.0) Lymphocytes (%) (Auto) 29.8 % (20.0-45.0) Monocytes (%) (Auto) 8.7 % (1.0-10.0) Eosinophils (%) (Auto) 7.4 % (0.0-3.0) H Basophils (%) (Auto) 0.4 % (0.0-2.0) Sodium Level 147 MMOL/L (136-145) H Potassium Level 4.3 MMOL/L (3.5-5.1) Chloride Level 110 MMOL/L (98-107) H Carbon Dioxide Level 31 MMOL/L (21-32) Anion Gap 6 mmol/L (5-15) Blood Urea Nitrogen 15 mg/dL (7-18) Creatinine 0.8 MG/DL (0.55-1.30) Estimat Glomerular Filtration Rate > 60 mL/min (>60) Glucose Level 107 MG/DL (74-106) H Calcium Level 8.9 MG/DL (8.5-10.1) Magnesium Level 1.9 MG/DL (1.8-2.4) Pro-B-Type Natriuretic Peptide 451 pg/mL (0-125) H Test 03/12/20 10:00 Vancomycin Level Trough Pending Current Medications Medications (Trade) Dose Ordered Sig/Kolby Route PRN Reason Start Time Stop Time Status Last Admin Dose Admin Acetaminophen (Tylenol) 650 mg Q4H PRN GT Temp >100.5 03/05/20 16:45 04/04/20 16:44 03/07/20 02:56 Apixaban (Eliquis) 5 mg BID ORAL 03/18/20 18:00 06/16/20 17:59 Apixaban (Eliquis) 10 mg BID GT 03/11/20 18:00 03/18/20 17:59 03/12/20 09:20 Ascorbic Acid (Vitamin C) 250 mg DAILY ORAL 03/08/20 09:00 04/07/20 08:59 03/12/20 09:20 Chlorhexidine Gluconate (Brandy-Hex 2%) 1 applic DAILY@2000 TOPIC 03/05/20 20:00 06/03/20 19:59 03/11/20 20:37 Dextrose (Dextrose 50%) 25 ml Q30M PRN IV Hypoglycemia 03/05/20 14:00 06/03/20 13:59 Dextrose (Dextrose 50%) 50 ml Q30M PRN IV Hypoglycemia 03/05/20 14:00 06/03/20 13:59 Dopamine HCl/ Dextrose 250 ml @ 0 mls/hr Q24H IV 03/05/20 10:14 06/03/20 10:13 Insulin Aspart (NovoLOG) EVERY 6 HOURS SUBQ 03/05/20 18:00 06/03/20 17:59 03/07/20 18:41 Levetiracetam (Keppra) 1,500 mg Q12HR GT 03/05/20 11:45 04/04/20 11:44 03/12/20 09:20 Levofloxacin (Levaquin) 750 mg DAILY GT 03/12/20 09:00 03/17/20 08:59 03/12/20 09:20 Levothyroxine Sodium (Synthroid) 75 mcg ACBREAKFAST GT 03/06/20 06:30 04/05/20 06:29 03/12/20 06:27 Norepinephrine Bitartrate 4 mg/ Dextrose 250 ml @ 0 mls/hr Q24H IV 03/08/20 11:00 04/07/20 10:59 03/09/20 01:56 Phenylephrine HCl 50 mg/Dextrose 250 ml @ 0 mls/hr Q24H IV 03/05/20 10:15 04/04/20 10:14 03/07/20 06:01 Phenytoin (Dilantin) 250 mg Q12HR GT 03/05/20 21:00 04/04/20 20:59 03/12/20 09:19 Vancomycin HCl (Vanco rx to dose) 1 ea DAILY PRN MISC Per rx protocol 03/07/20 16:15 04/06/20 16:14 Vancomycin HCl 1 gm/Dextrose 275 ml @ 183.708 mls/hr Q24H IVPB 03/09/20 11:00 03/14/20 10:59 03/12/20 10:37 Radha Calle MD March 12, 2020 10:44"
--- NOTE | 2020-03-12 12:00 | NUR ---
NURSE NOTES: BS of 106 noted. No insulin given per protocol. The patient is stable at this time. Will continue plan of care.
--- NOTE | 2020-03-12 12:30 | NUR ---
NURSE NOTES: Wound care nurse came and changed dressing of right hand. Will continue plan of care.
--- NOTE | 2020-03-12 13:00 | NUR ---
NURSE NOTES: Notified Dr. Matthews regarding frequent apnea period that makes Bipap to beep. Awaiting for order. The patient is still on Bipap 15/8 FiO2 70%. Will follow up further order. Will closely monitor the patient. Will continue plan of care.
--- NOTE | 2020-03-12 14:38 | NUR ---
*-* INSURANCE *-* UPDATED CLINICALS HAVE BEEN FAXED TO: [facility] Ref# [id number] # [phone] fax# [phone] F# [phone]
--- NOTE | 2020-03-12 15:00 | NUR ---
NURSE NOTES: The patient is awakable with minimal stimuli. The patient is on Bipap 15/8 FiO2 70% now but having frequent apnea period. Awaiting for Dr. Matthews's further order. Will closely monitor the patient. Will continue plan of care.
--- NOTE | 2020-03-12 15:13 | NUR ---
NURSE NOTES:WOUND CARE NOTES: Pt presented with generalized edema.R hand contracture noted .R hand dusky in colour . R 5th digit /R thumb black at tip of finger. At base of of R thumb including dorsal R hand and R wrist is large wound that is 50% necrotic .50% taty. with loose edges. Small amt serosanguineous exudate noted. At circumference of R first digit/index finger is large open Blister with loose skin flap . base of wound is taty. Necrotic area noted at tip of index finger. Detached nail matrix and epidermis of R middle digit/3rd digit . Fingertip is taty and moist,minimal sanguineous exudate.Tips of R ring finger and R 5th digit is black. Unable to accurately assess web spaces of digits on R hand secondary to gross edema, and pt became distressed at any attempt to separate digits. R hand washed with tepid water and mild soap and patted dry. Each digit and wounds swabbed with Betadine. Xeroform gauze weaved between each digit of R hand and to R wrist and dorsal R hand. Soft Kerlix roll then placed in palm of hand to support contracture. Abd placed over wounds and R hand wrapped loosely with Kerlix until further instructed by Surgeon. R hand elevated on two pillows. Tx.Plan: Keep R Hand elevated with 2 Pillows.
--- NOTE | 2020-03-12 16:00 | NUR ---
NURSE NOTES: Per Dr. Matthews, no new order at this time. Will closely monitor the patient. Will continue plan of care.
--- NOTE | 2020-03-12 17:00 | NUR ---
NURSE NOTES: Bed bath given to the patient. Generalized edema and 3+ edema noted on right arm and hand. Will closely monitor the patient. Will continue plan of care.
--- NOTE | 2020-03-12 18:55 | NUR ---
NURSE NOTES: The patient's BS is 104 noted and no insulin given per protocol. The patient is stable at this time. Tolerating Bipap setting well. Tolerating tube feeing well. Will closely monitor the patient. Will continue plan of care.
--- NOTE | 2020-03-12 19:08 | Nephrology Progress Note ---
Assessment/Plan Problem List: (1) Hypernatremia (2) ACE (acute kidney injury) (3) Cardiopulmonary arrest (4) Respiratory acidosis (5) Seizure disorder (6) Altered mental status (7) Pneumonia (8) Sepsis Plan iv hypotonic lytes better Subjective ROS Limited/Unobtainable: Yes Objective Objective Last 24 Hour Vital Signs Date Time Temp Pulse Resp B/P (MAP) Pulse Ox O2 Delivery O2 Flow Rate FiO2 03/12/20 18:00 108 30 124/59 (80) 100 03/12/20 17:00 108 26 119/59 (79) 100 03/12/20 16:00 106 28 123/60 (81) 100 03/12/20 16:00 105 03/12/20 15:07 102 32 100 50 03/12/20 15:00 104 30 119/63 (81) 100 03/12/20 14:00 105 27 116/59 (78) 100 03/12/20 13:00 108 28 122/61 (81) 100 03/12/20 12:00 108 03/12/20 12:00 70 03/12/20 12:00 Bi-pap Bi-pap 03/12/20 12:00 98.0 110 16 122/58 (79) 100 03/12/20 11:15 108 33 100 70 03/12/20 11:00 110 31 126/59 (81) 100 03/12/20 10:52 122/61 03/12/20 10:15 111 126/61 03/12/20 10:14 126/61 03/12/20 10:00 114 25 124/63 (83) 100 03/12/20 09:00 115 28 127/64 (85) 100 03/12/20 08:00 Bi-pap Bi-pap 03/12/20 08:00 98.1 117 27 128/68 (88) 100 03/12/20 08:00 100 03/12/20 08:00 118 03/12/20 07:40 123 31 100 Bi-Pap 100 03/12/20 07:30 123 31 100 100 03/12/20 07:15 92 Nasal Cannula 3.0 32 03/12/20 07:00 117 30 115/56 (75) 97 03/12/20 06:00 103 26 120/57 (78) 100 03/12/20 05:00 104 25 126/79 (95) 100 03/12/20 04:00 Nasal Cannula 4.0 Nasal Cannula 4.0 03/12/20 04:00 104 03/12/20 04:00 102 27 120/62 (81) 100 03/12/20 03:00 104 28 119/60 (79) 100 03/12/20 02:00 106 25 128/61 (83) 100 03/12/20 01:00 108 31 125/67 (86) 100 03/12/20 00:00 98.5 108 27 123/64 (83) 100 03/12/20 00:00 Nasal Cannula 4.0 Nasal Cannula 4.0 03/11/20 23:00 108 31 122/60 (80) 100 03/11/20 22:00 107 34 122/65 (84) 100 03/11/20 21:00 109 31 127/61 (83) 100 03/11/20 20:00 98.5 107 29 123/62 (82) 100 03/11/20 20:00 Nasal Cannula 4.0 Nasal Cannula 4.0 03/11/20 20:00 106 03/11/20 19:48 100 Nasal Cannula 3.0 32 Intake and Output 03/11/20 03/12/20 19:00 07:00 Intake Total 880 ml 920 ml Output Total 1030 ml 1220 ml Balance -150 ml -300 ml Intake Free Water 150 ml IV Total 150 ml Tube Feeding 630 ml 770 ml Other 100 ml Output Urine Total 930 ml 1220 ml Stool Total 100 ml Laboratory Tests 03/12/20 04:34: White Blood Count 5.1, Red Blood Count 3.22L, Hemoglobin 9.1L, Hematocrit 27.6L , Mean Corpuscular Volume 86, Mean Corpuscular Hemoglobin 28.3, Mean Corpuscular Hemoglobin Concent 33.0, Red Cell Distribution Width 16.0H, Platelet Count 250, Mean Platelet Volume 7.4, Neutrophils (%) (Auto) 53.6, Lymphocytes (%) (Auto) 29.8, Monocytes (%) (Auto) 8.7, Eosinophils (%) (Auto) 7.4H, Basophils (%) (Auto) 0.4, Sodium Level 147H, Potassium Level 4.3, Chloride Level 110H, Carbon Dioxide Level 31, Anion Gap 6, Blood Urea Nitrogen 15, Creatinine 0.8, Estimat Glomerular Filtration Rate > 60, Glucose Level 107H , Calcium Level 8.9, Magnesium Level 1.9, Pro-B-Type Natriuretic Peptide 451H 03/12/20 07:18: Arterial Blood pH 7.342L, Arterial Blood Partial Pressure CO2 51.8H, Arterial Blood Partial Pressure O2 49.3*L, Arterial Blood HCO3 27.4H, Arterial Blood Oxygen Saturation 80.4*L, Arterial Blood Base Excess 1.2, Chadnan Test Positive 03/12/20 09:47: Arterial Blood pH 7.365, Arterial Blood Partial Pressure CO2 56.0*H, Arterial Blood Partial Pressure O2 197.0H, Arterial Blood HCO3 31.3H, Arterial Blood Oxygen Saturation 98.6, Arterial Blood Base Excess 5.0H, Chandan Test Positive 03/12/20 10:00: Vancomycin Level Trough 10.7 Height (Feet): 6 Height (Inches): 2.00 Weight (Pounds): 160 General Appearance: lethargic Cardiovascular: normal rate Respiratory/Chest: rhonchi - bilaterally Abdomen: soft Extremities: no edema Neurologic: unresponsive Raffaele Ocampo MD March 12, 2020 19:08
--- NOTE | 2020-03-12 19:30 | NUR ---
HAND-OFF: Report given to MARGARITA Ponce. The patient is stable at this time. Endorsed plan of care.
--- NOTE | 2020-03-12 20:00 | NUR ---
NURSE NOTES: Received pt in no acute distress, awake, alert opens eyes spontaneously, HOB elevated. No respiratory distress noted. Pt on the Bipap at 15/8, fiO2 .50 and saturating 100%. ST on the monitor, BP stable. Right IJ TLC intact, IV at TKO. GT intact, GTF with Glucerna 1.5 continues at 70ml/h with 0 residuals. Rectal tube intact, stools, dark greenish brown, liquid, small amt. FC patent UOP 50ml/h. Pt has generalized edema and multiple wounds. Wound dressings dry and intact. Will continue to monitor and follow through with plan of care
[2020-03-12] MEDS: Dyna-Hex 2% Top Sol 2oz TOPIC SCH (20:44)
--- NOTE | 2020-03-12 20:54 | Surgery Progress Note ---
Surgery Progress Note Subjective Additional Comments ill appearing labs noted reviewed with RN this am Objective Last 24 Hour Vital Signs Date Time Temp Pulse Resp B/P (MAP) Pulse Ox O2 Delivery O2 Flow Rate FiO2 03/12/20 19:52 100 Bi-Pap 50 03/12/20 19:52 108 30 100 50 03/12/20 19:00 110 31 120/59 (79) 100 03/12/20 18:00 108 30 124/59 (80) 100 03/12/20 17:00 108 26 119/59 (79) 100 03/12/20 16:15 98.2 106 28 123/60 (81) 100 03/12/20 16:00 Bi-pap Bi-pap 03/12/20 16:00 106 28 123/60 (81) 100 03/12/20 16:00 105 03/12/20 15:07 102 32 100 50 03/12/20 15:00 98.1 104 30 119/63 (81) 100 03/12/20 14:00 105 27 116/59 (78) 100 03/12/20 13:00 108 28 122/61 (81) 100 03/12/20 12:00 108 03/12/20 12:00 70 03/12/20 12:00 Bi-pap Bi-pap 03/12/20 12:00 98.0 110 16 122/58 (79) 100 03/12/20 11:15 108 33 100 70 03/12/20 11:00 110 31 126/59 (81) 100 03/12/20 10:52 122/61 03/12/20 10:15 111 126/61 03/12/20 10:14 126/61 03/12/20 10:00 114 25 124/63 (83) 100 03/12/20 09:00 115 28 127/64 (85) 100 03/12/20 08:00 Bi-pap Bi-pap 03/12/20 08:00 98.1 117 27 128/68 (88) 100 03/12/20 08:00 100 03/12/20 08:00 118 03/12/20 07:40 123 31 100 Bi-Pap 100 03/12/20 07:30 123 31 100 100 03/12/20 07:15 92 Nasal Cannula 3.0 32 03/12/20 07:00 117 30 115/56 (75) 97 03/12/20 06:00 103 26 120/57 (78) 100 03/12/20 05:00 104 25 126/79 (95) 100 03/12/20 04:00 Nasal Cannula 4.0 Nasal Cannula 4.0 03/12/20 04:00 104 03/12/20 04:00 102 27 120/62 (81) 100 03/12/20 03:00 104 28 119/60 (79) 100 03/12/20 02:00 106 25 128/61 (83) 100 03/12/20 01:00 108 31 125/67 (86) 100 03/12/20 00:00 98.5 108 27 123/64 (83) 100 03/12/20 00:00 Nasal Cannula 4.0 Nasal Cannula 4.0 03/11/20 23:00 108 31 122/60 (80) 100 03/11/20 22:00 107 34 122/65 (84) 100 03/11/20 21:00 109 31 127/61 (83) 100 I&O Intake and Output 03/11/20 03/12/20 19:00 07:00 Intake Total 880 ml 920 ml Output Total 1030 ml 1220 ml Balance -150 ml -300 ml Intake Free Water 150 ml IV Total 150 ml Tube Feeding 630 ml 770 ml Other 100 ml Output Urine Total 930 ml 1220 ml Stool Total 100 ml Dressing: saturated Cardiovascular: RSR Respiratory: decreased breath sounds Abdomen: soft, present bowel sounds Extremities: edema, other Laboratory Tests Test 03/12/20 04:34 03/12/20 07:18 03/12/20 09:47 03/12/20 10:00 White Blood Count 5.1 K/UL (4.8-10.8) Red Blood Count 3.22 M/UL (4.70-6.10) L Hemoglobin 9.1 G/DL (14.2-18.0) L Hematocrit 27.6 % (42.0-52.0) L Mean Corpuscular Volume 86 FL (80-99) Mean Corpuscular Hemoglobin 28.3 PG (27.0-31.0) Mean Corpuscular Hemoglobin Concent 33.0 G/DL (32.0-36.0) Red Cell Distribution Width 16.0 % (11.6-14.8) H Platelet Count 250 K/UL (150-450) Mean Platelet Volume 7.4 FL (6.5-10.1) Neutrophils (%) (Auto) 53.6 % (45.0-75.0) Lymphocytes (%) (Auto) 29.8 % (20.0-45.0) Monocytes (%) (Auto) 8.7 % (1.0-10.0) Eosinophils (%) (Auto) 7.4 % (0.0-3.0) H Basophils (%) (Auto) 0.4 % (0.0-2.0) Sodium Level 147 MMOL/L (136-145) H Potassium Level 4.3 MMOL/L (3.5-5.1) Chloride Level 110 MMOL/L (98-107) H Carbon Dioxide Level 31 MMOL/L (21-32) Anion Gap 6 mmol/L (5-15) Blood Urea Nitrogen 15 mg/dL (7-18) Creatinine 0.8 MG/DL (0.55-1.30) Estimat Glomerular Filtration Rate > 60 mL/min (>60) Glucose Level 107 MG/DL (74-106) H Calcium Level 8.9 MG/DL (8.5-10.1) Magnesium Level 1.9 MG/DL (1.8-2.4) Pro-B-Type Natriuretic Peptide 451 pg/mL (0-125) H Arterial Blood pH 7.342 (7.350-7.450) 7.365 (7.350-7.450) Arterial Blood Partial Pressure CO2 51.8 mmHg (35.0-45.0) H 56.0 mmHg (35.0-45.0) *H Arterial Blood Partial Pressure O2 49.3 mmHg (75.0-100.0) 197.0 mmHg (75.0-100.0) H Arterial Blood HCO3 27.4 mmol/L (22.0-26.0) H 31.3 mmol/L (22.0-26.0) H Arterial Blood Oxygen Saturation 80.4 % (95-100) *L 98.6 % (95-100) Arterial Blood Base Excess 1.2 (-2-2) 5.0 (-2-2) H Chandan Test Positive Positive Vancomycin Level Trough 10.7 ug/mL (5.0-12.0) Plan Problems: (1) Respiratory acidosis (2) Seizure disorder (3) Altered mental status (4) Pneumonia Assessment & Plan: New left pleural effusion Improved aeration of the right lung, with persistent consolidation and pleural fluid (5) Cardiopulmonary arrest (6) Hypernatremia (7) Sepsis Assessment & Plan: Pt presented on admission with multiple pressure injuries. Unstageable Pressure injury R Buttocks. Base of wound is 100% necrotic. Sacrum, R and L Gluteal cheeks maroon with multiple partial thickness wounds with surrounding denuded and macerated skin. Dry, black borders noted Unstageable pressure injury R thoracic. Base of wound is 100% necrotic but dry. No erythema induration or fluctuance periwound. Full thickness stage 3 pressure injury R heel. Base of wound is beefy red with macerated borders. periwound is necrotic and fluctuant. Full thickness stage 3 pressure injury R Hallux. Base of wound is beefy red with surrounding pink granulation. Dry black borders noted. Loose dry eschar noted to L heel. Hyperpigmentation noted to R and L lateral Malleoli. unlikely etiology of sepsis will monitor Pt presented with generalized edema.R hand contracture noted .R hand dusky in colour . R 5th digit /R thumb black at tip of finger. At base of of R thumb including dorsal R hand and R wrist is large wound that is 50% necrotic .50% taty. with loose edges. Small amt serosanguineous exudate noted. At circumference of R first digit/index finger is large open Blister with loose skin flap . base of wound is taty. Necrotic area noted at tip of index finger. Detached nail matrix and epidermis of R middle digit/3rd digit . Fingertip is taty and moist,minimal sanguineous exudate.Tips of R ring finger and R 5th digit is black. Unable to accurately assess web spaces of digits on R hand secondary to gross edema, and pt became distressed at any attempt to separate digits. R hand washed with tepid water and mild soap and patted dry. Each digit and wounds swabbed with Betadine. Xeroform gauze weaved between each digit of R hand and to R wrist and dorsal R hand. Soft Kerlix roll then placed in palm of hand to support contracture. Abd placed over wounds and R hand wrapped loosely with Kerlix until further instructed by Surgeon. R hand elevated on two pillows. Tx.Plan: Keep R Hand elevated with 2 Pillows. Tx.Plan: Cleanse Sacral area with Saline.Apply Therahoney. Apply Moisture Barrier Paste periwound. Cover with Optifoam drsgs. Change Daily and Prn. Cleanse wound R thoracic with Saline. Apply TheraHoney. Apply Cavilon Skin Barrier Periwound. Cover with Optifoam drsg.Change every 3 days and prn. Cleanse wound R heel with Saline. Apply TheraHoney. Apply Cavilon Skin Barrier Periwound. Cover with Optifoam drsg. Change every 3 days and prn. Cleanse R Hallux with Saline. Apply Therahoney. Apply Cavilon Skin Barrier Periwound. Cover with Optifoam drsg. Change every 3 days and prn. Apply Cavilon Skin Barrier to L Heel. Cover with Optifoam drsg. Change every 7 days and prn. Reposition at least every 2hours or as tolerated. Place Pillow between knees. Off-load heels with Pillow. APM/NORM Mattress overlay. DAILY ESTIMATED NEEDS: Needs based on Critical care, wounds 78.6abw 22-30 kcals/kg 7674-2746 total kcals 1.25-2 g protein/kg 98-157 g total protein 25-30 mL/kg 7983-9232 total fluid mLs NUTRITION DIAGNOSIS: Increased kcal and pro needs r/t wound care as evidenced by pt w/ full thickness wounds x2, unstageable wounds x2, refer to WC eval. CURRENT TF:Glucerna 1.5 @70ml/hr x18 hrs ENTERAL NUTRITION RECOMMENDATIONS: Glucerna 1.5 @70ml/hr x18 hrs to provide 1260ml, 1890 kcal, 104g pro, 956ml free H2O - W/ HD stability, continue current TF - HOLD TF 1 HOUR BEFORE AND AFTER SYNTHROID(QD) AND DILANTIN(BID), tf to run a max of 18 hrs - Flush per MD , HOB over 30 degrees WITHOUT HEMODYNAMIC STABILITY: rec trophic feeds of Glucerna 1.5 @5-10ml/hr to maintain gut integrity. ADDITIONAL RECOMMENDATIONS: 1) Wound care: add AJIT BID + Vit C 250mg daily 2) Per SNF: 69inches, 212lbs/96.36kg Maintain calibrated daily wts 3) Feed when hemodynamically stable, do not feed in the prone position -> pressors held at this time 4) Monitor lytes, replete as needed (8) ACE (acute kidney injury) Gary Vicente March 12, 2020 20:54
--- NOTE | 2020-03-12 22:00 | NUR ---
NURSE NOTES: Calm, asleep, no distress, VSS. I*V of D5W infuses at 35mls/h.
[2020-03-13] VITALS (23 sets, daily range): BP systolic 107–127; BP diastolic 50–67
--- NOTE | 2020-03-13 | NUR ---
NURSE NOTES: Afebrile, BP stable but tachycardic. Calm, asleep HOB elevated. Bipap continues with same settings fiO2 at .40, sats 100%. Accucheck 118, no coverage.
--- NOTE | 2020-03-13 02:00 | NUR ---
NURSE NOTES: Calm, asleep, no distress, VSS.
--- NOTE | 2020-03-13 04:00 | NUR ---
NURSE NOTES: Completed bath. Wound dressings on buttocks/sacral and IT areas changed. Right hand dressing reinforced. Rectal tube intact. Afberile, HR 105-108, sinus. BP stable. No respiratory distress otherwise. GTF continues at 70mls/h.
--- NOTE | 2020-03-13 05:45 | Progress Note ---
DATE: 03/12/2020 CARDIOLOGY PROGRESS NOTE SUBJECTIVE: The patient is off ventilator support. Slight respiratory distress noted. He had to be placed on BiPAP support. OBJECTIVE: VITAL SIGNS: Blood pressure 120/59, heart rate 110, respiratory rate 31, afebrile. LUNGS: Bilateral breath sounds, rhonchi and rales. CARDIAC: Regular rhythm. Rapid rate. Normal S1, S2. ABDOMEN: Soft. EXTREMITIES: Trace edema. LABORATORY DATA: White count 5, hemoglobin 9, platelets 250,000. ABG 7.36, 56, 197. Sodium 147, potassium 4.3, bicarb 31, BUN 15, creatinine 0.8, magnesium 1.9. Pro-natriuretic peptide 450. IMPRESSION: 1. Status post cardiopulmonary arrest. 2. Respiratory acidosis. 3. Respiratory failure. 4. Sinus tachycardia. 5. Dehydration. 6. Hypernatremia. 7. Pneumonia and sepsis. PLAN: 1. BiPAP support. 2. Respiratory hygiene. 3. Monitor volume status, cardiorenal function. 4. No pressors needed. 5. Adjust IV fluids. 6. Consider beta-boni. 7. We will follow. Yfn Luna M.D. DR: HASMUKH JOB#: [id number] CC:
[2020-03-13] MEDS: NovoLOG Insulin Flexpen SUBQ SCH ×3 (05:59→17:58)
--- NOTE | 2020-03-13 06:00 | NUR ---
NURSE NOTES: Continues on the Bipap at 15/8 fiO2 .40 and saturating 98-100%, sl tachypneic at 24-32 BP stable. TF on hold for synthroid
[2020-03-13 06:10] LABS: ANION GAP 7 mmol/L (5-15); BLOOD UREA NITROGEN 16 mg/dL (7-18); CALCIUM 8.8 MG/DL (8.5-10.1); CARBON DIOXIDE 32 MMOL/L (21-32); CHLORIDE 110 MMOL/L (98-107); CREATININE 0.9 MG/DL (0.55-1.30); POTASSIUM 4.3 MMOL/L (3.5-5.1); SODIUM 149 MMOL/L (136-145)
--- NOTE | 2020-03-13 07:10 | NUR ---
HAND-OFF: Report given to Ani AVILA.
--- NOTE | 2020-03-13 07:52 | NUR ---
NURSE NOTES: Patient report received from MARGARITA Bucio.Afebrile and asleep when received and responsive to tactile stimuli. Pt is on BIPAP 15/5 FIO2 40% . SR on the monitor with GT held until 1300.GT placement checked and intake. No residual noted at this time.HOB elevated at 35 degree to prevent aspiration.Penaloza catheter in place draining yellow straw urine with no apparent sediment.Pt on P200 mattress for skin management. RIJ/TLC running D5W at 35cc with no apparent infiltrate. Pt afebrile, mouth care done, abdomen soft and non distended.Turned and repositioned for skin management.Will continue same care plan.
--- NOTE | 2020-03-13 08:12 | NUR ---
RD ASSESSMENT & RECOMMENDATIONS SEE CARE ACTIVITY FOR COMPLETE ASSESSMENT DAILY ESTIMATED NEEDS: Needs based on Pulmonary, wounds 78.6abw 25-30 kcals/kg 8573-1102 total kcals 1.25-2 g protein/kg 98-157 g total protein 25-30 mL/kg 3678-2768 total fluid mLs NUTRITION DIAGNOSIS: Increased kcal and pro needs r/t wound care as evidenced by pt w/ full thickness wounds x2, unstageable wounds x2, refer to WC eval. CURRENT TF:Glucerna 1.5 @70ml/hr x18 hrs ENTERAL NUTRITION RECOMMENDATIONS: Glucerna 1.5 @70ml/hr x18 hrs to provide 1260ml, 1890 kcal, 104g pro, 956ml free H2O - Maintain current TF: meets 96% est kcal and 100% est prot needs - HOLD TF 1 HOUR BEFORE AND AFTER SYNTHROID(QD) AND DILANTIN(BID), tf to run a max of 18 hrs - Flush per MD , HOB over 30 degrees ADDITIONAL RECOMMENDATIONS: 1) Wound care: add AJIT BID + Vit C 250mg daily 2) Per SNF: 69inches, 212lbs/96.36kg Calibrated bedscale wt 3) Monitor lytes, replete as needed . .
[2020-03-13 08:18] LABS: BASOPHILS % (AUTO) 0.5 % (0.0-2.0); EOSINOPHILS % (AUTO) 6.2 % (0.0-3.0); HEMATOCRIT 29.2 % (42.0-52.0); HEMOGLOBIN 9.3 G/DL (14.2-18.0); LYMPHOCYTES % (AUTO) 25.5 % (20.0-45.0); MEAN CORPUSCULAR VOLUME 86 FL (80-99); MONOCYTES % (AUTO) 8.4 % (1.0-10.0); NEUTROPHILS % (AUTO) 59.4 % (45.0-75.0); PLATELET COUNT 254 K/UL (150-450); RED BLOOD COUNT 3.39 M/UL (4.70-6.10); RED CELL DISTRIBUTION WIDTH 16.1 % (11.6-14.8); WHITE BLOOD COUNT 5.9 K/UL (4.8-10.8)
[2020-03-13] MEDS: Phenytoin Susp 100mg/4ml GT SCH ×2 (08:39→20:48)
[2020-03-13] MEDS: Vancomycin 1.5gm/NS Premix q24h IVPB SCH (08:39)
[2020-03-13] MEDS: Eliquis 5mg tablet GT SCH ×2 (08:40→17:58)
[2020-03-13] MEDS: levETIRAcetam 500mg/5ml Liquid GT SCH ×2 (08:40→20:48)
[2020-03-13] MEDS: Ascorbic Acid 500mg tab ORAL SCH (08:40)
[2020-03-13] MEDS: Levofloxacin 750mg tab GT SCH (08:45)
--- NOTE | 2020-03-13 09:13 | General Progress Note ---
Assessment/Plan Assessment/Plan: IMPRESSION: 1. Septic shock. 2. Hypotension. 3. Tachycardia. 4. Respiratory failure. 5. Hypoxemia. 6. Seizure disorder. 7. Hyperlipidemia. 8. Hypernatremia. 9. Acute renal failure. 10. Pulmonary edema. 11. Possible COVID. 12. pleural effusion PLAN monitor hemodynamics BIPAP off if able iv antibiotics ID follow up maintain feeds off load still critical watch off pressors feeds off COVID isolation still critical impression, plan, and exam edited and reviewed in detail care discussed with RN Subjective Allergies: Coded Allergies: HYDROCODONE (Verified Allergy, Unknown, 07/04/17) Subjective off vent on BIPAP hemodynamics noted on feeds Objective Last 24 Hour Vital Signs Date Time Temp Pulse Resp B/P (MAP) Pulse Ox O2 Delivery O2 Flow Rate FiO2 03/13/20 06:00 107 21 112/56 (74) 100 03/13/20 05:19 110 28 100 40 03/13/20 05:00 110 18 110/54 (72) 100 03/13/20 04:00 98.5 114 33 115/61 (79) 100 03/13/20 04:00 40 03/13/20 04:00 Bi-pap Bi-pap 03/13/20 04:00 108 03/13/20 03:44 107 29 100 40 03/13/20 03:00 110 30 111/55 (73) 100 03/13/20 02:00 109 28 119/58 (78) 100 03/13/20 01:11 100 30 100 40 03/13/20 01:00 110 26 115/55 (75) 100 03/13/20 00:00 98.3 108 29 121/57 (78) 100 03/13/20 00:00 Bi-pap Bi-pap 03/13/20 00:00 40 03/13/20 00:00 105 03/12/20 23:46 108 32 100 50 03/12/20 23:00 110 30 122/60 (80) 100 03/12/20 22:00 109 28 119/61 (80) 100 03/12/20 21:17 102 28 100 50 03/12/20 21:00 108 29 119/61 (80) 100 03/12/20 20:00 110 03/12/20 20:00 98.5 108 30 126/60 (82) 100 03/12/20 20:00 50 03/12/20 20:00 Bi-pap Bi-pap 03/12/20 19:52 100 Bi-Pap 50 03/12/20 19:52 108 30 100 50 03/12/20 19:00 110 31 120/59 (79) 100 03/12/20 18:00 108 30 124/59 (80) 100 03/12/20 17:00 108 26 119/59 (79) 100 03/12/20 16:15 98.2 106 28 123/60 (81) 100 03/12/20 16:00 Bi-pap Bi-pap 03/12/20 16:00 106 28 123/60 (81) 100 03/12/20 16:00 105 03/12/20 15:07 102 32 100 50 03/12/20 15:00 98.1 104 30 119/63 (81) 100 03/12/20 14:00 105 27 116/59 (78) 100 03/12/20 13:00 108 28 122/61 (81) 100 03/12/20 12:00 108 03/12/20 12:00 70 03/12/20 12:00 Bi-pap Bi-pap 03/12/20 12:00 98.0 110 16 122/58 (79) 100 03/12/20 11:15 108 33 100 70 03/12/20 11:00 110 31 126/59 (81) 100 03/12/20 10:52 122/61 03/12/20 10:15 111 126/61 03/12/20 10:14 126/61 03/12/20 10:00 114 25 124/63 (83) 100 Intake and Output 03/12/20 03/13/20 19:00 07:00 Intake Total 765.000 ml 1085 ml Output Total 450 ml 900 ml Balance 315.000 ml 185 ml IV Total 275.000 ml 315 ml Tube Feeding 490 ml 770 ml Output Urine Total 440 ml 850 ml Stool Total 10 ml 50 ml Laboratory Tests 03/12/20 09:47: Arterial Blood pH 7.365, Arterial Blood Partial Pressure CO2 56.0*H, Arterial Blood Partial Pressure O2 197.0H, Arterial Blood HCO3 31.3H, Arterial Blood Oxygen Saturation 98.6, Arterial Blood Base Excess 5.0H, Chandan Test Positive 03/12/20 10:00: Vancomycin Level Trough 10.7 03/13/20 04:40: White Blood Count 5.9, Red Blood Count 3.39L, Hemoglobin 9.3L, Hematocrit 29.2L , Mean Corpuscular Volume 86, Mean Corpuscular Hemoglobin 27.5, Mean Corpuscular Hemoglobin Concent 32.0, Red Cell Distribution Width 16.1H, Platelet Count 254, Mean Platelet Volume 6.4L, Neutrophils (%) (Auto) 59.4, Lymphocytes (%) (Auto) 25.5, Monocytes (%) (Auto) 8.4, Eosinophils (%) (Auto) 6.2H, Basophils (%) (Auto) 0.5, Sodium Level 149H, Potassium Level 4.3, Chloride Level 110H, Carbon Dioxide Level 32, Anion Gap 7, Blood Urea Nitrogen 16, Creatinine 0.9, Estimat Glomerular Filtration Rate > 60, Glucose Level 116H , Calcium Level 8.8 Height (Feet): 6 Height (Inches): 2.00 Weight (Pounds): 200 Objective GENERAL: Ill-appearing male. coarse breath sounds RRR NABS nontender no CCE on BIPAP German Matthews MD March 13, 2020 09:13
--- NOTE | 2020-03-13 09:14 | NUR ---
RESPIRATORY NOTE: PT RECEIVED ON BIPAP WITH CURRENT SETTINGS: 15/5, RR:14, 40%. ALARMS ARE ON AND AUDIBLE. ALL VS ARE WNL. WILL CONTINUE TO MONITOR.
--- NOTE | 2020-03-13 09:30 | NUR ---
NURSE NOTES: Seen by Dr Matthews with order to start weaning the patient
--- NOTE | 2020-03-13 10:01 | Infectious Diseases Prog Note ---
Assessment/Plan Assessment/Plan A: 1. Pneumonia with MRSA & Pseudomonas 2. Respiratory failure. improving 3. Hypertension. 4. CVA. 5. Seizures. 6. Septic shock. 7. Anemia 8. Diarrhea, C. difficile: negative PLAN: 1. We will continue IV vancomycin X 1 day 2. Continue Levaquin X 4 days Subjective ROS Limited/Unobtainable: Yes Constitutional: Denies: fever Allergies: Coded Allergies: HYDROCODONE (Verified Allergy, Unknown, 07/04/17) Objective Vital Signs Last 24 Hour Vital Signs Date Time Temp Pulse Resp B/P (MAP) Pulse Ox O2 Delivery O2 Flow Rate FiO2 03/13/20 06:00 107 21 112/56 (74) 100 03/13/20 05:19 110 28 100 40 03/13/20 05:00 110 18 110/54 (72) 100 03/13/20 04:00 98.5 114 33 115/61 (79) 100 03/13/20 04:00 40 03/13/20 04:00 Bi-pap Bi-pap 03/13/20 04:00 108 03/13/20 03:44 107 29 100 40 03/13/20 03:00 110 30 111/55 (73) 100 03/13/20 02:00 109 28 119/58 (78) 100 03/13/20 01:11 100 30 100 40 03/13/20 01:00 110 26 115/55 (75) 100 03/13/20 00:00 98.3 108 29 121/57 (78) 100 03/13/20 00:00 Bi-pap Bi-pap 03/13/20 00:00 40 03/13/20 00:00 105 03/12/20 23:46 108 32 100 50 03/12/20 23:00 110 30 122/60 (80) 100 03/12/20 22:00 109 28 119/61 (80) 100 03/12/20 21:17 102 28 100 50 03/12/20 21:00 108 29 119/61 (80) 100 03/12/20 20:00 110 03/12/20 20:00 98.5 108 30 126/60 (82) 100 03/12/20 20:00 50 03/12/20 20:00 Bi-pap Bi-pap 03/12/20 19:52 100 Bi-Pap 50 03/12/20 19:52 108 30 100 50 03/12/20 19:00 110 31 120/59 (79) 100 03/12/20 18:00 108 30 124/59 (80) 100 03/12/20 17:00 108 26 119/59 (79) 100 03/12/20 16:15 98.2 106 28 123/60 (81) 100 03/12/20 16:00 Bi-pap Bi-pap 03/12/20 16:00 106 28 123/60 (81) 100 03/12/20 16:00 105 03/12/20 15:07 102 32 100 50 03/12/20 15:00 98.1 104 30 119/63 (81) 100 03/12/20 14:00 105 27 116/59 (78) 100 03/12/20 13:00 108 28 122/61 (81) 100 03/12/20 12:00 108 03/12/20 12:00 70 03/12/20 12:00 Bi-pap Bi-pap 03/12/20 12:00 98.0 110 16 122/58 (79) 100 03/12/20 11:15 108 33 100 70 03/12/20 11:00 110 31 126/59 (81) 100 03/12/20 10:52 122/61 03/12/20 10:15 111 126/61 03/12/20 10:14 126/61 03/12/20 10:00 114 25 124/63 (83) 100 Height (Feet): 6 Height (Inches): 2.00 Weight (Pounds): 200 HEENT: mucous membranes moist Respiratory/Chest: lungs clear, other - on BIPAP Cardiovascular: tachycardia, other - RIJ central line Abdomen: soft, non tender, other - GT feeding Extremities: no edema Skin: ulcers Neurologic/Psychiatric: unresponsiveness Laboratory Tests Test 03/12/20 10:00 03/13/20 04:40 Vancomycin Level Trough 10.7 ug/mL (5.0-12.0) White Blood Count 5.9 K/UL (4.8-10.8) Red Blood Count 3.39 M/UL (4.70-6.10) L Hemoglobin 9.3 G/DL (14.2-18.0) L Hematocrit 29.2 % (42.0-52.0) L Mean Corpuscular Volume 86 FL (80-99) Mean Corpuscular Hemoglobin 27.5 PG (27.0-31.0) Mean Corpuscular Hemoglobin Concent 32.0 G/DL (32.0-36.0) Red Cell Distribution Width 16.1 % (11.6-14.8) H Platelet Count 254 K/UL (150-450) Mean Platelet Volume 6.4 FL (6.5-10.1) L Neutrophils (%) (Auto) 59.4 % (45.0-75.0) Lymphocytes (%) (Auto) 25.5 % (20.0-45.0) Monocytes (%) (Auto) 8.4 % (1.0-10.0) Eosinophils (%) (Auto) 6.2 % (0.0-3.0) H Basophils (%) (Auto) 0.5 % (0.0-2.0) Sodium Level 149 MMOL/L (136-145) H Potassium Level 4.3 MMOL/L (3.5-5.1) Chloride Level 110 MMOL/L (98-107) H Carbon Dioxide Level 32 MMOL/L (21-32) Anion Gap 7 mmol/L (5-15) Blood Urea Nitrogen 16 mg/dL (7-18) Creatinine 0.9 MG/DL (0.55-1.30) Estimat Glomerular Filtration Rate > 60 mL/min (>60) Glucose Level 116 MG/DL (74-106) H Calcium Level 8.8 MG/DL (8.5-10.1) Current Medications Medications (Trade) Dose Ordered Sig/Kolby Route PRN Reason Start Time Stop Time Status Last Admin Dose Admin Acetaminophen (Tylenol) 650 mg Q4H PRN GT Temp >100.5 03/05/20 16:45 04/04/20 16:44 03/07/20 02:56 Apixaban (Eliquis) 5 mg BID ORAL 03/18/20 18:00 06/16/20 17:59 Apixaban (Eliquis) 10 mg BID GT 03/11/20 18:00 03/18/20 17:59 03/13/20 08:40 Ascorbic Acid (Vitamin C) 250 mg DAILY ORAL 03/08/20 09:00 04/07/20 08:59 03/13/20 08:40 Chlorhexidine Gluconate (Brandy-Hex 2%) 1 applic DAILY@2000 TOPIC 03/05/20 20:00 06/03/20 19:59 03/12/20 20:44 Dextrose 1,000 ml @ 35 mls/hr Q24H IV 03/12/20 19:15 04/11/20 19:14 03/12/20 20:44 Dextrose (Dextrose 50%) 25 ml Q30M PRN IV Hypoglycemia 03/05/20 14:00 06/03/20 13:59 Dextrose (Dextrose 50%) 50 ml Q30M PRN IV Hypoglycemia 03/05/20 14:00 06/03/20 13:59 Dopamine HCl/ Dextrose 250 ml @ 0 mls/hr Q24H IV 03/05/20 10:14 06/03/20 10:13 Insulin Aspart (NovoLOG) EVERY 6 HOURS SUBQ 03/05/20 18:00 06/03/20 17:59 03/07/20 18:41 Levetiracetam (Keppra) 1,500 mg Q12HR GT 03/05/20 11:45 04/04/20 11:44 03/13/20 08:40 Levofloxacin (Levaquin) 750 mg DAILY GT 03/12/20 09:00 03/17/20 08:59 03/13/20 08:45 Levothyroxine Sodium (Synthroid) 75 mcg ACBREAKFAST GT 03/06/20 06:30 04/05/20 06:29 03/13/20 05:53 Norepinephrine Bitartrate 4 mg/ Dextrose 250 ml @ 0 mls/hr Q24H IV 03/08/20 11:00 04/07/20 10:59 03/09/20 01:56 Phenylephrine HCl 50 mg/Dextrose 250 ml @ 0 mls/hr Q24H IV 03/05/20 10:15 04/04/20 10:14 03/07/20 06:01 Phenytoin (Dilantin) 250 mg Q12HR GT 03/05/20 21:00 04/04/20 20:59 03/13/20 08:39 Vancomycin HCl (Vanco rx to dose) 1 ea DAILY PRN MISC Per rx protocol 03/07/20 16:15 04/06/20 16:14 Vancomycin/Sodium Chloride 275 ml @ 137.5 mls/ hr Q24H IVPB 03/13/20 09:00 03/18/20 08:59 03/13/20 08:39 Xavi Earl MD March 13, 2020 10:00
--- NOTE | 2020-03-13 10:11 | NUR ---
NURSE NOTES: First attempt to wean the patient failed in less than 30 second,patient unable to take 2 breats.Turned and repositioned, no significant change. Will continue to monitor. Call light within reach
[2020-03-13] MEDS: DOPamine 400mg/250ml 250 ML IV SCH (10:14)
[2020-03-13] MEDS: Phenylephrine 50 MG in D5W 245 ML IV SCH (10:15)
--- NOTE | 2020-03-13 12:28 | NUR ---
NURSE NOTES: Pt hemodynamically stable at this time.No significant change in condition.Will continue to monitor
--- NOTE | 2020-03-13 13:51 | NUR ---
CASE MANAGEMENT:REVIEW 03/13/20 SI: MRSA/PSEUDOMONAS PNA RESP FAILURE S/P EXTUBATION. COVID (-) 98.8 105 27 115/60 100% ON BIPAP H/H-9.3.2 IS: ELIQUIS PO BID IV VANCOMYCIN Q24 IVF@35/HR LEVAQUIN GT QD SYNTHROID GT QAM DILANTIN GT Q12 : ICU STATUS DCP: FROM [facility]
--- NOTE | 2020-03-13 14:07 | NUR ---
NURSE NOTES: Adls done,turned and repositioned.HOB elevated to prevent aspiration.Call light within easy reach, will continue same care plan, no significant change in condition.
--- NOTE | 2020-03-13 14:12 | NUR ---
TRANSFER UPDATE THIS PATIENT BELONGS AT [facility] CALLED [facility] @ T:[phone] AND SPOKE WITH MARLYN WHO REQUESTED A STABLE FOR TRANSFER ORDER TO BE FAXED TO THEM. MESSAGE LEFT FOR DR PAGAN...WAITING FOR RESPONSE [facility] WILL SEND A TEAM TO [employer] THEIR PATIENT. THE TEAM USUALLY INCLUDES A RN, RT AND IN SOME CASES A PHYSICIAN Addendum: 03/13/20 at 1629 by MILTON CASTILLO LVN LVN RECEIVED "STABLE FOR TRANSFER ORDER" FROM DR PAGAN ENTERED ORDER AND FAXED TO [facility] Addendum: 03/13/20 at 1636 by MILTON CASTILLO LVN LVN [facility] T: [phone] REF# [id number] PATIENT'S :1960 PATIENT'S [facility] NUMBER ~ [id number] Addendum: 03/13/20 at 1706 by PATRICE REDDY CM CALLED ANNA S/W AMADO WHOM STATED THE LIME MIXER IS SHAI. I EXPLAINED TO [facility] PATEL WAS ON A CONFERENCE CALL WITH ANNA AND THE CALL DROPPED. I ASKED IF SHE COULD GIVE MESSAGE TO JORGE THAT ADEN AGREES WITH TX IF [facility] WILL NOT PAY FOR THE STAY AT [facility].
--- NOTE | 2020-03-13 14:31 | NUR ---
*-* INSURANCE *-* UPDATED CLINICALS HAVE BEEN FAXED TO: [facility] Ref# [id number] # [phone] fax# [phone] F# [phone]
--- NOTE | 2020-03-13 16:05 | NUR ---
NURSE NOTES: Patient tolerate well feeding at this time with no residual. Mouth care done,good perineal care provided.Turned and repositioned.HOB elevated at 35 degree to prevent aspiration.Will continue same plan of care , no significant change in condition at this time.
--- NOTE | 2020-03-13 18:26 | NUR ---
NURSE NOTES: ADLs done, suctioned pt as tolerated.Mouth care provided, all dressings changed.Turned and repositioned for wound and skin management.HOB elevated at 35 degree to prevent aspiration.Call light within easy reach.No significant change in condition, will continue with same care plan
--- NOTE | 2020-03-13 19:10 | NUR ---
HAND-OFF: Report given to MARGARITA Garcia.
--- NOTE | 2020-03-13 19:27 | Nephrology Progress Note ---
Assessment/Plan Problem List: (1) Hypernatremia (2) ACE (acute kidney injury) (3) Cardiopulmonary arrest (4) Respiratory acidosis (5) Seizure disorder (6) Altered mental status (7) Pneumonia (8) Sepsis Plan iv hypotonic Na higher to trend Subjective ROS Limited/Unobtainable: Yes Objective Objective Last 24 Hour Vital Signs Date Time Temp Pulse Resp B/P (MAP) Pulse Ox O2 Delivery O2 Flow Rate FiO2 03/13/20 19:00 106 25 126/60 (82) 100 03/13/20 18:00 108 22 122/64 (83) 100 03/13/20 17:00 106 22 127/67 (87) 100 03/13/20 16:00 Bi-pap Bi-pap 03/13/20 16:00 40 03/13/20 16:00 96.8 104 14 126/65 (85) 100 03/13/20 16:00 101 03/13/20 15:20 100 37 97 40 03/13/20 15:00 105 21 114/62 (79) 100 03/13/20 14:00 102 22 112/64 (80) 100 03/13/20 13:13 98 39 96 40 03/13/20 13:00 106 26 112/52 (72) 99 03/13/20 12:00 Bi-pap Bi-pap 03/13/20 12:00 98.8 105 27 115/60 (78) 100 03/13/20 12:00 105 03/13/20 12:00 40 03/13/20 11:00 108 26 107/52 (70) 100 03/13/20 10:29 108/65 03/13/20 10:15 94 108/65 03/13/20 10:14 108/65 03/13/20 10:00 108 7 112/50 (70) 92 03/13/20 09:14 108 20 100 40 03/13/20 09:14 100 Bi-Pap 40 03/13/20 09:00 108 11 124/55 (78) 100 03/13/20 08:00 40 03/13/20 08:00 Bi-pap Bi-pap 03/13/20 08:00 110 03/13/20 08:00 108 15 113/57 (75) 100 03/13/20 07:00 98.6 107 22 116/54 (74) 100 03/13/20 06:00 107 21 112/56 (74) 100 03/13/20 05:19 110 28 100 40 03/13/20 05:00 110 18 110/54 (72) 100 03/13/20 04:00 98.5 114 33 115/61 (79) 100 03/13/20 04:00 40 03/13/20 04:00 Bi-pap Bi-pap 03/13/20 04:00 108 03/13/20 03:44 107 29 100 40 03/13/20 03:00 110 30 111/55 (73) 100 03/13/20 02:00 109 28 119/58 (78) 100 03/13/20 01:11 100 30 100 40 03/13/20 01:00 110 26 115/55 (75) 100 03/13/20 00:00 98.3 108 29 121/57 (78) 100 03/13/20 00:00 Bi-pap Bi-pap 03/13/20 00:00 40 03/13/20 00:00 105 03/12/20 23:46 108 32 100 50 03/12/20 23:00 110 30 122/60 (80) 100 03/12/20 22:00 109 28 119/61 (80) 100 03/12/20 21:17 102 28 100 50 03/12/20 21:00 108 29 119/61 (80) 100 03/12/20 20:00 110 03/12/20 20:00 98.5 108 30 126/60 (82) 100 03/12/20 20:00 50 03/12/20 20:00 Bi-pap Bi-pap 03/12/20 19:52 100 Bi-Pap 50 03/12/20 19:52 108 30 100 50 Intake and Output 03/12/20 03/13/20 19:00 07:00 Intake Total 765.000 ml 1180 ml Output Total 450 ml 980 ml Balance 315.000 ml 200 ml IV Total 275.000 ml 350 ml Tube Feeding 490 ml 770 ml Other 60 ml Output Urine Total 440 ml 930 ml Stool Total 10 ml 50 ml Laboratory Tests 03/13/20 04:40: White Blood Count 5.9, Red Blood Count 3.39L, Hemoglobin 9.3L, Hematocrit 29.2L , Mean Corpuscular Volume 86, Mean Corpuscular Hemoglobin 27.5, Mean Corpuscular Hemoglobin Concent 32.0, Red Cell Distribution Width 16.1H, Platelet Count 254, Mean Platelet Volume 6.4L, Neutrophils (%) (Auto) 59.4, Lymphocytes (%) (Auto) 25.5, Monocytes (%) (Auto) 8.4, Eosinophils (%) (Auto) 6.2H, Basophils (%) (Auto) 0.5, Sodium Level 149H, Potassium Level 4.3, Chloride Level 110H, Carbon Dioxide Level 32, Anion Gap 7, Blood Urea Nitrogen 16, Creatinine 0.9, Estimat Glomerular Filtration Rate > 60, Glucose Level 116H , Calcium Level 8.8 Height (Feet): 6 Height (Inches): 2.00 Weight (Pounds): 200 General Appearance: moderate distress Neck: normal alignment Cardiovascular: regular rhythm Respiratory/Chest: crackles/rales Abdomen: soft Extremities: no edema Neurologic: unresponsive Raffaele Ocampo MD March 13, 2020 19:27
--- NOTE | 2020-03-13 19:36 | Surgery Progress Note ---
Surgery Progress Note Subjective Additional Comments ill appearing labs noted Objective Last 24 Hour Vital Signs Date Time Temp Pulse Resp B/P (MAP) Pulse Ox O2 Delivery O2 Flow Rate FiO2 03/13/20 19:00 106 25 126/60 (82) 100 03/13/20 18:00 108 22 122/64 (83) 100 03/13/20 17:00 106 22 127/67 (87) 100 03/13/20 16:00 Bi-pap Bi-pap 03/13/20 16:00 40 03/13/20 16:00 96.8 104 14 126/65 (85) 100 03/13/20 16:00 101 03/13/20 15:20 100 37 97 40 03/13/20 15:00 105 21 114/62 (79) 100 03/13/20 14:00 102 22 112/64 (80) 100 03/13/20 13:13 98 39 96 40 03/13/20 13:00 106 26 112/52 (72) 99 03/13/20 12:00 Bi-pap Bi-pap 03/13/20 12:00 98.8 105 27 115/60 (78) 100 03/13/20 12:00 105 03/13/20 12:00 40 03/13/20 11:00 108 26 107/52 (70) 100 03/13/20 10:29 108/65 03/13/20 10:15 94 108/65 03/13/20 10:14 108/65 03/13/20 10:00 108 7 112/50 (70) 92 03/13/20 09:14 108 20 100 40 03/13/20 09:14 100 Bi-Pap 40 03/13/20 09:00 108 11 124/55 (78) 100 03/13/20 08:00 40 03/13/20 08:00 Bi-pap Bi-pap 03/13/20 08:00 110 03/13/20 08:00 108 15 113/57 (75) 100 03/13/20 07:00 98.6 107 22 116/54 (74) 100 03/13/20 06:00 107 21 112/56 (74) 100 03/13/20 05:19 110 28 100 40 03/13/20 05:00 110 18 110/54 (72) 100 03/13/20 04:00 98.5 114 33 115/61 (79) 100 03/13/20 04:00 40 03/13/20 04:00 Bi-pap Bi-pap 03/13/20 04:00 108 03/13/20 03:44 107 29 100 40 03/13/20 03:00 110 30 111/55 (73) 100 03/13/20 02:00 109 28 119/58 (78) 100 03/13/20 01:11 100 30 100 40 03/13/20 01:00 110 26 115/55 (75) 100 03/13/20 00:00 98.3 108 29 121/57 (78) 100 03/13/20 00:00 Bi-pap Bi-pap 03/13/20 00:00 40 03/13/20 00:00 105 03/12/20 23:46 108 32 100 50 03/12/20 23:00 110 30 122/60 (80) 100 03/12/20 22:00 109 28 119/61 (80) 100 03/12/20 21:17 102 28 100 50 03/12/20 21:00 108 29 119/61 (80) 100 03/12/20 20:00 110 03/12/20 20:00 98.5 108 30 126/60 (82) 100 03/12/20 20:00 50 03/12/20 20:00 Bi-pap Bi-pap 03/12/20 19:52 100 Bi-Pap 50 03/12/20 19:52 108 30 100 50 I&O Intake and Output 03/12/20 03/13/20 19:00 07:00 Intake Total 765.000 ml 1180 ml Output Total 450 ml 980 ml Balance 315.000 ml 200 ml IV Total 275.000 ml 350 ml Tube Feeding 490 ml 770 ml Other 60 ml Output Urine Total 440 ml 930 ml Stool Total 10 ml 50 ml Dressing: other Wound: other Drains: other Cardiovascular: RSR Respiratory: decreased breath sounds Abdomen: soft, non-distended Extremities: no cyanosis Laboratory Tests Test 03/13/20 04:40 White Blood Count 5.9 K/UL (4.8-10.8) Red Blood Count 3.39 M/UL (4.70-6.10) L Hemoglobin 9.3 G/DL (14.2-18.0) L Hematocrit 29.2 % (42.0-52.0) L Mean Corpuscular Volume 86 FL (80-99) Mean Corpuscular Hemoglobin 27.5 PG (27.0-31.0) Mean Corpuscular Hemoglobin Concent 32.0 G/DL (32.0-36.0) Red Cell Distribution Width 16.1 % (11.6-14.8) H Platelet Count 254 K/UL (150-450) Mean Platelet Volume 6.4 FL (6.5-10.1) L Neutrophils (%) (Auto) 59.4 % (45.0-75.0) Lymphocytes (%) (Auto) 25.5 % (20.0-45.0) Monocytes (%) (Auto) 8.4 % (1.0-10.0) Eosinophils (%) (Auto) 6.2 % (0.0-3.0) H Basophils (%) (Auto) 0.5 % (0.0-2.0) Sodium Level 149 MMOL/L (136-145) H Potassium Level 4.3 MMOL/L (3.5-5.1) Chloride Level 110 MMOL/L (98-107) H Carbon Dioxide Level 32 MMOL/L (21-32) Anion Gap 7 mmol/L (5-15) Blood Urea Nitrogen 16 mg/dL (7-18) Creatinine 0.9 MG/DL (0.55-1.30) Estimat Glomerular Filtration Rate > 60 mL/min (>60) Glucose Level 116 MG/DL (74-106) H Calcium Level 8.8 MG/DL (8.5-10.1) Plan Problems: (1) Respiratory acidosis (2) Seizure disorder (3) Altered mental status (4) Pneumonia Assessment & Plan: New left pleural effusion Improved aeration of the right lung, with persistent consolidation and pleural fluid (5) Cardiopulmonary arrest (6) Hypernatremia (7) Sepsis Assessment & Plan: Pt presented on admission with multiple pressure injuries. Unstageable Pressure injury R Buttocks. Base of wound is 100% necrotic. Sacrum, R and L Gluteal cheeks maroon with multiple partial thickness wounds with surrounding denuded and macerated skin. Dry, black borders noted Unstageable pressure injury R thoracic. Base of wound is 100% necrotic but dry. No erythema induration or fluctuance periwound. Full thickness stage 3 pressure injury R heel. Base of wound is beefy red with macerated borders. periwound is necrotic and fluctuant. Full thickness stage 3 pressure injury R Hallux. Base of wound is beefy red with surrounding pink granulation. Dry black borders noted. Loose dry eschar noted to L heel. Hyperpigmentation noted to R and L lateral Malleoli. unlikely etiology of sepsis will monitor Pt presented with generalized edema.R hand contracture noted .R hand dusky in colour . R 5th digit /R thumb black at tip of finger. At base of of R thumb including dorsal R hand and R wrist is large wound that is 50% necrotic .50% taty. with loose edges. Small amt serosanguineous exudate noted. At circumference of R first digit/index finger is large open Blister with loose skin flap . base of wound is taty. Necrotic area noted at tip of index finger. Detached nail matrix and epidermis of R middle digit/3rd digit . Fingertip is taty and moist,minimal sanguineous exudate.Tips of R ring finger and R 5th digit is black. Unable to accurately assess web spaces of digits on R hand secondary to gross edema, and pt became distressed at any attempt to separate digits. R hand washed with tepid water and mild soap and patted dry. Each digit and wounds swabbed with Betadine. Xeroform gauze weaved between each digit of R hand and to R wrist and dorsal R hand. Soft Kerlix roll then placed in palm of hand to support contracture. Abd placed over wounds and R hand wrapped loosely with Kerlix until further instructed by Surgeon. R hand elevated on two pillows. Tx.Plan: Keep R Hand elevated with 2 Pillows. Tx.Plan: Cleanse Sacral area with Saline.Apply Therahoney. Apply Moisture Barrier Paste periwound. Cover with Optifoam drsgs. Change Daily and Prn. Cleanse wound R thoracic with Saline. Apply TheraHoney. Apply Cavilon Skin Barrier Periwound. Cover with Optifoam drsg.Change every 3 days and prn. Cleanse wound R heel with Saline. Apply TheraHoney. Apply Cavilon Skin Barrier Periwound. Cover with Optifoam drsg. Change every 3 days and prn. Cleanse R Hallux with Saline. Apply Therahoney. Apply Cavilon Skin Barrier Periwound. Cover with Optifoam drsg. Change every 3 days and prn. Apply Cavilon Skin Barrier to L Heel. Cover with Optifoam drsg. Change every 7 days and prn. Reposition at least every 2hours or as tolerated. Place Pillow between knees. Off-load heels with Pillow. APM/NORM Mattress overlay. DAILY ESTIMATED NEEDS: Needs based on Critical care, wounds 78.6abw 22-30 kcals/kg 6547-0127 total kcals 1.25-2 g protein/kg 98-157 g total protein 25-30 mL/kg 1786-3355 total fluid mLs NUTRITION DIAGNOSIS: Increased kcal and pro needs r/t wound care as evidenced by pt w/ full thickness wounds x2, unstageable wounds x2, refer to WC eval. CURRENT TF:Glucerna 1.5 @70ml/hr x18 hrs ENTERAL NUTRITION RECOMMENDATIONS: Glucerna 1.5 @70ml/hr x18 hrs to provide 1260ml, 1890 kcal, 104g pro, 956ml free H2O - W/ HD stability, continue current TF - HOLD TF 1 HOUR BEFORE AND AFTER SYNTHROID(QD) AND DILANTIN(BID), tf to run a max of 18 hrs - Flush per MD , HOB over 30 degrees WITHOUT HEMODYNAMIC STABILITY: rec trophic feeds of Glucerna 1.5 @5-10ml/hr to maintain gut integrity. ADDITIONAL RECOMMENDATIONS: 1) Wound care: add AJIT BID + Vit C 250mg daily 2) Per SNF: 69inches, 212lbs/96.36kg Maintain calibrated daily wts 3) Feed when hemodynamically stable, do not feed in the prone position -> pressors held at this time 4) Monitor lytes, replete as needed (8) ACE (acute kidney injury) Gary Vicente March 13, 2020 19:36
--- NOTE | 2020-03-13 19:52 | NUR ---
NURSE NOTES: received report from jacqueline de los santos pt asleep open eyes to touch follows simple command iv infusing rt ij tlc dressing dry and intact tolerating tube feeding no residual dawn with urinary out put reposition and suction
[2020-03-13] MEDS: Dyna-Hex 2% Top Sol 2oz TOPIC SCH (20:49)
--- NOTE | 2020-03-13 22:00 | NUR ---
NURSE NOTES: reposition AND SUCTION NO C/O OF PAINOR SOB
[2020-03-14] VITALS (24 sets, daily range): BP systolic 107–134; BP diastolic 51–71
--- NOTE | 2020-03-14 | NUR ---
NURSE NOTES: CONDITION UN CHANGE
--- NOTE | 2020-03-14 01:15 | Progress Note ---
DATE: 03/13/2020 CARDIOLOGY PROGRESS NOTE SUBJECTIVE: Patient is off pressors. He remains off ventilator support, but requires BiPAP. PHYSICAL EXAMINATION: VITAL SIGNS: Blood pressure parameters 112/56, heart rate 107, respiratory rate 21, afebrile. Monitor, sinus tachycardia. LUNGS: Coarse breath sounds. Rhonchi. CARDIAC: Regular rhythm. Rapid rate. Normal S1, S2. ABDOMEN: Soft. EXTREMITIES: No edema. LABORATORY DATA: White count 5.9, hemoglobin 9.3. Sodium 149, potassium 4.3, bicarb 32, BUN 16, creatinine 0.9. IMPRESSION: 1. Status post cardiopulmonary arrest. 2. Acute myocardial ischemia. 3. Sepsis with shock. 4. Respiratory failure. 5. Sinus tachycardia. 6. Acute on chronic respiratory acidosis, resolved. 7. Lactic acidosis. 8. Dehydration and hypernatremia to recover. PLAN: 1. BiPAP as needed. 2. Antimicrobials. 3. Hypotonic IV fluids. 4. Fluid challenge for low pressure. 5. Avoid pressors. 6. DVT prophylaxis. 7. No role for antiarrhythmics at this time. Yfn Luna M.D. DR: BRANDI JOB#: [id number] CC:
--- NOTE | 2020-03-14 02:00 | NUR ---
NURSE NOTES: COMPLETE BED BATH ORAL CARE AND BACK CARE DONE WOUND CARE DONE
--- NOTE | 2020-03-14 04:00 | NUR ---
NURSE NOTES: REPOSITION AND SUCTION NO APPARENT ACUTE DISTRESS
[2020-03-14] MEDS: NovoLOG Insulin Flexpen SUBQ SCH ×5 (06:00→23:51)
--- NOTE | 2020-03-14 06:00 | NUR ---
NURSE NOTES: [id number]
[2020-03-14 07:09] LABS: ANION GAP 5 mmol/L (5-15); BLOOD UREA NITROGEN 14 mg/dL (7-18); CALCIUM 8.6 MG/DL (8.5-10.1); CARBON DIOXIDE 32 MMOL/L (21-32); CHLORIDE 107 MMOL/L (98-107); CREATININE 0.8 MG/DL (0.55-1.30); POTASSIUM 3.9 MMOL/L (3.5-5.1); SODIUM 144 MMOL/L (136-145)
--- NOTE | 2020-03-14 07:16 | NUR ---
NURSE NOTES: Report received from MARGARITA Garica
--- NOTE | 2020-03-14 07:23 | NUR ---
NURSE NOTES: Asleep when received and responsive to tactile and verbal stimuli. Remains on BIPAP 15/8 FIO2 40% . SR on the monitor with GT held until 1300.On Glucerna 1.5 at 70cc, GT placement checked and intake. No residual noted at this time.HOB elevated at 35 degree to prevent aspiration.Penaloza catheter in place draining yellow straw urine with no apparent sediment.Rectal tube in place draining loose stool brown in color.RIJ/TLC running D5W at 100cc with no apparent infiltrate. Pt afebrile, mouth care done, abdomen soft and non distended.Turned and repositioned for skin management, P200 mattress for skin management.Will continue same care plan.
--- NOTE | 2020-03-14 07:30 | NUR ---
HAND-OFF: Report given to jacqueline de los santos using sbar.
[2020-03-14] MEDS: Vancomycin 1.5gm/NS Premix q24h IVPB SCH (08:16)
[2020-03-14] MEDS: levETIRAcetam 500mg/5ml Liquid GT SCH ×2 (08:16→21:16)
[2020-03-14] MEDS: Levofloxacin 750mg tab GT SCH (08:17)
[2020-03-14] MEDS: Ascorbic Acid 500mg tab ORAL SCH (08:17)
[2020-03-14] MEDS: Phenytoin Susp 100mg/4ml GT SCH ×2 (08:17→21:15)
[2020-03-14] MEDS: Eliquis 5mg tablet GT SCH ×2 (08:18→17:20)
--- NOTE | 2020-03-14 08:27 | General Progress Note ---
Assessment/Plan Assessment/Plan: IMPRESSION: 1. Septic shock. 2. Hypotension. 3. Tachycardia. 4. Respiratory failure. 5. Hypoxemia. 6. Seizure disorder. 7. Hyperlipidemia. 8. Hypernatremia. 9. Acute renal failure. 10. Pulmonary edema. 11. Possible COVID. 12. pleural effusion PLAN monitor hemodynamics BIPAP off if able; will check today iv antibiotics ID follow up maintain feeds off load still critical watch off pressors feeds off COVID isolation attempt to transfer to [facility] impression, plan, and exam edited and reviewed in detail care discussed with RN Subjective Allergies: Coded Allergies: HYDROCODONE (Verified Allergy, Unknown, 07/04/17) Subjective off vent on BIPAP hemodynamics noted on feeds Objective Last 24 Hour Vital Signs Date Time Temp Pulse Resp B/P (MAP) Pulse Ox O2 Delivery O2 Flow Rate FiO2 03/14/20 07:15 108 21 100 40 03/14/20 07:15 100 Bi-Pap 40 03/14/20 07:00 108 24 110/51 (70) 100 03/14/20 06:00 98.6 108 129/54 (79) 100 03/14/20 05:18 108 29 100 40 03/14/20 05:00 108 113/55 (74) 100 03/14/20 04:00 40 03/14/20 04:00 106 03/14/20 04:00 Bi-pap Bi-pap 03/14/20 04:00 106 0 119/54 (75) 100 03/14/20 03:00 107 25 132/67 (88) 100 03/14/20 02:49 107 33 100 40 03/14/20 02:00 106 25 132/71 (91) 100 03/14/20 01:00 106 0 127/62 (83) 100 03/14/20 00:47 106 33 100 40 03/14/20 00:00 40 03/14/20 00:00 108 03/14/20 00:00 98.6 106 10 121/65 (83) 100 03/14/20 00:00 Bi-pap Bi-pap 03/13/20 22:33 98 33 100 40 03/13/20 22:00 103 28 122/58 (79) 100 03/13/20 21:00 105 24 121/61 (81) 100 03/13/20 20:43 104 32 99 40 03/13/20 20:00 97.8 106 4 121/62 (81) 100 03/13/20 20:00 40 03/13/20 20:00 104 03/13/20 20:00 Bi-pap Bi-pap 03/13/20 19:21 100 Bi-Pap 40 03/13/20 19:21 110 33 99 40 03/13/20 19:00 106 25 126/60 (82) 100 03/13/20 18:00 108 22 122/64 (83) 100 03/13/20 17:00 106 22 127/67 (87) 100 03/13/20 16:00 Bi-pap Bi-pap 03/13/20 16:00 40 03/13/20 16:00 96.8 104 14 126/65 (85) 100 03/13/20 16:00 101 03/13/20 15:20 100 37 97 40 03/13/20 15:00 105 21 114/62 (79) 100 03/13/20 14:00 102 22 112/64 (80) 100 03/13/20 13:13 98 39 96 40 03/13/20 13:00 106 26 112/52 (72) 99 03/13/20 12:00 Bi-pap Bi-pap 03/13/20 12:00 98.8 105 27 115/60 (78) 100 03/13/20 12:00 105 03/13/20 12:00 40 03/13/20 11:00 108 26 107/52 (70) 100 03/13/20 10:29 108/65 03/13/20 10:15 94 108/65 03/13/20 10:14 108/65 03/13/20 10:00 108 7 112/50 (70) 92 03/13/20 09:14 108 20 100 40 03/13/20 09:14 100 Bi-Pap 40 03/13/20 09:00 108 11 124/55 (78) 100 Intake and Output 03/13/20 03/14/20 19:00 07:00 Intake Total 1210.00 ml 1720 ml Output Total 960 ml 1130 ml Balance 250.00 ml 590 ml Intake Free Water 130 ml IV Total 660.00 ml 750 ml Tube Feeding 490 ml 840 ml Other 60 ml Output Urine Total 930 ml 1130 ml Stool Total 30 ml # Bowel Movements 50 Laboratory Tests 03/14/20 05:56: Sodium Level 144, Potassium Level 3.9, Chloride Level 107, Carbon Dioxide Level 32, Anion Gap 5, Blood Urea Nitrogen 14, Creatinine 0.8, Estimat Glomerular Filtration Rate > 60, Glucose Level 128H, Calcium Level 8.6 Height (Feet): 6 Height (Inches): 2.00 Weight (Pounds): 190 Objective GENERAL: Ill-appearing male. coarse breath sounds RRR NABS nontender no CCE on BIPAP German Matthews MD March 14, 2020 08:27
--- NOTE | 2020-03-14 08:35 | NUR ---
RESPIRATORY NOTES Per doctor's orders, Pt has been taken off bipap and placed on venturi mask - 8L 40%. PT's current SaO2 is 100%, with no signs of distress. ABG to be drawn in an hour. MARGARITA Law aware. Will continue to monitor.
[2020-03-14 08:51] LABS: BASOPHILS % (AUTO) 0.4 % (0.0-2.0); HEMATOCRIT 27.6 % (42.0-52.0); HEMOGLOBIN 8.9 G/DL (14.2-18.0); LYMPHOCYTES % (AUTO) 28.9 % (20.0-45.0); MEAN CORPUSCULAR VOLUME 85 FL (80-99); MONOCYTES % (AUTO) 7.7 % (1.0-10.0); PLATELET COUNT 245 K/UL (150-450); RED BLOOD COUNT 3.23 M/UL (4.70-6.10); RED CELL DISTRIBUTION WIDTH 15.8 % (11.6-14.8); WHITE BLOOD COUNT 6.8 K/UL (4.8-10.8)
[2020-03-14] MEDS ORDERED: NS 275ml ONE (09:28)
[2020-03-14] MEDS: DOPamine 400mg/250ml 250 ML IV SCH (10:09)
[2020-03-14] MEDS: Phenylephrine 50 MG in D5W 245 ML IV SCH (10:10)
--- NOTE | 2020-03-14 10:32 | NUR ---
NURSE NOTES: Patient turned and repositioned.Seen by Dr Myers, will follow up with new orders.No significant change at this time.Will continue to monitor
--- NOTE | 2020-03-14 10:45 | NUR ---
RESPIRATORY NOTES PT taken off venturi mask and left on room air. PT's SaO2 is 97%, and denies any respiratory distress. RN Ani aware. Will continue to monitor.
--- NOTE | 2020-03-14 11:50 | NUR ---
*-* INSURANCE *-* UPDATED CLINICALS HAVE BEEN FAXED TO: [facility] Ref# [id number] # [phone] fax# [phone] F# [phone]
--- NOTE | 2020-03-14 11:57 | Infectious Diseases Prog Note ---
"Assessment/Plan Assessment/Plan antibiotics : vancomycin iv, levoquin A 1. pseudomonas | MRSA pneumonia 2. COVID 19 test negative x 2, 5.5.20, 5.9.20 3. respiratory failure 4. renal failure resolved 5. shock resolved 6. hypertension 7. seizures 8. leucocytosis resolved P 1. d/c iv vancomycin 2. continue po levoquin 3 more days 3. will follow up cultures Subjective ROS Limited/Unobtainable: Yes Allergies: Coded Allergies: HYDROCODONE (Verified Allergy, Unknown, 07/04/17) Objective Vital Signs Last 24 Hour Vital Signs Date Time Temp Pulse Resp B/P (MAP) Pulse Ox O2 Delivery O2 Flow Rate FiO2 03/14/20 11:00 112 30 107/53 (71) 97 03/14/20 10:45 97 03/14/20 10:10 113/55 03/14/20 10:10 111 113/55 03/14/20 10:09 113/55 03/14/20 10:00 109 20 113/55 (74) 100 03/14/20 09:00 110 27 114/57 (76) 100 03/14/20 08:00 Bi-pap Bi-pap 03/14/20 08:00 40 03/14/20 08:00 111 03/14/20 08:00 98.8 110 24 116/57 (76) 100 03/14/20 07:15 108 21 100 40 03/14/20 07:15 100 Bi-Pap 40 03/14/20 07:00 108 24 110/51 (70) 100 03/14/20 06:00 98.6 108 129/54 (79) 100 03/14/20 05:18 108 29 100 40 03/14/20 05:00 108 113/55 (74) 100 03/14/20 04:00 40 03/14/20 04:00 106 03/14/20 04:00 Bi-pap Bi-pap 03/14/20 04:00 106 0 119/54 (75) 100 03/14/20 03:00 107 25 132/67 (88) 100 03/14/20 02:49 107 33 100 40 03/14/20 02:00 106 25 132/71 (91) 100 03/14/20 01:00 106 0 127/62 (83) 100 03/14/20 00:47 106 33 100 40 03/14/20 00:00 40 03/14/20 00:00 108 03/14/20 00:00 98.6 106 10 121/65 (83) 100 03/14/20 00:00 Bi-pap Bi-pap 03/13/20 22:33 98 33 100 40 03/13/20 22:00 103 28 122/58 (79) 100 03/13/20 21:00 105 24 121/61 (81) 100 03/13/20 20:43 104 32 99 40 03/13/20 20:00 97.8 106 4 121/62 (81) 100 03/13/20 20:00 40 03/13/20 20:00 104 03/13/20 20:00 Bi-pap Bi-pap 03/13/20 19:21 100 Bi-Pap 40 03/13/20 19:21 110 33 99 40 03/13/20 19:00 106 25 126/60 (82) 100 03/13/20 18:00 108 22 122/64 (83) 100 03/13/20 17:00 106 22 127/67 (87) 100 03/13/20 16:00 Bi-pap Bi-pap 03/13/20 16:00 40 03/13/20 16:00 96.8 104 14 126/65 (85) 100 03/13/20 16:00 101 03/13/20 15:20 100 37 97 40 03/13/20 15:00 105 21 114/62 (79) 100 03/13/20 14:00 102 22 112/64 (80) 100 03/13/20 13:13 98 39 96 40 03/13/20 13:00 106 26 112/52 (72) 99 03/13/20 12:00 Bi-pap Bi-pap 03/13/20 12:00 98.8 105 27 115/60 (78) 100 03/13/20 12:00 105 03/13/20 12:00 40 Height (Feet): 6 Height (Inches): 2.00 Weight (Pounds): 190 Respiratory/Chest: lungs clear Cardiovascular: normal rate, regular rhythm, no gallop/murmur Abdomen: soft, non tender, other - GT Extremities: no edema, other - right IJ catheter Laboratory Tests Test 03/14/20 05:56 5/15/20 08:30 03/14/20 09:35 Sodium Level 144 MMOL/L (136-145) Potassium Level 3.9 MMOL/L (3.5-5.1) Chloride Level 107 MMOL/L (98-107) Carbon Dioxide Level 32 MMOL/L (21-32) Anion Gap 5 mmol/L (5-15) Blood Urea Nitrogen 14 mg/dL (7-18) Creatinine 0.8 MG/DL (0.55-1.30) Estimat Glomerular Filtration Rate > 60 mL/min (>60) Glucose Level 128 MG/DL (74-106) H Calcium Level 8.6 MG/DL (8.5-10.1) White Blood Count 6.8 K/UL (4.8-10.8) Red Blood Count 3.23 M/UL (4.70-6.10) L Hemoglobin 8.9 G/DL (14.2-18.0) L Hematocrit 27.6 % (42.0-52.0) L Mean Corpuscular Volume 85 FL (80-99) Mean Corpuscular Hemoglobin 27.7 PG (27.0-31.0) Mean Corpuscular Hemoglobin Concent 32.4 G/DL (32.0-36.0) Red Cell Distribution Width 15.8 % (11.6-14.8) H Platelet Count 245 K/UL (150-450) Mean Platelet Volume 6.7 FL (6.5-10.1) Neutrophils (%) (Auto) 58.0 % (45.0-75.0) Lymphocytes (%) (Auto) 28.9 % (20.0-45.0) Monocytes (%) (Auto) 7.7 % (1.0-10.0) Eosinophils (%) (Auto) 5.0 % (0.0-3.0) H Basophils (%) (Auto) 0.4 % (0.0-2.0) Arterial Blood pH 7.386 (7.350-7.450) Arterial Blood Partial Pressure CO2 55.2 mmHg (35.0-45.0) *H Arterial Blood Partial Pressure O2 126.1 mmHg (75.0-100.0) H Arterial Blood HCO3 32.4 mmol/L (22.0-26.0) H Arterial Blood Oxygen Saturation 97.9 % (95-100) Arterial Blood Base Excess 6.3 (-2-2) H Chandan Test Positive Current Medications Medications (Trade) Dose Ordered Sig/[place] Route PRN Reason Start Time Stop Time Status Last Admin Dose Admin Acetaminophen (Tylenol) 650 mg Q4H PRN GT Temp >100.5 03/05/20 16:45 04/04/20 16:44 03/07/20 02:56 Apixaban (Eliquis) 5 mg BID GT 03/18/20 18:00 06/16/20 17:59 Apixaban (Eliquis) 10 mg BID GT 03/11/20 18:00 03/18/20 17:59 03/14/20 08:18 Ascorbic Acid (Vitamin C) 250 mg DAILY GT 03/15/20 09:00 04/07/20 08:59 UNV Chlorhexidine Gluconate (Brandy-Hex 2%) 1 applic DAILY@2000 TOPIC 03/05/20 20:00 06/03/20 19:59 03/13/20 20:49 Dextrose 1,000 ml @ 75 mls/hr [id number] IV 03/13/20 20:00 04/12/20 19:59 03/13/20 20:00 Dextrose (Dextrose 50%) 25 ml Q30M PRN IV Hypoglycemia 03/05/20 14:00 06/03/20 13:59 Dextrose (Dextrose 50%) 50 ml Q30M PRN IV Hypoglycemia 03/05/20 14:00 06/03/20 13:59 Dopamine HCl/ Dextrose 250 ml @ 0 mls/hr Q24H IV 03/05/20 10:14 06/03/20 10:13 Insulin Aspart (NovoLOG) EVERY 6 HOURS SUBQ 03/05/20 18:00 06/03/20 17:59 03/07/20 18:41 Levetiracetam (Keppra) 1,500 mg Q12HR GT 03/05/20 11:45 04/04/20 11:44 03/14/20 08:16 Levofloxacin (Levaquin) 750 mg DAILY GT 03/12/20 09:00 03/17/20 08:59 03/14/20 08:17 Levothyroxine Sodium (Synthroid) 75 mcg ACBREAKFAST GT 03/06/20 06:30 04/05/20 06:29 03/14/20 06:12 Norepinephrine Bitartrate 4 mg/ Dextrose 250 ml @ 0 mls/hr Q24H IV 03/08/20 11:00 04/07/20 10:59 03/09/20 01:56 Phenylephrine HCl 50 mg/Dextrose 250 ml @ 0 mls/hr Q24H IV 03/05/20 10:15 04/04/20 10:14 03/07/20 06:01 Phenytoin (Dilantin) 250 mg Q12HR GT 03/05/20 21:00 04/04/20 20:59 03/14/20 08:17 Vancomycin HCl (Vanco rx to dose) 1 ea DAILY PRN MISC Per rx protocol 03/07/20 16:15 04/06/20 16:14 Vancomycin/Sodium Chloride 275 ml @ 137.5 mls/ hr Q24H IVPB 03/13/20 09:00 03/18/20 08:59 03/14/20 08:16 Radha Calle MD March 14, 2020 11:57"
--- NOTE | 2020-03-14 12:01 | NUR ---
NURSE NOTES: Patient awake, with no apparent sign of acute distress.Turned and repositioned for skin management .No significant change in condition at this time.Update given to mother Jessi Reddy and made aware patient may not be transfer today, awaiting call from [facility] for room availability.Will continue close monitoring
--- NOTE | 2020-03-14 12:23 | NUR ---
NURSE NOTES: [facility] called- report given via phone - made aware of HR-112-115/min and patient is tachypneic- RR 27-30 /min - stated that they are interested to take patient tomorrow since patient still on BiPap as PRN
--- NOTE | 2020-03-14 14:02 | NUR ---
NURSE NOTES: Patient awake, follow command with no apparent sign of acute distress.Turned and repositioned for skin management , wound care done and all dressing changed.No significant change in condition.Will continue close monitoring
--- NOTE | 2020-03-14 14:10 | Surgery Progress Note ---
Surgery Progress Note Subjective Additional Comments labs noted exam unchanged ill appearing Objective Last 24 Hour Vital Signs Date Time Temp Pulse Resp B/P (MAP) Pulse Ox O2 Delivery O2 Flow Rate FiO2 03/14/20 13:00 107 22 124/60 (81) 94 03/14/20 12:00 98.5 109 23 111/52 (71) 93 03/14/20 12:00 Bi-pap Bi-pap 03/14/20 11:00 112 30 107/53 (71) 97 03/14/20 10:45 97 03/14/20 10:10 113/55 03/14/20 10:10 111 113/55 03/14/20 10:09 113/55 03/14/20 10:00 109 20 113/55 (74) 100 03/14/20 09:35 8.0 03/14/20 09:00 110 27 114/57 (76) 100 03/14/20 08:00 Bi-pap Bi-pap 03/14/20 08:00 40 03/14/20 08:00 111 03/14/20 08:00 98.8 110 24 116/57 (76) 100 03/14/20 07:15 108 21 100 40 03/14/20 07:15 100 Bi-Pap 40 03/14/20 07:00 108 24 110/51 (70) 100 03/14/20 06:00 98.6 108 129/54 (79) 100 03/14/20 05:18 108 29 100 40 03/14/20 05:00 108 113/55 (74) 100 03/14/20 04:00 40 03/14/20 04:00 106 03/14/20 04:00 Bi-pap Bi-pap 03/14/20 04:00 106 0 119/54 (75) 100 03/14/20 03:00 107 25 132/67 (88) 100 03/14/20 02:49 107 33 100 40 03/14/20 02:00 106 25 132/71 (91) 100 03/14/20 01:00 106 0 127/62 (83) 100 03/14/20 00:47 106 33 100 40 03/14/20 00:00 40 03/14/20 00:00 108 03/14/20 00:00 98.6 106 10 121/65 (83) 100 03/14/20 00:00 Bi-pap Bi-pap 03/13/20 22:33 98 33 100 40 03/13/20 22:00 103 28 122/58 (79) 100 03/13/20 21:00 105 24 121/61 (81) 100 03/13/20 20:43 104 32 99 40 03/13/20 20:00 97.8 106 4 121/62 (81) 100 03/13/20 20:00 40 03/13/20 20:00 104 03/13/20 20:00 Bi-pap Bi-pap 03/13/20 19:21 100 Bi-Pap 40 03/13/20 19:21 110 33 99 40 03/13/20 19:00 106 25 126/60 (82) 100 03/13/20 18:00 108 22 122/64 (83) 100 03/13/20 17:00 106 22 127/67 (87) 100 03/13/20 16:00 Bi-pap Bi-pap 03/13/20 16:00 40 03/13/20 16:00 96.8 104 14 126/65 (85) 100 03/13/20 16:00 101 03/13/20 15:20 100 37 97 40 03/13/20 15:00 105 21 114/62 (79) 100 I&O Intake and Output 03/13/20 03/14/20 19:00 07:00 Intake Total 1210.00 ml 1795 ml Output Total 960 ml 1130 ml Balance 250.00 ml 665 ml Intake Free Water 130 ml IV Total 660.00 ml 825 ml Tube Feeding 490 ml 840 ml Other 60 ml Output Urine Total 930 ml 1130 ml Stool Total 30 ml # Bowel Movements 50 Dressing: other Wound: other Drains: other Cardiovascular: RSR Respiratory: decreased breath sounds Abdomen: soft, present bowel sounds Extremities: no cyanosis Laboratory Tests Test 03/14/20 05:56 03/14/20 08:30 03/14/20 09:35 Sodium Level 144 MMOL/L (136-145) Potassium Level 3.9 MMOL/L (3.5-5.1) Chloride Level 107 MMOL/L (98-107) Carbon Dioxide Level 32 MMOL/L (21-32) Anion Gap 5 mmol/L (5-15) Blood Urea Nitrogen 14 mg/dL (7-18) Creatinine 0.8 MG/DL (0.55-1.30) Estimat Glomerular Filtration Rate > 60 mL/min (>60) Glucose Level 128 MG/DL (74-106) H Calcium Level 8.6 MG/DL (8.5-10.1) White Blood Count 6.8 K/UL (4.8-10.8) Red Blood Count 3.23 M/UL (4.70-6.10) L Hemoglobin 8.9 G/DL (14.2-18.0) L Hematocrit 27.6 % (42.0-52.0) L Mean Corpuscular Volume 85 FL (80-99) Mean Corpuscular Hemoglobin 27.7 PG (27.0-31.0) Mean Corpuscular Hemoglobin Concent 32.4 G/DL (32.0-36.0) Red Cell Distribution Width 15.8 % (11.6-14.8) H Platelet Count 245 K/UL (150-450) Mean Platelet Volume 6.7 FL (6.5-10.1) Neutrophils (%) (Auto) 58.0 % (45.0-75.0) Lymphocytes (%) (Auto) 28.9 % (20.0-45.0) Monocytes (%) (Auto) 7.7 % (1.0-10.0) Eosinophils (%) (Auto) 5.0 % (0.0-3.0) H Basophils (%) (Auto) 0.4 % (0.0-2.0) Arterial Blood pH 7.386 (7.350-7.450) Arterial Blood Partial Pressure CO2 55.2 mmHg (35.0-45.0) *H Arterial Blood Partial Pressure O2 126.1 mmHg (75.0-100.0) H Arterial Blood HCO3 32.4 mmol/L (22.0-26.0) H Arterial Blood Oxygen Saturation 97.9 % (95-100) Arterial Blood Base Excess 6.3 (-2-2) H Chandan Test Positive Plan Problems: (1) Respiratory acidosis (2) Seizure disorder (3) Altered mental status (4) Pneumonia Assessment & Plan: New left pleural effusion Improved aeration of the right lung, with persistent consolidation and pleural fluid (5) Cardiopulmonary arrest (6) Hypernatremia (7) Sepsis Assessment & Plan: Pt presented on admission with multiple pressure injuries. Unstageable Pressure injury R Buttocks. Base of wound is 100% necrotic. Sacrum, R and L Gluteal cheeks maroon with multiple partial thickness wounds with surrounding denuded and macerated skin. Dry, black borders noted Unstageable pressure injury R thoracic. Base of wound is 100% necrotic but dry. No erythema induration or fluctuance periwound. Full thickness stage 3 pressure injury R heel. Base of wound is beefy red with macerated borders. periwound is necrotic and fluctuant. Full thickness stage 3 pressure injury R Hallux. Base of wound is beefy red with surrounding pink granulation. Dry black borders noted. Loose dry eschar noted to L heel. Hyperpigmentation noted to R and L lateral Malleoli. unlikely etiology of sepsis will monitor Pt presented with generalized edema.R hand contracture noted .R hand dusky in colour . R 5th digit /R thumb black at tip of finger. At base of of R thumb including dorsal R hand and R wrist is large wound that is 50% necrotic .50% taty. with loose edges. Small amt serosanguineous exudate noted. At circumference of R first digit/index finger is large open Blister with loose skin flap . base of wound is taty. Necrotic area noted at tip of index finger. Detached nail matrix and epidermis of R middle digit/3rd digit . Fingertip is taty and moist,minimal sanguineous exudate.Tips of R ring finger and R 5th digit is black. Unable to accurately assess web spaces of digits on R hand secondary to gross edema, and pt became distressed at any attempt to separate digits. R hand washed with tepid water and mild soap and patted dry. Each digit and wounds swabbed with Betadine. Xeroform gauze weaved between each digit of R hand and to R wrist and dorsal R hand. Soft Kerlix roll then placed in palm of hand to support contracture. Abd placed over wounds and R hand wrapped loosely with Kerlix until further instructed by Surgeon. R hand elevated on two pillows. Tx.Plan: Keep R Hand elevated with 2 Pillows. Tx.Plan: Cleanse Sacral area with Saline.Apply Therahoney. Apply Moisture Barrier Paste periwound. Cover with Optifoam drsgs. Change Daily and Prn. Cleanse wound R thoracic with Saline. Apply TheraHoney. Apply Cavilon Skin Barrier Periwound. Cover with Optifoam drsg.Change every 3 days and prn. Cleanse wound R heel with Saline. Apply TheraHoney. Apply Cavilon Skin Barrier Periwound. Cover with Optifoam drsg. Change every 3 days and prn. Cleanse R Hallux with Saline. Apply Therahoney. Apply Cavilon Skin Barrier Periwound. Cover with Optifoam drsg. Change every 3 days and prn. Apply Cavilon Skin Barrier to L Heel. Cover with Optifoam drsg. Change every 7 days and prn. Reposition at least every 2hours or as tolerated. Place Pillow between knees. Off-load heels with Pillow. APM/NORM Mattress overlay. DAILY ESTIMATED NEEDS: Needs based on Critical care, wounds 78.6abw 22-30 kcals/kg 6838-5382 total kcals 1.25-2 g protein/kg 98-157 g total protein 25-30 mL/kg 2274-8103 total fluid mLs NUTRITION DIAGNOSIS: Increased kcal and pro needs r/t wound care as evidenced by pt w/ full thickness wounds x2, unstageable wounds x2, refer to WC eval. CURRENT TF:Glucerna 1.5 @70ml/hr x18 hrs ENTERAL NUTRITION RECOMMENDATIONS: Glucerna 1.5 @70ml/hr x18 hrs to provide 1260ml, 1890 kcal, 104g pro, 956ml free H2O - W/ HD stability, continue current TF - HOLD TF 1 HOUR BEFORE AND AFTER SYNTHROID(QD) AND DILANTIN(BID), tf to run a max of 18 hrs - Flush per , HOB over 30 degrees WITHOUT HEMODYNAMIC STABILITY: rec trophic feeds of Glucerna 1.5 @5-10ml/hr to maintain gut integrity. ADDITIONAL RECOMMENDATIONS: 1) Wound care: add AJIT BID + Vit C 250mg daily 2) Per SNF: 69inches, 212lbs/96.36kg Maintain calibrated daily wts 3) Feed when hemodynamically stable, do not feed in the prone position -> pressors held at this time 4) Monitor lytes, replete as needed (8) ACE (acute kidney injury) Gary Vicente March 14, 2020 14:10
--- NOTE | 2020-03-14 16:25 | NUR ---
CASE MANAGEMENT:REVIEW 03/14/20 SI: MRSA/PSEUDOMONAS PNA RESP FAILURE S/P EXTUBATION. COVID (-) t 99.1 hr 110 rr 32 b/p 126/65 sats 95% on bipap labs: glu 128 abgS pco2 55.2 po2 126.1 hco3 32.4 be 6.3 IS: ELIQUIS PO BID IV VANCOMYCIN Q24 IVF@35/HR LEVAQUIN GT QD SYNTHROID GT QAM DILANTIN GT Q12 : ICU STATUS DCP: FROM [facility]
--- NOTE | 2020-03-14 16:29 | Diagnostic Imaging Report ---
EXAM: Venous Duplex Scan Garth Leg CLINICAL HISTORY: Leg pain and edema. COMPARISON: None TECHNIQUE: Doppler examination include grayscale images, and color and spectral doppler analysis. Segmental pressures also obtained. FINDINGS: Study is limited due to body habitus. Some venous segments are difficult to define and grayscale. The left lower extremity is unremarkable. On the right side, there is poor spectral delineation noted in the proximal to distal SFV and grayscale images suggest only partial compressibility. Findings suggest possible partial DVT through these segments. IMPRESSION: TECHNICALLY LIMITED STUDY. POSSIBLE PARTIAL DVT IN THE RIGHT SUPERFICIAL FEMORAL VEIN. FINDINGS CALLED TO THE PATIENT'S NURSE IN ICU. 03/11/2020 AT 2:50 PM
--- NOTE | 2020-03-14 16:31 | NUR ---
NURSE NOTES: ADLs done, good perineal care done,turned and repositioned. Mouth care done and suctioned as tolerated.HOB elevated at 35 degree to prevent aspiration. Will continue close monitoring.No significant change in condition
--- NOTE | 2020-03-14 17:00 | NUR ---
DISCHARGE/TRANSFER: NOTE F/U CALL PLACED TO [facility] [phone]. ALL CLINICALS SENT YESTERDAY AND TODAY WERE RECEIVED PATIENT IS AUTH THROUGH TODAY NO PLANS FOR TRANSFER TO [facility] TODAY [facility] WILL REACH OUT TOMORROW FOR A STATUS UPDATE ON PATIENT
--- NOTE | 2020-03-14 18:11 | NUR ---
NURSE NOTES: Good mouth care and perineal care provided.Turned and repositioned.HOB elevated to prevent aspiration. Hemodynamically stable at this time. Patient on room air and saturate at 96%.Will continue same care plan
--- NOTE | 2020-03-14 18:25 | Nephrology Progress Note ---
Assessment/Plan Problem List: (1) Hypernatremia (2) ACE (acute kidney injury) (3) Cardiopulmonary arrest (4) Respiratory acidosis (5) Seizure disorder (6) Altered mental status (7) Pneumonia (8) Sepsis Plan iv hypotonic Na better Subjective ROS Limited/Unobtainable: Yes Objective Objective Last 24 Hour Vital Signs Date Time Temp Pulse Resp B/P (MAP) Pulse Ox O2 Delivery O2 Flow Rate FiO2 03/14/20 18:00 109 35 127/68 (87) 95 03/14/20 17:00 109 41 128/65 (86) 96 03/14/20 16:00 99.1 110 32 126/65 (85) 95 03/14/20 16:00 Bi-pap Bi-pap 03/14/20 16:00 101 03/14/20 15:00 108 32 124/66 (85) 92 03/14/20 14:00 107 23 121/69 (86) 95 03/14/20 13:00 107 22 124/60 (81) 94 03/14/20 12:00 113 03/14/20 12:00 98.5 109 23 111/52 (71) 93 03/14/20 12:00 Bi-pap Bi-pap 03/14/20 11:00 112 30 107/53 (71) 97 03/14/20 10:45 97 03/14/20 10:10 113/55 03/14/20 10:10 111 113/55 03/14/20 10:09 113/55 03/14/20 10:00 109 20 113/55 (74) 100 03/14/20 09:35 8.0 03/14/20 09:00 110 27 114/57 (76) 100 03/14/20 08:00 Bi-pap Bi-pap 03/14/20 08:00 40 03/14/20 08:00 111 03/14/20 08:00 98.8 110 24 116/57 (76) 100 03/14/20 07:15 108 21 100 40 03/14/20 07:15 100 Bi-Pap 40 03/14/20 07:00 108 24 110/51 (70) 100 03/14/20 06:00 98.6 108 129/54 (79) 100 03/14/20 05:18 108 29 100 40 03/14/20 05:00 108 113/55 (74) 100 03/14/20 04:00 40 03/14/20 04:00 106 03/14/20 04:00 Bi-pap Bi-pap 03/14/20 04:00 106 0 119/54 (75) 100 03/14/20 03:00 107 25 132/67 (88) 100 03/14/20 02:49 107 33 100 40 03/14/20 02:00 106 25 132/71 (91) 100 03/14/20 01:00 106 0 127/62 (83) 100 03/14/20 00:47 106 33 100 40 03/14/20 00:00 40 03/14/20 00:00 108 03/14/20 00:00 98.6 106 10 121/65 (83) 100 03/14/20 00:00 Bi-pap Bi-pap 03/13/20 22:33 98 33 100 40 03/13/20 22:00 103 28 122/58 (79) 100 03/13/20 21:00 105 24 121/61 (81) 100 03/13/20 20:43 104 32 99 40 03/13/20 20:00 97.8 106 4 121/62 (81) 100 03/13/20 20:00 40 03/13/20 20:00 104 03/13/20 20:00 Bi-pap Bi-pap 03/13/20 19:21 100 Bi-Pap 40 03/13/20 19:21 110 33 99 40 03/13/20 19:00 106 25 126/60 (82) 100 Intake and Output 03/13/20 03/14/20 19:00 07:00 Intake Total 1210.00 ml 1795 ml Output Total 960 ml 1130 ml Balance 250.00 ml 665 ml Intake Free Water 130 ml IV Total 660.00 ml 825 ml Tube Feeding 490 ml 840 ml Other 60 ml Output Urine Total 930 ml 1130 ml Stool Total 30 ml # Bowel Movements 50 Laboratory Tests 03/14/20 05:56: Sodium Level 144, Potassium Level 3.9, Chloride Level 107, Carbon Dioxide Level 32, Anion Gap 5, Blood Urea Nitrogen 14, Creatinine 0.8, Estimat Glomerular Filtration Rate > 60, Glucose Level 128H, Calcium Level 8.6 03/14/20 08:30: White Blood Count 6.8, Red Blood Count 3.23L, Hemoglobin 8.9L, Hematocrit 27.6L , Mean Corpuscular Volume 85, Mean Corpuscular Hemoglobin 27.7, Mean Corpuscular Hemoglobin Concent 32.4, Red Cell Distribution Width 15.8H, Platelet Count 245, Mean Platelet Volume 6.7, Neutrophils (%) (Auto) 58.0, Lymphocytes (%) (Auto) 28.9, Monocytes (%) (Auto) 7.7, Eosinophils (%) (Auto) 5.0H, Basophils (%) (Auto) 0.4 03/14/20 09:35: Arterial Blood pH 7.386, Arterial Blood Partial Pressure CO2 55.2*H, Arterial Blood Partial Pressure O2 126.1H, Arterial Blood HCO3 32.4H, Arterial Blood Oxygen Saturation 97.9, Arterial Blood Base Excess 6.3H, Chandan Test Positive Height (Feet): 6 Height (Inches): 2.00 Weight (Pounds): 190 General Appearance: lethargic Cardiovascular: regular rhythm Respiratory/Chest: rhonchi - bilaterally Abdomen: soft Extremities: no edema Neurologic: unresponsive Raffaele Ocampo MD March 14, 2020 18:25
--- NOTE | 2020-03-14 19:04 | NUR ---
HAND-OFF: Report given to MARGARITA Garcia.
--- NOTE | 2020-03-14 19:24 | NUR ---
NURSE NOTES: received report from jacqueline de los santos pt on ra o2 sat 96 %no acute rest distress noted tolerating tube feeding no residual iv infusing well site dressing good dressing dry and intact dawn to bedside drainage with good urinary output reposition and suction
[2020-03-14] MEDS: Dyna-Hex 2% Top Sol 2oz TOPIC SCH (20:00)
--- NOTE | 2020-03-14 22:00 | NUR ---
NURSE NOTES: reposition and suction no acute resp distress noted
[2020-03-15] VITALS (15 sets, daily range): BP systolic 113–134; BP diastolic 59–74
--- NOTE | 2020-03-15 | NUR ---
NURSE NOTES: asleep no acute resp distress
--- NOTE | 2020-03-15 02:00 | NUR ---
NURSE NOTES: complete bed bath oral care back care and wound care done
--- NOTE | 2020-03-15 04:00 | NUR ---
NURSE NOTES: reposition and suction
--- NOTE | 2020-03-15 04:45 | Progress Note ---
DATE: 03/14/2020 CARDIOLOGY PROGRESS NOTE SUBJECTIVE: The patient remains on BiPAP support. Continues to have sinus tachycardia. Continues to have blood pressure in the low normal range. Tachypnea and requirement of 40% FiO2 persists. PHYSICAL EXAMINATION: VITAL SIGNS: Blood pressure 110/51, pulse 108, respiratory rate 24. LUNGS: Bilateral breath sounds. Rhonchi. CARDIAC: Regular rhythm. Rapid rate. Normal S1, S2. ABDOMEN: Soft. EXTREMITIES: Trace edema. LABORATORY DATA: White count 6.8, hemoglobin 8.9. Sodium 144, potassium 3.9, bicarb 32, BUN 14, creatinine 0.8. ABG 7.38, 55, 126. Venous duplex scan, partial DVT in the right femoral vein. IMPRESSION: 1. Respiratory failure. 2. Sepsis with shock, recovering. 3. Acute DVT. 4. Suspected sinus tachycardia. 5. Respiratory failure. 6. Acute and chronic respiratory acidosis. 7. Hyponatremia. 8. Acute renal failure. 9. Status post cardiopulmonary arrest. 10. Acute myocardial ischemia. PLAN: 1. Antimicrobials. 2. Full anticoagulation. 3. Respiratory hygiene. 4. Follow up chest x-ray. 5. Trend natriuretic peptide assay. 6. Off pressors. 7. Remains with serious condition and guarded prognosis. Yfn Luna M.D. DR: HASMUKH JOB#: [id number] CC:
[2020-03-15] MEDS: NovoLOG Insulin Flexpen SUBQ SCH ×4 (06:00→23:48)
--- NOTE | 2020-03-15 07:37 | NUR ---
HAND-OFF: Report given to .kojo de los santos using sbar
--- NOTE | 2020-03-15 08:00 | NUR ---
NURSE NOTES: Received report from Analia Ramirez RN. Patient awake in bed, responsive to verbal stimuli, able to follow simple commands but unable to make needs known. 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 On room air, respirations even and unlabored. GT feeding held for dilantin. Rectal tube in place. Penaloza catheter dislodged, reinserted 16Fr catheter using sterile technique. Right IJ TLC infusing D5W @ 50 cc/hr, asymptomatic. Bed locked in lowest position with padded side rails up x 3. All needs attended to. Call light within reach. Will continue to monitor.
[2020-03-15 08:35] LABS: BASOPHILS % (AUTO) 0.5 % (0.0-2.0); EOSINOPHILS % (AUTO) 3.9 % (0.0-3.0); HEMATOCRIT 30.6 % (42.0-52.0); LYMPHOCYTES % (AUTO) 24.8 % (20.0-45.0); MEAN CORPUSCULAR VOLUME 85 FL (80-99); MONOCYTES % (AUTO) 4.6 % (1.0-10.0); NEUTROPHILS % (AUTO) 66.2 % (45.0-75.0); PLATELET COUNT 274 K/UL (150-450); RED CELL DISTRIBUTION WIDTH 15.8 % (11.6-14.8); WHITE BLOOD COUNT 10.7 K/UL (4.8-10.8)
[2020-03-15 08:59] LABS: ALANINE AMINOTRANSFERASE 34 U/L (12-78); ALBUMIN/GLOBULIN RATIO 0.3 (1.0-2.7); ALKALINE PHOSPHATASE 212 U/L (46-116); ANION GAP 8 mmol/L (5-15); ASPARTATE AMINO TRANSFERASE 41 U/L (15-37); BILIRUBIN,TOTAL 0.3 MG/DL (0.2-1.0); BLOOD UREA NITROGEN 13 mg/dL (7-18); CALCIUM 8.9 MG/DL (8.5-10.1); CARBON DIOXIDE 29 MMOL/L (21-32); CHLORIDE 104 MMOL/L (98-107); CREATININE 0.9 MG/DL (0.55-1.30); POTASSIUM 4.2 MMOL/L (3.5-5.1); SODIUM 141 MMOL/L (136-145)
[2020-03-15] MEDS ORDERED: Eliquis 5mg tablet GT SCH (09:00)
[2020-03-15] MEDS ORDERED: Ascorbic Acid 500mg tab GT SCH (09:00)
[2020-03-15] MEDS: Levofloxacin 750mg tab GT SCH (09:09)
[2020-03-15] MEDS: Phenytoin Susp 100mg/4ml GT SCH ×2 (09:10→23:44)
[2020-03-15] MEDS: levETIRAcetam 500mg/5ml Liquid GT SCH ×2 (09:10→23:44)
[2020-03-15] MEDS: Acetaminophen 650mg/20.3ml GT PRN (09:27)
--- NOTE | 2020-03-15 09:27 | NUR ---
NURSE NOTES: Patient noted to be hot to touch. Temp taken orally and noted with fever of 100.6F. PRN acetaminophen given as ordered and cooling measure provided. Will continue to monitor.
[2020-03-15] MEDS: Phenylephrine 50 MG in D5W 245 ML IV SCH (10:15)
--- NOTE | 2020-03-15 10:21 | General Progress Note ---
Assessment/Plan Assessment/Plan: IMPRESSION: 1. Septic shock. 2. Hypotension. 3. Tachycardia. 4. Respiratory failure. 5. Hypoxemia. 6. Seizure disorder. 7. Hyperlipidemia. 8. Hypernatremia. 9. Acute renal failure. 10. Pulmonary edema. 11. Possible COVID. 12. pleural effusion PLAN monitor hemodynamics monitor respiratory status iv antibiotics ID follow up maintain feeds off load still critical watch off pressors feeds off COVID isolation transfer to [place] impression, plan, and exam edited and reviewed in detail care discussed with RN Subjective ROS Limited/Unobtainable: Yes Allergies: Coded Allergies: HYDROCODONE (Verified Allergy, Unknown, 07/04/17) Subjective off vent off BIPAP hemodynamics stable on feeds off oxygen Objective Last 24 Hour Vital Signs Date Time Temp Pulse Resp B/P (MAP) Pulse Ox O2 Delivery O2 Flow Rate FiO2 03/15/20 09:57 100.2 03/15/20 07:00 121 46 131/65 (87) 96 03/15/20 06:00 119 44 117/68 (84) 95 03/15/20 05:00 118 43 113/67 (82) 94 03/15/20 04:00 98.6 118 42 130/71 (90) 96 03/15/20 04:00 116 03/15/20 04:00 Bi-pap Bi-pap 03/15/20 03:00 118 41 132/63 (86) 96 03/15/20 02:00 121 45 124/67 (86) 96 03/15/20 01:00 110 46 132/67 (88) 96 03/15/20 01:00 111 46 125/73 (90) 95 03/15/20 00:00 110 46 132/67 (88) 96 03/15/20 00:00 111 03/15/20 00:00 Bi-pap Bi-pap 03/14/20 23:00 109 43 131/68 (89) 96 03/14/20 22:00 110 41 134/70 (91) 96 03/14/20 21:00 110 40 130/67 (88) 96 03/14/20 20:05 96 Room Air 21 03/14/20 20:00 Bi-pap Bi-pap 03/14/20 20:00 104 03/14/20 20:00 98.5 107 41 124/65 (84) 97 03/14/20 19:00 108 39 126/68 (87) 96 03/14/20 18:00 109 35 127/68 (87) 95 03/14/20 17:00 109 41 128/65 (86) 96 03/14/20 16:00 99.1 110 32 126/65 (85) 95 03/14/20 16:00 Bi-pap Bi-pap 03/14/20 16:00 101 03/14/20 15:00 108 32 124/66 (85) 92 03/14/20 14:00 107 23 121/69 (86) 95 03/14/20 13:00 107 22 124/60 (81) 94 03/14/20 12:00 113 03/14/20 12:00 98.5 109 23 111/52 (71) 93 03/14/20 12:00 Bi-pap Bi-pap 03/14/20 11:00 112 30 107/53 (71) 97 03/14/20 10:45 97 Intake and Output 03/14/20 03/15/20 19:00 07:00 Intake Total 1460.000 ml 1500 ml Output Total 1670 ml 1950 ml Balance -210.000 ml -450 ml Intake Free Water 90 ml 150 ml IV Total 950.000 ml 650 ml Tube Feeding 420 ml 700 ml Output Urine Total 1650 ml 1950 ml Stool Total 20 ml # Bowel Movements 50 Laboratory Tests 03/15/20 07:30: White Blood Count 10.7#, Red Blood Count 3.60L, Hemoglobin 10.0L, Hematocrit 30.6L, Mean Corpuscular Volume 85, Mean Corpuscular Hemoglobin 27.8, Mean Corpuscular Hemoglobin Concent 32.7, Red Cell Distribution Width 15.8H, Platelet Count 274, Mean Platelet Volume 6.3L, Neutrophils (%) (Auto) 66.2, Lymphocytes (%) (Auto) 24.8, Monocytes (%) (Auto) 4.6, Eosinophils (%) (Auto) 3.9H, Basophils (%) (Auto) 0.5, Sodium Level 141, Potassium Level 4.2, Chloride Level 104, Carbon Dioxide Level 29, Anion Gap 8, Blood Urea Nitrogen 13, Creatinine 0.9, Estimat Glomerular Filtration Rate > 60, Glucose Level 114H, Calcium Level 8.9, Magnesium Level 1.7L, Total Bilirubin 0.3, Aspartate Amino Transf (AST/SGOT) 41H, Alanine Aminotransferase (ALT/SGPT) 34, Alkaline Phosphatase 212H, Pro-B-Type Natriuretic Peptide 170H, Total Protein 8.7H, Albumin 2.0L, Globulin 6.7, Albumin/Globulin Ratio 0.3L Height (Feet): 6 Height (Inches): 2.00 Weight (Pounds): 204 Objective GENERAL: Ill-appearing male. reduced breath sounds RRR NABS nontender no CCE off BIPAP German Matthews MD March 15, 2020 10:21
--- NOTE | 2020-03-15 10:50 | NUR ---
NURSE NOTES: Dr. Mathtews at bedside and updated on patient's status. Also reported magnesium level of 1.7. Received order to infuse 2g magnesium sulfate IV x 1 and transfer patient to telemetry.
--- NOTE | 2020-03-15 11:31 | Infectious Diseases Prog Note ---
"Assessment/Plan Assessment/Plan antibiotics : levoquin A 1. pseudomonas | MRSA pneumonia 2. COVID 19 test negative x 2, 5.5.20, 5.9.20 3. respiratory failure 4. renal failure resolved 5. shock resolved 6. hypertension 7. seizures 8. leucocytosis resolved P 1. continue po levoquin 2 more days 2. will follow up cultures Subjective ROS Limited/Unobtainable: Yes Allergies: Coded Allergies: HYDROCODONE (Verified Allergy, Unknown, 07/04/17) Objective Vital Signs Last 24 Hour Vital Signs Date Time Temp Pulse Resp B/P (MAP) Pulse Ox O2 Delivery O2 Flow Rate FiO2 03/15/20 10:15 123 132/63 03/15/20 10:00 123 37 132/63 (86) 96 03/15/20 09:57 100.2 03/15/20 09:00 123 39 128/59 (82) 97 03/15/20 08:12 97 Room Air 21 03/15/20 08:00 99.5 122 39 134/61 (85) 97 03/15/20 08:00 Room Air Room Air 03/15/20 07:00 121 46 131/65 (87) 96 03/15/20 06:00 119 44 117/68 (84) 95 03/15/20 05:00 118 43 113/67 (82) 94 03/15/20 04:00 98.6 118 42 130/71 (90) 96 03/15/20 04:00 116 03/15/20 04:00 Bi-pap Bi-pap 03/15/20 03:00 118 41 132/63 (86) 96 03/15/20 02:00 121 45 124/67 (86) 96 03/15/20 01:00 110 46 132/67 (88) 96 03/15/20 01:00 111 46 125/73 (90) 95 03/15/20 00:00 110 46 132/67 (88) 96 03/15/20 00:00 111 03/15/20 00:00 Bi-pap Bi-pap 03/14/20 23:00 109 43 131/68 (89) 96 03/14/20 22:00 110 41 134/70 (91) 96 03/14/20 21:00 110 40 130/67 (88) 96 03/14/20 20:05 96 Room Air 21 03/14/20 20:00 Bi-pap Bi-pap 03/14/20 20:00 104 03/14/20 20:00 98.5 107 41 124/65 (84) 97 03/14/20 19:00 108 39 126/68 (87) 96 03/14/20 18:00 109 35 127/68 (87) 95 03/14/20 17:00 109 41 128/65 (86) 96 03/14/20 16:00 99.1 110 32 126/65 (85) 95 03/14/20 16:00 Bi-pap Bi-pap 03/14/20 16:00 101 03/14/20 15:00 108 32 124/66 (85) 92 03/14/20 14:00 107 23 121/69 (86) 95 03/14/20 13:00 107 22 124/60 (81) 94 03/14/20 12:00 113 03/14/20 12:00 98.5 109 23 111/52 (71) 93 03/14/20 12:00 Bi-pap Bi-pap Height (Feet): 6 Height (Inches): 2.00 Weight (Pounds): 204 Respiratory/Chest: lungs clear Cardiovascular: normal rate, regular rhythm, no gallop/murmur Abdomen: soft, non tender, other - GT Extremities: no edema, other - right IJ catheter Laboratory Tests Test 03/15/20 07:30 White Blood Count 10.7 K/UL (4.8-10.8) # Red Blood Count 3.60 M/UL (4.70-6.10) L Hemoglobin 10.0 G/DL (14.2-18.0) L Hematocrit 30.6 % (42.0-52.0) L Mean Corpuscular Volume 85 FL (80-99) Mean Corpuscular Hemoglobin 27.8 PG (27.0-31.0) Mean Corpuscular Hemoglobin Concent 32.7 G/DL (32.0-36.0) Red Cell Distribution Width 15.8 % (11.6-14.8) H Platelet Count 274 K/UL (150-450) Mean Platelet Volume 6.3 FL (6.5-10.1) L Neutrophils (%) (Auto) 66.2 % (45.0-75.0) Lymphocytes (%) (Auto) 24.8 % (20.0-45.0) Monocytes (%) (Auto) 4.6 % (1.0-10.0) Eosinophils (%) (Auto) 3.9 % (0.0-3.0) H Basophils (%) (Auto) 0.5 % (0.0-2.0) Sodium Level 141 MMOL/L (136-145) Potassium Level 4.2 MMOL/L (3.5-5.1) Chloride Level 104 MMOL/L (98-107) Carbon Dioxide Level 29 MMOL/L (21-32) Anion Gap 8 mmol/L (5-15) Blood Urea Nitrogen 13 mg/dL (7-18) Creatinine 0.9 MG/DL (0.55-1.30) Estimat Glomerular Filtration Rate > 60 mL/min (>60) Glucose Level 114 MG/DL (74-106) H Calcium Level 8.9 MG/DL (8.5-10.1) Magnesium Level 1.7 MG/DL (1.8-2.4) L Total Bilirubin 0.3 MG/DL (0.2-1.0) Aspartate Amino Transf (AST/SGOT) 41 U/L (15-37) H Alanine Aminotransferase (ALT/SGPT) 34 U/L (12-78) Alkaline Phosphatase 212 U/L (46-116) H Pro-B-Type Natriuretic Peptide 170 pg/mL (0-125) H Total Protein 8.7 G/DL (6.4-8.2) H Albumin 2.0 G/DL (3.4-5.0) L Globulin 6.7 g/dL Albumin/Globulin Ratio 0.3 (1.0-2.7) L Current Medications Medications (Trade) Dose Ordered Sig/Kolby Route PRN Reason Start Time Stop Time Status Last Admin Dose Admin Acetaminophen (Tylenol) 650 mg Q4H PRN GT Temp >100.5 03/05/20 16:45 04/04/20 16:44 03/15/20 09:27 Apixaban (Eliquis) 5 mg BID GT 03/15/20 09:00 06/13/20 08:59 03/15/20 09:10 Ascorbic Acid (Vitamin C) 250 mg DAILY GT 03/15/20 09:00 04/07/20 08:59 03/15/20 09:10 Chlorhexidine Gluconate (Brandy-Hex 2%) 1 applic DAILY@2000 TOPIC 03/05/20 20:00 06/03/20 19:59 03/14/20 20:00 Dextrose 1,000 ml @ 50 mls/hr Q20H IV 03/14/20 19:00 04/13/20 18:59 03/14/20 19:00 Dextrose (Dextrose 50%) 25 ml Q30M PRN IV Hypoglycemia 03/05/20 14:00 06/03/20 13:59 Dextrose (Dextrose 50%) 50 ml Q30M PRN IV Hypoglycemia 03/05/20 14:00 06/03/20 13:59 Insulin Aspart (NovoLOG) EVERY 6 HOURS SUBQ 03/05/20 18:00 06/03/20 17:59 03/07/20 18:41 Levetiracetam (Keppra) 1,500 mg Q12HR GT 03/05/20 11:45 04/04/20 11:44 03/15/20 09:10 Levofloxacin (Levaquin) 750 mg DAILY GT 03/12/20 09:00 03/17/20 08:59 03/15/20 09:09 Levothyroxine Sodium (Synthroid) 75 mcg ACBREAKFAST GT 03/06/20 06:30 04/05/20 06:29 03/15/20 06:02 Magnesium Sulfate 100 ml @ 100 mls/hr Q1H IVPB 03/15/20 11:00 03/15/20 12:59 03/15/20 11:16 Phenylephrine HCl 50 mg/Dextrose 250 ml @ 0 mls/hr Q24H IV 03/05/20 10:15 04/04/20 10:14 03/07/20 06:01 Phenytoin (Dilantin) 250 mg Q12HR GT 03/05/20 21:00 04/04/20 20:59 03/15/20 09:10 Radha Calle MD March 15, 2020 11:31"
--- NOTE | 2020-03-15 11:55 | NUR ---
TRANSFER TO FLOOR: Patient transferred to telemetry, per Dr. Matthews. Report given to MARGARITA German, using SBAR. Belongings and medications given to receiving nurse. Family informed of transfer.
--- NOTE | 2020-03-15 12:00 | NUR ---
NURSE NOTES: Patient stable AOx1 with no s/sx of pain or distress. Breathing is shallow and tachypnic with diminished breaths sounds. Heart sounds benign. Bounding peripheral pulses. No edema present. Magnesium and D5W running at this time though IJ. Central line dressing needs to be changed. Multiple wounds on patient. Will perform wound care later when camera is available. Gtube flushed and patent. Dressing is dry and intact. Feeding infusing at ordered rate. Penaloza draining well to gravity. Rectal tube is out will reinsert later when patient is turned again and equipment is available. Side rails padded and up x2, suction at bedside, bed low and locked. Will continue to monitor.
--- NOTE | 2020-03-15 12:37 | Diagnostic Imaging Report ---
EXAM: XR Chest, 1 View CLINICAL HISTORY: ABN CHST TECHNIQUE: Frontal view of the chest. COMPARISON: Chest x-rays dated 03/08/20 FINDINGS: Lungs: Improved aeration in the right lung base, with persistent patchy reticular infiltrate. Subsegmental atelectasis versus infiltrate in the left lung base. Pleural space: Interval significant improvement / near resolution of the right pleural effusion. Persistent [id number] left pleural effusion. Heart: Unremarkable. No cardiomegaly. Mediastinum: Unremarkable. Bones/joints: Unremarkable. Tubes, lines and devices: Telemetry leads overlie the thorax. Right IJ central venous catheter with tip at the superior cavoatrial junction. IMPRESSION: 1. Improved aeration in the right lung base, with persistent patchy reticular infiltrate. 2. Interval significant improvement / near resolution of the right pleural effusion. 3. Persistent [id number] left pleural effusion. 4. Subsegmental atelectasis versus infiltrate in the left lung base.
[2020-03-15] MEDS ORDERED: Acetaminophen 650mg/20.3ml GT PRN (12:45)
--- NOTE | 2020-03-15 14:37 | Surgery Progress Note ---
Surgery Progress Note Subjective Additional Comments downgraded improving labs reviewed Objective Last 24 Hour Vital Signs Date Time Temp Pulse Resp B/P (MAP) Pulse Ox O2 Delivery O2 Flow Rate FiO2 03/15/20 12:00 117 03/15/20 12:00 98.5 112 25 117/62 (80) 99 03/15/20 11:00 116 28 130/61 (84) 97 03/15/20 10:15 123 132/63 03/15/20 10:00 123 37 132/63 (86) 96 03/15/20 09:57 100.2 03/15/20 09:00 123 39 128/59 (82) 97 03/15/20 08:15 123 03/15/20 08:12 97 Room Air 21 03/15/20 08:00 99.5 122 39 134/61 (85) 97 03/15/20 08:00 Room Air Room Air 03/15/20 07:00 121 46 131/65 (87) 96 03/15/20 06:00 119 44 117/68 (84) 95 03/15/20 05:00 118 43 113/67 (82) 94 03/15/20 04:00 98.6 118 42 130/71 (90) 96 03/15/20 04:00 116 03/15/20 04:00 Bi-pap Bi-pap 03/15/20 03:00 118 41 132/63 (86) 96 03/15/20 02:00 121 45 124/67 (86) 96 03/15/20 01:00 110 46 132/67 (88) 96 03/15/20 01:00 111 46 125/73 (90) 95 03/15/20 00:00 110 46 132/67 (88) 96 03/15/20 00:00 111 03/15/20 00:00 Bi-pap Bi-pap 03/14/20 23:00 109 43 131/68 (89) 96 03/14/20 22:00 110 41 134/70 (91) 96 03/14/20 21:00 110 40 130/67 (88) 96 03/14/20 20:05 96 Room Air 21 03/14/20 20:00 Bi-pap Bi-pap 03/14/20 20:00 104 03/14/20 20:00 98.5 107 41 124/65 (84) 97 03/14/20 19:00 108 39 126/68 (87) 96 03/14/20 18:00 109 35 127/68 (87) 95 03/14/20 17:00 109 41 128/65 (86) 96 03/14/20 16:00 99.1 110 32 126/65 (85) 95 03/14/20 16:00 Bi-pap Bi-pap 03/14/20 16:00 101 03/14/20 15:00 108 32 124/66 (85) 92 I&O Intake and Output 03/14/20 03/15/20 18:59 06:59 Intake Total 1565.000 ml 1520 ml Output Total 1520 ml 2050 ml Balance 45.000 ml -530 ml Intake Free Water 120 ml 150 ml IV Total 1025.000 ml 600 ml Tube Feeding 420 ml 770 ml Output Urine Total 1500 ml 2050 ml Stool Total 20 ml # Bowel Movements 50 Dressing: saturated Wound: clean Cardiovascular: RSR Respiratory: clear, decreased breath sounds Abdomen: soft, present bowel sounds Extremities: no edema, no tenderness, no cyanosis Laboratory Tests Test 03/15/20 07:30 White Blood Count 10.7 K/UL (4.8-10.8) # Red Blood Count 3.60 M/UL (4.70-6.10) L Hemoglobin 10.0 G/DL (14.2-18.0) L Hematocrit 30.6 % (42.0-52.0) L Mean Corpuscular Volume 85 FL (80-99) Mean Corpuscular Hemoglobin 27.8 PG (27.0-31.0) Mean Corpuscular Hemoglobin Concent 32.7 G/DL (32.0-36.0) Red Cell Distribution Width 15.8 % (11.6-14.8) H Platelet Count 274 K/UL (150-450) Mean Platelet Volume 6.3 FL (6.5-10.1) L Neutrophils (%) (Auto) 66.2 % (45.0-75.0) Lymphocytes (%) (Auto) 24.8 % (20.0-45.0) Monocytes (%) (Auto) 4.6 % (1.0-10.0) Eosinophils (%) (Auto) 3.9 % (0.0-3.0) H Basophils (%) (Auto) 0.5 % (0.0-2.0) Sodium Level 141 MMOL/L (136-145) Potassium Level 4.2 MMOL/L (3.5-5.1) Chloride Level 104 MMOL/L (98-107) Carbon Dioxide Level 29 MMOL/L (21-32) Anion Gap 8 mmol/L (5-15) Blood Urea Nitrogen 13 mg/dL (7-18) Creatinine 0.9 MG/DL (0.55-1.30) Estimat Glomerular Filtration Rate > 60 mL/min (>60) Glucose Level 114 MG/DL (74-106) H Calcium Level 8.9 MG/DL (8.5-10.1) Magnesium Level 1.7 MG/DL (1.8-2.4) L Total Bilirubin 0.3 MG/DL (0.2-1.0) Aspartate Amino Transf (AST/SGOT) 41 U/L (15-37) H Alanine Aminotransferase (ALT/SGPT) 34 U/L (12-78) Alkaline Phosphatase 212 U/L (46-116) H Pro-B-Type Natriuretic Peptide 170 pg/mL (0-125) H Total Protein 8.7 G/DL (6.4-8.2) H Albumin 2.0 G/DL (3.4-5.0) L Globulin 6.7 g/dL Albumin/Globulin Ratio 0.3 (1.0-2.7) L Plan Problems: (1) Respiratory acidosis (2) Seizure disorder (3) Altered mental status (4) Pneumonia Assessment & Plan: New left pleural effusion Improved aeration of the right lung, with persistent consolidation and pleural fluid (5) Cardiopulmonary arrest (6) Hypernatremia (7) Sepsis Assessment & Plan: Pt presented on admission with multiple pressure injuries. Unstageable Pressure injury R Buttocks. Base of wound is 100% necrotic. Sacrum, R and L Gluteal cheeks maroon with multiple partial thickness wounds with surrounding denuded and macerated skin. Dry, black borders noted Unstageable pressure injury R thoracic. Base of wound is 100% necrotic but dry. No erythema induration or fluctuance periwound. Full thickness stage 3 pressure injury R heel. Base of wound is beefy red with macerated borders. periwound is necrotic and fluctuant. Full thickness stage 3 pressure injury R Hallux. Base of wound is beefy red with surrounding pink granulation. Dry black borders noted. Loose dry eschar noted to L heel. Hyperpigmentation noted to R and L lateral Malleoli. unlikely etiology of sepsis will monitor Pt presented with generalized edema.R hand contracture noted .R hand dusky in colour . R 5th digit /R thumb black at tip of finger. At base of of R thumb including dorsal R hand and R wrist is large wound that is 50% necrotic .50% taty. with loose edges. Small amt serosanguineous exudate noted. At circumference of R first digit/index finger is large open Blister with loose skin flap . base of wound is taty. Necrotic area noted at tip of index finger. Detached nail matrix and epidermis of R middle digit/3rd digit . Fingertip is taty and moist,minimal sanguineous exudate.Tips of R ring finger and R 5th digit is black. Unable to accurately assess web spaces of digits on R hand secondary to gross edema, and pt became distressed at any attempt to separate digits. R hand washed with tepid water and mild soap and patted dry. Each digit and wounds swabbed with Betadine. Xeroform gauze weaved between each digit of R hand and to R wrist and dorsal R hand. Soft Kerlix roll then placed in palm of hand to support contracture. Abd placed over wounds and R hand wrapped loosely with Kerlix until further instructed by Surgeon. R hand elevated on two pillows. Tx.Plan: Keep R Hand elevated with 2 Pillows. Tx.Plan: Cleanse Sacral area with Saline.Apply Therahoney. Apply Moisture Barrier Paste periwound. Cover with Optifoam drsgs. Change Daily and Prn. Cleanse wound R thoracic with Saline. Apply TheraHoney. Apply Cavilon Skin Barrier Periwound. Cover with Optifoam drsg.Change every 3 days and prn. Cleanse wound R heel with Saline. Apply TheraHoney. Apply Cavilon Skin Barrier Periwound. Cover with Optifoam drsg. Change every 3 days and prn. Cleanse R Hallux with Saline. Apply Therahoney. Apply Cavilon Skin Barrier Periwound. Cover with Optifoam drsg. Change every 3 days and prn. Apply Cavilon Skin Barrier to L Heel. Cover with Optifoam drsg. Change every 7 days and prn. Reposition at least every 2hours or as tolerated. Place Pillow between knees. Off-load heels with Pillow. APM/NORM Mattress overlay. DAILY ESTIMATED NEEDS: Needs based on Critical care, wounds 78.6abw 22-30 kcals/kg 6847-9425 total kcals 1.25-2 g protein/kg 98-157 g total protein 25-30 mL/kg 6785-0456 total fluid mLs NUTRITION DIAGNOSIS: Increased kcal and pro needs r/t wound care as evidenced by pt w/ full thickness wounds x2, unstageable wounds x2, refer to WC eval. CURRENT TF:Glucerna 1.5 @70ml/hr x18 hrs ENTERAL NUTRITION RECOMMENDATIONS: Glucerna 1.5 @70ml/hr x18 hrs to provide 1260ml, 1890 kcal, 104g pro, 956ml free H2O - W/ HD stability, continue current TF - HOLD TF 1 HOUR BEFORE AND AFTER SYNTHROID(QD) AND DILANTIN(BID), tf to run a max of 18 hrs - Flush per MD , HOB over 30 degrees WITHOUT HEMODYNAMIC STABILITY: rec trophic feeds of Glucerna 1.5 @5-10ml/hr to maintain gut integrity. ADDITIONAL RECOMMENDATIONS: 1) Wound care: add AJIT BID + Vit C 250mg daily 2) Per SNF: 69inches, 212lbs/96.36kg Maintain calibrated daily wts 3) Feed when hemodynamically stable, do not feed in the prone position -> pressors held at this time 4) Monitor lytes, replete as needed (8) ACE (acute kidney injury) Gary Vicente March 15, 2020 14:37
[2020-03-15] MEDS: Eliquis 5mg tablet GT SCH (17:53)
--- NOTE | 2020-03-15 18:00 | NUR ---
NURSE NOTES: Patient deep suctioned due to audible rhonchi. Improved breath sounds now. Central line dressing changed with stat lock due to stitching no longer in place.
--- NOTE | 2020-03-15 19:15 | NUR ---
HAND-OFF: Report given to Aubrie Treviño RN. Patient stable. Plan of care endorsed.
--- NOTE | 2020-03-15 19:40 | NUR ---
NURSE NOTES: Received report from Monserrat AVILA, Patient stable AOx1 with no s/sx of pain or distress. Breathing is shallow and tachypneic with diminished breaths sounds especially in lower lobes. Oxygen saturation 91%. Will place on 2L NC. No edema present. D5W running at this time though IJ. Central line dressing dry and intact. Multiple wounds on patient with dressings dry and intact at this time. Gtube flushed and patent. Dressing is dry and intact. Feeding infusing Glucerna 1.5 at 70 ml/h. Penaloza draining well to gravity. Rectal tube in place. Side rails padded and up x2, suction at bedside, bed low and locked. HOB up for aspiration precautions. Will continue to monitor.
--- NOTE | 2020-03-15 20:00 | Nephrology Progress Note ---
Assessment/Plan Problem List: (1) Hypernatremia (2) ACE (acute kidney injury) (3) Cardiopulmonary arrest (4) Respiratory acidosis (5) Seizure disorder (6) Altered mental status (7) Pneumonia (8) Sepsis (9) Hypomagnesemia Plan iv hypotonic Na better, replace Mg Subjective ROS Limited/Unobtainable: Yes Objective Objective Last 24 Hour Vital Signs Date Time Temp Pulse Resp B/P (MAP) Pulse Ox O2 Delivery O2 Flow Rate FiO2 03/15/20 16:00 98.2 120 30 124/70 (88) 98 03/15/20 16:00 116 03/15/20 12:00 117 03/15/20 12:00 98.5 112 25 117/62 (80) 99 03/15/20 11:00 116 28 130/61 (84) 97 03/15/20 10:15 123 132/63 03/15/20 10:00 123 37 132/63 (86) 96 03/15/20 09:57 100.2 03/15/20 09:00 123 39 128/59 (82) 97 03/15/20 08:15 123 03/15/20 08:12 97 Room Air 21 03/15/20 08:00 99.5 122 39 134/61 (85) 97 03/15/20 08:00 Room Air Room Air 03/15/20 07:00 121 46 131/65 (87) 96 03/15/20 06:00 119 44 117/68 (84) 95 03/15/20 05:00 118 43 113/67 (82) 94 03/15/20 04:00 98.6 118 42 130/71 (90) 96 03/15/20 04:00 116 03/15/20 04:00 Bi-pap Bi-pap 03/15/20 03:00 118 41 132/63 (86) 96 03/15/20 02:00 121 45 124/67 (86) 96 03/15/20 01:00 110 46 132/67 (88) 96 03/15/20 01:00 111 46 125/73 (90) 95 03/15/20 00:00 110 46 132/67 (88) 96 03/15/20 00:00 111 03/15/20 00:00 Bi-pap Bi-pap 03/14/20 23:00 109 43 131/68 (89) 96 03/14/20 22:00 110 41 134/70 (91) 96 03/14/20 21:00 110 40 130/67 (88) 96 03/14/20 20:05 96 Room Air 21 03/14/20 20:00 Bi-pap Bi-pap 03/14/20 20:00 104 03/14/20 20:00 98.5 107 41 124/65 (84) 97 Intake and Output 03/14/20 03/15/20 19:00 07:00 Intake Total 1460.000 ml 1500 ml Output Total 1670 ml 1950 ml Balance -210.000 ml -450 ml Intake Free Water 90 ml 150 ml IV Total 950.000 ml 650 ml Tube Feeding 420 ml 700 ml Output Urine Total 1650 ml 1950 ml Stool Total 20 ml # Bowel Movements 50 Laboratory Tests 03/15/20 07:30: White Blood Count 10.7#, Red Blood Count 3.60L, Hemoglobin 10.0L, Hematocrit 30.6L, Mean Corpuscular Volume 85, Mean Corpuscular Hemoglobin 27.8, Mean Corpuscular Hemoglobin Concent 32.7, Red Cell Distribution Width 15.8H, Platelet Count 274, Mean Platelet Volume 6.3L, Neutrophils (%) (Auto) 66.2, Lymphocytes (%) (Auto) 24.8, Monocytes (%) (Auto) 4.6, Eosinophils (%) (Auto) 3.9H, Basophils (%) (Auto) 0.5, Sodium Level 141, Potassium Level 4.2, Chloride Level 104, Carbon Dioxide Level 29, Anion Gap 8, Blood Urea Nitrogen 13, Creatinine 0.9, Estimat Glomerular Filtration Rate > 60, Glucose Level 114H, Calcium Level 8.9, Magnesium Level 1.7L, Total Bilirubin 0.3, Aspartate Amino Transf (AST/SGOT) 41H, Alanine Aminotransferase (ALT/SGPT) 34, Alkaline Phosphatase 212H, Pro-B-Type Natriuretic Peptide 170H, Total Protein 8.7H, Albumin 2.0L, Globulin 6.7, Albumin/Globulin Ratio 0.3L Height (Feet): 6 Height (Inches): 2.00 Weight (Pounds): 204 General Appearance: lethargic Cardiovascular: regular rhythm, tachycardia Respiratory/Chest: rhonchi - bilaterally Abdomen: non tender Extremities: no edema Neurologic: unresponsive Raffaele Ocampo MD March 15, 2020 20:00
[2020-03-15] MEDS: Dyna-Hex 2% Top Sol 2oz TOPIC SCH (23:43)
[2020-03-16] VITALS: BP 119/71
--- NOTE | 2020-03-16 00:30 | Progress Note ---
DATE: 03/15/2020 CARDIOLOGY PROGRESS NOTE SUBJECTIVE: The patient remains tachycardic and tachypneic. OBJECTIVE: VITAL SIGNS: Blood pressure 131/65, pulse 121, respirations 46, and temperature 100.2. LUNGS: Bilateral breath sounds. Rhonchi. CARDIAC: Regular rhythm. Rapid rate. Normal S1 and S2. ABDOMEN: Soft. EXTREMITIES: No edema. LABORATORY DATA: White count 10.7 and hemoglobin 10. Potassium 4.2, BUN 13, creatinine 0.9. Magnesium 1.7. Pro-natriuretic peptide is only ____. Chest x-ray today reveals improved right basilar infiltrate and effusion, moderate left pleural effusion and atelectasis. IMPRESSION: 1. Sepsis with recovering shock. 2. Respiratory failure, status post extubation. 3. Hypomagnesemia. 4. Severe protein-calorie malnutrition. 5. Acute on chronic diastolic congestive heart failure, now compensated. 6. Tachypnea and tachycardia suggestive of ongoing pulmonary process. 7. Acute DVT, possible pulmonary embolus. 8. Status post cardiopulmonary arrest. PLAN: 1. Respiratory hygiene. 2. Aspiration precautions. 3. Possible thoracentesis on the left. 4. Continue full anticoagulation. 5. Volume support as needed. 6. Remains serious and guarded. Yfn Luna M.D. DR: MARIA G JOB#: [id number] CC:
[2020-03-16 04:00] VITALS: BP 121/67
[2020-03-16] MEDS: NovoLOG Insulin Flexpen SUBQ SCH ×4 (06:00→23:30)
[2020-03-16 07:16] LABS: BASOPHILS % (AUTO) 0.4 % (0.0-2.0); EOSINOPHILS % (AUTO) 4.2 % (0.0-3.0); HEMATOCRIT 28.2 % (42.0-52.0); HEMOGLOBIN 9.4 G/DL (14.2-18.0); LYMPHOCYTES % (AUTO) 26.9 % (20.0-45.0); MEAN CORPUSCULAR VOLUME 83 FL (80-99); MONOCYTES % (AUTO) 5.9 % (1.0-10.0); NEUTROPHILS % (AUTO) 62.7 % (45.0-75.0); PLATELET COUNT 260 K/UL (150-450); RED BLOOD COUNT 3.39 M/UL (4.70-6.10); RED CELL DISTRIBUTION WIDTH 15.5 % (11.6-14.8); WHITE BLOOD COUNT 10.6 K/UL (4.8-10.8)
[2020-03-16 07:44] LABS: ALANINE AMINOTRANSFERASE 27 U/L (12-78); ALBUMIN/GLOBULIN RATIO 0.3 (1.0-2.7); ALKALINE PHOSPHATASE 199 U/L (46-116); ANION GAP 8 mmol/L (5-15); ASPARTATE AMINO TRANSFERASE 27 U/L (15-37); BILIRUBIN,TOTAL 0.4 MG/DL (0.2-1.0); BLOOD UREA NITROGEN 13 mg/dL (7-18); CARBON DIOXIDE 29 MMOL/L (21-32); CHLORIDE 105 MMOL/L (98-107); CREATININE 0.8 MG/DL (0.55-1.30); POTASSIUM 3.8 MMOL/L (3.5-5.1); SODIUM 142 MMOL/L (136-145)
--- NOTE | 2020-03-16 07:50 | NUR ---
NURSE NOTES: Patient stable AOx1 with no s/sx of pain or distress. Breathing is shallow and tachypnic with diminished breaths sounds. Oxygen saturation 91%. Will place on 2L NC. Heart sounds benign. Bounding peripheral pulses. No edema present. D5W running at this time though IJ. Central line dressing dry and intact. Multiple wounds on patient with dressings dry and intact at this time. Gtube flushed and patent. Dressing is dry and intact. Feeding infusing held at this time due to Synthroid administration. Penaloza draining well to gravity. Rectal tube appears to be in place. Side rails padded and up x2, suction at bedside, bed low and locked. Will continue to monitor.
[2020-03-16 08:00] VITALS: BP 126/63
--- NOTE | 2020-03-16 08:25 | NUR ---
HAND-OFF: Report given to Monserrat Grubbs RN.
[2020-03-16] MEDS: levETIRAcetam 500mg/5ml Liquid GT SCH ×2 (08:37→20:44)
[2020-03-16] MEDS: Ascorbic Acid 500mg tab GT SCH (08:38)
[2020-03-16] MEDS: Phenytoin Susp 100mg/4ml GT SCH ×2 (08:38→20:44)
[2020-03-16] MEDS: Magnesium Oxide 400mg tab GT SCH ×3 (08:38→17:10)
[2020-03-16] MEDS: Eliquis 5mg tablet GT SCH ×2 (08:39→17:10)
[2020-03-16] MEDS ORDERED: Levofloxacin 750mg tab GT SCH (09:00)
[2020-03-16 12:00] VITALS: BP 111/68
--- NOTE | 2020-03-16 12:51 | Surgery Progress Note ---
Surgery Progress Note Subjective Additional Comments Patient seen and examined. Discussed with nursing staff. Becoming very difficult given the size of the wound and the appearance and location for current dressing methods. Wound cleansed and changed as below. Objective Last 24 Hour Vital Signs Date Time Temp Pulse Resp B/P (MAP) Pulse Ox O2 Delivery O2 Flow Rate FiO2 03/16/20 12:00 98.1 113 30 111/68 (82) 96 03/16/20 09:00 Nasal Cannula 2.0 Nasal Cannula 2.0 03/16/20 08:00 98.4 109 30 126/63 (84) 91 03/16/20 08:00 111 03/16/20 04:00 120 03/16/20 04:00 98.2 120 36 121/67 (85) 93 03/16/20 00:00 114 03/16/20 00:00 99.5 126 24 119/71 (87) 97 03/15/20 21:00 Room Air Room Air 03/15/20 20:35 118 20 97 Room Air 21 03/15/20 20:35 97 Room Air 21 03/15/20 20:00 117 03/15/20 20:00 100.2 125 40 133/74 (93) 98 03/15/20 16:00 98.2 120 30 124/70 (88) 98 03/15/20 16:00 116 I&O Intake and Output 03/15/20 03/16/20 19:00 07:00 Intake Total 1288.333 ml Output Total 800 ml Balance 488.333 ml IV Total 698.333 ml Tube Feeding 490 ml Other 100 ml Output Urine Total 800 ml # Voids 1 # Bowel Movements 1 1 Dressing: saturated Wound: other Drains: other Cardiovascular: RSR Respiratory: decreased breath sounds Abdomen: soft, non-tender, present bowel sounds Extremities: no cyanosis Laboratory Tests Test 03/16/20 06:50 White Blood Count 10.6 K/UL (4.8-10.8) Red Blood Count 3.39 M/UL (4.70-6.10) L Hemoglobin 9.4 G/DL (14.2-18.0) L Hematocrit 28.2 % (42.0-52.0) L Mean Corpuscular Volume 83 FL (80-99) Mean Corpuscular Hemoglobin 27.7 PG (27.0-31.0) Mean Corpuscular Hemoglobin Concent 33.2 G/DL (32.0-36.0) Red Cell Distribution Width 15.5 % (11.6-14.8) H Platelet Count 260 K/UL (150-450) Mean Platelet Volume 6.3 FL (6.5-10.1) L Neutrophils (%) (Auto) 62.7 % (45.0-75.0) Lymphocytes (%) (Auto) 26.9 % (20.0-45.0) Monocytes (%) (Auto) 5.9 % (1.0-10.0) Eosinophils (%) (Auto) 4.2 % (0.0-3.0) H Basophils (%) (Auto) 0.4 % (0.0-2.0) Sodium Level 142 MMOL/L (136-145) Potassium Level 3.8 MMOL/L (3.5-5.1) Chloride Level 105 MMOL/L (98-107) Carbon Dioxide Level 29 MMOL/L (21-32) Anion Gap 8 mmol/L (5-15) Blood Urea Nitrogen 13 mg/dL (7-18) Creatinine 0.8 MG/DL (0.55-1.30) Estimat Glomerular Filtration Rate > 60 mL/min (>60) Glucose Level 116 MG/DL (74-106) H Calcium Level 9.0 MG/DL (8.5-10.1) Total Bilirubin 0.4 MG/DL (0.2-1.0) Aspartate Amino Transf (AST/SGOT) 27 U/L (15-37) Alanine Aminotransferase (ALT/SGPT) 27 U/L (12-78) Alkaline Phosphatase 199 U/L (46-116) H Total Protein 8.7 G/DL (6.4-8.2) H Albumin 2.0 G/DL (3.4-5.0) L Globulin 6.7 g/dL Albumin/Globulin Ratio 0.3 (1.0-2.7) L Plan Problems: (1) Respiratory acidosis (2) Seizure disorder (3) Altered mental status (4) Pneumonia Assessment & Plan: New left pleural effusion Improved aeration of the right lung, with persistent consolidation and pleural fluid (5) Cardiopulmonary arrest (6) Hypernatremia (7) Sepsis Assessment & Plan: Pt presented on admission with multiple pressure injuries. Unstageable Pressure injury R Buttocks. Base of wound is 100% necrotic. Sacrum, R and L Gluteal cheeks maroon with multiple partial thickness wounds with surrounding denuded and macerated skin. Dry, black borders noted Unstageable pressure injury R thoracic. Base of wound is 100% necrotic but dry. No erythema induration or fluctuance periwound. Full thickness stage 3 pressure injury R heel. Base of wound is beefy red with macerated borders. periwound is necrotic and fluctuant. Full thickness stage 3 pressure injury R Hallux. Base of wound is beefy red with surrounding pink granulation. Dry black borders noted. Loose dry eschar noted to L heel. Hyperpigmentation noted to R and L lateral Malleoli. unlikely etiology of sepsis will monitor Pt presented with generalized edema.R hand contracture noted .R hand dusky in colour . R 5th digit /R thumb black at tip of finger. At base of of R thumb including dorsal R hand and R wrist is large wound that is 50% necrotic .50% taty. with loose edges. Small amt serosanguineous exudate noted. At circumference of R first digit/index finger is large open Blister with loose skin flap . base of wound is taty. Necrotic area noted at tip of index finger. Detached nail matrix and epidermis of R middle digit/3rd digit . Fingertip is taty and moist,minimal sanguineous exudate.Tips of R ring finger and R 5th digit is black. Unable to accurately assess web spaces of digits on R hand secondary to gross edema, and pt became distressed at any attempt to separate digits. R hand washed with tepid water and mild soap and patted dry. Each digit and wounds swabbed with Betadine. Xeroform gauze weaved between each digit of R hand and to R wrist and dorsal R hand. Soft Kerlix roll then placed in palm of hand to support contracture. Abd placed over wounds and R hand wrapped loosely with Kerlix until further instructed by Surgeon. R hand elevated on two pillows. Continue to monitor is very difficult case. Requiring extensive care. Tx.Plan: Keep R Hand elevated with 2 Pillows. Tx.Plan: Cleanse Sacral area with Saline.Apply Therahoney. Apply Moisture Barrier Paste periwound. Cover with gauze followed by ABD dressing . Change Daily and Prn. Cleanse wound R thoracic with Saline. Apply TheraHoney. Apply Cavilon Skin Barrier Periwound. Cover with ABD drsg.Change every 3 days and prn. Cleanse wound R heel with Saline. Apply TheraHoney. Apply Cavilon Skin Barrier Periwound. Cover with Optifoam drsg. Change every 3 days and prn. Cleanse R Hallux with Saline. Apply Therahoney. Apply Cavilon Skin Barrier Periwound. Cover with Optifoam drsg. Change every 3 days and prn. Apply Cavilon Skin Barrier to L Heel. Cover with Optifoam drsg. Change every 7 days and prn. Reposition at least every 2hours or as tolerated. Place Pillow between knees. Off-load heels with Pillow. APM/NORM Mattress overlay. DAILY ESTIMATED NEEDS: Needs based on Critical care, wounds 78.6abw 22-30 kcals/kg 7054-8063 total kcals 1.25-2 g protein/kg 98-157 g total protein 25-30 mL/kg 9824-8663 total fluid mLs NUTRITION DIAGNOSIS: Increased kcal and pro needs r/t wound care as evidenced by pt w/ full thickness wounds x2, unstageable wounds x2, refer to WC eval. CURRENT TF:Glucerna 1.5 @70ml/hr x18 hrs ENTERAL NUTRITION RECOMMENDATIONS: Glucerna 1.5 @70ml/hr x18 hrs to provide 1260ml, 1890 kcal, 104g pro, 956ml free H2O - W/ HD stability, continue current TF - HOLD TF 1 HOUR BEFORE AND AFTER SYNTHROID(QD) AND DILANTIN(BID), tf to run a max of 18 hrs - Flush per MD , HOB over 30 degrees WITHOUT HEMODYNAMIC STABILITY: rec trophic feeds of Glucerna 1.5 @5-10ml/hr to maintain gut integrity. ADDITIONAL RECOMMENDATIONS: 1) Wound care: add AJIT BID + Vit C 250mg daily 2) Per SNF: 69inches, 212lbs/96.36kg Maintain calibrated daily wts 3) Feed when hemodynamically stable, do not feed in the prone position -> pressors held at this time 4) Monitor lytes, replete as needed (8) ACE (acute kidney injury) Gary Vicente March 16, 2020 12:51
--- NOTE | 2020-03-16 13:11 | Infectious Diseases Prog Note ---
Assessment/Plan Assessment/Plan A: 1. Pneumonia with MRSA & Pseudomonas 2. Respiratory failure. resolved 3. Hypertension. 4. CVA. 5. Seizures. 6. Septic shock. 7. Anemia 8. Diarrhea, C. difficile: negative PLAN: 1. Continue Levaquin X 1 day Subjective ROS Limited/Unobtainable: Yes Allergies: Coded Allergies: HYDROCODONE (Verified Allergy, Unknown, 07/04/17) Objective Vital Signs Last 24 Hour Vital Signs Date Time Temp Pulse Resp B/P (MAP) Pulse Ox O2 Delivery O2 Flow Rate FiO2 03/16/20 12:00 98.1 113 30 111/68 (82) 96 03/16/20 09:00 Nasal Cannula 2.0 Nasal Cannula 2.0 03/16/20 08:00 98.4 109 30 126/63 (84) 91 03/16/20 08:00 111 03/16/20 04:00 120 03/16/20 04:00 98.2 120 36 121/67 (85) 93 03/16/20 00:00 114 03/16/20 00:00 99.5 126 24 119/71 (87) 97 03/15/20 21:00 Room Air Room Air 03/15/20 20:35 118 20 97 Room Air 21 03/15/20 20:35 97 Room Air 21 03/15/20 20:00 117 03/15/20 20:00 100.2 125 40 133/74 (93) 98 03/15/20 16:00 98.2 120 30 124/70 (88) 98 03/15/20 16:00 116 Height (Feet): 6 Height (Inches): 2.00 Weight (Pounds): 208 General Appearance: no acute distress Respiratory/Chest: lungs clear, other - oxygen by nasal cannula Cardiovascular: tachycardia, other - RIJ central line Abdomen: soft, non tender, other - GT feeding, Rectal tube Extremities: other - edema of arms Skin: ulcers Neurologic/Psychiatric: alert, responsive Laboratory Tests Test 03/16/20 06:50 White Blood Count 10.6 K/UL (4.8-10.8) Red Blood Count 3.39 M/UL (4.70-6.10) L Hemoglobin 9.4 G/DL (14.2-18.0) L Hematocrit 28.2 % (42.0-52.0) L Mean Corpuscular Volume 83 FL (80-99) Mean Corpuscular Hemoglobin 27.7 PG (27.0-31.0) Mean Corpuscular Hemoglobin Concent 33.2 G/DL (32.0-36.0) Red Cell Distribution Width 15.5 % (11.6-14.8) H Platelet Count 260 K/UL (150-450) Mean Platelet Volume 6.3 FL (6.5-10.1) L Neutrophils (%) (Auto) 62.7 % (45.0-75.0) Lymphocytes (%) (Auto) 26.9 % (20.0-45.0) Monocytes (%) (Auto) 5.9 % (1.0-10.0) Eosinophils (%) (Auto) 4.2 % (0.0-3.0) H Basophils (%) (Auto) 0.4 % (0.0-2.0) Sodium Level 142 MMOL/L (136-145) Potassium Level 3.8 MMOL/L (3.5-5.1) Chloride Level 105 MMOL/L (98-107) Carbon Dioxide Level 29 MMOL/L (21-32) Anion Gap 8 mmol/L (5-15) Blood Urea Nitrogen 13 mg/dL (7-18) Creatinine 0.8 MG/DL (0.55-1.30) Estimat Glomerular Filtration Rate > 60 mL/min (>60) Glucose Level 116 MG/DL (74-106) H Calcium Level 9.0 MG/DL (8.5-10.1) Total Bilirubin 0.4 MG/DL (0.2-1.0) Aspartate Amino Transf (AST/SGOT) 27 U/L (15-37) Alanine Aminotransferase (ALT/SGPT) 27 U/L (12-78) Alkaline Phosphatase 199 U/L (46-116) H Total Protein 8.7 G/DL (6.4-8.2) H Albumin 2.0 G/DL (3.4-5.0) L Globulin 6.7 g/dL Albumin/Globulin Ratio 0.3 (1.0-2.7) L Current Medications Medications (Trade) Dose Ordered Sig/Kolby Route PRN Reason Start Time Stop Time Status Last Admin Dose Admin Acetaminophen (Tylenol) 650 mg Q4H PRN GT Temp >100.5 03/15/20 12:45 04/04/20 16:44 Apixaban (Eliquis) 5 mg BID GT 03/15/20 18:00 06/13/20 08:59 03/16/20 08:39 Ascorbic Acid (Vitamin C) 250 mg DAILY GT 03/16/20 09:00 04/07/20 08:59 03/16/20 08:38 Chlorhexidine Gluconate (Brandy-Hex 2%) 1 applic DAILY@2000 TOPIC 03/15/20 20:00 06/03/20 19:59 03/15/20 23:43 Dextrose 1,000 ml @ 50 mls/hr Q20H IV 03/15/20 12:15 04/13/20 18:59 03/16/20 08:39 Dextrose (Dextrose 50%) 25 ml Q30M PRN IV Hypoglycemia 03/15/20 12:30 06/03/20 13:59 Dextrose (Dextrose 50%) 50 ml Q30M PRN IV Hypoglycemia 03/15/20 12:30 06/03/20 13:59 Insulin Aspart (NovoLOG) EVERY 6 HOURS SUBQ 03/15/20 18:00 06/03/20 17:59 Levetiracetam (Keppra) 1,500 mg Q12HR GT 03/15/20 21:00 04/04/20 11:44 03/16/20 08:37 Levofloxacin (Levaquin) 750 mg DAILY GT 03/16/20 09:00 03/17/20 08:59 03/16/20 08:38 Levothyroxine Sodium (Synthroid) 75 mcg ACBREAKFAST GT 03/16/20 06:30 04/05/20 06:29 03/16/20 06:30 Magnesium Oxide (Mag-Ox 400mg) 400 mg THREE TIMES A DAY GT 03/16/20 09:00 04/15/20 08:59 03/16/20 08:38 Phenytoin (Dilantin) 250 mg Q12HR GT 03/15/20 21:00 04/04/20 20:59 03/16/20 08:38 Xavi Earl MD March 16, 2020 13:11
--- NOTE | 2020-03-16 14:38 | General Progress Note ---
Assessment/Plan Assessment/Plan: IMPRESSION: 1. Septic shock. 2. Hypotension. 3. Tachycardia. 4. Respiratory failure. 5. Hypoxemia. 6. Seizure disorder. 7. Hyperlipidemia. 8. Hypernatremia. 9. Acute renal failure. 10. Pulmonary edema. 11. Possible COVID. 12. pleural effusion 13. DVT PLAN monitor hemodynamics monitor respiratory status transferred to tele monitor vital on apixiban for DVT impression, plan, and exam edited and reviewed in detail care discussed with RN Subjective Allergies: Coded Allergies: HYDROCODONE (Verified Allergy, Unknown, 07/04/17) Subjective off vent off BIPAP hemodynamics stable on feeds off oxygen Objective Last 24 Hour Vital Signs Date Time Temp Pulse Resp B/P (MAP) Pulse Ox O2 Delivery O2 Flow Rate FiO2 03/16/20 12:00 98.1 113 30 111/68 (82) 96 03/16/20 09:00 Nasal Cannula 2.0 Nasal Cannula 2.0 03/16/20 08:00 98.4 109 30 126/63 (84) 91 03/16/20 08:00 111 03/16/20 04:00 120 03/16/20 04:00 98.2 120 36 121/67 (85) 93 03/16/20 00:00 114 03/16/20 00:00 99.5 126 24 119/71 (87) 97 03/15/20 21:00 Room Air Room Air 03/15/20 20:35 118 20 97 Room Air 21 03/15/20 20:35 97 Room Air 21 03/15/20 20:00 117 03/15/20 20:00 100.2 125 40 133/74 (93) 98 03/15/20 16:00 98.2 120 30 124/70 (88) 98 03/15/20 16:00 116 Intake and Output 03/15/20 03/16/20 19:00 07:00 Intake Total 1288.333 ml Output Total 800 ml Balance 488.333 ml IV Total 698.333 ml Tube Feeding 490 ml Other 100 ml Output Urine Total 800 ml # Voids 1 # Bowel Movements 1 1 Laboratory Tests 03/16/20 06:50: White Blood Count 10.6, Red Blood Count 3.39L, Hemoglobin 9.4L, Hematocrit 28.2L , Mean Corpuscular Volume 83, Mean Corpuscular Hemoglobin 27.7, Mean Corpuscular Hemoglobin Concent 33.2, Red Cell Distribution Width 15.5H, Platelet Count 260, Mean Platelet Volume 6.3L, Neutrophils (%) (Auto) 62.7, Lymphocytes (%) (Auto) 26.9, Monocytes (%) (Auto) 5.9, Eosinophils (%) (Auto) 4.2H, Basophils (%) (Auto) 0.4, Sodium Level 142, Potassium Level 3.8, Chloride Level 105, Carbon Dioxide Level 29, Anion Gap 8, Blood Urea Nitrogen 13, Creatinine 0.8, Estimat Glomerular Filtration Rate > 60, Glucose Level 116H, Calcium Level 9.0, Total Bilirubin 0.4, Aspartate Amino Transf (AST/SGOT) 27, Alanine Aminotransferase (ALT/SGPT) 27, Alkaline Phosphatase 199H, Total Protein 8.7H, Albumin 2.0L, Globulin 6.7, Albumin/Globulin Ratio 0.3L Height (Feet): 6 Height (Inches): 2.00 Weight (Pounds): 208 Objective GENERAL: Ill-appearing male. reduced breath sounds RR tachy tachypneic NABS nontender no CCE off BIPAP German Matthews MD March 16, 2020 14:38
[2020-03-16 16:00] VITALS: BP 118/60
--- NOTE | 2020-03-16 18:41 | Nephrology Progress Note ---
Assessment/Plan Problem List: (1) Hypernatremia (2) ACE (acute kidney injury) (3) Cardiopulmonary arrest (4) Respiratory acidosis (5) Seizure disorder (6) Altered mental status (7) Pneumonia (8) Sepsis (9) Hypomagnesemia (10) Rhabdomyolysis Plan iv hypotonic Na better, replace Mg repeat CK Subjective ROS Limited/Unobtainable: Yes Objective Objective Last 24 Hour Vital Signs Date Time Temp Pulse Resp B/P (MAP) Pulse Ox O2 Delivery O2 Flow Rate FiO2 03/16/20 16:00 106 03/16/20 16:00 98.0 106 30 118/60 (79) 95 03/16/20 12:00 105 03/16/20 12:00 98.1 113 30 111/68 (82) 96 03/16/20 09:00 Nasal Cannula 2.0 Nasal Cannula 2.0 03/16/20 08:00 98.4 109 30 126/63 (84) 91 03/16/20 08:00 111 03/16/20 04:00 120 03/16/20 04:00 98.2 120 36 121/67 (85) 93 03/16/20 00:00 114 03/16/20 00:00 99.5 126 24 119/71 (87) 97 03/15/20 21:00 Room Air Room Air 03/15/20 20:35 118 20 97 Room Air 21 03/15/20 20:35 97 Room Air 21 03/15/20 20:00 117 03/15/20 20:00 100.2 125 40 133/74 (93) 98 Intake and Output 03/15/20 03/16/20 19:00 07:00 Intake Total 1288.333 ml 50 ml Output Total 800 ml Balance 488.333 ml 50 ml IV Total 698.333 ml 50 ml Tube Feeding 490 ml Other 100 ml Output Urine Total 800 ml # Voids 1 # Bowel Movements 1 1 Laboratory Tests 03/16/20 06:50: White Blood Count 10.6, Red Blood Count 3.39L, Hemoglobin 9.4L, Hematocrit 28.2L , Mean Corpuscular Volume 83, Mean Corpuscular Hemoglobin 27.7, Mean Corpuscular Hemoglobin Concent 33.2, Red Cell Distribution Width 15.5H, Platelet Count 260, Mean Platelet Volume 6.3L, Neutrophils (%) (Auto) 62.7, Lymphocytes (%) (Auto) 26.9, Monocytes (%) (Auto) 5.9, Eosinophils (%) (Auto) 4.2H, Basophils (%) (Auto) 0.4, Sodium Level 142, Potassium Level 3.8, Chloride Level 105, Carbon Dioxide Level 29, Anion Gap 8, Blood Urea Nitrogen 13, Creatinine 0.8, Estimat Glomerular Filtration Rate > 60, Glucose Level 116H, Calcium Level 9.0, Total Bilirubin 0.4, Aspartate Amino Transf (AST/SGOT) 27, Alanine Aminotransferase (ALT/SGPT) 27, Alkaline Phosphatase 199H, Total Protein 8.7H, Albumin 2.0L, Globulin 6.7, Albumin/Globulin Ratio 0.3L Height (Feet): 6 Height (Inches): 2.00 Weight (Pounds): 208 General Appearance: confused EENT: normal ENT inspection Cardiovascular: regular rhythm Respiratory/Chest: lungs clear Abdomen: normal bowel sounds, non tender Extremities: no edema Neurologic: unresponsive Raffaele Ocampo MD March 16, 2020 18:41
--- NOTE | 2020-03-16 19:28 | NUR ---
HAND-OFF: Report given to Fozia Peng RN. Patient stable. Plan of care endoresed. Dressing to right hand performed and picture taken. Dr. Vicente contacted and is already aware of wound and its condition.
--- NOTE | 2020-03-16 19:52 | NUR ---
NURSE NOTES: Received report from Stanislaw Espinosa, pt. in bed awake, pt. in awake w/eyes open, appears to be alert to name- no signs or symptoms of acute cardiac or respiratory distress noted, bed alarm on, side rails up x's3 and safety brakes engaged, side rails padded for seizure precautions- no seizure activity noted, pt. appears to be sating well on room air- no distress noted, Glucerna 1.5 running at 70cc/hr- no residual noted- will stop as Dilantin will be administered, rectal tube intact and draining to gravity, Penaloza intact and draining to gravity, pt. appears clean and dry, Rt. IJ running D5W at 50cc/hr- IV intact and patent, will continue to monitor pt. and with plan of care.
[2020-03-16 20:00] VITALS: BP 106/64
--- NOTE | 2020-03-16 20:30 | NUR ---
NURSE NOTES: selene Juan RN am nursing calling states dr. Ty would like to put pt. on [facility]- will leave message for DR. Cabral to get transfer order. Addendum: 03/16/20 at 2054 by CELESTE SAGASTUME RN RN correction to message above entered for wrong pt. - please disregard message.
[2020-03-16] MEDS: Dyna-Hex 2% Top Sol 2oz TOPIC SCH (20:44)
--- NOTE | 2020-03-16 22:45 | Progress Note ---
DATE: 03/16/2020 SUBJECTIVE: The patient's condition remains critical. Prognosis guarded. He remains in the intensive care unit. PHYSICAL EXAMINATION: VITAL SIGNS: Blood pressure 111/68, pulse 113, respiratory rate 30, afebrile. Monitor sinus tachycardia. LUNGS: Bilateral breath sounds with rhonchi. CARDIAC: Regular rhythm and rate. Normal S1, S2. ABDOMEN: Soft. EXTREMITIES: Trace dependent edema. LABORATORY DATA: White count 10.6, hemoglobin 9.4. Sodium 142, potassium 3.8, bicarb 29, BUN 13, creatinine 0.8. Albumin 2.0. Chest x-ray yesterday revealed improved aeration on the right and resolving pleural effusions but persisting moderate left pleural effusion with infiltrate. IMPRESSION: 1. Healthcare-acquired pneumonia. 2. Pleural effusions. 3. Dehydration. 4. , corrected. 5. Sepsis with shock, recovering. 6. Respiratory failure. 7. Acute renal failure. 8. Acute DVT. PLAN: 1. Full anticoagulation. 2. BiPAP as needed. 3. Avoid beta-agonists. 4. Antimicrobials with respiratory hygiene. 5. Replace electrolytes. 6. Consideration for thoracentesis. 7. Diuresis trial. Yfn Luna M.D. DR: Mohan JOB#: [id number] CC:
[2020-03-17] VITALS: BP 124/67
--- NOTE | 2020-03-17 02:30 | NUR ---
NURSE NOTES: bed bath given- and linens changed- oral care provided- repositioned and turned pt.- will continue with plan of care.
[2020-03-17 04:00] VITALS: BP 117/59
[2020-03-17] MEDS: NovoLOG Insulin Flexpen SUBQ SCH ×3 (05:30→18:00)
--- NOTE | 2020-03-17 06:53 | NUR ---
HAND-OFF: Report given to Stanislaw Espinosa pt. remains stable and no signs of distress noted.
[2020-03-17 07:12] LABS: ANION GAP 7 mmol/L (5-15); BLOOD UREA NITROGEN 15 mg/dL (7-18); CALCIUM 8.9 MG/DL (8.5-10.1); CARBON DIOXIDE 31 MMOL/L (21-32); CHLORIDE 103 MMOL/L (98-107); CREATINE KINASE 175 U/L (26-308); CREATININE 0.9 MG/DL (0.55-1.30); PHOSPHORUS 3.7 MG/DL (2.5-4.9); SODIUM 141 MMOL/L (136-145)
--- NOTE | 2020-03-17 07:53 | NUR ---
NURSE NOTES: Received report from Vijay Peng RN. Pt awake and oriented to name. Lying comfortably in bed. No sign of cardiac and respiratory distress. IV fluids infusing on right IJ. Glucerna 1.5 feeding running @ 70ml/hr on G-tube. F/c draining by gravity. Rectal tube in place. Bed low, side rails x3 and call light within reach. Will continue plan of care.
[2020-03-17 08:00] VITALS: BP 120/57
--- NOTE | 2020-03-17 09:29 | NUR ---
CASE MANAGEMENT:REVIEW 03/17/20 MRSA/PSEUDOMONAS PNA RESP FAILURE S/P EXTUBATION. COVID (-)X2 ? DVT 97.3 111 20 117/59 96% ON 2L/NC NO LABS FOR TODAY IS: IVF@50/HR VIT C GT QD MAG OXIDE GT TID SYNTHROID GT QAM KEPPRA GT Q12 DILANTIN GT Q12 ELIQUIS GT BID INSULIN SQ Q6HRS : NOW ON TELEMETRY DCP: PATIENT IS FROM [facility] PLAN: NOT READY FOR DISCHARGE TODAY D/T [employer] CALLED [facility] @ [phone] AND SPOKE WITH MUSTAPHA REGARDING TRANSFER MUSTAPHA SAID HE WOULD HAVE CASE MANAGE BON CALL THIS OPAL MINER TO DISCUSS THE CASE ALL CLINICALS FOR 03/15,03/16 AND 03/17 FAXED
--- NOTE | 2020-03-17 09:40 | NUR ---
TRANSFER UPDATE THIS SANDBLAST CARVER CALLED [facility]NA @ [phone] AND SPOKE WITH MUSTAPHA REGARDING TRANSFER MUSTAPHA SAID HE WOULD HAVE SANDBLAST CARVER BON CALL THIS SANDBLAST CARVER TO DISCUSS THE CASE. ALL CLINICALS FOR 03/15,03/16 AND 03/17 FAXED
[2020-03-17] MEDS: Phenytoin Susp 100mg/4ml GT SCH ×2 (09:43→20:21)
[2020-03-17] MEDS: Ascorbic Acid 500mg tab GT SCH (09:43)
[2020-03-17] MEDS: levETIRAcetam 500mg/5ml Liquid GT SCH ×2 (09:44→20:24)
[2020-03-17] MEDS: Eliquis 5mg tablet GT SCH ×2 (09:44→18:14)
[2020-03-17] MEDS: Magnesium Oxide 400mg tab GT SCH ×3 (09:44→18:14)
--- NOTE | 2020-03-17 09:49 | NUR ---
*-* INSURANCE *-* UPDATED CLINICALS HAVE BEEN FAXED TO: [facility] Ref# [id number] # [phone] fax# [phone] F# [phone]
--- NOTE | 2020-03-17 10:00 | General Progress Note ---
Assessment/Plan Assessment/Plan: IMPRESSION: 1. Septic shock. 2. Hypotension. 3. Tachycardia. 4. Respiratory failure. 5. Hypoxemia. 6. Seizure disorder. 7. Hyperlipidemia. 8. Hypernatremia. 9. Acute renal failure. 10. Pulmonary edema. 11. Possible COVID. 12. pleural effusion 13. DVT PLAN monitor hemodynamics monitor respiratory status transferred to [facility] monitor vitals and heart rate on apixiban for DVT awaiting transfer to [facility] impression, plan, and exam edited and reviewed in detail care discussed with RN Subjective Allergies: Coded Allergies: HYDROCODONE (Verified Allergy, Unknown, 07/04/17) Subjective off vent off BIPAP hemodynamics stable on feeds off oxygen still mildly tachy Objective Last 24 Hour Vital Signs Date Time Temp Pulse Resp B/P (MAP) Pulse Ox O2 Delivery O2 Flow Rate FiO2 03/17/20 08:00 111 03/17/20 04:00 97.3 108 20 117/59 (78) 96 03/17/20 03:37 106 03/17/20 00:19 106 03/17/20 00:00 97.9 108 20 124/67 (86) 95 03/16/20 21:00 Nasal Cannula 2.0 Nasal Cannula 2.0 03/16/20 20:00 98.2 106 19 106/64 (78) 95 03/16/20 20:00 98 Nasal Cannula 2.0 28 03/16/20 20:00 108 20 95 Nasal Cannula 2.0 28 03/16/20 19:30 103 03/16/20 16:00 106 03/16/20 16:00 98.0 106 30 118/60 (79) 95 03/16/20 12:00 105 03/16/20 12:00 98.1 113 30 111/68 (82) 96 Intake and Output 03/16/20 03/17/20 19:00 07:00 Intake Total 620 ml 1112 ml Output Total 550 ml 1000 ml Balance 70 ml 112 ml Intake Free Water 50 ml IV Total 550 ml 502 ml Tube Feeding 70 ml 560 ml Output Urine Total 550 ml 1000 ml # Bowel Movements 1 2 Laboratory Tests 03/17/20 05:36: Sodium Level 141, Potassium Level 4.0, Chloride Level 103, Carbon Dioxide Level 31, Anion Gap 7, Blood Urea Nitrogen 15, Creatinine 0.9, Estimat Glomerular Filtration Rate > 60, Glucose Level 119H, Calcium Level 8.9, Phosphorus Level 3.7, Magnesium Level 1.9, Total Creatine Kinase 175, Pro-B-Type Natriuretic Peptide 58 Height (Feet): 6 Height (Inches): 2.00 Weight (Pounds): 206 Objective GENERAL: Ill-appearing male. reduced breath sounds RR tachy tachypneic NABS nontender no CCE off BIPAP German Matthews MD March 17, 2020 10:00
--- NOTE | 2020-03-17 11:05 | Infectious Diseases Prog Note ---
"Assessment/Plan Assessment/Plan antibiotics : levoquin A 1. pseudomonas | MRSA pneumonia s/p rx 2. COVID 19 test negative x 2, 5.5.20, 5.9.20 3. respiratory failure 4. renal failure resolved 5. shock resolved 6. hypertension 7. seizures 8. leucocytosis resolved P 1. d/c po levoquin 2. will follow up cultures Subjective ROS Limited/Unobtainable: Yes Allergies: Coded Allergies: HYDROCODONE (Verified Allergy, Unknown, 07/04/17) Objective Vital Signs Last 24 Hour Vital Signs Date Time Temp Pulse Resp B/P (MAP) Pulse Ox O2 Delivery O2 Flow Rate FiO2 03/17/20 09:00 Nasal Cannula 2.0 Nasal Cannula 2.0 03/17/20 08:00 111 03/17/20 08:00 98.2 112 20 120/57 (78) 97 03/17/20 04:00 97.3 108 20 117/59 (78) 96 03/17/20 03:37 106 03/17/20 00:19 106 03/17/20 00:00 97.9 108 20 124/67 (86) 95 03/16/20 21:00 Nasal Cannula 2.0 Nasal Cannula 2.0 03/16/20 20:00 98.2 106 19 106/64 (78) 95 03/16/20 20:00 98 Nasal Cannula 2.0 28 03/16/20 20:00 108 20 95 Nasal Cannula 2.0 28 03/16/20 19:30 103 03/16/20 16:00 106 03/16/20 16:00 98.0 106 30 118/60 (79) 95 03/16/20 12:00 105 03/16/20 12:00 98.1 113 30 111/68 (82) 96 Height (Feet): 6 Height (Inches): 2.00 Weight (Pounds): 206 Respiratory/Chest: lungs clear Cardiovascular: normal rate, regular rhythm, no gallop/murmur Abdomen: soft, non tender, other - GT Extremities: no edema, other - right IJ catheter Laboratory Tests Test 03/17/20 05:36 Sodium Level 141 MMOL/L (136-145) Potassium Level 4.0 MMOL/L (3.5-5.1) Chloride Level 103 MMOL/L (98-107) Carbon Dioxide Level 31 MMOL/L (21-32) Anion Gap 7 mmol/L (5-15) Blood Urea Nitrogen 15 mg/dL (7-18) Creatinine 0.9 MG/DL (0.55-1.30) Estimat Glomerular Filtration Rate > 60 mL/min (>60) Glucose Level 119 MG/DL (74-106) H Calcium Level 8.9 MG/DL (8.5-10.1) Phosphorus Level 3.7 MG/DL (2.5-4.9) Magnesium Level 1.9 MG/DL (1.8-2.4) Total Creatine Kinase 175 U/L (26-308) Pro-B-Type Natriuretic Peptide 58 pg/mL (0-125) Current Medications Medications (Trade) Dose Ordered Sig/Kolby Route PRN Reason Start Time Stop Time Status Last Admin Dose Admin Acetaminophen (Tylenol) 650 mg Q4H PRN GT Temp >100.5 03/15/20 12:45 04/04/20 16:44 Apixaban (Eliquis) 5 mg BID GT 03/15/20 18:00 06/13/20 08:59 03/17/20 09:44 Ascorbic Acid (Vitamin C) 250 mg DAILY GT 03/16/20 09:00 04/07/20 08:59 03/17/20 09:43 Chlorhexidine Gluconate (Brandy-Hex 2%) 1 applic DAILY@2000 TOPIC 03/15/20 20:00 06/03/20 19:59 03/16/20 20:44 Dextrose 1,000 ml @ 50 mls/hr Q20H IV 03/15/20 12:15 04/13/20 18:59 03/17/20 01:58 Dextrose (Dextrose 50%) 25 ml Q30M PRN IV Hypoglycemia 03/15/20 12:30 06/03/20 13:59 Dextrose (Dextrose 50%) 50 ml Q30M PRN IV Hypoglycemia 03/15/20 12:30 06/03/20 13:59 Insulin Aspart (NovoLOG) EVERY 6 HOURS SUBQ 03/15/20 18:00 06/03/20 17:59 Levetiracetam (Keppra) 1,500 mg Q12HR GT 03/15/20 21:00 04/04/20 11:44 03/17/20 09:44 Levothyroxine Sodium (Synthroid) 75 mcg ACBREAKFAST GT 03/16/20 06:30 04/05/20 06:29 03/17/20 05:29 Magnesium Oxide (Mag-Ox 400mg) 400 mg THREE TIMES A DAY GT 03/16/20 09:00 04/15/20 08:59 03/17/20 09:44 Phenytoin (Dilantin) 250 mg Q12HR GT 03/15/20 21:00 04/04/20 20:59 03/17/20 09:43 Radha Calle MD March 17, 2020 11:05"
[2020-03-17 12:00] VITALS: BP 116/64
--- NOTE | 2020-03-17 13:07 | NUR ---
RD ASSESSMENT & RECOMMENDATIONS SEE CARE ACTIVITY FOR COMPLETE ASSESSMENT DAILY ESTIMATED NEEDS: Needs based on Pulmonary, wounds 78.6abw 25-30 kcals/kg 4796-6757 total kcals 1.25-2 g protein/kg 98-157 g total protein 25-30 mL/kg 6295-2352 total fluid mLs NUTRITION DIAGNOSIS: Increased kcal and pro needs r/t wound care as evidenced by pt w/ stage 3 wounds x2, unstageable wounds x2, refer to WC eval. CURRENT TF:Glucerna 1.5 @70ml/hr x18 hrs ENTERAL NUTRITION RECOMMENDATIONS: Glucerna 1.5 @70ml/hr x18 hrs to provide 1260ml, 1890 kcal, 104g pro, 956ml free H2O - Maintain current TF: meets 96% est kcal and 100% est prot needs - HOLD TF 1 HOUR BEFORE AND AFTER SYNTHROID(QD) AND DILANTIN(BID), tf to run a max of 18 hrs - Flush per MD , HOB over 30 degrees ADDITIONAL RECOMMENDATIONS: 1) Wound care: add AJIT BID + Vit C 250mg daily 2) Per SNF: 69inches, 212lbs/96.36kg Calibrated bedscale wt 3) Monitor lytes, replete as needed . .
[2020-03-17 16:00] VITALS: BP 111/63
--- NOTE | 2020-03-17 18:36 | Surgery Progress Note ---
Surgery Progress Note Subjective Additional Comments ill appearing discussed with RN. wounds worsening despite maximal efforts at improvement and prevention Objective Last 24 Hour Vital Signs Date Time Temp Pulse Resp B/P (MAP) Pulse Ox O2 Delivery O2 Flow Rate FiO2 03/17/20 16:00 97.3 104 20 111/63 (79) 96 03/17/20 12:00 104 03/17/20 12:00 98.6 106 20 116/64 (81) 98 03/17/20 09:00 Nasal Cannula 2.0 Nasal Cannula 2.0 03/17/20 08:00 111 03/17/20 08:00 98.2 112 20 120/57 (78) 97 03/17/20 04:00 97.3 108 20 117/59 (78) 96 03/17/20 03:37 106 03/17/20 00:19 106 03/17/20 00:00 97.9 108 20 124/67 (86) 95 03/16/20 21:00 Nasal Cannula 2.0 Nasal Cannula 2.0 03/16/20 20:00 98.2 106 19 106/64 (78) 95 03/16/20 20:00 98 Nasal Cannula 2.0 28 03/16/20 20:00 108 20 95 Nasal Cannula 2.0 28 03/16/20 19:30 103 I&O Intake and Output 03/16/20 03/17/20 19:00 07:00 Intake Total 620 ml 1112 ml Output Total 550 ml 1000 ml Balance 70 ml 112 ml Intake Free Water 50 ml IV Total 550 ml 502 ml Tube Feeding 70 ml 560 ml Output Urine Total 550 ml 1000 ml # Bowel Movements 1 2 Dressing: saturated Cardiovascular: RSR Respiratory: decreased breath sounds Abdomen: soft, present bowel sounds Extremities: edema, other Laboratory Tests Test 03/17/20 05:36 Sodium Level 141 MMOL/L (136-145) Potassium Level 4.0 MMOL/L (3.5-5.1) Chloride Level 103 MMOL/L (98-107) Carbon Dioxide Level 31 MMOL/L (21-32) Anion Gap 7 mmol/L (5-15) Blood Urea Nitrogen 15 mg/dL (7-18) Creatinine 0.9 MG/DL (0.55-1.30) Estimat Glomerular Filtration Rate > 60 mL/min (>60) Glucose Level 119 MG/DL (74-106) H Calcium Level 8.9 MG/DL (8.5-10.1) Phosphorus Level 3.7 MG/DL (2.5-4.9) Magnesium Level 1.9 MG/DL (1.8-2.4) Total Creatine Kinase 175 U/L (26-308) Pro-B-Type Natriuretic Peptide 58 pg/mL (0-125) Plan Problems: (1) Respiratory acidosis (2) Seizure disorder (3) Altered mental status (4) Pneumonia Assessment & Plan: New left pleural effusion Improved aeration of the right lung, with persistent consolidation and pleural fluid (5) Cardiopulmonary arrest (6) Hypernatremia (7) Sepsis Assessment & Plan: Pt presented on admission with multiple pressure injuries. Unstageable Pressure injury R Buttocks. Base of wound is 100% necrotic. Sacrum, R and L Gluteal cheeks maroon with multiple partial thickness wounds with surrounding denuded and macerated skin. Dry, black borders noted Unstageable pressure injury R thoracic. Base of wound is 100% necrotic but dry. No erythema induration or fluctuance periwound. Full thickness stage 3 pressure injury R heel. Base of wound is beefy red with macerated borders. periwound is necrotic and fluctuant. Full thickness stage 3 pressure injury R Hallux. Base of wound is beefy red with surrounding pink granulation. Dry black borders noted. Loose dry eschar noted to L heel. Hyperpigmentation noted to R and L lateral Malleoli. unlikely etiology of sepsis will monitor Pt presented with generalized edema.R hand contracture noted .R hand dusky in colour . R 5th digit /R thumb black at tip of finger. At base of of R thumb including dorsal R hand and R wrist is large wound that is 50% necrotic .50% taty. with loose edges. Small amt serosanguineous exudate noted. At circumference of R first digit/index finger is large open Blister with loose skin flap . base of wound is taty. Necrotic area noted at tip of index finger. Detached nail matrix and epidermis of R middle digit/3rd digit . Fingertip is taty and moist,minimal sanguineous exudate.Tips of R ring finger and R 5th digit is black. Unable to accurately assess web spaces of digits on R hand secondary to gross edema, and pt became distressed at any attempt to separate digits. R hand washed with tepid water and mild soap and patted dry. Each digit and wounds swabbed with Betadine. Xeroform gauze weaved between each digit of R hand and to R wrist and dorsal R hand. Soft Kerlix roll then placed in palm of hand to support contracture. Abd placed over wounds and R hand wrapped loosely with Kerlix until further instructed by Surgeon. R hand elevated on two pillows. Continue to monitor is very difficult case. Requiring extensive care. Tx.Plan: Keep R Hand elevated with 2 Pillows. Tx.Plan: Cleanse Sacral area with Saline.Apply Therahoney. Apply Moisture Barrier Paste periwound. Cover with gauze followed by ABD dressing . Change Daily and Prn. Cleanse wound R thoracic with Saline. Apply TheraHoney. Apply Cavilon Skin Barrier Periwound. Cover with ABD drsg.Change every 3 days and prn. Cleanse wound R heel with Saline. Apply TheraHoney. Apply Cavilon Skin Barrier Periwound. Cover with Optifoam drsg. Change every 3 days and prn. Cleanse R Hallux with Saline. Apply Therahoney. Apply Cavilon Skin Barrier Periwound. Cover with Optifoam drsg. Change every 3 days and prn. Apply Cavilon Skin Barrier to L Heel. Cover with Optifoam drsg. Change every 7 days and prn. Reposition at least every 2hours or as tolerated. Place Pillow between knees. Off-load heels with Pillow. APM/NORM Mattress overlay. DAILY ESTIMATED NEEDS: Needs based on Critical care, wounds 78.6abw 22-30 kcals/kg 9501-1509 total kcals 1.25-2 g protein/kg 98-157 g total protein 25-30 mL/kg 6815-1072 total fluid mLs NUTRITION DIAGNOSIS: Increased kcal and pro needs r/t wound care as evidenced by pt w/ full thickness wounds x2, unstageable wounds x2, refer to WC eval. CURRENT TF:Glucerna 1.5 @70ml/hr x18 hrs ENTERAL NUTRITION RECOMMENDATIONS: Glucerna 1.5 @70ml/hr x18 hrs to provide 1260ml, 1890 kcal, 104g pro, 956ml free H2O - W/ HD stability, continue current TF - HOLD TF 1 HOUR BEFORE AND AFTER SYNTHROID(QD) AND DILANTIN(BID), tf to run a max of 18 hrs - Flush per MD , HOB over 30 degrees WITHOUT HEMODYNAMIC STABILITY: rec trophic feeds of Glucerna 1.5 @5-10ml/hr to maintain gut integrity. ADDITIONAL RECOMMENDATIONS: 1) Wound care: add AJIT BID + Vit C 250mg daily 2) Per SNF: 69inches, 212lbs/96.36kg Maintain calibrated daily wts 3) Feed when hemodynamically stable, do not feed in the prone position -> pressors held at this time 4) Monitor lytes, replete as needed (8) ACE (acute kidney injury) Gary Vicente March 17, 2020 18:36
--- NOTE | 2020-03-17 19:30 | Nephrology Progress Note ---
Assessment/Plan Problem List: (1) Hypernatremia (2) ACE (acute kidney injury) (3) Cardiopulmonary arrest (4) Respiratory acidosis (5) Seizure disorder (6) Altered mental status (7) Pneumonia (8) Sepsis (9) Hypomagnesemia (10) Rhabdomyolysis Plan iv hypotonic Na better, replace Mg repeat CK lab stable Subjective ROS Limited/Unobtainable: Yes Objective Objective Last 24 Hour Vital Signs Date Time Temp Pulse Resp B/P (MAP) Pulse Ox O2 Delivery O2 Flow Rate FiO2 03/17/20 16:00 97.3 104 20 111/63 (79) 96 03/17/20 16:00 103 03/17/20 12:00 104 03/17/20 12:00 98.6 106 20 116/64 (81) 98 03/17/20 09:00 Nasal Cannula 2.0 Nasal Cannula 2.0 03/17/20 08:00 111 03/17/20 08:00 98.2 112 20 120/57 (78) 97 03/17/20 04:00 97.3 108 20 117/59 (78) 96 03/17/20 03:37 106 03/17/20 00:19 106 03/17/20 00:00 97.9 108 20 124/67 (86) 95 03/16/20 21:00 Nasal Cannula 2.0 Nasal Cannula 2.0 03/16/20 20:00 98.2 106 19 106/64 (78) 95 03/16/20 20:00 98 Nasal Cannula 2.0 28 03/16/20 20:00 108 20 95 Nasal Cannula 2.0 28 03/16/20 19:30 103 Intake and Output 03/16/20 03/17/20 19:00 07:00 Intake Total 620 ml 1112 ml Output Total 550 ml 1000 ml Balance 70 ml 112 ml Intake Free Water 50 ml IV Total 550 ml 502 ml Tube Feeding 70 ml 560 ml Output Urine Total 550 ml 1000 ml # Bowel Movements 1 2 Laboratory Tests 03/17/20 05:36: Sodium Level 141, Potassium Level 4.0, Chloride Level 103, Carbon Dioxide Level 31, Anion Gap 7, Blood Urea Nitrogen 15, Creatinine 0.9, Estimat Glomerular Filtration Rate > 60, Glucose Level 119H, Calcium Level 8.9, Phosphorus Level 3.7, Magnesium Level 1.9, Total Creatine Kinase 175, Pro-B-Type Natriuretic Peptide 58 Height (Feet): 6 Height (Inches): 2.00 Weight (Pounds): 206 General Appearance: lethargic Cardiovascular: regular rhythm Respiratory/Chest: lungs clear Abdomen: non tender Extremities: no edema Neurologic: unresponsive Raffaele Ocampo MD March 17, 2020 19:30
--- NOTE | 2020-03-17 19:45 | NUR ---
NURSE NOTES: RECEIVED REPORT FROM MARGARITA CHAHAL. PATIENT ASLEEP IN BED, AROUSABLE TO VOICE AND TACTILE STIMULI. PATIENT OPENS EYES, AND IS ABLE TO VERBALIZE SIMPLE WORDS LIKE, "NO", BUT IS OTHERWISE NON-VERBAL. NOTED TO HAVE DRESSING AROUND RIGHT ARM, OPTIFOAM ON BILATERAL HEELS. NO S/SX OF PAIN OR DISCOMFORT NOTED AT THIS TIME. BREATHING IS EVEN AND UNLABORED ON 2L NC WITH NO S/SX OF DISTRESS NOTED. GODINEZ CATHETER DRAINING WELL TO GRAVITY, URINE CLEAR AND YELLOW IN COLOR. RECTAL TUBE DRAINING WELL TO GRAVITY. GTF RUNNING AT PRESCRIBED RATE; GT PATENT WITH 5 ML RESIDUAL, NO S/SX OF INFECTION NOTED.IV SITE RIJ RUNNING FLUIDS PRESCRIBED. FALL AND ASPIRATION PRECAUTIONS IN PLACE. CONTACT ISOLATION PRECAUTIONS IN PLACE. BED LOCKED AND IN LOWEST POSITION WITH PADDED PADDED SIDERAILS UP X 2. CALL LIGHT WITHIN REACH. WILL CONTINUE TO MONITOR FOR ANY CHANGE.
--- NOTE | 2020-03-17 19:49 | NUR ---
HAND-OFF: Report given to Faby. Patient stable. Plan of care enrdorsed. Patient cleaned. Dressings changed now and rectal tube reinserted.
[2020-03-17 20:00] VITALS: BP 121/65
[2020-03-17] MEDS: Dyna-Hex 2% Top Sol 2oz TOPIC SCH (20:20)
--- NOTE | 2020-03-17 22:08 | NUR ---
NURSE NOTES: S/W AMADO, PATIENT'S MOM, AND PROVIDED UPDATE. ASSISTED PATIENT IN SPEAKING WITH HIS MOM OVER THE PHONE. PATIENT WAS ABLE TO HOLD CONVERSATION WITH MOM WITH SIMPLE VERBAL PHRASES- WORDS WERE NOT COMPLETELY CLEAR, BUT COULD MAKE OUT WHAT HE WAS SAYING.
--- NOTE | 2020-03-17 23:16 | NUR ---
NURSE NOTES: RT ELIZA, HERE TO PLACE PATIENT ON BIPAP. PATIENT O2 SATURATION ON 2L NC IS 98%, SO WILL REMAIN ON NC FOR NOW.
[2020-03-18] VITALS: BP 110/67
--- NOTE | 2020-03-18 03:00 | Progress Note ---
DATE: 03/17/2020 CARDIOLOGY PROGRESS NOTE SUBJECTIVE: Patient remains off BiPAP support with no respiratory distress. Monitored rhythm sinus and sinus tachycardia. PHYSICAL EXAMINATION: VITAL SIGNS: Blood pressure 117/59, heart rate 108, respirations 20. LUNGS: Few rhonchi. CARDIAC: Regular rhythm. Rapid rate. Normal S1, S2. ABDOMEN: Soft. EXTREMITIES: Trace edema. LABORATORY DATA: White count 10.6 and hemoglobin 9.4. BUN 15 and creatinine 0.9. Pro natriuretic peptide 58. IMPRESSION: 1. No signs of acute congestive heart failure at this time. 2. Status post respiratory failure. 3. Status post cardiopulmonary arrest. 4. Recovered renal failure. 5. Persisting tachycardia. 6. Acute DVT. PLAN: 1. Add beta-boni. 2. Continue full anticoagulation. 3. Respiratory hygiene. Yfn Luna M.D. DR: BRANDI JOB#: [id number] CC:
[2020-03-18 04:00] VITALS: BP 125/77
[2020-03-18] MEDS: NovoLOG Insulin Flexpen SUBQ SCH ×3 (06:00→11:32)
--- NOTE | 2020-03-18 07:30 | NUR ---
NURSE NOTES: Received report from MARGARITA Hobbs. Pt is confused. pt has NC 2LMP. pt has intact iv access is running well. pt has g tube in place is working well. pt has Penaloza cath in place is running well. Pt is on continues heart monitoring. no complain of pain at this moment. all needs attended, bed is locked and is in the lowest position. call light within easy reach. will continue to monitor.
--- NOTE | 2020-03-18 07:42 | NUR ---
HAND-OFF: Report given to MARGARITA NIEVES. PLAN OF CARE ENDORSED.
[2020-03-18 08:00] VITALS: BP 129/69
--- NOTE | 2020-03-18 08:05 | General Progress Note ---
Assessment/Plan Assessment/Plan: IMPRESSION: 1. Septic shock. 2. Hypotension. 3. Tachycardia. 4. Respiratory failure. 5. Hypoxemia. 6. Seizure disorder. 7. Hyperlipidemia. 8. Hypernatremia. 9. Acute renal failure. 10. Pulmonary edema. 11. Possible COVID. 12. pleural effusion 13. DVT PLAN monitor hemodynamics monitor respiratory status cards clearance repeat cbc and dilantin on apixiban for DVT awaiting transfer to [facility] impression, plan, and exam edited and reviewed in detail care discussed with RN Subjective Allergies: Coded Allergies: HYDROCODONE (Verified Allergy, Unknown, 07/04/17) Subjective NAD on feeds off oxygen still mildly tachy Objective Last 24 Hour Vital Signs Date Time Temp Pulse Resp B/P (MAP) Pulse Ox O2 Delivery O2 Flow Rate FiO2 03/18/20 04:00 95 03/18/20 04:00 98.0 107 22 125/77 (93) 95 03/18/20 00:00 98.3 111 20 110/67 (81) 97 03/18/20 00:00 110 03/17/20 21:00 Nasal Cannula 2.0 Nasal Cannula 2.0 03/17/20 20:00 97.0 112 20 121/65 (83) 95 03/17/20 20:00 116 03/17/20 18:56 105 22 97 Nasal Cannula 2.0 28 03/17/20 18:56 97 Nasal Cannula 2.0 28 03/17/20 16:00 97.3 104 20 111/63 (79) 96 03/17/20 16:00 103 03/17/20 12:00 104 03/17/20 12:00 98.6 106 20 116/64 (81) 98 03/17/20 09:00 Nasal Cannula 2.0 Nasal Cannula 2.0 Intake and Output 03/17/20 03/18/20 19:00 07:00 Intake Total 1200 ml Output Total 800 ml Balance 400 ml IV Total 500 ml Tube Feeding 700 ml Output Urine Total 800 ml # Bowel Movements 1 1 Height (Feet): 6 Height (Inches): 2.00 Weight (Pounds): 206 Objective GENERAL: Ill-appearing male. reduced breath sounds RR tachy tachypneic NABS nontender no CCE off BIPAP German Matthews MD March 18, 2020 08:05
[2020-03-18] MEDS: Ascorbic Acid 500mg tab GT SCH (08:51)
[2020-03-18] MEDS: Magnesium Oxide 400mg tab GT SCH ×2 (08:51→13:12)
[2020-03-18] MEDS: Eliquis 5mg tablet GT SCH (08:51)
[2020-03-18] MEDS: levETIRAcetam 500mg/5ml Liquid GT SCH (08:51)
[2020-03-18] MEDS: Phenytoin Susp 100mg/4ml GT SCH (08:51)
[2020-03-18 09:17] LABS: BASOPHILS % (AUTO) 0.7 % (0.0-2.0); EOSINOPHILS % (AUTO) 5.1 % (0.0-3.0); HEMOGLOBIN 9.1 G/DL (14.2-18.0); LYMPHOCYTES % (AUTO) 26.6 % (20.0-45.0); MEAN CORPUSCULAR VOLUME 84 FL (80-99); MONOCYTES % (AUTO) 7.5 % (1.0-10.0); NEUTROPHILS % (AUTO) 60.1 % (45.0-75.0); PLATELET COUNT 211 K/UL (150-450); RED BLOOD COUNT 3.35 M/UL (4.70-6.10); RED CELL DISTRIBUTION WIDTH 15.4 % (11.6-14.8); WHITE BLOOD COUNT 7.4 K/UL (4.8-10.8)
--- NOTE | 2020-03-18 09:44 | NUR ---
*-*DISCHARGE PLANNING*-* PATIENT HAS BEEN REFERRED BACK TO: [facility] [place] P: [phone] F: [phone]
--- NOTE | 2020-03-18 11:03 | Infectious Diseases Prog Note ---
"Assessment/Plan Assessment/Plan antibiotics : none A 1. pseudomonas | MRSA pneumonia s/p rx 2. COVID 19 test negative x 2, 5.5.20, 5.9.20 3. respiratory failure 4. renal failure resolved 5. shock resolved 6. hypertension 7. seizures 8. leucocytosis resolved P 1. observe off antibiotics Subjective ROS Limited/Unobtainable: Yes Allergies: Coded Allergies: HYDROCODONE (Verified Allergy, Unknown, 07/04/17) Objective Vital Signs Last 24 Hour Vital Signs Date Time Temp Pulse Resp B/P (MAP) Pulse Ox O2 Delivery O2 Flow Rate FiO2 03/18/20 09:00 Nasal Cannula 2.0 Nasal Cannula 2.0 03/18/20 08:51 106 129/69 03/18/20 08:00 98.2 106 20 129/69 (89) 93 03/18/20 07:32 98 03/18/20 04:00 95 03/18/20 04:00 98.0 107 22 125/77 (93) 95 03/18/20 00:00 98.3 111 20 110/67 (81) 97 03/18/20 00:00 110 03/17/20 21:00 Nasal Cannula 2.0 Nasal Cannula 2.0 03/17/20 20:00 97.0 112 20 121/65 (83) 95 03/17/20 20:00 116 03/17/20 18:56 105 22 97 Nasal Cannula 2.0 28 03/17/20 18:56 97 Nasal Cannula 2.0 28 03/17/20 16:00 97.3 104 20 111/63 (79) 96 03/17/20 16:00 103 03/17/20 12:00 104 03/17/20 12:00 98.6 106 20 116/64 (81) 98 Height (Feet): 6 Height (Inches): 2.00 Weight (Pounds): 206 Respiratory/Chest: lungs clear Cardiovascular: normal rate, regular rhythm, no gallop/murmur Abdomen: soft, non tender, other - GT Extremities: no edema, other - right subclavian catheter Laboratory Tests Test 03/18/20 08:35 White Blood Count 7.4 K/UL (4.8-10.8) Red Blood Count 3.35 M/UL (4.70-6.10) L Hemoglobin 9.1 G/DL (14.2-18.0) L Hematocrit 28.0 % (42.0-52.0) L Mean Corpuscular Volume 84 FL (80-99) Mean Corpuscular Hemoglobin 27.3 PG (27.0-31.0) Mean Corpuscular Hemoglobin Concent 32.6 G/DL (32.0-36.0) Red Cell Distribution Width 15.4 % (11.6-14.8) H Platelet Count 211 K/UL (150-450) Mean Platelet Volume 6.8 FL (6.5-10.1) Neutrophils (%) (Auto) 60.1 % (45.0-75.0) Lymphocytes (%) (Auto) 26.6 % (20.0-45.0) Monocytes (%) (Auto) 7.5 % (1.0-10.0) Eosinophils (%) (Auto) 5.1 % (0.0-3.0) H Basophils (%) (Auto) 0.7 % (0.0-2.0) Current Medications Medications (Trade) Dose Ordered Sig/Kolby Route PRN Reason Start Time Stop Time Status Last Admin Dose Admin Acetaminophen (Tylenol) 650 mg Q4H PRN GT Temp >100.5 03/15/20 12:45 04/04/20 16:44 Apixaban (Eliquis) 5 mg BID GT 03/15/20 18:00 06/13/20 08:59 03/18/20 08:51 Ascorbic Acid (Vitamin C) 250 mg DAILY GT 03/16/20 09:00 04/07/20 08:59 03/18/20 08:51 Chlorhexidine Gluconate (Brandy-Hex 2%) 1 applic DAILY@2000 TOPIC 03/15/20 20:00 06/03/20 19:59 03/17/20 20:20 Dextrose 1,000 ml @ 50 mls/hr Q20H IV 03/15/20 12:15 04/13/20 18:59 03/18/20 00:09 Dextrose (Dextrose 50%) 25 ml Q30M PRN IV Hypoglycemia 03/15/20 12:30 06/03/20 13:59 Dextrose (Dextrose 50%) 50 ml Q30M PRN IV Hypoglycemia 03/15/20 12:30 06/03/20 13:59 Insulin Aspart (NovoLOG) EVERY 6 HOURS SUBQ 03/15/20 18:00 06/03/20 17:59 Levetiracetam (Keppra) 1,500 mg Q12HR GT 03/15/20 21:00 04/04/20 11:44 03/18/20 08:51 Levothyroxine Sodium (Synthroid) 75 mcg ACBREAKFAST GT 03/16/20 06:30 04/05/20 06:29 03/18/20 06:22 Magnesium Oxide (Mag-Ox 400mg) 400 mg THREE TIMES A DAY GT 03/16/20 09:00 04/15/20 08:59 03/18/20 08:51 Metoprolol Tartrate (Lopressor) 25 mg Q12HR GT 03/18/20 09:00 06/16/20 08:59 03/18/20 08:51 Phenytoin (Dilantin) 250 mg Q12HR GT 03/15/20 21:00 04/04/20 20:59 03/18/20 08:51 Radha Calle MD March 18, 2020 11:03"
[2020-03-18 11:30] VITALS: BP 134/75
--- NOTE | 2020-03-18 11:45 | Diagnostic Imaging Report ---
EXAM: ULTRASOUND Venous Duplex upper EXT Bilat CLINICAL HISTORY: Arm swelling and pain. COMPARISON: None TECHNIQUE: Doppler examination include grayscale images obtained with and without compression, and color and spectral doppler analysis. FINDINGS: Doppler examination shows normal spontaneity, phasicity, compressibility in the bilateral upper extremities. There is no thrombus identified by grayscale. Normal color and spectral flow is identified. There is no evidence of valvular incompetency or insufficiency. IMPRESSION: NO EVIDENCE OF DVT.
--- NOTE | 2020-03-18 12:10 | NUR ---
*-*DISCHARGE PLANNED*-* PATIENT HAS BEEN ACCEPTED AND WILL BE DISCHARGE BACK TO: [facility] P: [phone] FOR NURSE TO NURSE REPORT ROOM# 106.[facility] TRANSPORTATION SET FOR 3PM S/W [place] [id number]. S/W PATIENTS MOTHER, AMADO FUNK, WHO IS IN AGREEMENT WITH DISCHARGE PLAN.
[2020-03-18] MEDS ORDERED: METOPROLOL TART25 MG GT (12:30)
[2020-03-18] MEDS ORDERED: NOVOLOG100 UNITS1 (12:32)
[2020-03-18] MEDS ORDERED: MAGOX 400400 MG ORAL (12:32)
--- NOTE | 2020-03-18 13:02 | Surgery Progress Note ---
Surgery Progress Note Subjective Additional Comments Pt is confused. pt has NC 2LMP. pt has intact iv access is running well. pt has g tube in place is working well. pt has Penaloza cath in place is running well. Pt is on continues heart monitoring. dressings intact Objective Last 24 Hour Vital Signs Date Time Temp Pulse Resp B/P (MAP) Pulse Ox O2 Delivery O2 Flow Rate FiO2 03/18/20 11:30 98.4 89 20 134/75 (94) 100 03/18/20 09:00 Nasal Cannula 2.0 Nasal Cannula 2.0 03/18/20 08:51 106 129/69 03/18/20 08:00 98.2 106 20 129/69 (89) 93 03/18/20 07:32 98 03/18/20 04:00 95 03/18/20 04:00 98.0 107 22 125/77 (93) 95 03/18/20 00:00 98.3 111 20 110/67 (81) 97 03/18/20 00:00 110 03/17/20 21:00 Nasal Cannula 2.0 Nasal Cannula 2.0 03/17/20 20:00 97.0 112 20 121/65 (83) 95 03/17/20 20:00 116 03/17/20 18:56 105 22 97 Nasal Cannula 2.0 28 03/17/20 18:56 97 Nasal Cannula 2.0 28 03/17/20 16:00 97.3 104 20 111/63 (79) 96 03/17/20 16:00 103 I&O Intake and Output 03/17/20 03/18/20 19:00 07:00 Intake Total 1200 ml Output Total 800 ml Balance 400 ml IV Total 500 ml Tube Feeding 700 ml Output Urine Total 800 ml # Bowel Movements 1 1 Dressing: saturated Wound: other Drains: other Cardiovascular: RSR Respiratory: decreased breath sounds Abdomen: soft, non-tender, present bowel sounds Extremities: no cyanosis Laboratory Tests Test 03/18/20 08:35 White Blood Count 7.4 K/UL (4.8-10.8) Red Blood Count 3.35 M/UL (4.70-6.10) L Hemoglobin 9.1 G/DL (14.2-18.0) L Hematocrit 28.0 % (42.0-52.0) L Mean Corpuscular Volume 84 FL (80-99) Mean Corpuscular Hemoglobin 27.3 PG (27.0-31.0) Mean Corpuscular Hemoglobin Concent 32.6 G/DL (32.0-36.0) Red Cell Distribution Width 15.4 % (11.6-14.8) H Platelet Count 211 K/UL (150-450) Mean Platelet Volume 6.8 FL (6.5-10.1) Neutrophils (%) (Auto) 60.1 % (45.0-75.0) Lymphocytes (%) (Auto) 26.6 % (20.0-45.0) Monocytes (%) (Auto) 7.5 % (1.0-10.0) Eosinophils (%) (Auto) 5.1 % (0.0-3.0) H Basophils (%) (Auto) 0.7 % (0.0-2.0) Plan Problems: (1) Respiratory acidosis (2) Seizure disorder (3) Altered mental status (4) Pneumonia Assessment & Plan: New left pleural effusion Improved aeration of the right lung, with persistent consolidation and pleural fluid (5) Cardiopulmonary arrest (6) Hypernatremia (7) Sepsis Assessment & Plan: Pt presented on admission with multiple pressure injuries. Unstageable Pressure injury R Buttocks. Base of wound is 100% necrotic. Sacrum, R and L Gluteal cheeks maroon with multiple partial thickness wounds with surrounding denuded and macerated skin. Dry, black borders noted Unstageable pressure injury R thoracic. Base of wound is 100% necrotic but dry. No erythema induration or fluctuance periwound. Full thickness stage 3 pressure injury R heel. Base of wound is beefy red with macerated borders. periwound is necrotic and fluctuant. Full thickness stage 3 pressure injury R Hallux. Base of wound is beefy red with surrounding pink granulation. Dry black borders noted. Loose dry eschar noted to L heel. Hyperpigmentation noted to R and L lateral Malleoli. unlikely etiology of sepsis will monitor Pt presented with generalized edema.R hand contracture noted .R hand dusky in colour . R 5th digit /R thumb black at tip of finger. At base of of R thumb including dorsal R hand and R wrist is large wound that is 50% necrotic .50% taty. with loose edges. Small amt serosanguineous exudate noted. At circumference of R first digit/index finger is large open Blister with loose skin flap . base of wound is taty. Necrotic area noted at tip of index finger. Detached nail matrix and epidermis of R middle digit/3rd digit . Fingertip is taty and moist,minimal sanguineous exudate.Tips of R ring finger and R 5th digit is black. Unable to accurately assess web spaces of digits on R hand secondary to gross edema, and pt became distressed at any attempt to separate digits. R hand washed with tepid water and mild soap and patted dry. Each digit and wounds swabbed with Betadine. Xeroform gauze weaved between each digit of R hand and to R wrist and dorsal R hand. Soft Kerlix roll then placed in palm of hand to support contracture. Abd placed over wounds and R hand wrapped loosely with Kerlix until further instructed by Surgeon. R hand elevated on two pillows. Continue to monitor is very difficult case. Requiring extensive care. Tx.Plan: Keep R Hand elevated with 2 Pillows. Tx.Plan: Cleanse Sacral area with Saline.Apply Therahoney. Apply Moisture Barrier Paste periwound. Cover with gauze followed by ABD dressing . Change Daily and Prn. Cleanse wound R thoracic with Saline. Apply TheraHoney. Apply Cavilon Skin Barrier Periwound. Cover with ABD drsg.Change every 3 days and prn. Cleanse wound R heel with Saline. Apply TheraHoney. Apply Cavilon Skin Barrier Periwound. Cover with Optifoam drsg. Change every 3 days and prn. Cleanse R Hallux with Saline. Apply Therahoney. Apply Cavilon Skin Barrier Periwound. Cover with Optifoam drsg. Change every 3 days and prn. Apply Cavilon Skin Barrier to L Heel. Cover with Optifoam drsg. Change every 7 days and prn. Reposition at least every 2hours or as tolerated. Place Pillow between knees. Off-load heels with Pillow. APM/NORM Mattress overlay. DAILY ESTIMATED NEEDS: Needs based on Critical care, wounds 78.6abw 22-30 kcals/kg 0031-9500 total kcals 1.25-2 g protein/kg 98-157 g total protein 25-30 mL/kg 1674-4715 total fluid mLs NUTRITION DIAGNOSIS: Increased kcal and pro needs r/t wound care as evidenced by pt w/ full thickness wounds x2, unstageable wounds x2, refer to WC eval. CURRENT TF:Glucerna 1.5 @70ml/hr x18 hrs ENTERAL NUTRITION RECOMMENDATIONS: Glucerna 1.5 @70ml/hr x18 hrs to provide 1260ml, 1890 kcal, 104g pro, 956ml free H2O - W/ HD stability, continue current TF - HOLD TF 1 HOUR BEFORE AND AFTER SYNTHROID(QD) AND DILANTIN(BID), tf to run a max of 18 hrs - Flush per MD , HOB over 30 degrees WITHOUT HEMODYNAMIC STABILITY: rec trophic feeds of Glucerna 1.5 @5-10ml/hr to maintain gut integrity. ADDITIONAL RECOMMENDATIONS: 1) Wound care: add AJIT BID + Vit C 250mg daily 2) Per SNF: 69inches, 212lbs/96.36kg Maintain calibrated daily wts 3) Feed when hemodynamically stable, do not feed in the prone position -> pressors held at this time 4) Monitor lytes, replete as needed Doppler examination shows normal spontaneity, phasicity, compressibility in the bilateral upper extremities. There is no thrombus identified by grayscale. Normal color and spectral flow is identified. There is no evidence of valvular incompetency or insufficiency. IMPRESSION: NO EVIDENCE OF DVT. (8) ACE (acute kidney injury) Gary Vicente March 18, 2020 13:02
--- NOTE | 2020-03-18 13:45 | Diagnostic Imaging Report ---
EXAM: Arterial Duplex Scan Bilat Arm CLINICAL HISTORY: Arm pain and swelling. COMPARISON: None TECHNIQUE: Doppler examination include grayscale images, and color and spectral doppler analysis. Segmental pressures also obtained. FINDINGS: Grayscale images demonstrates no significant plaque formation.. Normal phasic flow is demonstrated. VELOCITIES: Right: Subclavian: 79 cm/s Axillary: 66 cm/s Brachial: 114 cm/s Radial: 58 cm/s Ulnar: 65 cm/s Left: Subclavian: 88 cm/s Axillary: 61 cm/s Brachial: 108 cm/s Radial: 77 cm/s Ulnar: 77 cm/s IMPRESSION: No significant peripheral vascular disease.
--- NOTE | 2020-03-18 15:00 | NUR ---
NURSE NOTES: pt has discharge order, all D/C assessments and instructions done, pt is stable, Report given to SNF RN Kenia, D/C rectal tube and triple lumen as order, took picture of all wounds and will be uploaded, R hand is look like gangrene. pt's mom is aware about D/C. All wound treatment done as order, g tube flushed and no residual. ambulance personnel are here to pick pt up.
--- NOTE | 2020-03-18 15:19 | NUR ---
NURSE NOTES: pt is stable, V/S stable, pt left with ambulance personnel and belongings.
[2020-03-18] MEDS ORDERED: Eliquis 5mg tablet ORAL SCH (18:00)
[2020-03-18] MEDS ORDERED: Eliquis 5mg tablet GT SCH (18:00)
--- NOTE | 2020-03-19 03:29 | Progress Note ---
DATE: 03/18/2020 CARDIOLOGY PROGRESS NOTE SUBJECTIVE: Condition is stabilized. Blood pressure parameters stable. Monitor, sinus tachycardia. PHYSICAL EXAMINATION: LUNGS: Bilateral breath sounds. CARDIAC: Regular rhythm and rate. Normal S1, S2. ABDOMEN: Soft. EXTREMITIES: Trace edema. LABORATORY DATA: White count 7.4, hemoglobin 9.1. Potassium 4, BUN 15, creatinine 0.9. Pro natriuretic peptide is 58. IMPRESSION: 1. Status post cardiopulmonary arrest. 2. Sepsis with shock. 3. Acute diastolic congestive heart failure, now compensated. 4. Secondary sinus tachycardia. 5. Acute DVT and possible pulmonary embolic event. PLAN: 1. Full anticoagulation. 2. Respiratory hygiene. 3. Titrate beta-boni. 4. Antimicrobials as per Infectious Disease bus info consultant. 5. Stable from cardiovascular standpoint to complete recovery at [facility] facility. Yfn Luna M.D. DR: BRANDI JOB#: [id number] CC:
--- NOTE | 2020-03-19 11:43 | NUR ---
*-* NO DISCHARGE SUMMARY IN THE SYSTEM UNABLE TO SEND TO [facility]. *-*
--- NOTE | 2020-03-20 11:40 | NUR ---
*-* NO DISCHARGE SUMMARY IN THE SYSTEM UNABLE TO SEND TO [facility]. *-*
--- NOTE | 2020-03-20 14:50 | Discharge Summary ---
Discharge Summary Discharge Summary _ DATE OF ADMISSION: 03/04/2020 DATE OF DISCHARGE: 03/18/2020 DISCHARGED BY: Dr. Matthews REASON FOR ADMISSION: 59 years old male, resident of [facility] facility, with past medical history of seizure disorder, dysphagia, feeding by G-tube, developmental delay history of pneumonia, likely aspiration pneumonia, hypothyroidism, hyperlipidemia, sleep apnea, was sent for evaluation due to respiratory distress. In emergency department patient was tachycardic, hypoxic, requiring 100% nonrebreathing mask and hypotensive. Laboratory work-up revealed no leukocytosis ,hemoglobin 10.8,hematocrit 39.1 , platelet count 196. Lactic acid 1.6. EKG reveals sinus tachycardia , no acute ischemic changes. Dilantin level was subtherapeutic 6.9. Chest x-ray demonstrated right basilar infiltrate, likely pneumonia. Urinalysis revealed no evidence of urinary tract infection. Chemistry demonstrated sodium 163, chloride 119, CO2 42. BUN 30, creatinine 0.9. Glucose 156. Initial lactic acid 1.6 In emergency department patient was palced on BiPAP. Patient pancultured, started on IV fluids and empiric antibiotic and admitted to ICU for further management . CONSULTANTS: distributed energy systems consultant Dr.Kattan CHA specialist Dr. Calle general teller Dr. Ocampo [facility] COURSE: Patient admitted to ICU. Patient initially was on BiPAP. Patient was on IV fluids and empiric antibiotics. CODE BLUE was called on 03/15. ACLS protocol initiated. Laboratory work-up showed acidosis and CO2 retention. Patient was orally intubated. p Patient was severely hypotensive. Central line was placed , and patient started on pressors. Chest x-ray to confirm position of endotracheal tube and central line. Patient initially started on Levophed. Later phenylephrine was added for additional hemodynamic support. Pressors titrated to keep mean arterial blood pressure above 65. Hemodynamic status was closely monitored. Ventilator support and pulmonary toilet provided. Patient was followed-up with ABG and chest x-ray. Acid-base balance was closely monitored. Settings titrated correspondingly . SARS-CoV 2 by PCR on 03/04 and 03/08 was not detected. Blood culture revealed Staph capitis, probably contamination. Sputum culture revealed Pseudomonas and MRSA. Stool for C. difficile was negative. Patient noted to have lactic acidosis , which was trended, resolved on 03/09 only. Renal parameters and electrolytes were closely monitored ,electrolytes corrected as needed ,nephrotoxic's were avoided. All electrolyte stable prior to discharge. CK from 3007 on down to normal 518. Prior to discharge BUN from 30 down to 15 and creatinine from the highest 2.0 down to 0.9. While in the hospital patient undergone transfusion of 2 units of packed red blood cells . Pror to discharge hemoglobin 9.1 , hematocrit 28. Venous duplex bilateral lower extremity revealed possible partial DVT in the right superficial femoral veins. Study was limited due to body habitus. Patient started on anticoagulation. Venous duplex was repeated on 03/17 and revealed no evidence of DVT. Echocardiogram revealed preserved ejection fraction 55 to 60%. No evidence of left ventricular hypertrophy. Right ventricular systolic pressure of 13. Patient was eventually able to be weaned from pressors and later to be extubated. Patient was on the BiPAP . Blood pressure was closely monitored. Fluid challenges provided for low blood pressure. Blood pressure finally stabilized, and prior to discharge 134/75. Serial troponin negative. ECG revealed no acute ischemic changes. Patient was able downgraded from the BiPAP to nasal cannula. pulse oximetry stable on 2 L of oxygen via nasal cannula prior to discharge. Blood sugar was managed with sliding scale of insulin. Seizure precaution maintained. Antiepileptics : Keppra and Dilantin - continued. No evidence of seizure activity while in the hospital. DVT and GI prophylaxis provided. Bowel regimen instituted. Patient presented on admission with a multiply pressure injury. Wound care provided as per surgeon recommendation. Continue wound care at the facility. Strict aspiration precaution maintained. Tube feeding formula with goal rate and protein supplements provided as per registered dietitian recommendation. Patient clinically stabilized and was ready for transfer back to [facility] for continuation of care FINAL DIAGNOSES: Status post cardiopulmonary arrest Sepsis with septic shock Suspected COVID-19 infection -ruled out Pneumonia Acute hypoxemic hypercapnic respiratory failure requiring intubation Acute renal failure -resolved Hypernatremia Pulmonary edema Seizure disorder Respiratory acidosis Altered mental status Rhabdomyolysis Hypomagnesia Lactic acidosis Severe protein calorie malnutrition DISCHARGE MEDICATIONS: See Medication Reconciliation list. DISCHARGE INSTRUCTIONS: Patient was discharged to the [facility] facility. Follow up with medical doctor at the facility. I have been assigned to dictate discharge summary for this account. I was not involved in the patient's management. Juliette Sheffield NP March 20, 2020 14:50
== END 2020-03-18 15:23 | DRG 870 ==
LOC: EDBD 20:13 → EMR 20:58 → ICU 21:51 → EDBEDREQ 22:43 → EDBEDREQSVC 22:43 → EDBEDREQ 03-05 06:13 → 2E 03-15 11:55
PROC: 5A1955Z Respiratory Ventilation, Greater than 96 Consecutive Hours (ICD-10-PCS; principal; 2020-03-05)
PROC: 0BH17EZ Insertion of Endotracheal Airway into Trachea, Via Natural or Artificial Opening (ICD-10-PCS; principal; 2020-03-05)
PROC: 05HM33Z Insertion of Infusion Device into Right Internal Jugular Vein, Percutaneous Approach (ICD-10-PCS; principal; 2020-03-05)
DX: A41.9 Sepsis, unspecified organism (principal); L89.613 Pressure ulcer of right heel, stage 3; L89.893 Pressure ulcer of other site, stage 3; R65.21 Severe sepsis with septic shock; E43 Unspecified severe protein-calorie malnutrition; J96.01 Acute respiratory failure with hypoxia; J96.02 Acute respiratory failure with hypercapnia; J15.1 Pneumonia due to Pseudomonas; J15.212 Pneumonia due to Methicillin resistant Staphylococcus aureus; I50.33 Acute on chronic diastolic (congestive) heart failure; I46.9 Cardiac arrest, cause unspecified; N17.9 Acute kidney failure, unspecified; E87.0 Hyperosmolality and hypernatremia; I82.411 Acute embolism and thrombosis of right femoral vein; M62.82 Rhabdomyolysis; Z20.828 Contact with and (suspected) exposure to other viral communicable diseases; E03.9 Hypothyroidism, unspecified; G40.909 Epilepsy, unspecified, not intractable, without status epilepticus; R13.10 Dysphagia, unspecified; G47.33 Obstructive sleep apnea (adult) (pediatric); E78.5 Hyperlipidemia, unspecified; I11.0 Hypertensive heart disease with heart failure; Z86.73 Personal history of transient ischemic attack (TIA), and cerebral infarction without residual deficits; E87.6 Hypokalemia; E86.0 Dehydration; Z68.26 Body mass index [BMI] 26.0-26.9, adult; Z93.1 Gastrostomy status; Z86.718 Personal history of other venous thrombosis and embolism; L89.310 Pressure ulcer of right buttock, unstageable; R19.7 Diarrhea, unspecified; E83.42 Hypomagnesemia; E87.8 Other disorders of electrolyte and fluid balance, not elsewhere classified
CPT/HCPCS: 31500; 36415; 36600; 71045; 74018; 80048; 80053; 80185; 80202; 81003; 81050; 82150; 82550; 82553; 82570; 82803; 82962; 83605; 83690; 83735; 83880; 84100; 84156; 84300; 84478; 84484; 84550; 85007; 85025; 85610; 85651; 85730; 86140; 86850; 86870; 86900; 86901; 86904; 86920; 87040; 87070; 87081; 87181; 87205; 87324; 87635; 93005; 93306; 93930; 93970; 94002; 94003; 94660; 94664; 96365; 96375; 97803; 99291; J1815; J2370; J7030; J8499

== ENCOUNTER 2020-06-02 03:44 | Inpatient (IN) | payer OTHER, MEDICAID ==
[~2020-06-02] VITALS: Ht 177.8 cm; Wt 103.1 kg
[2020-06-02] VITALS (56 sets, daily range): BP systolic 49–153; BP diastolic 26–75
[~2020-06-02 03:44] MED LIST changes: +ALBUTEROL2.5 MG/3 M INH; +ASCORBIC ACID500 MG GT; +ATIVAN2 MG/1 ML IM; +COREG3.125 MG GT; +ELIQUIS2.5 MG PO; +FOLIC ACID1 MG GT; +KEPPRA LIQ100 MG/1 M GT; +LEVOTHYROXINE75 MCG GT; +LOTRIMIN ULTRA12 GM TP; +MAGOX 400400 MG ORAL; +METOPROLOL TART25 MG GT; +NOVOLOG100 UNITS1; +OYSTER SHELL 51 EAC1 GT; +PHENYTOIN125 MG/5 M GT; +POLYETHYLENE GL17 GM GT; +SENOKOT8.6 MG GT; +SIMVASTATIN20 MG GT; +VANCOMYCIN HCL1 G1 IV; +VITAMIN D32400 UNIT/ GT; +ZEGERID 20 MG1 EACH GT
--- NOTE | 2020-06-02 03:45 | Emergency Room Report ---
History of Present Illness General Source: Patient Present Illness HPI Patient is a 56-year-old male who presents after increased respiratory difficulty. Patient was sent in from [facility] and was noted to have diminished oxygen saturation. Acute onset. Patient been G-tube dependent. Was noted by paramedics to be warm to the touch. He was started on supplemental oxygen via nonrebreather. Allergies: Coded Allergies: HYDROCODONE (Verified Allergy, Unknown, 07/04/17) Patient History Reviewed Nursing Documentation: PMH: Agreed; PSxH: Agreed Physical Exam General Appearance: lethargic, Chronically Ill Neck: limited range of motion Respiratory: lungs clear Cardiovascular #1: tachycardia, edema Gastrointestinal: normal inspection, soft Musculoskeletal: decreased range of motion Neurologic: motor weakness, aphasia, other - Nonverbal Skin: other - Multiple skin ulcers including ulceration to the ears from mask, sacral decubitus ulcer unstageable Procedures Critical Care Time Critical Care Time Patient had a critical medical condition which untreated could potentially result in life or limb threatening injury. Total critical care time excluding procedures approximately 45 minutes. Intubation Intubation : Consent: Emergent Time of Intubation: 04:57 Intubation Method: orotracheal Tube Size (cm): 7.0 Medications: Etomidate Breath Sounds after Intubation: equal Intubation Complications: no complications Post Intubation Xray: Yes Attempts: One Patient Tolerated: Well Complications: None Medical Decision Making Diagnostic Impression: Primary Impression: Septic shock Additional Impressions: Seizure disorder Pneumonia Pleural effusion Decubital ulcer ER Course Patient presented after shortness of breath. He was noted to be hypotensive with diminished oxygen saturation. Differential diagnosis include was not limited to septic shock, pneumonia, pulmonary embolism, myocardial infarction. Because of complexity of patient's case laboratory tests and imaging studies were ordered. Patient was noted to have significant hypotension and decreased oxygen saturation. Has poor range of motion to his neck and lower extremities. He was noted to have some decubitus ulcer to the ear from mask. In addition to other decubitus ulcers. Patient has chronic indwelling Penaloza catheter appears to have some evidence of urinary infection. Patient was initially given intramuscular epinephrine due to inability to obtain IV access. He was given IV antibiotics. Intraosseous line was attempted after failed attempts at central venous catheterization through subclavian route as well as right IJ. Patient was noted to be hypotensive was intubated for decreased saturation. EKG interpreted by me showed sinus tachycardia with a rate of [address] or T wave changes noted. His initial coronavirus testing was negative. Chest x- ray postintubation showed chest x-ray 1 view interpreted by me showed adequate endotracheal tube with bibasilar effusions no evident pneumothorax questionable pneumonia. Right interosseous line was placed with sterile technique, patient tolerated this well. Patient was started on IV fluids and is noted to be unstable for transfer at this time. Patient was discussed with [facility] and patient will be admitted to [facility] due to instability. Patient was discussed with Dr. Woods from [facility] who authorized admission case # [id number]. Patient was discussed with Dr. Wagoner who agreed with admission. Labs Test 06/02/20 04:40 06/02/20 05:34 Lactic Acid Level 3.50 mmol/L (0.4-2.0) Troponin I 0.042 ng/mL (0.000-0.056) Urine Color Yellow Urine Appearance Cloudy Urine pH 5 (4.5-8.0) Urine Specific [place] 1.020 (1.005-1.035) Urine Protein 3+ (NEGATIVE) Urine Glucose (UA) Negative (NEGATIVE) Urine Ketones 1+ (NEGATIVE) Urine Blood 3+ (NEGATIVE) Urine Nitrite Negative (NEGATIVE) Urine Bilirubin Negative (NEGATIVE) Urine Urobilinogen 8 MG/DL (0.0-1.0) Urine Leukocyte Esterase 3+ (NEGATIVE) Urine RBC 2-4 /HPF (0 - 0) Urine WBC 5-10 /HPF (0 - 0) Urine Squamous Epithelial Cells None /LPF (NONE/OCC) Urine Bacteria Many /HPF (NONE) EKG Diagnostic Results Rate: tachycardiac Rhythm: NSR ST Segments: no acute changes Rhythm Strip Diag. Results EP Interpretation: yes Rhythm: NSR, no PVC's, no ectopy Status: unchanged Disposition: ADMITTED INPATIENT Condition: Jacob Bailon MD Jun 02, 2020 03:45
[2020-06-02] MEDS ORDERED: Vancomycin 1 GM in NS 275 ML IV ONE (04:00)
[2020-06-02] MEDS ORDERED: Cefepime HCl 2 GM in NS 110 ML IV ONE (04:00)
[2020-06-02] MEDS ORDERED: Acetaminophen 650 MG SUPP RECTAL ONE (04:15)
[2020-06-02] MEDS ORDERED: EPINEPHrine 1mg/1ml Amp IM ONE (04:30)
[2020-06-02] MEDS ORDERED: EPINEPHRINE ONE (04:39)
[2020-06-02] MEDS ORDERED: EPINEPHrine 1mg/1ml Amp ONE (04:40)
[2020-06-02 05:46] LABS: APPEARANCE,URINE CLOUDY; BILIRUBIN, URINE NEGATIVE (NEGATIVE); GLUCOSE, URINE (UA) NEGATIVE (NEGATIVE); KETONES,URINE 1+ (NEGATIVE); LEUKOCYTE ESTERASE ,URINE 3+ (NEGATIVE); NITRITE,URINE NEGATIVE (NEGATIVE); PH,URINE 5 (4.5-8.0); PROTEIN,URINE 3+ (NEGATIVE); UROBILINOGEN,URINE 8 MG/DL (0.0-1.0)
--- NOTE | 2020-06-02 05:52 | Diagnostic Imaging Report ---
EXAM: XR Chest, 1 View CLINICAL HISTORY: SOB TECHNIQUE: Frontal view of the chest. COMPARISON: Chest x-ray 03/15/2020 FINDINGS: Lungs: Bibasilar airspace opacities, progressed at the right base. Pleural space: No pleural effusion. No pneumothorax. Heart: Unremarkable. No cardiomegaly. Bones/joints: Unremarkable. Tubes, lines and devices: Endotracheal tube terminates 1.5 cm above the aleksandr. IMPRESSION: 1. Endotracheal tube terminates 1.5 cm above the aleksandr. 2. Bibasilar airspace opacities, progressed at the right base.
[2020-06-02 06:03] LABS: COLOR,URINE YELLOW
[2020-06-02] MEDS ORDERED: Lidocaine 1% Plain 30 ml INJ ONE (06:15)
[2020-06-02] MEDS ORDERED: Heparin1,000 units/500ml Premix(Conc:2 units/ml) IV ONE (06:15)
[2020-06-02 06:17] LABS: CKMB 1.5 NG/ML (0.0-3.6)
[2020-06-02] MEDS ORDERED: Norepinephrine Bitartrate 4 MG in NS 250 ML IV ONE (06:45)
[2020-06-02] MEDS ORDERED: Morphine Sulfate 4mg/ml Inj (IV USE ONLY) IVP PRN (08:30)
[2020-06-02 08:52] LABS: INR 1.2 (0.9-1.1)
[2020-06-02] MEDS ORDERED: Miralax 17gm pkt ORAL PRN (09:00)
[2020-06-02] MEDS ORDERED: Heparin 5000 units/ml inj SUBQ SCH (09:00)
[2020-06-02] MEDS ORDERED: LORazepam Inj 2mg/ml 1ml IV PRN (09:00)
[2020-06-02] MEDS ORDERED: Albuterol/Ipratropium 3ml neb HHN PRN (09:00)
[2020-06-02] MEDS ORDERED: Pantoprazole Inj IVP SCH (09:30)
[2020-06-02] MEDS: Norepinephrine 4mg/NS Premix 250 ML IV SCH ×2 (09:33→12:06)
[2020-06-02 09:49] LABS: MEAN CORPUSCULAR VOLUME 94 FL (80-99); PLATELET COUNT 191 K/UL (150-450); RED BLOOD COUNT 3.18 M/UL (4.70-6.10); RED CELL DISTRIBUTION WIDTH 18.1 % (11.6-14.8)
[2020-06-02] MEDS: levETIRAcetam 500mg/5ml Liquid GT SCH ×2 (09:51→21:11)
[2020-06-02] MEDS: Phenytoin Susp 100mg/4ml GT SCH ×2 (09:51→21:11)
[2020-06-02 10:03] LABS: ANION GAP 11 mmol/L (5-15); BLOOD UREA NITROGEN 55 mg/dL (7-18); CALCIUM 9.8 MG/DL (8.5-10.1); CARBON DIOXIDE 32 MMOL/L (21-32); CHLORIDE 112 MMOL/L (98-107); CREATININE 3.1 MG/DL (0.55-1.30); POTASSIUM 4.5 MMOL/L (3.5-5.1); SODIUM 155 MMOL/L (136-145)
[2020-06-02 10:04] LABS: WHITE BLOOD COUNT 23.7 K/UL (4.8-10.8)
[2020-06-02 10:08] LABS: ALANINE AMINOTRANSFERASE 17 U/L (12-78); ALBUMIN 2.2 G/DL (3.4-5.0); ALBUMIN/GLOBULIN RATIO 0.3 (1.0-2.7); ALKALINE PHOSPHATASE 120 U/L (46-116); ASPARTATE AMINO TRANSFERASE 47 U/L (15-37); BILIRUBIN,TOTAL 0.3 MG/DL (0.2-1.0)
--- NOTE | 2020-06-02 10:46 | Pulmonolgy Critical Care Note ---
Critical Care - Asmt/Plan Problems: (1) Acute respiratory failure (2) Cardiopulmonary arrest (3) Septic shock (4) ACE (acute kidney injury) (5) Chronic vegetative state (6) Hypothyroidism (7) Decubital ulcer (8) Seizure disorder (9) PVD (peripheral vascular disease) Respiratory: monitor respiratory rate, adjust FIO2, CXR Cardiac: continue pressors, continue to monitor HR/BP Renal: F/U I&O, keep IV fluid Infectious Disease: check cultures Gastrointestinal: hold feedings Endocrine: monitor blood sugar Hematologic: monitor H/H Neurologic: PRN Ativan, PRN Morphine Affect: PRN ativan Disposition: keep in ICU Discussed with: nurses, consultants, 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 - Objective Last 24 Hour Vital Signs Date Time Temp Pulse Resp B/P (MAP) Pulse Ox O2 Delivery O2 Flow Rate FiO2 06/02/20 09:33 93/44 06/02/20 09:13 123 16 100 06/02/20 09:00 100.0 120 19 90/57 100 Mechanical Ventilator 100 06/02/20 09:00 100.0 120 19 90/57 100 Mechanical Ventilator 100 06/02/20 07:53 74/50 06/02/20 07:48 76/50 06/02/20 07:45 120 19 100 06/02/20 07:43 84/56 06/02/20 07:38 90/50 06/02/20 07:33 79/46 06/02/20 07:27 79/50 06/02/20 07:25 101.0 117 18 96/53 100 Mechanical Ventilator 100 06/02/20 07:23 96/53 06/02/20 07:18 64/39 06/02/20 07:13 72/45 06/02/20 07:08 90/51 06/02/20 07:03 66/44 06/02/20 06:58 64/44 06/02/20 06:53 77/52 06/02/20 06:48 60/42 06/02/20 06:00 101.0 123 18 67/37 99 Mechanical Ventilator 100 06/02/20 05:27 130 18 100 06/02/20 05:05 103.0 135 18 51/26 100 Mechanical Ventilator 100 06/02/20 05:00 100 06/02/20 04:55 103.0 122 19 49/32 82 Room Air 15.0 06/02/20 03:47 102.9 123 19 50/33 (39) 90 Room Air 06/02/20 03:45 123 19 Non-Rebreather 15.0 06/02/20 03:45 103.0 130 19 50/33 90 Non-Rebreather 15.0 Status: obtunded Condition: critical, grave HEENT: atraumatic Lungs: rales, rhonchi Heart: HR/BP stable Abdomen: soft Extremities: no C/C/E Decubiti: location Micro: Microbiology Date/Time Source Procedure Growth Status 06/02/20 03:50 Nasopharynx SARS-CoV-2 RdRp Gene Assay - Final Complete Critical Care - Subjective ROS Limited/Unobtainable: Yes Interval Events: 60 year old male with hx of CVA, contractures, bed bound, PEG, seizures, hypothyroid brought in to ER with CC of respiratory failure. Pt arrested in ER and was resuscitated and put on maximum dose of Levophed. He is transferred to ICU for further management. FI02: 100 Vent Support Breath Rate: 16 Vent Support Mode: AC Vent Tidal Volume: 600 Sputum Amount: Small PEEP: 5.0 PIP: 39 CXR: pleural effusion, ET-Tube: 7.0 ET Position: 24 Labs: Laboratory Tests Test 06/02/20 04:40 06/02/20 05:34 06/02/20 08:10 06/02/20 08:19 White Blood Count 23.7 K/UL (4.8-10.8) *H Red Blood Count 3.18 M/UL (4.70-6.10) L Hemoglobin 9.0 G/DL (14.2-18.0) L Hematocrit 30.0 % (42.0-52.0) L Mean Corpuscular Volume 94 FL (80-99) Mean Corpuscular Hemoglobin 28.1 PG (27.0-31.0) Mean Corpuscular Hemoglobin Concent 29.9 G/DL (32.0-36.0) L Red Cell Distribution Width 18.1 % (11.6-14.8) H Platelet Count 191 K/UL (150-450) Mean Platelet Volume 8.8 FL (6.5-10.1) Neutrophils (%) (Auto) % (45.0-75.0) Lymphocytes (%) (Auto) % (20.0-45.0) Monocytes (%) (Auto) % (1.0-10.0) Eosinophils (%) (Auto) % (0.0-3.0) Basophils (%) (Auto) % (0.0-2.0) Differential Total Cells Counted 100 Neutrophils % (Manual) 40 % (45-75) L Lymphocytes % (Manual) 45 % (20-45) Monocytes % (Manual) 9 % (1-10) Eosinophils % (Manual) 1 % (0-3) Basophils % (Manual) 2 % (0-2) Band Neutrophils 3 % (0-8) Nucleated Red Blood Cells 3 /100 WBC Platelet Estimate Adequate Platelet Morphology Normal Hypochromasia 2+ Anisocytosis 2+ Sodium Level 155 MMOL/L (136-145) H Potassium Level 4.5 MMOL/L (3.5-5.1) Chloride Level 112 MMOL/L (98-107) H Carbon Dioxide Level 32 MMOL/L (21-32) Anion Gap 11 mmol/L (5-15) Blood Urea Nitrogen 55 mg/dL (7-18) H Creatinine 3.1 MG/DL (0.55-1.30) H Estimat Glomerular Filtration Rate 24.8 mL/min (>60) Glucose Level 316 MG/DL (74-106) H Lactic Acid Level 3.50 mmol/L (0.4-2.0) H 4.60 mmol/L (0.66-2.22) H Calcium Level 9.8 MG/DL (8.5-10.1) Magnesium Level 2.7 MG/DL (1.8-2.4) H Total Bilirubin 0.3 MG/DL (0.2-1.0) Aspartate Amino Transf (AST/SGOT) 47 U/L (15-37) H Alanine Aminotransferase (ALT/SGPT) 17 U/L (12-78) Alkaline Phosphatase 120 U/L (46-116) H Total Creatine Kinase 1630 U/L (26-308) H Creatine Kinase MB 1.5 NG/ML (0.0-3.6) Creatine Kinase MB Relative Index 0.0 Troponin I 0.042 ng/mL (0.000-0.056) Pro-B-Type Natriuretic Peptide 1628 pg/mL (0-125) H Total Protein 9.5 G/DL (6.4-8.2) H Albumin 2.2 G/DL (3.4-5.0) L Globulin 7.3 g/dL Albumin/Globulin Ratio 0.3 (1.0-2.7) L Amylase Level 298 U/L (25-115) H Lipase 365 U/L (73-393) Urine Color Yellow Urine Appearance Cloudy Urine pH 5 (4.5-8.0) Urine Specific [place] 1.020 (1.005-1.035) Urine Protein 3+ (NEGATIVE) H Urine Glucose (UA) Negative (NEGATIVE) Urine Ketones 1+ (NEGATIVE) H Urine Blood 3+ (NEGATIVE) H Urine Nitrite Negative (NEGATIVE) Urine Bilirubin Negative (NEGATIVE) Urine Urobilinogen 8 MG/DL (0.0-1.0) H Urine Leukocyte Esterase 3+ (NEGATIVE) H Urine RBC 2-4 /HPF (0 - 0) H Urine WBC 5-10 /HPF (0 - 0) H Urine Squamous Epithelial Cells None /LPF (NONE/OCC) Urine Bacteria Many /HPF (NONE) H Prothrombin Time 13.5 SEC (9.30-11.50) H Prothromb Time International Ratio 1.2 (0.9-1.1) H Activated Partial Thromboplast Time 29 SEC (23-33) Test 06/02/20 10:10 Troponin I Pending Lainey Harley MD Jun 02, 2020 10:46
[2020-06-02 11:05] LABS: CREATINE KINASE 6921 U/L (26-308)
--- NOTE | 2020-06-02 11:23 | General Progress Note ---
Progress Note Progress Note Pt had cardiac arrest and was revived. He needs a central line or PICC line for iv abx and pressors. At this point, we cant get hold of any family members to get consent for a PICC line. Lainey Harley MD Jun 02, 2020 11:23
[2020-06-02] MEDS ORDERED: Lidocaine 1% Plain 30 ml INJ SCH (12:00)
[2020-06-02] MEDS ORDERED: Heparin1,000 units/500ml Premix(Conc:2 units/ml) IV SCH (12:00)
--- NOTE | 2020-06-02 12:17 | Consultation ---
History of Present Illness General Date patient seen: Jun 02, 2020 Chief Complaint: Dyspnea/Respdistress Present Illness HPI 60 y/o M with hx of HTN, HLD, CARMEN, CVA, seizure disorder, hypothyroidism, Dysphagia s/p GT, multiple decubit ulcers, chronic indwelling Penaloza catheter, [place] resident (Melonie Venegas) presented to ED on 06/02/20 with increased respiratory difficulty, hypoxia. Upon admission patient was hypotensive and hypoxic. Was intubated in the ED. Of note, patient was admitted here on February 2020 for hypoxia requiring intubation and was diagnosed with MRSA and PsA pneumonia; course complicated by shock and renal failure; also recent PNA treated at [facility]. Allergies: Coded Allergies: HYDROCODONE (Verified Allergy, Unknown, 07/04/17) Medication History Scheduled Apixaban (Eliquis), 2.5 MG PO BID, (Reported) Butenafine Hcl (Lotrimin Ultra), 12 GM TP DAILY, (Reported) Calcium Carbonate/Vitamin D3 (Oyster Shell 500 Mg + Vit D Tb), 1 EACH GT BID, ( Reported) Carvedilol (Coreg), 3.125 MG GT EVERY 12 HOURS, (Reported) Folic Acid* (Folic Acid*), 400 MCG GT DAILY, (Reported) Levetiracetam (Keppra), 15 ML GT TWICE A DAY, (Reported) Levothyroxine Sodium* (Levothyroxine Sodium*), 75 MCG GT DAILY, (Reported) Mineral Oil (Mineral Oil Enema), 133 ML RC EVERY 48HOURS, (Reported) Phenytoin (Phenytoin), 125 MG GT BID, (Reported) Polyethylene Glycol 3350* (Polyethylene Glycol 3350*), 17 GM GT DAILY, (Reported ) Sennosides (Senokot), 17.2 MG GT DAILY, (Reported) Simvastatin (Zocor), 20 MG GT BEDTIME, (Reported) Scheduled PRN Acetaminophen* (Acetaminophen 325MG Tablet*), 650 MG GT Q4H PRN for Mild Pain ( Pain Scale 1-3), (Reported) Albuterol Sulfate* (Albuterol Sulfate Hhn*), 3 ML INH Q4H PRN for Shortness of Breath, (Reported) Miscellaneous Medications Omeprazole/Sodium Bicarbonate (Zegerid 20 Mg Capsule), 20 MG GT, (Reported) Discontinued Medications Ascorbic Acid* (Ascorbic Acid*), 500 MG GT DAILY, (Reported) Discontinued Reason: Pt stopped taking med Cholecalciferol (Vitamin D3) (Vitamin D3), 1,000 UNIT GT DAILY, (Reported) Discontinued Reason: Pt stopped taking med Insulin Aspart (Novolog Flexpen), (Reported) Discontinued Reason: Pt stopped taking med Lorazepam* (Ativan*), 1 MG IM Q4H, (Reported) Discontinued Reason: Pt stopped taking med Magnesium Oxide (Magox 400), 400 MG ORAL TID, (Reported) Discontinued Reason: Pt stopped taking med Metoprolol Tartrate* (Metoprolol Tartrate*), 25 MG GT EVERY 12 HOURS, (Reported) Discontinued Reason: Pt stopped taking med Vancomycin Hcl (Vancomycin Hcl), 1.25 GM IV EVERY 18 HOURS, (Reported) Discontinued Reason: Pt stopped taking med Patient History Healthcare decision maker Resuscitation status Advanced Directive on File Patient History Narrative Pmhx: as above Shx: reviewed Fhx: non contributory Review of Systems ROS Narrative unable to obtain Physical Exam Physical Exam Narrative HEENT: atraumatic Lungs: rales, rhonchi Heart: HR/BP stable Abdomen: soft Extremities: no C/C/E Decubiti: location Last 24 Hour Vital Signs Date Time Temp Pulse Resp B/P (MAP) Pulse Ox O2 Delivery O2 Flow Rate FiO2 06/02/20 11:15 115 16 100 06/02/20 09:33 93/44 06/02/20 09:13 123 16 100 06/02/20 09:00 100.0 120 19 90/57 100 Mechanical Ventilator 100 06/02/20 09:00 100.0 120 19 90/57 100 Mechanical Ventilator 100 06/02/20 07:53 74/50 06/02/20 07:48 76/50 06/02/20 07:45 120 19 100 06/02/20 07:43 84/56 06/02/20 07:38 90/50 06/02/20 07:33 79/46 06/02/20 07:27 79/50 06/02/20 07:25 101.0 117 18 96/53 100 Mechanical Ventilator 100 06/02/20 07:23 96/53 06/02/20 07:18 64/39 06/02/20 07:13 72/45 06/02/20 07:08 90/51 06/02/20 07:03 66/44 06/02/20 06:58 64/44 06/02/20 06:53 77/52 06/02/20 06:48 60/42 06/02/20 06:00 101.0 123 18 67/37 99 Mechanical Ventilator 100 06/02/20 05:27 130 18 100 06/02/20 05:05 103.0 135 18 51/26 100 Mechanical Ventilator 100 06/02/20 05:00 100 06/02/20 04:55 103.0 122 19 49/32 82 Room Air 15.0 06/02/20 03:47 102.9 123 19 5033 (39) 90 Room Air 06/02/20 03:45 123 19 Non-Rebreather 15.0 06/02/20 03:45 103.0 130 19 50/ 90 Non-Rebreather 15.0 Laboratory Tests Test 06/02/20 04:40 06/02/20 05:34 06/02/20 08:10 06/02/20 08:19 White Blood Count 23.7 K/UL (4.8-10.8) *H Red Blood Count 3.18 M/UL (4.70-6.10) L Hemoglobin 9.0 G/DL (14.2-18.0) L Hematocrit 30.0 % (42.0-52.0) L Mean Corpuscular Volume 94 FL (80-99) Mean Corpuscular Hemoglobin 28.1 PG (27.0-31.0) Mean Corpuscular Hemoglobin Concent 29.9 G/DL (32.0-36.0) L Red Cell Distribution Width 18.1 % (11.6-14.8) H Platelet Count 191 K/UL (150-450) Mean Platelet Volume 8.8 FL (6.5-10.1) Neutrophils (%) (Auto) % (45.0-75.0) Lymphocytes (%) (Auto) % (20.0-45.0) Monocytes (%) (Auto) % (1.0-10.0) Eosinophils (%) (Auto) % (0.0-3.0) Basophils (%) (Auto) % (0.0-2.0) Differential Total Cells Counted 100 Neutrophils % (Manual) 40 % (45-75) L Lymphocytes % (Manual) 45 % (20-45) Monocytes % (Manual) 9 % (1-10) Eosinophils % (Manual) 1 % (0-3) Basophils % (Manual) 2 % (0-2) Band Neutrophils 3 % (0-8) Nucleated Red Blood Cells 3 /100 WBC Platelet Estimate Adequate Platelet Morphology Normal Hypochromasia 2+ Anisocytosis 2+ Sodium Level 155 MMOL/L (136-145) H Potassium Level 4.5 MMOL/L (3.5-5.1) Chloride Level 112 MMOL/L (98-107) H Carbon Dioxide Level 32 MMOL/L (21-32) Anion Gap 11 mmol/L (5-15) Blood Urea Nitrogen 55 mg/dL (7-18) H Creatinine 3.1 MG/DL (0.55-1.30) H Estimat Glomerular Filtration Rate 24.8 mL/min (>60) Glucose Level 316 MG/DL (74-106) H Lactic Acid Level 3.50 mmol/L (0.4-2.0) H 4.60 mmol/L (0.66-2.22) H Calcium Level 9.8 MG/DL (8.5-10.1) Magnesium Level 2.7 MG/DL (1.8-2.4) H Total Bilirubin 0.3 MG/DL (0.2-1.0) Aspartate Amino Transf (AST/SGOT) 47 U/L (15-37) H Alanine Aminotransferase (ALT/SGPT) 17 U/L (12-78) Alkaline Phosphatase 120 U/L (46-116) H Total Creatine Kinase 1630 U/L (26-308) H Creatine Kinase MB 1.5 NG/ML (0.0-3.6) Creatine Kinase MB Relative Index 0.0 Troponin I 0.042 ng/mL (0.000-0.056) Pro-B-Type Natriuretic Peptide 1628 pg/mL (0-125) H Total Protein 9.5 G/DL (6.4-8.2) H Albumin 2.2 G/DL (3.4-5.0) L Globulin 7.3 g/dL Albumin/Globulin Ratio 0.3 (1.0-2.7) L Amylase Level 298 U/L (25-115) H Lipase 365 U/L (73-393) Urine Color Yellow Urine Appearance Cloudy Urine pH 5 (4.5-8.0) Urine Specific [place] 1.020 (1.005-1.035) Urine Protein 3+ (NEGATIVE) H Urine Glucose (UA) Negative (NEGATIVE) Urine Ketones 1+ (NEGATIVE) H Urine Blood 3+ (NEGATIVE) H Urine Nitrite Negative (NEGATIVE) Urine Bilirubin Negative (NEGATIVE) Urine Urobilinogen 8 MG/DL (0.0-1.0) H Urine Leukocyte Esterase 3+ (NEGATIVE) H Urine RBC 2-4 /HPF (0 - 0) H Urine WBC 5-10 /HPF (0 - 0) H Urine Squamous Epithelial Cells None /LPF (NONE/OCC) Urine Bacteria Many /HPF (NONE) H Prothrombin Time 13.5 SEC (9.30-11.50) H Prothromb Time International Ratio 1.2 (0.9-1.1) H Activated Partial Thromboplast Time 29 SEC (23-33) Test 06/02/20 10:00 06/02/20 10:10 Uric Acid 9.0 MG/DL (2.6-7.2) H Total Creatine Kinase 6921 U/L (26-308) H Troponin I 0.050 ng/mL (0.000-0.056) Microbiology Date/Time Source Procedure Growth Status 06/02/20 03:50 Nasopharynx SARS-CoV-2 RdRp Gene Assay - Final Complete Height (Feet): 5 Height (Inches): 10.00 Weight (Pounds): 260 Medications Current Medications Medications (Trade) Dose Ordered Sig/[place] Route PRN Reason Start Time Stop Time Status Last Admin Dose Admin Acetaminophen (Tylenol) 650 mg Q4H PRN ORAL fever 06/02/20 09:00 07/02/20 08:59 06/02/20 11:12 Albuterol/ Ipratropium (Albuterol/ Ipratropium) 3 ml Q4H PRN HHN Shortness of Breath 06/02/20 09:00 06/07/20 08:59 Amikacin Sulfate / Sodium Chloride 110 ml @ 110 mls/hr Q24H IV 06/02/20 23:45 06/09/20 23:44 UNV Chlorhexidine Gluconate (Brandy-Hex 2%) 1 applic DAILY@2000 TOPIC 06/02/20 20:00 08/31/20 19:59 UNV Ertapenem 1 gm/ Sodium Chloride 55 ml @ 110 mls/hr Q24H IV 06/02/20 23:45 06/07/20 23:44 UNV Heparin Sodium (Porcine) (Heparin 5000 units/ml) 5,000 units EVERY 12 HOURS SUBQ 06/02/20 21:00 07/17/20 08:59 Levetiracetam (Keppra) 1,500 mg Q12HR GT 06/02/20 09:00 07/02/20 08:59 06/02/20 09:51 Levothyroxine Sodium (Synthroid) 75 mcg DAILY GT 06/02/20 09:00 07/02/20 08:59 06/02/20 09:51 Lorazepam (Ativan 2mg/ml 1ml) 2 mg Q2H PRN IV For Anxiety 06/02/20 09:00 06/09/20 08:59 Morphine Sulfate (Morphine Sulfate) 4 mg EVERY 4 HOURS PRN IVP Severe Pain (Pain Scale 7-10) 06/02/20 08:30 06/09/20 08:29 UNV Norepinephrine Bitartrate 250 ml @ 0 mls/hr Q24H IV 06/02/20 08:30 08/31/20 08:29 06/02/20 09:33 Ondansetron HCl (Zofran) 4 mg Q6H PRN IVP Nausea & Vomiting 06/02/20 09:00 07/02/20 08:59 Pantoprazole (Protonix) 40 mg DAILY IVP 06/02/20 09:30 07/02/20 09:29 06/02/20 10:06 Phenytoin (Dilantin) 125 mg Q12HR GT 06/02/20 09:00 07/02/20 08:59 06/02/20 09:51 Polyethylene Glycol (Miralax) 17 gm DAILYPRN PRN ORAL Constipation 06/02/20 09:00 07/02/20 08:59 Sodium Chloride 1,000 ml @ 100 mls/hr Q10H IVLG 06/02/20 09:00 07/02/20 08:59 06/02/20 09:00 Vancomycin HCl 1 gm/Dextrose 275 ml @ 183.3 mls/ hr Q24H IV 06/02/20 23:45 06/07/20 23:44 UNV Assessment/Plan Assessment/Plan: Abx: IV Vancomycin 06/02- Ertapenem 06/02- IV Amikacin 06/02- Cefepime x1 06/02 Flagyl x1 06/02 Assessment: Septic Shock- maxed on Levophed Acute hypoxic resp failure- sp VDRF 06/02 Pneumonia- ro COVID 19 -06/02 CXR: Bibasilar airspace opacities, progressed at the right base. rapid COVID19 PCR neg (previously neg on 03/04 &03/08) R/o probable UTI -u.a wbc 5-10, nit neg, leuk +3; ucx p R/o probable bacteremia Fever Leukocytosis Lactic acidosis, worsening ACE Rhabdomyolisis Elevated AST, mild multiple decubit ulcers Recent MRSA and Pseudomonas pneumonia -03/05 Sp cx MRSA (S Vanco, linezolid, bactrim, tetracycline); PsA (R Ceftazidime, Zosyn; otherwise S) HTN HLD CARMEN CVA seizure disorder hypothyroidism Dysphagia s/p GT chronic indwelling Penaloza catheter [place] resident ([facility]) Plan: -Switch IV Vancomcyin #1 to ZYvox -Switch Ertapenem #1 to Meropenem -Continue empiric AMikacin for now pending cultures -f/u cx -Monitor CBC/CMP, temperatures -ETT/ICU care -COVID19 testing and isolation; send 2nd COVID PCR tomorrow am -aspiration precautions -wound care per surgical team Thank you for this consultation. Will continue to follow along with you. Discussed with Nena Clarke M.D. Jun 02, 2020 12:17
--- NOTE | 2020-06-02 12:23 | Consultation ---
Consult Note Consult Note I am asked to evaluate the patient at her request of Dr. Wagoner for renal failure. Patient seen in ICU Evaluated and examined Discussed with RN Juan 60 y/o M with hx of HTN, HLD, CARMEN, CVA, seizure disorder, hypothyroidism, Dysphagia s/p GT, multiple decubit ulcers, chronic indwelling Penaloza catheter, [place] resident (Melonie Venegas) presented to ED on 06/02/20 with increased respiratory difficulty, hypoxia. Upon admission patient was hypotensive and hypoxic. Was intubated in the ED. Of note, patient was admitted here on February 2020 for hypoxia requiring intubation and was diagnosed with MRSA and PsA pneumonia; course complicated by shock and renal failure; also recent PNA treated at [facility]. Allergies: HYDROCODONE (Verified Allergy, Unknown, 07/04/17) PHYSICAL EXAMINATION: VITAL SIGNS: Temperature 102 degrees Fahrenheit, pulse 122, respirations 26, and blood pressure 93/44. GENERAL: The patient is a well-developed and well-nourished slightly obese male, who is intubated and sedated. HEENT: Eyes, pupils are equal and responsive to light and accommodation. Extraocular movements are intact. NECK: Supple without lymphadenopathy. CHEST: Coarse breath sounds with expiratory wheezes bilaterally. Mechanical vent sounds auscultated bilaterally. CARDIOVASCULAR: Tachycardic, regular rate. S1, S2 normal without murmurs, rubs, or gallops. ABDOMINAL: Soft, nontender, and nondistended. Positive bowel sounds. No evidence of hepatosplenomegaly. Currently, no rebound or guarding noted. EXTREMITIES: Negative for clubbing, cyanosis, or edema. RECTAL/GENITAL: Not performed. NEUROLOGICAL: Unable to assess. LABORATORY STUDIES: WBC 23.7, hemoglobin 9.3, hematocrit 38.0, and platelets 191,000. Sodium 155, potassium 4.5, chloride 112, CO2 32, BUN 55, creatinine 3.1, and glucose 316. Lactic acid 4.0. Total CK is 6921. Troponin elevated at 0.050. Chest x-ray revealed right lower lobe infiltrate. . Assessment/Plan 60-year-old male, in ICU Cardiopulmonary arrest, acute respiratory distress, septic shock ACE Hypothyroidism Decubitus ulcers Seizure disorder Peripheral vascular disease Elevated CPK, rhabdo IV hydration Monitor renal parameters Urine studies hemodynamic support Antiseizure medication Check Dilantin level and TSH level Per orders Patient had one previous admission at [facility] [place] [facility] and 2 ER visits- I spent an additional 36 minutes on review of medical records including prior hospital records,consult notes, progress notes, procedures ,imaging labs, hemodynamics, and other clinical documentation. Over 35 min Aniket Ku MD Jun 02, 2020 12:23
--- NOTE | 2020-06-02 13:58 | Consultation ---
History of Present Illness General Date patient seen: Jun 02, 2020 Reason for Hospitalization: Dyspnea/Respdistress Present Illness HPI This is a 60-year-old male with multi-medical committees who had respiratory insufficiency with difficult breathing and facility transferred to [facility] for evaluation was intubated and brought to the intensive care unit for remainder of care. Poor peripheral sticks central venous catheter not amenable difficult stick IO placed multiple decubitus ulcers abnormal labs septic surgery called to evaluate and assist with care patient seen, patient evaluated, chart reviewed patient unable to provide history at this time on support Allergies: Coded Allergies: HYDROCODONE (Verified Allergy, Unknown, 07/04/17) COVID-19 Screening Contact w/high risk pt: No Recent Travel to affected area: No Experienced COVID-19 symptoms?: Yes COVID-19 symptoms experienced: Shortness of Breath Medication History Scheduled Apixaban (Eliquis), 2.5 MG PO BID, (Reported) Butenafine Hcl (Lotrimin Ultra), 12 GM TP DAILY, (Reported) Calcium Carbonate/Vitamin D3 (Oyster Shell 500 Mg + Vit D Tb), 1 EACH GT BID, ( Reported) Carvedilol (Coreg), 3.125 MG GT EVERY 12 HOURS, (Reported) Folic Acid* (Folic Acid*), 400 MCG GT DAILY, (Reported) Levetiracetam (Keppra), 15 ML GT TWICE A DAY, (Reported) Levothyroxine Sodium* (Levothyroxine Sodium*), 75 MCG GT DAILY, (Reported) Mineral Oil (Mineral Oil Enema), 133 ML RC EVERY 48HOURS, (Reported) Phenytoin (Phenytoin), 125 MG GT BID, (Reported) Polyethylene Glycol 3350* (Polyethylene Glycol 3350*), 17 GM GT DAILY, (Reported ) Sennosides (Senokot), 17.2 MG GT DAILY, (Reported) Simvastatin (Zocor), 20 MG GT BEDTIME, (Reported) Scheduled PRN Acetaminophen* (Acetaminophen 325MG Tablet*), 650 MG GT Q4H PRN for Mild Pain ( Pain Scale 1-3), (Reported) Albuterol Sulfate* (Albuterol Sulfate Hhn*), 3 ML INH Q4H PRN for Shortness of Breath, (Reported) Miscellaneous Medications Omeprazole/Sodium Bicarbonate (Zegerid 20 Mg Capsule), 20 MG GT, (Reported) Discontinued Medications Ascorbic Acid* (Ascorbic Acid*), 500 MG GT DAILY, (Reported) Discontinued Reason: Pt stopped taking med Cholecalciferol (Vitamin D3) (Vitamin D3), 1,000 UNIT GT DAILY, (Reported) Discontinued Reason: Pt stopped taking med Insulin Aspart (Novolog Flexpen), (Reported) Discontinued Reason: Pt stopped taking med Lorazepam* (Ativan*), 1 MG IM Q4H, (Reported) Discontinued Reason: Pt stopped taking med Magnesium Oxide (Magox 400), 400 MG ORAL TID, (Reported) Discontinued Reason: Pt stopped taking med Metoprolol Tartrate* (Metoprolol Tartrate*), 25 MG GT EVERY 12 HOURS, (Reported) Discontinued Reason: Pt stopped taking med Vancomycin Hcl (Vancomycin Hcl), 1.25 GM IV EVERY 18 HOURS, (Reported) Discontinued Reason: Pt stopped taking med Patient History Limited by: medical condition History Provided By: Medical Record, PMD Healthcare decision maker Resuscitation status Advanced Directive on File Past Medical/Surgical History Past Medical/Surgical History: (1) PVD (peripheral vascular disease) (2) Chronic vegetative state (3) Acute respiratory failure (4) Hypothyroidism (5) Cardiopulmonary arrest (6) Hypernatremia (7) Sepsis (8) ACE (acute kidney injury) (9) Hypomagnesemia (10) Rhabdomyolysis (11) Decubital ulcer (12) Pleural effusion (13) Seizure disorder (14) Pneumonia (15) Septic shock Review of Systems Review of Symptoms General ROS: no weight loss or fever Psychological ROS: no depression or mood changes, no memory loss Ophthalmic ROS: no visual changes or eye irritation ENT ROS: no nasal congestion, hearing loss, dizziness Allergy and Immunology ROS: no allergic symptoms or urticaria Hematological and Lymphatic ROS: no swollen glands, unusual bleeding or bruising Endocrine ROS: no polyuria, polydipsia, weight changes, temperature intolerance Respiratory ROS: no cough, shortness of breath, or wheezing Cardiovascular ROS: no chest pain or dyspnea on exertion Gastrointestinal ROS: denies abdominal pain, bright red blood in stool. Musculoskeletal ROS: no myalgias or arthralgias Neurological ROS: no TIA or stroke symptoms Dermatological ROS: no new or changing skin lesions, rashes or pruritis Unable to obtain given patient's current baseline medical condition on support Physical Exam Physical Exam General appearance: no distress, appears stated age Head: Normocephalic, without obvious abnormality, atraumatic Eyes: conjunctivae/corneas clear. PERRL, EOM's intact. Fundi benign Throat: Lips, mucosa, and tongue normal. Teeth and gums normal Neck: supple, symmetrical, trachea midline, no adenopathy, thyroid: not enlarged, symmetric, no tenderness/mass/nodules, no carotid bruit and no JVD Lungs: dec auscultation bilaterally on vent Heart: regular rate and rhythm, S1, S2 normal, no murmur, click, rub or gallop Abdomen: soft, non-tender. Bowel sounds normal. No masses, no organomegaly tube Extremities: extremities normal, atraumatic, no cyanosis or edema Pulses: 2+ and symmetric Skin: Skin see belo w Neurologic: Grossly normal Last 24 Hour Vital Signs Date Time Temp Pulse Resp B/P (MAP) Pulse Ox O2 Delivery O2 Flow Rate FiO2 06/02/20 12:55 103 16 100 06/02/20 12:06 111/46 06/02/20 11:42 98.3 06/02/20 11:15 115 16 100 06/02/20 09:33 93/44 06/02/20 09:13 123 16 100 06/02/20 09:00 100.0 120 19 90/57 100 Mechanical Ventilator 100 06/02/20 09:00 100.0 120 19 90/57 100 Mechanical Ventilator 100 06/02/20 07:53 74/50 06/02/20 07:48 76/50 06/02/20 07:45 120 19 100 06/02/20 07:43 84/56 06/02/20 07:38 90/50 06/02/20 07:33 79/46 06/02/20 07:27 79/50 06/02/20 07:25 101.0 117 18 96/53 100 Mechanical Ventilator 100 06/02/20 07:23 96/53 06/02/20 07:18 64/39 06/02/20 07:13 72/45 06/02/20 07:08 90/51 06/02/20 07:03 66/44 06/02/20 06:58 64/44 06/02/20 06:53 77/52 06/02/20 06:48 60/42 06/02/20 06:00 101.0 123 18 67/37 99 Mechanical Ventilator 100 06/02/20 05:27 130 18 100 06/02/20 05:05 103.0 135 18 51/26 100 Mechanical Ventilator 100 06/02/20 05:00 100 06/02/20 04:55 103.0 122 19 49/32 82 Room Air 15.0 06/02/20 03:47 102.9 123 19 50/33 (39) 90 Room Air 06/02/20 03:45 123 19 Non-Rebreather 15.0 06/02/20 03:45 103.0 130 19 50/33 90 Non-Rebreather 15.0 Laboratory Tests Test 06/02/20 04:40 06/02/20 05:34 06/02/20 08:10 06/02/20 08:19 White Blood Count 23.7 K/UL (4.8-10.8) *H Red Blood Count 3.18 M/UL (4.70-6.10) L Hemoglobin 9.0 G/DL (14.2-18.0) L Hematocrit 30.0 % (42.0-52.0) L Mean Corpuscular Volume 94 FL (80-99) Mean Corpuscular Hemoglobin 28.1 PG (27.0-31.0) Mean Corpuscular Hemoglobin Concent 29.9 G/DL (32.0-36.0) L Red Cell Distribution Width 18.1 % (11.6-14.8) H Platelet Count 191 K/UL (150-450) Mean Platelet Volume 8.8 FL (6.5-10.1) Neutrophils (%) (Auto) % (45.0-75.0) Lymphocytes (%) (Auto) % (20.0-45.0) Monocytes (%) (Auto) % (1.0-10.0) Eosinophils (%) (Auto) % (0.0-3.0) Basophils (%) (Auto) % (0.0-2.0) Differential Total Cells Counted 100 Neutrophils % (Manual) 40 % (45-75) L Lymphocytes % (Manual) 45 % (20-45) Monocytes % (Manual) 9 % (1-10) Eosinophils % (Manual) 1 % (0-3) Basophils % (Manual) 2 % (0-2) Band Neutrophils 3 % (0-8) Nucleated Red Blood Cells 3 /100 WBC Platelet Estimate Adequate Platelet Morphology Normal Hypochromasia 2+ Anisocytosis 2+ Sodium Level 155 MMOL/L (136-145) H Potassium Level 4.5 MMOL/L (3.5-5.1) Chloride Level 112 MMOL/L (98-107) H Carbon Dioxide Level 32 MMOL/L (21-32) Anion Gap 11 mmol/L (5-15) Blood Urea Nitrogen 55 mg/dL (7-18) H Creatinine 3.1 MG/DL (0.55-1.30) H Estimat Glomerular Filtration Rate 24.8 mL/min (>60) Glucose Level 316 MG/DL (74-106) H Lactic Acid Level 3.50 mmol/L (0.4-2.0) H 4.60 mmol/L (0.66-2.22) H Calcium Level 9.8 MG/DL (8.5-10.1) Magnesium Level 2.7 MG/DL (1.8-2.4) H Total Bilirubin 0.3 MG/DL (0.2-1.0) Aspartate Amino Transf (AST/SGOT) 47 U/L (15-37) H Alanine Aminotransferase (ALT/SGPT) 17 U/L (12-78) Alkaline Phosphatase 120 U/L (46-116) H Total Creatine Kinase 1630 U/L (26-308) H Creatine Kinase MB 1.5 NG/ML (0.0-3.6) Creatine Kinase MB Relative Index 0.0 Troponin I 0.042 ng/mL (0.000-0.056) Pro-B-Type Natriuretic Peptide 1628 pg/mL (0-125) H Total Protein 9.5 G/DL (6.4-8.2) H Albumin 2.2 G/DL (3.4-5.0) L Globulin 7.3 g/dL Albumin/Globulin Ratio 0.3 (1.0-2.7) L Amylase Level 298 U/L (25-115) H Lipase 365 U/L (73-393) Urine Color Yellow Urine Appearance Cloudy Urine pH 5 (4.5-8.0) Urine Specific Bryan 1.020 (1.005-1.035) Urine Protein 3+ (NEGATIVE) H Urine Glucose (UA) Negative (NEGATIVE) Urine Ketones 1+ (NEGATIVE) H Urine Blood 3+ (NEGATIVE) H Urine Nitrite Negative (NEGATIVE) Urine Bilirubin Negative (NEGATIVE) Urine Urobilinogen 8 MG/DL (0.0-1.0) H Urine Leukocyte Esterase 3+ (NEGATIVE) H Urine RBC 2-4 /HPF (0 - 0) H Urine WBC 5-10 /HPF (0 - 0) H Urine Squamous Epithelial Cells None /LPF (NONE/OCC) Urine Bacteria Many /HPF (NONE) H Urine Eosinophils None seen (NONE SEEN) Urine Osmolality 393 mOsm/kg (429-449) L Urine Random Creatinine Pending Urine Random Microalbumin Pending Urine Random Sodium 39 mmol/L (20-110) Urine Microalbumin/Creatinine Ratio Pending Prothrombin Time 13.5 SEC (9.30-11.50) H Prothromb Time International Ratio 1.2 (0.9-1.1) H Activated Partial Thromboplast Time 29 SEC (23-33) Test 06/02/20 10:00 06/02/20 10:10 Uric Acid 9.0 MG/DL (2.6-7.2) H Total Creatine Kinase 6921 U/L (26-308) H Troponin I 0.050 ng/mL (0.000-0.056) Microbiology Date/Time Source Procedure Growth Status 06/02/20 03:50 Nasopharynx SARS-CoV-2 RdRp Gene Assay - Final Complete 06/02/20 12:00 Rectum Received Height (Feet): 5 Height (Inches): 10.00 Weight (Pounds): 225 Medications Current Medications Medications (Trade) Dose Ordered Sig/Kolby Route PRN Reason Start Time Stop Time Status Last Admin Dose Admin Acetaminophen (Tylenol) 650 mg Q4H PRN ORAL fever 06/02/20 09:00 07/02/20 08:59 06/02/20 11:12 Albuterol/ Ipratropium (Albuterol/ Ipratropium) 3 ml Q4H PRN HHN Shortness of Breath 06/02/20 09:00 06/07/20 08:59 Amikacin Sulfate 650 mg/Sodium Chloride 112.6 ml @ 112.6 mls/ hr ONCE ONCE IV 06/02/20 14:00 06/02/20 14:59 Chlorhexidine Gluconate (Brandy-Hex 2%) 1 applic DAILY@1999 TOPIC 06/02/20 20:00 08/31/20 19:59 Heparin Sodium (Porcine) (Heparin 5000 units/ml) 5,000 units EVERY 12 HOURS SUBQ 06/02/20 21:00 07/17/20 08:59 Heparin Sodium/ Sodium Chloride (Heparin 1000 units/500ml Premix) 1,000 unit ONCE IV 06/02/20 12:00 06/02/20 14:00 Levetiracetam (Keppra) 1,500 mg Q12HR GT 06/02/20 09:00 07/02/20 08:59 06/02/20 09:51 Levothyroxine Sodium (Synthroid) 75 mcg DAILY GT 06/02/20 09:00 07/02/20 08:59 06/02/20 09:51 Lidocaine HCl (Xylocaine 1% 30ml) 30 ml ONCE INJ 06/02/20 12:00 06/02/20 14:00 Linezolid (Zyvox) 600 mg EVERY 12 HOURS ORAL 06/02/20 12:15 06/07/20 12:14 06/02/20 12:50 Lorazepam (Ativan 2mg/ml 1ml) 2 mg Q2H PRN IV For Anxiety 06/02/20 09:00 06/09/20 08:59 Meropenem 1 gm/ Sodium Chloride 55 ml @ 110 mls/hr Q12HR IVPB 06/02/20 14:00 06/07/20 13:59 Norepinephrine Bitartrate 250 ml @ 0 mls/hr Q24H IV 06/02/20 08:30 06/02/20 14:30 06/02/20 12:06 Norepinephrine Bitartrate 8 mg/ Sodium Chloride 500 ml @ 0 mls/hr Q24H IV 06/02/20 14:00 07/02/20 13:59 Ondansetron HCl (Zofran) 4 mg Q6H PRN IVP Nausea & Vomiting 06/02/20 09:00 07/02/20 08:59 Pantoprazole (Protonix) 40 mg Q12HR IVP 06/02/20 21:00 07/02/20 09:29 Phenytoin (Dilantin) 125 mg Q12HR GT 06/02/20 09:00 07/02/20 08:59 06/02/20 09:51 Polyethylene Glycol (Miralax) 17 gm DAILYPRN PRN ORAL Constipation 06/02/20 09:00 07/02/20 08:59 Sodium Chloride 1,000 ml @ 125 mls/hr Q8H IV 06/02/20 12:30 07/02/20 12:29 06/02/20 12:47 Assessment/Plan Problem List: (1) PVD (peripheral vascular disease) ICD Codes: I73.9 - Peripheral vascular disease, unspecified SNOMED: 033123003 (2) Chronic vegetative state ICD Codes: R40.3 - Persistent vegetative state SNOMED: 31696445 (3) Acute respiratory failure ICD Codes: J96.00 - Acute respiratory failure, unspecified whether with hypoxia or hypercapnia SNOMED: 03776043 (4) Hypothyroidism ICD Codes: E03.9 - Hypothyroidism, unspecified SNOMED: 44343128 (5) Cardiopulmonary arrest ICD Codes: I46.9 - Cardiac arrest, cause unspecified SNOMED: 291790046 (6) Hypernatremia ICD Codes: E87.0 - Hyperosmolality and hypernatremia SNOMED: 989364007 (7) Sepsis Assessment & Plan: 60[facility] respiratory insufficiency leukocytosis, lactic acidosis, abnormal labs renal insufficiency. Difficult stick currently I/O pending PEG placement. Intubated on vent support. Max pressors at this time Levophed. Likely etiology of patient's sepsis is respiratory in nature. Urine noted. Continue antibiotics as per infectious disease. Will monitor closely. Wounds evaluated poor and declining but unlikely etiology. She in sepsis. Will monitor and provide continued care nutritionally and local thank you for let me participate in patient's care will follow with recommendations ICD Codes: A41.9 - Sepsis, unspecified organism SNOMED: 02833878 (8) ACE (acute kidney injury) ICD Codes: N17.9 - Acute kidney failure, unspecified SNOMED: 2837799, 96315370 (9) Hypomagnesemia ICD Codes: E83.42 - Hypomagnesemia SNOMED: 826969412 (10) Rhabdomyolysis ICD Codes: M62.82 - Rhabdomyolysis SNOMED: 859821643 (11) Decubital ulcer Assessment & Plan: Pt presented on admission with multiple pressure injuries. Pressure injury R Buttocks. Sacrum, R and L Gluteal cheeks maroon with multiple partial thickness wounds with surrounding denuded and macerated skin. Dry, black borders noted Unstageable pressure injury R thoracic. Base of wound is 100% necrotic but dry. No erythema induration or fluctuance periwound. Full thickness pressure injury R heel. Full thickness pressure injury R Hallux. Hyperpigmentation noted to R and L lateral Malleoli. unlikely etiology of sepsis will monitor Pt presented with generalized edema.R hand contracture noted .R hand dusky in colour . R 5th digit /R thumb black at tip of finger. At base of of R thumb including dorsal R hand and R wrist is large wound that is 50% necrotic .50% taty. with loose edges. Small amt serosanguineous exudate noted. At circumference of R first digit/index finger is large open Blister with loose skin flap . base of wound is taty. Necrotic area noted at tip of index finger. Detached nail matrix and epidermis of R middle digit/3rd digit . Fingertip is taty and moist,minimal sanguineous exudate.Tips of R ring finger and R 5th digit is black. Unable to accurately assess web spaces of digits on R hand secondary to gross edema, and pt became distressed at any attempt to separate digits. Tx.Plan: Cleanse Sacral area with Saline.Apply Therahoney. Apply Moisture Barrier Paste periwound. Cover with gauze followed by ABD dressing . Change Daily and Prn. Cleanse wound R thoracic with Saline. Apply TheraHoney. Apply Cavilon Skin Barrier Periwound. Cover with ABD drsg.Change every 3 days and prn. Cleanse wound R heel with Saline. Apply TheraHoney. Apply Cavilon Skin Barrier Periwound. Cover with Optifoam drsg. Change every 3 days and prn. Cleanse R Hallux with Saline. Apply Therahoney. Apply Cavilon Skin Barrier Periwound. Cover with Optifoam drsg. Change every 3 days and prn. Apply Cavilon Skin Barrier to L Heel. Cover with Optifoam drsg. Change every 7 days and prn. Reposition at least every 2hours or as tolerated. Place Pillow between knees. Off-load heels with Pillow. APM/NORM Mattress overlay. ICD Codes: L89.90 - Pressure ulcer of unspecified site, unspecified stage SNOMED: 927368678 (12) Pleural effusion ICD Codes: J90 - Pleural effusion, not elsewhere classified SNOMED: 38439653 (13) Seizure disorder ICD Codes: G40.909 - Epilepsy, unspecified, not intractable, without status epilepticus; R65.21 - Severe sepsis with septic shock SNOMED: 840236306 (14) Pneumonia ICD Codes: J18.9 - Pneumonia, unspecified organism SNOMED: 252815576 Qualifiers: (15) Septic shock ICD Codes: A41.9 - Sepsis, unspecified organism; R65.21 - Severe sepsis with septic shock SNOMED: 56158152 Gary Vicente Jun 02, 2020 13:58
[2020-06-02] MEDS ORDERED: AMIKACIN IV ONE (14:00)
[2020-06-02] MEDS ORDERED: NS IV ONE (14:00)
[2020-06-02] MEDS: Meropenem 1 GM in NS 55 ML IVPB SCH ×2 (14:58→21:13)
[2020-06-02] MEDS: Norepinephrine Bitartrate 8 MG in Sodium Chloride 492 ML IV SCH (15:07)
--- NOTE | 2020-06-02 16:29 | Pre-Procedure Note/Attestation ---
Pre-Procedure Note/Attestation Complete Prior to Procedure Planned Procedure: not applicable Procedure Narrative: picc vs central line - needs iv access Indications for Procedure Pre-Operative Diagnosis: need central venous access Attestation informed consent obtained from family by ICU staff - confirmed prior to procedure. Marlon Su M.D. Jun 02, 2020 16:29
[2020-06-02] MEDS ORDERED: NS 275ml ONE (17:19)
[2020-06-02] MEDS ORDERED: Tubing IV Secondary IV ONE (17:19)
--- NOTE | 2020-06-02 18:03 | Diagnostic Imaging Report ---
Indication: Abnormal renal function Technique: US Renal Comp Comparison: None Findings: Right kidney measures 10.5 cm in length. Left kidney measures 11.2 cm in length. Both kidneys demonstrate normal echogenicity. There is no hydronephrosis or sonographically appreciable renal stone. Bladder is decompressed, precluding reliable evaluation. Imaged portions of the liver and IVC unremarkable. IMPRESSION: * No hydronephrosis or sonographically appreciable renal stone. * Renal echogenicity within normal limits. * Bladder decompressed, precluding reliable evaluation.
--- NOTE | 2020-06-02 19:02 | History & Physical ---
History and Physical History & Physicial Dictated for Int Med-DR Wagoner no. [id number]. ICU Allen Coronel MD Jun 02, 2020 19:02
--- NOTE | 2020-06-02 19:30 | History and Physical Report ---
DATE OF ADMISSION: 06/02/2020 CHIEF COMPLAINT: The patient is a 60-year-old male, who presents with a chief complaint of shortness of breath and hypoxia. HISTORY OF PRESENT ILLNESS: The patient is a resident of [facility]. The patient was admitted to [facility] in February of 2020 for respiratory failure, pneumonia, and sepsis. Please see history and physical and discharge summary dictated at that time. The patient is status post cardiopulmonary arrest during that hospitalization. Please see history and physical and discharge summary dictated at that time. [facility] The patient has become increasingly shortness of breath over the past 24 hours according to staff at [facility]. The patient was transferred to [facility]. The patient was emergently intubated in the emergency room. Much of the history and physical is taken from the patient's chart secondary to the patient's mental status. The patient is admitted with respiratory failure and probable pneumonia. REVIEW OF SYSTEMS: Unable to assess secondary to the patient's mental status. PAST MEDICAL HISTORY: Significant for, 1. Seizure disorder. 2. Hypothyroidism. 3. Hypercholesterolemia. 4. Dysphagia. 5. Sleep apnea. 6. History of cardiopulmonary arrest as above. PAST SURGICAL HISTORY: Significant for PEG placement. CURRENT MEDICATIONS: 1. Tylenol 650 mg per G-tube q.4 hours p.r.n. 2. Albuterol 2.5 mg nebulized q.4 hours p.r.n. 3. Apixaban 2.5 mg p.o. twice daily. 4. Calcium carbonate/vitamin D3 1 tablet per G-tube twice daily. 5. Carvedilol 3.125 mg p.o. twice daily. 6. Folic acid 1 mg p.o. daily. 7. Keppra 1500 mg p.o. twice daily. 8. Levoxyl 0.075 mg p.o. daily. 9. Omeprazole 20 mg p.o. daily. 10. Dilantin 125 mg per G-tube twice daily. 11. Simvastatin 20 mg p.o. at bedtime. ALLERGIES: Hydrocodone. SOCIAL HISTORY: The patient is single and is a resident [facility]. The patient denies tobacco or alcohol use. PHYSICAL EXAMINATION: VITAL SIGNS: Temperature 102 degrees Fahrenheit, pulse 122, respirations 26, and blood pressure 93/44. GENERAL: The patient is a well-developed and well-nourished slightly obese male, who is intubated and sedated. HEENT: Eyes, pupils are equal and responsive to light and accommodation. Extraocular movements are intact. NECK: Supple without lymphadenopathy. CHEST: Coarse breath sounds with expiratory wheezes bilaterally. Mechanical vent sounds auscultated bilaterally. CARDIOVASCULAR: Tachycardic, regular rate. S1, S2 normal without murmurs, rubs, or gallops. ABDOMINAL: Soft, nontender, and nondistended. Positive bowel sounds. No evidence of hepatosplenomegaly. Currently, no rebound or guarding noted. EXTREMITIES: Negative for clubbing, cyanosis, or edema. RECTAL/GENITAL: Not performed. NEUROLOGICAL: Unable to assess. LABORATORY STUDIES: WBC 23.7, hemoglobin 9.3, hematocrit 38.0, and platelets 191,000. Sodium 155, potassium 4.5, chloride 112, CO2 32, BUN 55, creatinine 3.1, and glucose 316. Lactic acid 4.0. Total CK is 6921. Troponin elevated at 0.050. Chest x-ray revealed right lower lobe infiltrate. ASSESSMENT: This is a 60-year-old male. 1. Respiratory failure. 2. Right lower lobe pneumonia. 3. Renal failure. 4. Developmental delay. 5. Seizure disorder. 6. Hypertension. 7. Hypothyroidism. 8. Hypercholesterolemia. 9. Dysphagia. 10. Sleep apnea. TREATMENT: 1. Respiratory failure/right lower lobe pneumonia. A Pulmonary consultation has been obtained with Dr. Lainey Harley. The patient is currently intubated and sedated in the intensive care unit. The patient has been started empirically on amikacin, vancomycin, and ertapenem. An Infectious Disease consultation has been obtained with Dr. Villalba. 2. Seizure disorder. Continue Keppra and Dilantin as above. 3. Renal failure. A Nephrology consultation has been obtained with Dr. Aniket Ku. 4. Hypertension. The patient is currently hypotensive probably secondary to septic shock. 5. Hypothyroidism. Continue Levoxyl as above. 6. Hypercholesterolemia. Continue simvastatin as above. 7. Dysphagia. Continue G-tube feedings. 8. History of sleep apnea. Allen Coronel M.D. DR: MICHELLE JOB#: [id number] CC:
[2020-06-02] MEDS ORDERED: Etomidate 40mg/20ml Inj IV ONE (19:42)
[2020-06-02] MEDS ORDERED: Dyna-Hex 2% Top Sol 2oz TOPIC SCH ×2 (20:00)
[2020-06-02] MEDS: Pantoprazole Inj IVP SCH (21:11)
[2020-06-02] MEDS: Heparin 5000 units/ml inj SUBQ SCH (21:12)
[2020-06-02] MEDS ORDERED: Vancomycin 1 GM in D5W 275 ML IV SCH (23:45)
[2020-06-02] MEDS ORDERED: Ertapenem 1 GM in NS 55 ML IV SCH (23:45)
[2020-06-03] VITALS (53 sets, daily range): BP systolic 87–137; BP diastolic 43–70
[2020-06-03] MEDS: Norepinephrine Bitartrate 8 MG in Sodium Chloride 492 ML IV SCH ×2 (02:03→11:21)
[2020-06-03 05:01] LABS: HEMATOCRIT 26.8 % (42.0-52.0); HEMOGLOBIN 8.1 G/DL (14.2-18.0); MEAN CORPUSCULAR VOLUME 91 FL (80-99); PLATELET COUNT 96 K/UL (150-450); RED BLOOD COUNT 2.96 M/UL (4.70-6.10); RED CELL DISTRIBUTION WIDTH 17.2 % (11.6-14.8); WHITE BLOOD COUNT 8.8 K/UL (4.8-10.8)
[2020-06-03 05:36] LABS: GAMMA GLUTAMYL TRANSPEPTIDASE 140 U/L (5-85); PHOSPHORUS 3.6 MG/DL (2.5-4.9)
[2020-06-03 05:37] LABS: ALANINE AMINOTRANSFERASE 45 U/L (12-78); ALBUMIN 1.6 G/DL (3.4-5.0); ALBUMIN/GLOBULIN RATIO 0.3 (1.0-2.7); ALKALINE PHOSPHATASE 98 U/L (46-116); ANION GAP 11 mmol/L (5-15); ASPARTATE AMINO TRANSFERASE 447 U/L (15-37); BILIRUBIN,DIRECT 0.4 MG/DL (0.0-0.3); BILIRUBIN,TOTAL 0.7 MG/DL (0.2-1.0); BLOOD UREA NITROGEN 62 mg/dL (7-18); CARBON DIOXIDE 26 MMOL/L (21-32); CHLORIDE 113 MMOL/L (98-107); CHOLESTEROL 85 MG/DL (< 200); CREATININE 3.2 MG/DL (0.55-1.30); FERRITIN > 2000 NG/ML (8-388); HDL CHOLESTEROL 11 MG/DL (40-60); POTASSIUM 3.5 MMOL/L (3.5-5.1); SODIUM 149 MMOL/L (136-145); TRIGLYCERIDES 312 MG/DL (30-150)
[2020-06-03 05:53] LABS: CREATINE KINASE 12526 U/L (26-308)
[2020-06-03 05:59] LABS: IRON 32 ug/dL (50-175); TOTAL IRON BINDING CAPACITY 105 ug/dL (250-450)
[2020-06-03 06:05] LABS: % IRON SATURATION 30 % (15-50)
[2020-06-03] MEDS: Phenytoin Susp 100mg/4ml GT SCH ×2 (08:03→20:47)
[2020-06-03] MEDS: levETIRAcetam 500mg/5ml Liquid GT SCH ×2 (08:04→20:48)
[2020-06-03] MEDS: Pantoprazole Inj IVP SCH ×2 (08:04→20:47)
[2020-06-03] MEDS: Meropenem 1 GM in NS 55 ML IVPB SCH ×2 (08:05→20:49)
[2020-06-03] MEDS: Heparin 5000 units/ml inj SUBQ SCH ×2 (08:34→20:49)
[2020-06-03] MEDS ORDERED: Amikacin Rx to dose MISC PRN (10:30)
[2020-06-03] MEDS ORDERED: Albuterol/Ipratropium 3ml neb HHN PRN ×2 (11:00→11:30)
[2020-06-03] MEDS ORDERED: Miralax 17gm pkt GT PRN ×2 (11:00→11:30)
[2020-06-03] MEDS ORDERED: LORazepam Inj 2mg/ml 1ml IV PRN ×2 (11:00→11:30)
[2020-06-03] MEDS ORDERED: Acetaminophen 650mg/20.3ml GT PRN ×2 (11:00→11:30)
--- NOTE | 2020-06-03 11:04 | Pulmonolgy Critical Care Note ---
Critical Care - Asmt/Plan Problems: (1) Acute respiratory failure (2) Cardiopulmonary arrest (3) Septic shock (4) ACE (acute kidney injury) (5) Chronic vegetative state (6) Hypothyroidism (7) Decubital ulcer (8) Seizure disorder (9) PVD (peripheral vascular disease) Respiratory: monitor respiratory rate, adjust FIO2, CXR Cardiac: continue pressors, continue to monitor HR/BP Renal: F/U I&O, keep IV fluid, check electrolytes Infectious Disease: check cultures Gastrointestinal: continue feedings/current rate Endocrine: monitor blood sugar Hematologic: monitor H/H, transfuse if hgb<8.5 Neurologic: keep patient comfortable Affect: PRN ativan Time Spent (Minutes): 40 Notes Reviewed: telephone betting clerk Discussed with: nurses, consultants, rn case managementbrand sales manager - Objective Last 24 Hour Vital Signs Date Time Temp Pulse Resp B/P (MAP) Pulse Ox O2 Delivery O2 Flow Rate FiO2 06/03/20 10:00 100 17 107/59 (75) 100 06/03/20 10:00 107/59 06/03/20 09:45 97 16 112/68 (83) 100 06/03/20 09:30 96 15 125/62 (83) 100 06/03/20 09:15 91 13 128/68 (88) 100 06/03/20 09:00 119/65 06/03/20 09:00 96.8 87 16 119/65 (83) 100 06/03/20 08:45 86 16 133/65 (87) 100 06/03/20 08:30 85 17 137/70 (92) 100 06/03/20 08:15 90 17 133/61 (85) 100 06/03/20 08:00 128/65 06/03/20 08:00 96.0 85 16 128/65 (86) 100 06/03/20 08:00 Mechanical Ventilator 06/03/20 07:55 85 06/03/20 07:30 88 16 128/64 (85) 100 06/03/20 07:06 93 16 40 06/03/20 07:00 127/61 06/03/20 07:00 95 16 127/61 (83) 100 06/03/20 06:30 95 16 06/03/20 06:30 95 16 115/64 (81) 100 06/03/20 06:00 100 16 111/57 (75) 100 06/03/20 06:00 111/57 06/03/20 05:30 106 16 100/51 (67) 100 06/03/20 05:04 101.9 06/03/20 05:00 116 16 100/46 (64) 100 06/03/20 05:00 100/46 06/03/20 04:30 119 17 91/43 (59) 100 06/03/20 04:00 Mechanical Ventilator 06/03/20 04:00 115 06/03/20 04:00 40 06/03/20 04:00 112/65 06/03/20 04:00 101.2 115 17 120/56 (77) 100 06/03/20 03:30 117 22 113/52 (72) 100 06/03/20 03:06 117 16 40 06/03/20 03:00 101/51 06/03/20 03:00 116 16 101/51 (68) 100 06/03/20 02:30 115 16 93/52 (66) 100 06/03/20 02:03 118/56 06/03/20 02:00 117 16 118/56 (76) 100 06/03/20 01:30 115 15 94/52 (66) 100 06/03/20 01:00 115 16 94/54 (67) 100 06/03/20 01:00 94/54 06/03/20 00:30 115 16 91/47 (62) 100 06/03/20 00:00 99.8 117 17 107/53 (71) 100 06/03/20 00:00 Mechanical Ventilator 06/03/20 00:00 107/53 06/03/20 00:00 40 06/02/20 23:30 120 17 96/54 (68) 100 06/02/20 23:03 109 16 45 06/02/20 23:00 92/54 06/02/20 23:00 110 19 92/54 (67) 100 06/02/20 22:30 116 24 100/50 (67) 100 06/02/20 22:00 97/53 06/02/20 22:00 120 16 97/53 (68) 100 06/02/20 21:30 120 16 102/54 (70) 100 06/02/20 21:00 104/53 8/3/20 21:00 121 16 104/53 (70) 100 06/02/20 20:30 120 16 100/55 (70) 100 06/02/20 20:00 110/58 06/02/20 20:00 Mechanical Ventilator 06/02/20 20:00 119 06/02/20 20:00 50 06/02/20 20:00 99.3 119 18 110/58 (75) 100 06/02/20 19:30 118 15 105/59 (74) 100 06/02/20 19:28 119 16 50 06/02/20 19:15 118 17 110/57 (74) 100 06/02/20 19:00 112/59 06/02/20 19:00 118 16 112/59 (76) 100 06/02/20 18:45 118 16 112/58 (76) 100 06/02/20 18:30 119 16 113/56 (75) 100 06/02/20 18:15 120 17 104/54 (71) 100 06/02/20 18:15 104/54 06/02/20 18:00 119 21 101/53 (69) 100 06/02/20 18:00 101/53 06/02/20 17:45 122 17 110/56 (74) 100 06/02/20 17:45 110/56 06/02/20 17:30 123 17 124/55 (78) 100 06/02/20 17:30 124/55 06/02/20 17:15 125 17 132/61 (84) 95 06/02/20 17:15 132/61 06/02/20 17:15 125 17 132/61 (84) 96 06/02/20 17:00 129 18 139/58 (85) 96 06/02/20 17:00 132/61 06/02/20 16:52 50 06/02/20 16:46 120 20 50 06/02/20 16:45 122 8 153/66 (95) 96 06/02/20 16:30 121 19 128/75 (92) 96 06/02/20 16:15 118 20 115/48 (70) 95 06/02/20 16:00 Mechanical Ventilator 06/02/20 16:00 119 06/02/20 16:00 60 06/02/20 16:00 98.4 119 16 119/49 (72) 100 06/02/20 16:00 115/48 06/02/20 15:45 116 15 107/54 (71) 100 06/02/20 15:30 119 16 116/61 (79) 100 06/02/20 15:15 114 16 116/63 (80) 100 06/02/20 15:07 111/56 06/02/20 15:00 112 16 111/56 (74) 100 06/02/20 14:58 116 16 60 06/02/20 14:45 112 16 122/53 (76) 100 06/02/20 14:30 109 16 145/61 (89) 100 06/02/20 14:15 106 16 146/55 (85) 100 06/02/20 14:00 105 16 149/58 (88) 100 06/02/20 13:45 106 16 139/60 (86) 100 06/02/20 13:30 105 17 139/60 (86) 100 06/02/20 13:15 104 16 115/64 (81) 100 06/02/20 13:00 104 16 114/63 (80) 100 06/02/20 13:00 70 06/02/20 12:55 103 16 100 06/02/20 12:45 104 16 111/59 (76) 100 06/02/20 12:30 104 16 123/61 (81) 100 06/02/20 12:15 105 16 120/62 (81) 100 06/02/20 12:06 111/46 06/02/20 12:00 98.6 106 16 123/59 (80) 100 06/02/20 12:00 Mechanical Ventilator 06/02/20 12:00 106 06/02/20 12:00 100 06/02/20 11:45 108 16 111/46 (67) 100 06/02/20 11:30 112 16 107/51 (69) 100 06/02/20 11:15 115 16 100 06/02/20 11:15 115 16 104/61 (75) 100 Status: sedated, somnolent Condition: critical, grave HEENT: atraumatic, normocephalic Lungs: chest wall tender Heart: HR/BP stable Abdomen: soft, non-tender, active bowel sounds Extremities: no C/C/E, edema Decubiti: location Micro: Microbiology Date/Time Source Procedure Growth Status 06/03/20 03:50 Nasopharynx SARS-CoV-2 RdRp Gene Assay - Final Complete 06/02/20 03:50 Nasopharynx SARS-CoV-2 RdRp Gene Assay - Final Complete 06/02/20 05:34 Urine,Clean Catch Urine Culture - Preliminary Resulted 06/02/20 12:00 Rectum Received Critical Care - Subjective ROS Limited/Unobtainable: Yes Condition: critical EKG Rhythm: Sinus Rhythm FI02: 40 Vent Support Breath Rate: 16 Vent Support Mode: AC Vent Tidal Volume: 600 Sputum Amount: Small PEEP: 0.0 PIP: 27 I&O: Intake and Output 06/02/20 06/03/20 19:00 07:00 Intake Total 5664.058 ml 2155.3 ml Output Total 610 ml 375 ml Balance 5054.058 ml 1780.3 ml Intake Free Water 30 ml IV Total 5634.058 ml 2005.3 ml Other 150 ml Output Urine Total 610 ml 375 ml # Bowel Movements 2 CXR: trach intact ET-Tube: 7.0 ET Position: 25 Labs: Laboratory Tests Test 06/02/20 20:16 06/02/20 22:54 06/03/20 03:50 06/03/20 06:56 Lactic Acid Level 5.10 mmol/L (0.4-2.0) H 5.20 mmol/L (0.66-2.22) H 2.50 mmol/L (0.4-2.0) H White Blood Count 8.8 K/UL (4.8-10.8) # Red Blood Count 2.96 M/UL (4.70-6.10) L Hemoglobin 8.1 G/DL (14.2-18.0) L Hematocrit 26.8 % (42.0-52.0) L Mean Corpuscular Volume 91 FL (80-99) Mean Corpuscular Hemoglobin 27.2 PG (27.0-31.0) Mean Corpuscular Hemoglobin Concent 30.0 G/DL (32.0-36.0) L Red Cell Distribution Width 17.2 % (11.6-14.8) H Platelet Count 96 K/UL (150-450) L Mean Platelet Volume 9.6 FL (6.5-10.1) Neutrophils (%) (Auto) % (45.0-75.0) Lymphocytes (%) (Auto) % (20.0-45.0) Monocytes (%) (Auto) % (1.0-10.0) Eosinophils (%) (Auto) % (0.0-3.0) Basophils (%) (Auto) % (0.0-2.0) Differential Total Cells Counted 100 Neutrophils % (Manual) 73 % (45-75) Lymphocytes % (Manual) 18 % (20-45) L Monocytes % (Manual) 4 % (1-10) Eosinophils % (Manual) 3 % (0-3) Basophils % (Manual) 0 % (0-2) Band Neutrophils 2 % (0-8) Platelet Estimate Decreased L Platelet Morphology Normal Hypochromasia 1+ Anisocytosis 1+ Sodium Level 149 MMOL/L (136-145) H Potassium Level 3.5 MMOL/L (3.5-5.1) Chloride Level 113 MMOL/L (98-107) H Carbon Dioxide Level 26 MMOL/L (21-32) Anion Gap 11 mmol/L (5-15) Blood Urea Nitrogen 62 mg/dL (7-18) H Creatinine 3.2 MG/DL (0.55-1.30) H Estimat Glomerular Filtration Rate 24.0 mL/min (>60) Glucose Level 261 MG/DL (74-106) H Uric Acid 9.9 MG/DL (2.6-7.2) H Calcium Level 8.0 MG/DL (8.5-10.1) L Phosphorus Level 3.6 MG/DL (2.5-4.9) Magnesium Level 2.0 MG/DL (1.8-2.4) Iron Level 32 ug/dL (50-175) L Total Iron Binding Capacity 105 ug/dL (250-450) L Percent Iron Saturation 30 % (15-50) Unsaturated Iron Binding 73 ug/dL (112-346) L Ferritin > 2000 NG/ML (8-388) H Total Bilirubin 0.7 MG/DL (0.2-1.0) Direct Bilirubin 0.4 MG/DL (0.0-0.3) H Gamma Glutamyl Transpeptidase 140 U/L (5-85) H Aspartate Amino Transf (AST/SGOT) 447 U/L (15-37) H Alanine Aminotransferase (ALT/SGPT) 45 U/L (12-78) Alkaline Phosphatase 98 U/L (46-116) Total Creatine Kinase 94899 U/L (26-308) H Troponin I 0.144 ng/mL (0.000-0.056) C-Reactive Protein, Quantitative 57.5 mg/dL (0.00-0.90) H Pro-B-Type Natriuretic Peptide 1413 pg/mL (0-125) H Total Protein 7.8 G/DL (6.4-8.2) Albumin 1.6 G/DL (3.4-5.0) L Globulin 6.2 g/dL Albumin/Globulin Ratio 0.3 (1.0-2.7) L Triglycerides Level 312 MG/DL (30-150) H Cholesterol Level 85 MG/DL (< 200) LDL Cholesterol 21 mg/dL (<100) HDL Cholesterol 11 MG/DL (40-60) L Cholesterol/HDL Ratio 7.7 (3.3-4.4) H Vitamin B12 Level 936 PG/ML (193-986) Folate 76.0 NG/ML (8.6-58.9) H Thyroid Stimulating Hormone (TSH) 3.038 uiU/mL (0.358-3.740) Phenytoin (Dilantin) Level 7.7 ug/mL (10-20) L Arterial Blood pH 7.432 (7.350-7.450) Arterial Blood Partial Pressure CO2 32.6 mmHg (35.0-45.0) L Arterial Blood Partial Pressure O2 112.1 mmHg (75.0-100.0) H Arterial Blood HCO3 21.2 mmol/L (22.0-26.0) L Arterial Blood Oxygen Saturation 98.0 % (95-100) Arterial Blood Base Excess -2.5 (-2-2) L Chandan Test Positive Test 06/03/20 10:00 Lactic Acid Level 3.20 mmol/L (0.4-2.0) H Lainey Harley MD Jun 03, 2020 11:04
--- NOTE | 2020-06-03 12:24 | Infectious Diseases Prog Note ---
Assessment/Plan Assessment: Septic Shock- pressors going down Acute hypoxic resp failure- sp VDRF 06/02 Pneumonia- COVID19 neg x2 -06/03 rapid COVID PCR -06/02 CXR: Bibasilar airspace opacities, progressed at the right base. rapid COVID19 PCR neg (previously neg on 03/04 &03/08) R/o probable UTI -u.a wbc 5-10, nit neg, leuk +3; ucx p R/o probable bacteremia -06/02 Bcx p Fever Leukocytosis, SP Lactic acidosis, worsening ACE -Renal US: * No hydronephrosis or sonographically appreciable renal stone. Renal echogenicity within normal limits. Bladder decompressed, precluding reliable evaluation. Rhabdomyolisis Elevated AST, worsening multiple decubit ulcers Recent MRSA and Pseudomonas pneumonia -03/05 Sp cx MRSA (S Vanco, linezolid, bactrim, tetracycline); PsA (R Ceftazidime, Zosyn; otherwise S) HTN HLD CARMEN CVA seizure disorder hypothyroidism Dysphagia s/p GT chronic indwelling Penaloza catheter [place] resident ([facility]) Plan: -Cont empiric ZYvox #2 and Meropenem #2 -Continue empiric AMikacin #2 for now pending cultures -06/02 SP IV Vancomycin #1, Cefepime x1, Flagyl x1 -f/u cx -Monitor CBC/CMP, temperatures -ETT/ICU care -COVID19 testing and isolation; keep isolation for now until afebrile >72hrs and alternative diagnosis -aspiration precautions -wound care per surgical team Thank you for this consultation. Will continue to follow along with you. Discussed with RN. Subjective Allergies: Coded Allergies: HYDROCODONE (Verified Allergy, Unknown, 07/04/17) Tm 101.9 levo down to 4 FIo2 down to 40% leukocytosis resolved Objective Last 24 Hour Vital Signs Date Time Temp Pulse Resp B/P (MAP) Pulse Ox O2 Delivery O2 Flow Rate FiO2 06/03/20 11:40 40 06/03/20 11:21 101/54 06/03/20 11:00 105 12 96/58 (71) 100 06/03/20 11:00 103 16 40 06/03/20 10:45 101 16 87/58 (68) 100 06/03/20 10:30 100 16 93/53 (66) 100 06/03/20 10:15 101 15 103/57 (72) 100 06/03/20 10:00 100 17 107/59 (75) 100 06/03/20 10:00 107/59 06/03/20 09:45 97 16 112/68 (83) 100 06/03/20 09:30 96 15 125/62 (83) 100 06/03/20 09:15 91 13 128/68 (88) 100 06/03/20 09:00 119/65 06/03/20 09:00 96.8 87 16 119/65 (83) 100 06/03/20 08:45 86 16 133/65 (87) 100 06/03/20 08:30 85 17 137/70 (92) 100 06/03/20 08:15 90 17 133/61 (85) 100 06/03/20 08:00 128/65 06/03/20 08:00 96.0 85 16 128/65 (86) 100 06/03/20 08:00 Mechanical Ventilator 06/03/20 07:55 85 06/03/20 07:30 88 16 128/64 (85) 100 06/03/20 07:06 93 16 40 06/03/20 07:00 127/61 06/03/20 07:00 95 16 127/61 (83) 100 06/03/20 06:30 95 16 06/03/20 06:30 95 16 115/64 (81) 100 06/03/20 06:00 100 16 111/57 (75) 100 06/03/20 06:00 111/57 06/03/20 05:30 106 16 100/51 (67) 100 06/03/20 05:04 101.9 06/03/20 05:00 116 16 100/46 (64) 100 06/03/20 05:00 100/46 06/03/20 04:30 119 17 91/43 (59) 100 06/03/20 04:00 Mechanical Ventilator 06/03/20 04:00 115 06/03/20 04:00 40 06/03/20 04:00 112/65 06/03/20 04:00 101.2 115 17 120/56 (77) 100 06/03/20 03:30 117 22 113/52 (72) 100 06/03/20 03:06 117 16 40 06/03/20 03:00 101/51 06/03/20 03:00 116 16 101/51 (68) 100 06/03/20 02:30 115 16 93/52 (66) 100 06/03/20 02:03 118/56 06/03/20 02:00 117 16 118/56 (76) 100 06/03/20 01:30 115 15 94/52 (66) 100 06/03/20 01:00 115 16 94/54 (67) 100 06/03/20 01:00 94/54 06/03/20 00:30 115 16 91/47 (62) 100 06/03/20 00:00 99.8 117 17 107/53 (71) 100 06/03/20 00:00 Mechanical Ventilator 06/03/20 00:00 107/53 06/03/20 00:00 40 06/02/20 23:30 120 17 96/54 (68) 100 06/02/20 23:03 109 16 45 06/02/20 23:00 92/54 06/02/20 23:00 110 19 92/54 (67) 100 06/02/20 22:30 116 24 100/50 (67) 100 06/02/20 22:00 97/53 06/02/20 22:00 120 16 97/53 (68) 100 06/02/20 21:30 120 16 102/54 (70) 100 06/02/20 21:00 104/53 06/02/20 21:00 121 16 104/53 (70) 100 06/02/20 20:30 120 16 100/55 (70) 100 06/02/20 20:00 110/58 06/02/20 20:00 Mechanical Ventilator 06/02/20 20:00 119 06/02/20 20:00 50 06/02/20 20:00 99.3 119 18 110/58 (75) 100 06/02/20 19:30 118 15 105/59 (74) 100 06/02/20 19:28 119 16 50 06/02/20 19:15 118 17 110/57 (74) 100 06/02/20 19:00 112/59 06/02/20 19:00 118 16 112/59 (76) 100 06/02/20 18:45 118 16 112/58 (76) 100 06/02/20 18:30 119 16 113/56 (75) 100 06/02/20 18:15 120 17 104/54 (71) 100 06/02/20 18:15 104/54 06/02/20 18:00 119 21 101/53 (69) 100 06/02/20 18:00 101/53 06/02/20 17:45 122 17 110/56 (74) 100 06/02/20 17:45 110/56 06/02/20 17:30 123 17 124/55 (78) 100 06/02/20 17:30 124/55 06/02/20 17:15 125 17 132/61 (84) 95 06/02/20 17:15 132/61 06/02/20 17:15 125 17 132/61 (84) 96 06/02/20 17:00 129 18 139/58 (85) 96 06/02/20 17:00 132/61 06/02/20 16:52 50 06/02/20 16:46 120 20 50 06/02/20 16:45 122 8 153/66 (95) 96 06/02/20 16:30 121 19 128/75 (92) 96 06/02/20 16:15 118 20 115/48 (70) 95 06/02/20 16:00 Mechanical Ventilator 06/02/20 16:00 119 06/02/20 16:00 60 06/02/20 16:00 98.4 119 16 119/49 (72) 100 06/02/20 16:00 115/48 06/02/20 15:45 116 15 107/54 (71) 100 06/02/20 15:30 119 16 116/61 (79) 100 06/02/20 15:15 114 16 116/63 (80) 100 06/02/20 15:07 111/56 06/02/20 15:00 112 16 111/56 (74) 100 06/02/20 14:58 116 16 60 06/02/20 14:45 112 16 122/53 (76) 100 06/02/20 14:30 109 16 145/61 (89) 100 06/02/20 14:15 106 16 146/55 (85) 100 06/02/20 14:00 105 16 149/58 (88) 100 06/02/20 13:45 106 16 139/60 (86) 100 06/02/20 13:30 105 17 139/60 (86) 100 06/02/20 13:15 104 16 115/64 (81) 100 06/02/20 13:00 104 16 114/63 (80) 100 06/02/20 13:00 70 06/02/20 12:55 103 16 100 06/02/20 12:45 104 16 111/59 (76) 100 06/02/20 12:30 104 16 123/61 (81) 100 06/02/20 12:15 105 16 120/62 (81) 100 Height (Feet): 5 Height (Inches): 10.00 Weight (Pounds): 223 HEENT: atraumatic Lungs: rales, rhonchi Heart: HR/BP stable Abdomen: soft Extremities: no C/C/E Decubiti: extensive ulcer on sacral area; other additional ulcers on b/l heel Microbiology Date/Time Source Procedure Growth Status 06/03/20 03:50 Nasopharynx SARS-CoV-2 RdRp Gene Assay - Final Complete 06/02/20 03:50 Nasopharynx SARS-CoV-2 RdRp Gene Assay - Final Complete 06/02/20 05:34 Urine,Clean Catch Urine Culture - Preliminary Resulted 06/02/20 12:00 Rectum Received Laboratory Tests Test 06/02/20 20:16 06/02/20 22:54 06/03/20 03:50 06/03/20 06:56 Lactic Acid Level 5.10 mmol/L (0.4-2.0) H 5.20 mmol/L (0.66-2.22) H 2.50 mmol/L (0.4-2.0) H White Blood Count 8.8 K/UL (4.8-10.8) # Red Blood Count 2.96 M/UL (4.70-6.10) L Hemoglobin 8.1 G/DL (14.2-18.0) L Hematocrit 26.8 % (42.0-52.0) L Mean Corpuscular Volume 91 FL (80-99) Mean Corpuscular Hemoglobin 27.2 PG (27.0-31.0) Mean Corpuscular Hemoglobin Concent 30.0 G/DL (32.0-36.0) L Red Cell Distribution Width 17.2 % (11.6-14.8) H Platelet Count 96 K/UL (150-450) L Mean Platelet Volume 9.6 FL (6.5-10.1) Neutrophils (%) (Auto) % (45.0-75.0) Lymphocytes (%) (Auto) % (20.0-45.0) Monocytes (%) (Auto) % (1.0-10.0) Eosinophils (%) (Auto) % (0.0-3.0) Basophils (%) (Auto) % (0.0-2.0) Differential Total Cells Counted 100 Neutrophils % (Manual) 73 % (45-75) Lymphocytes % (Manual) 18 % (20-45) L Monocytes % (Manual) 4 % (1-10) Eosinophils % (Manual) 3 % (0-3) Basophils % (Manual) 0 % (0-2) Band Neutrophils 2 % (0-8) Platelet Estimate Decreased L Platelet Morphology Normal Hypochromasia 1+ Anisocytosis 1+ Sodium Level 149 MMOL/L (136-145) H Potassium Level 3.5 MMOL/L (3.5-5.1) Chloride Level 113 MMOL/L (98-107) H Carbon Dioxide Level 26 MMOL/L (21-32) Anion Gap 11 mmol/L (5-15) Blood Urea Nitrogen 62 mg/dL (7-18) H Creatinine 3.2 MG/DL (0.55-1.30) H Estimat Glomerular Filtration Rate 24.0 mL/min (>60) Glucose Level 261 MG/DL (74-106) H Uric Acid 9.9 MG/DL (2.6-7.2) H Calcium Level 8.0 MG/DL (8.5-10.1) L Phosphorus Level 3.6 MG/DL (2.5-4.9) Magnesium Level 2.0 MG/DL (1.8-2.4) Iron Level 32 ug/dL (50-175) L Total Iron Binding Capacity 105 ug/dL (250-450) L Percent Iron Saturation 30 % (15-50) Unsaturated Iron Binding 73 ug/dL (112-346) L Ferritin > 2000 NG/ML (8-388) H Total Bilirubin 0.7 MG/DL (0.2-1.0) Direct Bilirubin 0.4 MG/DL (0.0-0.3) H Gamma Glutamyl Transpeptidase 140 U/L (5-85) H Aspartate Amino Transf (AST/SGOT) 447 U/L (15-37) H Alanine Aminotransferase (ALT/SGPT) 45 U/L (12-78) Alkaline Phosphatase 98 U/L (46-116) Total Creatine Kinase 06223 U/L (26-308) H Troponin I 0.144 ng/mL (0.000-0.056) C-Reactive Protein, Quantitative 57.5 mg/dL (0.00-0.90) H Pro-B-Type Natriuretic Peptide 1413 pg/mL (0-125) H Total Protein 7.8 G/DL (6.4-8.2) Albumin 1.6 G/DL (3.4-5.0) L Globulin 6.2 g/dL Albumin/Globulin Ratio 0.3 (1.0-2.7) L Triglycerides Level 312 MG/DL (30-150) H Cholesterol Level 85 MG/DL (< 200) LDL Cholesterol 21 mg/dL (<100) HDL Cholesterol 11 MG/DL (40-60) L Cholesterol/HDL Ratio 7.7 (3.3-4.4) H Vitamin B12 Level 936 PG/ML (193-986) Folate 76.0 NG/ML (8.6-58.9) H Thyroid Stimulating Hormone (TSH) 3.038 uiU/mL (0.358-3.740) Phenytoin (Dilantin) Level 7.7 ug/mL (10-20) L Arterial Blood pH 7.432 (7.350-7.450) Arterial Blood Partial Pressure CO2 32.6 mmHg (35.0-45.0) L Arterial Blood Partial Pressure O2 112.1 mmHg (75.0-100.0) H Arterial Blood HCO3 21.2 mmol/L (22.0-26.0) L Arterial Blood Oxygen Saturation 98.0 % (95-100) Arterial Blood Base Excess -2.5 (-2-2) L Chandan Test Positive Test 06/03/20 10:00 Lactic Acid Level 3.20 mmol/L (0.4-2.0) H Current Medications Medications (Trade) Dose Ordered Sig/[place] Route PRN Reason Start Time Stop Time Status Last Admin Dose Admin Acetaminophen (Tylenol) 650 mg Q4H PRN GT fever 06/03/20 11:30 920 11:29 Albuterol/ Ipratropium (Albuterol/ Ipratropium) 3 ml Q4H PRN HHN Shortness of Breath 06/03/20 11:30 06/07/20 11:29 Amikacin Protocol (Amikacin pharmacy to dose) 1 ea DAILY PRN MISC PER RX PROTOCOL 06/04/20 09:00 07/03/20 10:29 Chlorhexidine Gluconate (Brandy-Hex 2%) 1 applic DAILY@2000 TOPIC 06/03/20 20:00 08/31/20 19:59 Heparin Sodium (Porcine) (Heparin 5000 units/ml) 5,000 units EVERY 12 HOURS SUBQ 06/03/20 21:00 07/17/20 08:59 Levetiracetam (Keppra) 1,500 mg Q12HR GT 06/03/20 21:00 07/02/20 08:59 Levothyroxine Sodium (Synthroid) 75 mcg DAILY GT 06/04/20 09:00 07/02/20 08:59 Linezolid (Zyvox) 600 mg EVERY 12 HOURS GT 06/03/20 21:00 06/07/20 12:14 Lorazepam (Ativan 2mg/ml 1ml) 2 mg Q2H PRN IV For Anxiety 06/03/20 11:30 06/09/20 11:29 Meropenem 1 gm/ Sodium Chloride 55 ml @ 110 mls/hr Q12HR IVPB 06/03/20 21:00 06/07/20 13:59 Norepinephrine Bitartrate 8 mg/ Sodium Chloride 500 ml @ 0 mls/hr Q24H IV 06/03/20 11:30 07/02/20 11:29 06/03/20 11:21 Ondansetron HCl (Zofran) 4 mg Q6H PRN IVP Nausea & Vomiting 06/03/20 11:30 07/02/20 11:29 Pantoprazole (Protonix) 40 mg Q12HR IVP 06/03/20 21:00 07/02/20 09:29 Phenytoin (Dilantin) 125 mg Q12HR GT 06/03/20 21:00 07/02/20 08:59 Polyethylene Glycol (Miralax) 17 gm DAILYPRN PRN GT Constipation 06/03/20 11:30 07/03/20 11:29 Sodium Chloride 1,000 ml @ 125 mls/hr Q8H IV 06/03/20 11:15 07/02/20 12:29 06/03/20 11:46 Nena Villalba M.D. Jun 03, 2020 12:24
[2020-06-03] MEDS ORDERED: 1/2 NS 1000ml IV ONE (13:27)
[2020-06-03] MEDS ORDERED: NS 275ml ONE (13:27)
[2020-06-03] MEDS ORDERED: Sterile Water Irrig 1000ml IRRIG ONE (13:27)
--- NOTE | 2020-06-03 13:52 | Nephrology Progress Note ---
Assessment/Plan Problem List: (1) ACE (acute kidney injury) (2) Cardiopulmonary arrest (3) Hypothyroidism (4) Septic shock (5) Seizure disorder (6) Decubital ulcer (7) Rhabdomyolysis Assessment 60-year-old male, in ICU Cardiopulmonary arrest, acute respiratory distress, septic shock ACE Hypothyroidism Decubitus ulcers Seizure disorder Peripheral vascular disease Elevated CPK, rhabdo I Plan IV hydration, will monitor CPK levels Monitor renal parameters Urine studies hemodynamic support Antiseizure medication Check Dilantin level and TSH level Per orders Subjective ROS Limited/Unobtainable: Yes Objective Objective Last 24 Hour Vital Signs Date Time Temp Pulse Resp B/P (MAP) Pulse Ox O2 Delivery O2 Flow Rate FiO2 06/03/20 13:30 98 16 115/66 (82) 100 06/03/20 13:00 94 16 109/64 (79) 100 06/03/20 13:00 109/64 06/03/20 12:30 101 16 110/65 (80) 100 06/03/20 12:00 99.0 99 16 104/62 (76) 100 06/03/20 12:00 Mechanical Ventilator 06/03/20 12:00 104/62 06/03/20 12:00 40 06/03/20 11:40 40 06/03/20 11:31 100 06/03/20 11:30 101 16 103/56 (72) 100 06/03/20 11:21 101/54 06/03/20 11:00 105 12 96/58 (71) 100 06/03/20 11:00 103 16 40 06/03/20 11:00 96/58 06/03/20 10:45 101 16 87/58 (68) 100 06/03/20 10:30 100 16 93/53 (66) 100 06/03/20 10:15 101 15 103/57 (72) 100 06/03/20 10:00 100 17 107/59 (75) 100 06/03/20 10:00 107/59 06/03/20 09:45 97 16 112/68 (83) 100 06/03/20 09:30 96 15 125/62 (83) 100 06/03/20 09:15 91 13 128/68 (88) 100 06/03/20 09:00 119/65 06/03/20 09:00 96.8 87 16 119/65 (83) 100 8/4/20 08:45 86 16 133/65 (87) 100 06/03/20 08:30 85 17 137/70 (92) 100 06/03/20 08:15 90 17 133/61 (85) 100 06/03/20 08:00 128/65 06/03/20 08:00 96.0 85 16 128/65 (86) 100 06/03/20 08:00 Mechanical Ventilator 06/03/20 07:55 85 06/03/20 07:30 88 16 128/64 (85) 100 06/03/20 07:06 93 16 40 06/03/20 07:00 127/61 06/03/20 07:00 95 16 127/61 (83) 100 06/03/20 06:30 95 16 06/03/20 06:30 95 16 115/64 (81) 100 06/03/20 06:00 100 16 111/57 (75) 100 06/03/20 06:00 111/57 06/03/20 05:30 106 16 100/51 (67) 100 06/03/20 05:04 101.9 06/03/20 05:00 116 16 100/46 (64) 100 06/03/20 05:00 100/46 06/03/20 04:30 119 17 91/43 (59) 100 06/03/20 04:00 Mechanical Ventilator 06/03/20 04:00 115 06/03/20 04:00 40 06/03/20 04:00 112/65 06/03/20 04:00 101.2 115 17 120/56 (77) 100 06/03/20 03:30 117 22 113/52 (72) 100 06/03/20 03:06 117 16 40 06/03/20 03:00 101/51 06/03/20 03:00 116 16 101/51 (68) 100 06/03/20 02:30 115 16 93/52 (66) 100 06/03/20 02:03 118/56 06/03/20 02:00 117 16 118/56 (76) 100 06/03/20 01:30 115 15 94/52 (66) 100 06/03/20 01:00 115 16 94/54 (67) 100 06/03/20 01:00 94/54 06/03/20 00:30 115 16 91/47 (62) 100 06/03/20 00:00 99.8 117 17 107/53 (71) 100 06/03/20 00:00 Mechanical Ventilator 06/03/20 00:00 107/53 06/03/20 00:00 40 06/02/20 23:30 120 17 96/54 (68) 100 06/02/20 23:03 109 16 45 06/02/20 23:00 92/54 06/02/20 23:00 110 19 92/54 (67) 100 06/02/20 22:30 116 24 100/50 (67) 100 06/02/20 22:00 97/53 06/02/20 22:00 120 16 97/53 (68) 100 06/02/20 21:30 120 16 102/54 (70) 100 06/02/20 21:00 104/53 06/02/20 21:00 121 16 104/53 (70) 100 06/02/20 20:30 120 16 100/55 (70) 100 06/02/20 20:00 110/58 06/02/20 20:00 Mechanical Ventilator 06/02/20 20:00 119 06/02/20 20:00 50 06/02/20 20:00 99.3 119 18 110/58 (75) 100 06/02/20 19:30 118 15 105/59 (74) 100 06/02/20 19:28 119 16 50 06/02/20 19:15 118 17 110/57 (74) 100 06/02/20 19:00 112/59 06/02/20 19:00 118 16 112/59 (76) 100 06/02/20 18:45 118 16 112/58 (76) 100 06/02/20 18:30 119 16 113/56 (75) 100 06/02/20 18:15 120 17 104/54 (71) 100 06/02/20 18:15 104/54 06/02/20 18:00 119 21 101/53 (69) 100 06/02/20 18:00 101/53 06/02/20 17:45 122 17 110/56 (74) 100 06/02/20 17:45 110/56 06/02/20 17:30 123 17 124/55 (78) 100 8/3/20 17:30 124/55 06/02/20 17:15 125 17 132/61 (84) 95 06/02/20 17:15 132/61 06/02/20 17:15 125 17 132/61 (84) 96 06/02/20 17:00 129 18 139/58 (85) 96 06/02/20 17:00 132/61 06/02/20 16:52 50 06/02/20 16:46 120 20 50 06/02/20 16:45 122 8 153/66 (95) 96 06/02/20 16:30 121 19 128/75 (92) 96 06/02/20 16:15 118 20 115/48 (70) 95 06/02/20 16:00 Mechanical Ventilator 06/02/20 16:00 119 06/02/20 16:00 60 06/02/20 16:00 98.4 119 16 119/49 (72) 100 06/02/20 16:00 115/48 06/02/20 15:45 116 15 107/54 (71) 100 06/02/20 15:30 119 16 116/61 (79) 100 06/02/20 15:15 114 16 116/63 (80) 100 06/02/20 15:07 111/56 06/02/20 15:00 112 16 111/56 (74) 100 06/02/20 14:58 116 16 60 06/02/20 14:45 112 16 122/53 (76) 100 06/02/20 14:30 109 16 145/61 (89) 100 06/02/20 14:15 106 16 146/55 (85) 100 06/02/20 14:00 105 16 149/58 (88) 100 Intake and Output 06/02/20 06/03/20 19:00 07:00 Intake Total 5664.058 ml 2155.3 ml Output Total 610 ml 375 ml Balance 5054.058 ml 1780.3 ml Intake Free Water 30 ml IV Total 5634.058 ml 2005.3 ml Other 150 ml Output Urine Total 610 ml 375 ml # Bowel Movements 2 Laboratory Tests 06/02/20 20:16: Lactic Acid Level 5.10H 06/02/20 22:54: Lactic Acid Level 5.20H 06/03/20 03:50: Lactic Acid Level 2.50H, White Blood Count 8.8#, Red Blood Count 2.96L, Hemoglobin 8.1L, Hematocrit 26.8L, Mean Corpuscular Volume 91, Mean Corpuscular Hemoglobin 27.2, Mean Corpuscular Hemoglobin Concent 30.0L, Red Cell Distribution Width 17.2H, Platelet Count 96L, Mean Platelet Volume 9.6, Neutrophils (%) (Auto) , Lymphocytes (%) (Auto) , Monocytes (%) (Auto) , Eosinophils (%) (Auto) , Basophils (%) (Auto) , Differential Total Cells Counted 100, Neutrophils % (Manual) 73, Lymphocytes % (Manual) 18L, Monocytes % (Manual) 4, Eosinophils % (Manual) 3, Basophils % (Manual) 0, Band Neutrophils 2 , Platelet Estimate DecreasedL, Platelet Morphology Normal, Hypochromasia 1+, Anisocytosis 1+, Sodium Level 149H, Potassium Level 3.5, Chloride Level 113H, Carbon Dioxide Level 26, Anion Gap 11, Blood Urea Nitrogen 62H, Creatinine 3.2H , Estimat Glomerular Filtration Rate 24.0, Glucose Level 261H, Uric Acid 9.9H, Calcium Level 8.0L, Phosphorus Level 3.6, Magnesium Level 2.0, Iron Level 32L, Total Iron Binding Capacity 105L, Percent Iron Saturation 30, Unsaturated Iron Binding 73L, Ferritin > 2000H, Total Bilirubin 0.7, Direct Bilirubin 0.4H, Gamma Glutamyl Transpeptidase 140H, Aspartate Amino Transf (AST/SGOT) 447H, Alanine Aminotransferase (ALT/SGPT) 45, Alkaline Phosphatase 98, Total Creatine Kinase 98736B, Troponin I 0.144H, C-Reactive Protein, Quantitative 57.5H, Pro-B- Type Natriuretic Peptide 1413H, Total Protein 7.8, Albumin 1.6L, Globulin 6.2, Albumin/Globulin Ratio 0.3L, Triglycerides Level 312H, Cholesterol Level 85, LDL Cholesterol 21, HDL Cholesterol 11L, Cholesterol/HDL Ratio 7.7H, Vitamin B12 Level 936, Folate 76.0H, Thyroid Stimulating Hormone (TSH) 3.038, Phenytoin (Dilantin) Level 7.7L 06/03/20 06:56: Arterial Blood pH 7.432, Arterial Blood Partial Pressure CO2 32.6L, Arterial Blood Partial Pressure O2 112.1H, Arterial Blood HCO3 21.2L, Arterial Blood Oxygen Saturation 98.0, Arterial Blood Base Excess -2.5L, Chandan Test Positive 06/03/20 10:00: Lactic Acid Level 3.20H Height (Feet): 5 Height (Inches): 10.00 Weight (Pounds): 223 General Appearance: no apparent distress EENT: other - Trach to vent Cardiovascular: tachycardia Respiratory/Chest: decreased breath sounds Abdomen: distended Aniket Ku MD Jun 03, 2020 13:52
--- NOTE | 2020-06-03 13:56 | Diagnostic Imaging Report ---
Procedure: XRAY Chest 1v Reason for study: Reason For Exam: [id number] Comparison films: 06/02/2020. FINDINGS: Endotracheal tube remains in place. There is a new left central venous catheter with the tip in the SVC. No pneumothorax noted. Vascularity is normal. Basilar infiltrates and small effusions unchanged. Cardiac silhouette is obscured. The bony thorax appear unremarkable. IMPRESSION: New left central venous catheter with the tip in the SVC. No pneumothorax. No change basilar infiltrates and effusions.
--- NOTE | 2020-06-03 13:59 | Surgery Progress Note ---
Surgery Progress Note Subjective Additional Comments ill appearing labs noted dressings going well Objective Last 24 Hour Vital Signs Date Time Temp Pulse Resp B/P (MAP) Pulse Ox O2 Delivery O2 Flow Rate FiO2 06/03/20 13:30 98 16 115/66 (82) 100 06/03/20 13:00 94 16 109/64 (79) 100 06/03/20 13:00 109/64 06/03/20 12:30 101 16 110/65 (80) 100 06/03/20 12:00 99.0 99 16 104/62 (76) 100 06/03/20 12:00 Mechanical Ventilator 06/03/20 12:00 104/62 06/03/20 12:00 40 06/03/20 11:40 40 06/03/20 11:31 100 06/03/20 11:30 101 16 103/56 (72) 100 06/03/20 11:21 101/54 06/03/20 11:00 105 12 96/58 (71) 100 06/03/20 11:00 103 16 40 06/03/20 11:00 96/58 06/03/20 10:45 101 16 87/58 (68) 100 06/03/20 10:30 100 16 93/53 (66) 100 06/03/20 10:15 101 15 103/57 (72) 100 06/03/20 10:00 100 17 107/59 (75) 100 06/03/20 10:00 107/59 06/03/20 09:45 97 16 112/68 (83) 100 06/03/20 09:30 96 15 125/62 (83) 100 06/03/20 09:15 91 13 128/68 (88) 100 06/03/20 09:00 119/65 06/03/20 09:00 96.8 87 16 119/65 (83) 100 06/03/20 08:45 86 16 133/65 (87) 100 06/03/20 08:30 85 17 137/70 (92) 100 06/03/20 08:15 90 17 133/61 (85) 100 06/03/20 08:00 128/65 06/03/20 08:00 96.0 85 16 128/65 (86) 100 06/03/20 08:00 Mechanical Ventilator 06/03/20 07:55 85 06/03/20 07:30 88 16 128/64 (85) 100 06/03/20 07:06 93 16 40 06/03/20 07:00 127/61 06/03/20 07:00 95 16 127/61 (83) 100 06/03/20 06:30 95 16 06/03/20 06:30 95 16 115/64 (81) 100 06/03/20 06:00 100 16 111/57 (75) 100 06/03/20 06:00 111/57 06/03/20 05:30 106 16 100/51 (67) 100 06/03/20 05:04 101.9 06/03/20 05:00 116 16 100/46 (64) 100 06/03/20 05:00 100/46 06/03/20 04:30 119 17 91/43 (59) 100 06/03/20 04:00 Mechanical Ventilator 06/03/20 04:00 115 06/03/20 04:00 40 06/03/20 04:00 112/65 06/03/20 04:00 101.2 115 17 120/56 (77) 100 06/03/20 03:30 117 22 113/52 (72) 100 06/03/20 03:06 117 16 40 06/03/20 03:00 101/51 06/03/20 03:00 116 16 101/51 (68) 100 06/03/20 02:30 115 16 93/52 (66) 100 06/03/20 02:03 118/56 06/03/20 02:00 117 16 118/56 (76) 100 06/03/20 01:30 115 15 94/52 (66) 100 06/03/20 01:00 115 16 94/54 (67) 100 06/03/20 01:00 94/54 06/03/20 00:30 115 16 91/47 (62) 100 06/03/20 00:00 99.8 117 17 107/53 (71) 100 06/03/20 00:00 Mechanical Ventilator 06/03/20 00:00 107/53 06/03/20 00:00 40 06/02/20 23:30 120 17 96/54 (68) 100 06/02/20 23:03 109 16 45 06/02/20 23:00 92/54 06/02/20 23:00 110 19 92/54 (67) 100 06/02/20 22:30 116 24 100/50 (67) 100 06/02/20 22:00 97/53 06/02/20 22:00 120 16 97/53 (68) 100 06/02/20 21:30 120 16 102/54 (70) 100 06/02/20 21:00 104/53 06/02/20 21:00 121 16 104/53 (70) 100 06/02/20 20:30 120 16 100/55 (70) 100 06/02/20 20:00 110/58 06/02/20 20:00 Mechanical Ventilator 06/02/20 20:00 119 06/02/20 20:00 50 06/02/20 20:00 99.3 119 18 110/58 (75) 100 06/02/20 19:30 118 15 105/59 (74) 100 06/02/20 19:28 119 16 50 06/02/20 19:15 118 17 110/57 (74) 100 06/02/20 19:00 112/59 06/02/20 19:00 118 16 112/59 (76) 100 06/02/20 18:45 118 16 112/58 (76) 100 06/02/20 18:30 119 16 113/56 (75) 100 06/02/20 18:15 120 17 104/54 (71) 100 06/02/20 18:15 104/54 06/02/20 18:00 119 21 101/53 (69) 100 06/02/20 18:00 101/53 06/02/20 17:45 122 17 110/56 (74) 100 06/02/20 17:45 110/56 06/02/20 17:30 123 17 124/55 (78) 100 06/02/20 17:30 124/55 06/02/20 17:15 125 17 132/61 (84) 95 06/02/20 17:15 132/61 06/02/20 17:15 125 17 132/61 (84) 96 06/02/20 17:00 129 18 139/58 (85) 96 06/02/20 17:00 132/61 06/02/20 16:52 50 06/02/20 16:46 120 20 50 06/02/20 16:45 122 8 153/66 (95) 96 06/02/20 16:30 121 19 128/75 (92) 96 06/02/20 16:15 118 20 115/48 (70) 95 06/02/20 16:00 Mechanical Ventilator 06/02/20 16:00 119 06/02/20 16:00 60 06/02/20 16:00 98.4 119 16 119/49 (72) 100 06/02/20 16:00 115/48 06/02/20 15:45 116 15 107/54 (71) 100 06/02/20 15:30 119 16 116/61 (79) 100 06/02/20 15:15 114 16 116/63 (80) 100 06/02/20 15:07 111/56 06/02/20 15:00 112 16 111/56 (74) 100 06/02/20 14:58 116 16 60 06/02/20 14:45 112 16 122/53 (76) 100 06/02/20 14:30 109 16 145/61 (89) 100 06/02/20 14:15 106 16 146/55 (85) 100 06/02/20 14:00 105 16 149/58 (88) 100 I&O Intake and Output 06/02/20 06/03/20 19:00 07:00 Intake Total 5664.058 ml 2155.3 ml Output Total 610 ml 375 ml Balance 5054.058 ml 1780.3 ml Intake Free Water 30 ml IV Total 5634.058 ml 2005.3 ml Other 150 ml Output Urine Total 610 ml 375 ml # Bowel Movements 2 Dressing: saturated Cardiovascular: RSR Respiratory: decreased breath sounds Abdomen: soft, non-tender, present bowel sounds Extremities: no cyanosis Laboratory Tests Test 06/02/20 20:16 06/02/20 22:54 06/03/20 03:50 06/03/20 06:56 Lactic Acid Level 5.10 mmol/L (0.4-2.0) H 5.20 mmol/L (0.66-2.22) H 2.50 mmol/L (0.4-2.0) H White Blood Count 8.8 K/UL (4.8-10.8) # Red Blood Count 2.96 M/UL (4.70-6.10) L Hemoglobin 8.1 G/DL (14.2-18.0) L Hematocrit 26.8 % (42.0-52.0) L Mean Corpuscular Volume 91 FL (80-99) Mean Corpuscular Hemoglobin 27.2 PG (27.0-31.0) Mean Corpuscular Hemoglobin Concent 30.0 G/DL (32.0-36.0) L Red Cell Distribution Width 17.2 % (11.6-14.8) H Platelet Count 96 K/UL (150-450) L Mean Platelet Volume 9.6 FL (6.5-10.1) Neutrophils (%) (Auto) % (45.0-75.0) Lymphocytes (%) (Auto) % (20.0-45.0) Monocytes (%) (Auto) % (1.0-10.0) Eosinophils (%) (Auto) % (0.0-3.0) Basophils (%) (Auto) % (0.0-2.0) Differential Total Cells Counted 100 Neutrophils % (Manual) 73 % (45-75) Lymphocytes % (Manual) 18 % (20-45) L Monocytes % (Manual) 4 % (1-10) Eosinophils % (Manual) 3 % (0-3) Basophils % (Manual) 0 % (0-2) Band Neutrophils 2 % (0-8) Platelet Estimate Decreased L Platelet Morphology Normal Hypochromasia 1+ Anisocytosis 1+ Sodium Level 149 MMOL/L (136-145) H Potassium Level 3.5 MMOL/L (3.5-5.1) Chloride Level 113 MMOL/L (98-107) H Carbon Dioxide Level 26 MMOL/L (21-32) Anion Gap 11 mmol/L (5-15) Blood Urea Nitrogen 62 mg/dL (7-18) H Creatinine 3.2 MG/DL (0.55-1.30) H Estimat Glomerular Filtration Rate 24.0 mL/min (>60) Glucose Level 261 MG/DL (74-106) H Uric Acid 9.9 MG/DL (2.6-7.2) H Calcium Level 8.0 MG/DL (8.5-10.1) L Phosphorus Level 3.6 MG/DL (2.5-4.9) Magnesium Level 2.0 MG/DL (1.8-2.4) Iron Level 32 ug/dL (50-175) L Total Iron Binding Capacity 105 ug/dL (250-450) L Percent Iron Saturation 30 % (15-50) Unsaturated Iron Binding 73 ug/dL (112-346) L Ferritin > 2000 NG/ML (8-388) H Total Bilirubin 0.7 MG/DL (0.2-1.0) Direct Bilirubin 0.4 MG/DL (0.0-0.3) H Gamma Glutamyl Transpeptidase 140 U/L (5-85) H Aspartate Amino Transf (AST/SGOT) 447 U/L (15-37) H Alanine Aminotransferase (ALT/SGPT) 45 U/L (12-78) Alkaline Phosphatase 98 U/L (46-116) Total Creatine Kinase 65260 U/L (26-308) H Troponin I 0.144 ng/mL (0.000-0.056) C-Reactive Protein, Quantitative 57.5 mg/dL (0.00-0.90) H Pro-B-Type Natriuretic Peptide 1413 pg/mL (0-125) H Total Protein 7.8 G/DL (6.4-8.2) Albumin 1.6 G/DL (3.4-5.0) L Globulin 6.2 g/dL Albumin/Globulin Ratio 0.3 (1.0-2.7) L Triglycerides Level 312 MG/DL (30-150) H Cholesterol Level 85 MG/DL (< 200) LDL Cholesterol 21 mg/dL (<100) HDL Cholesterol 11 MG/DL (40-60) L Cholesterol/HDL Ratio 7.7 (3.3-4.4) H Vitamin B12 Level 936 PG/ML (193-986) Folate 76.0 NG/ML (8.6-58.9) H Thyroid Stimulating Hormone (TSH) 3.038 uiU/mL (0.358-3.740) Phenytoin (Dilantin) Level 7.7 ug/mL (10-20) L Arterial Blood pH 7.432 (7.350-7.450) Arterial Blood Partial Pressure CO2 32.6 mmHg (35.0-45.0) L Arterial Blood Partial Pressure O2 112.1 mmHg (75.0-100.0) H Arterial Blood HCO3 21.2 mmol/L (22.0-26.0) L Arterial Blood Oxygen Saturation 98.0 % (95-100) Arterial Blood Base Excess -2.5 (-2-2) L Chandan Test Positive Test 06/03/20 10:00 Lactic Acid Level 3.20 mmol/L (0.4-2.0) H Plan Problems: (1) PVD (peripheral vascular disease) (2) Chronic vegetative state (3) Acute respiratory failure (4) Hypothyroidism (5) Cardiopulmonary arrest (6) Hypernatremia (7) Sepsis Assessment & Plan: 60-year-old male [facility] patient respiratory insufficiency leukocytosis, lactic acidosis, abnormal labs renal insufficiency. Difficult stick currently I/O pending PEG placement. Intubated on vent support. Max pressors at this time Levophed. Likely etiology of patient's sepsis is respiratory in nature. Urine noted. Continue antibiotics as per infectious disease. Will monitor closely. Wounds evaluated poor and declining but unlikely etiology. She in sepsis. Will monitor and provide continued care nutritionally and local thank you for let me participate in patient's care will follow with recommendations (8) ACE (acute kidney injury) (9) Hypomagnesemia (10) Rhabdomyolysis (11) Decubital ulcer Assessment & Plan: Pt presented on admission with Multiple Pressure Injuries, Dry Necrosis tips of R thumb, R Index and R 2nd metacarpals, R hand contracture. Hypopigmentation with Xerosis Skin noted to both lower extremities. At base of necrotic tip of R index finger is open wound wound that is taty with small amt sanguineous exudate. Tortuous Pressure injury which encompasses Sacrum, R and L gluteal cheek and extends into Both Ischial Tuberosities. At Sarbjit cleft ,Full thickness wound that is 40% soft necrosis at base with surrounding beefy red base, marked with irregular and ill defined borders that are taty with abdalla macerated areas to both outer aspects of each gluteal cheeks (L)10.7cm x (W)10.7cm. Full thickness wound L gluteal cleft . Base of wound is beefy red (L)2.5cm x (W) 2cm. Both Ischial tuberosities presents with ridges in layers of skin that are taty ,and masking wounds at base of each ischium. Full thickness (R) Ischial wound(L)4cm x (W)6.6cm.Base of wound is 80% beefy red 20% soft necrosis. No odor or exudate noted. Resolving Full thickness Wound R Ischium.75%Panther epithelial , 25% slough noted at base of wound (L)2cm x (W)6.4cm. NO odor or exudate noted. Necrotic dry wound noted to R side of thoracic Spine(L) 2cm x (W)6cm. Full thickness wound noted to dorsal aspect of R foot at Hallux (L)3.2cm x (W) 2.8cm. 80% mixed necrosis slough, surrounding 20% taty. dry brown borders without fluctuance. No odor or exudate noted. Wound noted to dorsal R 3rd metatarsal(L)0.8cm x (W)0.5cm. Small amt Biofilm noted at base of wound . Borders are macerated. NO odor or exudate noted. Unstageable Pressure injury R Heel. Base of wound is 90% mixed necrosis and slough,10% taty.Surrounding hypertrophic scarring resembling shaved off appearance of R heel. Full thickness Pressure injury L Heel. Base of wound is 75% taty,25% necrotic. Surrounding epithelial(L)6.5cm x (W)4.5cm. NO odor or exudate noted. Tx.Plan: Cleanse Wound R thoracic with Saline. Apply TheraHoney. Apply Cavilon Skin Barrier periwound. Cover with Optifoam drsg every 3 days and prn. Cleanse wound Buttocks and both Ischium with Saline. Apply TheraHoney to wounds Sacrum, L buttocks,R and L Ischium. Apply Moisture Barrier Paste to surrounding areas of wound. Cover with ABD Pads and secure with Paper Tape or Tegaderm Daily and prn. Apply Betadine to dorsal R foot, R heel, R 3rd Metatarsal.Cover with Optifoam drsgs every 3 days and prn. Apply Betadine to R Heel. Cover with Optifoam drsg. Change every 3 days and prn. Apply Betadine to Necrotic tips of R index, R 3rd metacarpals, R thumb. Place Rolled Kerlix in palm of hand. Wrap R Hand with Kerlix every 3 days and prn. Reposition at least every 2hours or as tolerated. Place pillow between legs. Off-load heels with Pillow. APM/NORM Mattress overlay. (12) Pleural effusion (13) Seizure disorder (14) Pneumonia (15) Septic shock Benyamini,Gary Jun 03, 2020 13:59
[2020-06-03] MEDS ORDERED: Norepinephrine Bitartrate 8 MG in Sodium Chloride 492 ML IV SCH (14:00)
--- NOTE | 2020-06-03 17:36 | Internal Med Progress Note ---
Subjective Date of Service: Jun 03, 2020 Physician Name Allen Coronel Attending Physician Star Wagoner MD Current Medications Medications (Trade) Dose Ordered Sig/Kolby Route PRN Reason Start Time Stop Time Status Last Admin Dose Admin Acetaminophen (Tylenol) 650 mg Q4H PRN GT fever 06/03/20 11:30 07/02/20 11:29 Albuterol/ Ipratropium (Albuterol/ Ipratropium) 3 ml Q4H PRN HHN Shortness of Breath 06/03/20 11:30 06/07/20 11:29 Amikacin Protocol (Amikacin pharmacy to dose) 1 ea DAILY PRN MISC PER RX PROTOCOL 06/04/20 09:00 07/03/20 10:29 Chlorhexidine Gluconate (Brandy-Hex 2%) 1 applic DAILY@2000 TOPIC 06/03/20 20:00 08/31/20 19:59 Heparin Sodium (Porcine) (Heparin 5000 units/ml) 5,000 units EVERY 12 HOURS SUBQ 06/03/20 21:00 07/17/20 08:59 Levetiracetam (Keppra) 1,500 mg Q12HR GT 06/03/20 21:00 07/02/20 08:59 Levothyroxine Sodium (Synthroid) 75 mcg DAILY GT 06/04/20 09:00 07/02/20 08:59 Linezolid (Zyvox) 600 mg EVERY 12 HOURS GT 06/03/20 21:00 06/07/20 12:14 Lorazepam (Ativan 2mg/ml 1ml) 2 mg Q2H PRN IV For Anxiety 06/03/20 11:30 06/09/20 11:29 Meropenem 1 gm/ Sodium Chloride 55 ml @ 110 mls/hr Q12HR IVPB 06/03/20 21:00 06/07/20 13:59 Norepinephrine Bitartrate 8 mg/ Sodium Chloride 500 ml @ 0 mls/hr Q24H IV 06/03/20 11:30 07/02/20 11:29 06/03/20 11:21 Ondansetron HCl (Zofran) 4 mg Q6H PRN IVP Nausea & Vomiting 06/03/20 11:30 07/02/20 11:29 Pantoprazole (Protonix) 40 mg Q12HR IVP 06/03/20 21:00 9/2/20 09:29 Phenytoin (Dilantin) 125 mg Q12HR GT 06/03/20 21:00 07/02/20 08:59 Polyethylene Glycol (Miralax) 17 gm DAILYPRN PRN GT Constipation 06/03/20 11:30 07/03/20 11:29 Sodium Chloride 1,000 ml @ 125 mls/hr Q8H IV 06/03/20 11:15 07/02/20 12:29 06/03/20 11:46 Allergies: Coded Allergies: HYDROCODONE (Verified Allergy, Unknown, 07/04/17) HEENT: Reports: nose pain Subjective 60 YO M admitted with respiratory failure. Now pneumonia. Cover for Int Med- Dr Wagoner. ICU Objective Last Vital Signs Date Time Temp Pulse Resp B/P (MAP) Pulse Ox O2 Delivery O2 Flow Rate FiO2 06/03/20 17:00 108 18 105/62 (76) 100 06/03/20 16:00 40 06/03/20 16:00 Mechanical Ventilator 06/03/20 16:00 98.1 06/02/20 04:55 15.0 Laboratory Tests Test 06/02/20 20:16 06/02/20 22:54 06/03/20 03:50 06/03/20 06:56 Lactic Acid Level 5.10 mmol/L (0.4-2.0) H 5.20 mmol/L (0.66-2.22) H 2.50 mmol/L (0.4-2.0) H White Blood Count 8.8 K/UL (4.8-10.8) # Red Blood Count 2.96 M/UL (4.70-6.10) L Hemoglobin 8.1 G/DL (14.2-18.0) L Hematocrit 26.8 % (42.0-52.0) L Mean Corpuscular Volume 91 FL (80-99) Mean Corpuscular Hemoglobin 27.2 PG (27.0-31.0) Mean Corpuscular Hemoglobin Concent 30.0 G/DL (32.0-36.0) L Red Cell Distribution Width 17.2 % (11.6-14.8) H Platelet Count 96 K/UL (150-450) L Mean Platelet Volume 9.6 FL (6.5-10.1) Neutrophils (%) (Auto) % (45.0-75.0) Lymphocytes (%) (Auto) % (20.0-45.0) Monocytes (%) (Auto) % (1.0-10.0) Eosinophils (%) (Auto) % (0.0-3.0) Basophils (%) (Auto) % (0.0-2.0) Differential Total Cells Counted 100 Neutrophils % (Manual) 73 % (45-75) Lymphocytes % (Manual) 18 % (20-45) L Monocytes % (Manual) 4 % (1-10) Eosinophils % (Manual) 3 % (0-3) Basophils % (Manual) 0 % (0-2) Band Neutrophils 2 % (0-8) Platelet Estimate Decreased L Platelet Morphology Normal Hypochromasia 1+ Anisocytosis 1+ Sodium Level 149 MMOL/L (136-145) H Potassium Level 3.5 MMOL/L (3.5-5.1) Chloride Level 113 MMOL/L (98-107) H Carbon Dioxide Level 26 MMOL/L (21-32) Anion Gap 11 mmol/L (5-15) Blood Urea Nitrogen 62 mg/dL (7-18) H Creatinine 3.2 MG/DL (0.55-1.30) H Estimat Glomerular Filtration Rate 24.0 mL/min (>60) Glucose Level 261 MG/DL (74-106) H Uric Acid 9.9 MG/DL (2.6-7.2) H Calcium Level 8.0 MG/DL (8.5-10.1) L Phosphorus Level 3.6 MG/DL (2.5-4.9) Magnesium Level 2.0 MG/DL (1.8-2.4) Iron Level 32 ug/dL (50-175) L Total Iron Binding Capacity 105 ug/dL (250-450) L Percent Iron Saturation 30 % (15-50) Unsaturated Iron Binding 73 ug/dL (112-346) L Ferritin > 2000 NG/ML (8-388) H Total Bilirubin 0.7 MG/DL (0.2-1.0) Direct Bilirubin 0.4 MG/DL (0.0-0.3) H Gamma Glutamyl Transpeptidase 140 U/L (5-85) H Aspartate Amino Transf (AST/SGOT) 447 U/L (15-37) H Alanine Aminotransferase (ALT/SGPT) 45 U/L (12-78) Alkaline Phosphatase 98 U/L (46-116) Total Creatine Kinase 35126 U/L (26-308) H Troponin I 0.144 ng/mL (0.000-0.056) C-Reactive Protein, Quantitative 57.5 mg/dL (0.00-0.90) H Pro-B-Type Natriuretic Peptide 1413 pg/mL (0-125) H Total Protein 7.8 G/DL (6.4-8.2) Albumin 1.6 G/DL (3.4-5.0) L Globulin 6.2 g/dL Albumin/Globulin Ratio 0.3 (1.0-2.7) L Triglycerides Level 312 MG/DL (30-150) H Cholesterol Level 85 MG/DL (< 200) LDL Cholesterol 21 mg/dL (<100) HDL Cholesterol 11 MG/DL (40-60) L Cholesterol/HDL Ratio 7.7 (3.3-4.4) H Vitamin B12 Level 936 PG/ML (193-986) Folate 76.0 NG/ML (8.6-58.9) H Thyroid Stimulating Hormone (TSH) 3.038 uiU/mL (0.358-3.740) Phenytoin (Dilantin) Level 7.7 ug/mL (10-20) L Arterial Blood pH 7.432 (7.350-7.450) Arterial Blood Partial Pressure CO2 32.6 mmHg (35.0-45.0) L Arterial Blood Partial Pressure O2 112.1 mmHg (75.0-100.0) H Arterial Blood HCO3 21.2 mmol/L (22.0-26.0) L Arterial Blood Oxygen Saturation 98.0 % (95-100) Arterial Blood Base Excess -2.5 (-2-2) L Chandan Test Positive Test 06/03/20 10:00 06/03/20 16:30 Lactic Acid Level 3.20 mmol/L (0.4-2.0) H Pending Microbiology Date/Time Source Procedure Growth Status 06/03/20 03:50 Nasopharynx SARS-CoV-2 RdRp Gene Assay - Final Complete 06/02/20 03:50 Nasopharynx SARS-CoV-2 RdRp Gene Assay - Final Complete 06/02/20 05:34 Urine,Clean Catch Urine Culture - Preliminary Resulted 06/02/20 12:00 Rectum Received Intake and Output 06/02/20 06/03/20 19:00 07:00 Intake Total 5664.058 ml 2155.3 ml Output Total 610 ml 375 ml Balance 5054.058 ml 1780.3 ml Intake Free Water 30 ml IV Total 5634.058 ml 2005.3 ml Other 150 ml Output Urine Total 610 ml 375 ml # Bowel Movements 2 Objective PHYSICAL EXAMINATION: GENERAL: The patient is a well-developed and well-nourished slightly obese male, who is intubated and sedated. HEENT: Eyes, pupils are equal and responsive to light and accommodation. Extraocular movements are intact. NECK: Supple without lymphadenopathy. CHEST: Mech Vent; Coarse breath sounds with expiratory wheezes bilaterally. Mechanical vent sounds auscultated bilaterally. CARDIOVASCULAR: Tachycardic, regular rate. S1, S2 normal without murmurs, rubs, or gallops. ABDOMINAL: Soft, nontender, and nondistended. Positive bowel sounds. No evidence of hepatosplenomegaly. Currently, no rebound or guarding noted. EXTREMITIES: Negative for clubbing, cyanosis, or edema. RECTAL/GENITAL: Not performed. NEUROLOGICAL: Unable to assess. Assessment/Plan Assessment/Plan ASSESSMENT: This is a 60-year-old male. 1. Respiratory failure. 2. Right lower lobe pneumonia. 3. Renal failure. 4. Developmental delay. 5. Seizure disorder. 6. Hypertension. 7. Hypothyroidism. 8. Hypercholesterolemia. 9. Dysphagia. 10. Sleep apnea. TREATMENT: 1. Respiratory failure/right lower lobe pneumonia. A Pulmonary consultation has been obtained with Dr. Lainey Harley. The patient is currently intubated and sedated in the intensive care unit. ABX= amikacin, vancomycin, and meropenem. An Infectious Disease consultation has been obtained with Dr. Villalba. 2. Seizure disorder. Continue Keppra and Dilantin as above. 3. Renal failure. A Nephrology consultation has been obtained with Dr. Aniket Ku. 4. Hypertension. The patient is currently hypotensive, probably secondary to septic shock. 5. Hypothyroidism. Continue Levoxyl as above. 6. Hypercholesterolemia. Continue simvastatin as above. 7. Dysphagia. Continue G-tube feedings. 8. History of sleep apnea. Allen Coronel MD Jun 03, 2020 17:36
[2020-06-03] MEDS: Dyna-Hex 2% Top Sol 2oz TOPIC SCH (19:48)
[2020-06-03] MEDS ORDERED: Dyna-Hex 2% Top Sol 2oz TOPIC SCH (20:00)
[2020-06-03] MEDS ORDERED: Pantoprazole Inj IVP SCH (21:00)
[2020-06-03] MEDS ORDERED: Heparin 5000 units/ml inj SUBQ SCH (21:00)
[2020-06-03] MEDS ORDERED: levETIRAcetam 500mg/5ml Liquid GT SCH (21:00)
[2020-06-03] MEDS ORDERED: Phenytoin Susp 100mg/4ml GT SCH (21:00)
[2020-06-03] MEDS ORDERED: Meropenem 1 GM in NS 55 ML IVPB SCH (21:00)
[2020-06-04] VITALS (46 sets, daily range): BP systolic 74–133; BP diastolic 51–93
[2020-06-04] MEDS: Norepinephrine Bitartrate 8 MG in Sodium Chloride 492 ML IV SCH ×2 (02:21→11:30)
[2020-06-04 04:47] LABS: HEMATOCRIT 24.3 % (42.0-52.0); HEMOGLOBIN 7.4 G/DL (14.2-18.0); MEAN CORPUSCULAR VOLUME 89 FL (80-99); PLATELET COUNT 88 K/UL (150-450); RED BLOOD COUNT 2.74 M/UL (4.70-6.10); RED CELL DISTRIBUTION WIDTH 17.2 % (11.6-14.8); WHITE BLOOD COUNT 7.6 K/UL (4.8-10.8)
[2020-06-04 05:11] LABS: ALANINE AMINOTRANSFERASE 51 U/L (12-78); ALBUMIN 1.5 G/DL (3.4-5.0); ALBUMIN/GLOBULIN RATIO 0.2 (1.0-2.7); ALKALINE PHOSPHATASE 93 U/L (46-116); ANION GAP 11 mmol/L (5-15); ASPARTATE AMINO TRANSFERASE 403 U/L (15-37); BILIRUBIN,TOTAL 0.4 MG/DL (0.2-1.0); BLOOD UREA NITROGEN 65 mg/dL (7-18); CALCIUM 8.1 MG/DL (8.5-10.1); CARBON DIOXIDE 24 MMOL/L (21-32); CHLORIDE 112 MMOL/L (98-107); CREATININE 3.2 MG/DL (0.55-1.30); POTASSIUM 3.5 MMOL/L (3.5-5.1); SODIUM 147 MMOL/L (136-145)
[2020-06-04] MEDS: Pantoprazole Inj IVP SCH (08:08)
[2020-06-04] MEDS: Heparin 5000 units/ml inj SUBQ SCH (08:09)
[2020-06-04] MEDS: Meropenem 1 GM in NS 55 ML IVPB SCH (08:09)
[2020-06-04] MEDS: levETIRAcetam 500mg/5ml Liquid GT SCH (08:09)
[2020-06-04] MEDS: Phenytoin Susp 100mg/4ml GT SCH (08:09)
[2020-06-04] MEDS ORDERED: Amikacin Rx to dose MISC PRN ×2 (09:00)
--- NOTE | 2020-06-04 09:40 | Surgery Progress Note ---
Surgery Progress Note Subjective Additional Comments more responsive lactic acidosis improved anemia on vent support 30/0 Objective Last 24 Hour Vital Signs Date Time Temp Pulse Resp B/P (MAP) Pulse Ox O2 Delivery O2 Flow Rate FiO2 06/04/20 09:30 92 19 128/74 (92) 100 06/04/20 09:00 93 18 109/93 (98) 100 06/04/20 08:30 96 16 116/74 (88) 100 06/04/20 08:00 Mechanical Ventilator 06/04/20 08:00 97.3 95 16 116/70 (85) 100 06/04/20 08:00 40 06/04/20 08:00 121/74 06/04/20 07:32 90 17 30 06/04/20 07:30 89 16 113/68 (83) 100 06/04/20 07:00 112/72 06/04/20 07:00 94 16 112/72 (85) 100 06/04/20 06:30 94 16 06/04/20 06:30 94 16 102/64 (77) 100 06/04/20 06:00 99 16 101/63 (76) 100 06/04/20 06:00 101/63 06/04/20 05:30 101 16 103/60 (74) 100 06/04/20 05:00 99 16 97/54 (68) 100 06/04/20 05:00 97/54 06/04/20 04:45 100 16 90/58 (69) 100 06/04/20 04:30 100 16 93/60 (71) 100 06/04/20 04:15 99 15 89/57 (68) 100 06/04/20 04:00 Mechanical Ventilator 06/04/20 04:00 98.0 100 16 90/55 (67) 100 06/04/20 04:00 90/55 06/04/20 04:00 100 06/04/20 04:00 40 06/04/20 03:30 103 17 99/58 (72) 100 06/04/20 03:09 104 17 30 06/04/20 03:00 100/57 06/04/20 03:00 106 19 100/57 (71) 100 06/04/20 02:30 109 16 127/65 (85) 100 06/04/20 02:21 108/64 06/04/20 02:00 103 16 104/59 (74) 100 06/04/20 02:00 104/59 06/04/20 01:30 104 16 98/57 (71) 100 06/04/20 01:00 105/65 06/04/20 01:00 109 18 105/65 (78) 100 06/04/20 00:30 106 16 108/59 (75) 100 06/04/20 00:00 99/57 06/04/20 00:00 Mechanical Ventilator 06/04/20 00:00 40 06/04/20 00:00 103 16 99/57 (71) 100 06/03/20 23:30 98.4 104 16 90/55 (67) 100 06/03/20 23:00 109/64 06/03/20 23:00 99 16 109/64 (79) 100 06/03/20 22:54 99 16 30 06/03/20 22:30 102 16 97/64 (75) 100 06/03/20 22:00 102 18 108/60 (76) 100 06/03/20 22:00 108/60 06/03/20 21:30 100 16 100/59 (73) 100 06/03/20 21:00 99 16 92/58 (69) 100 06/03/20 21:00 92/58 06/03/20 20:30 100 16 99/59 (72) 100 06/03/20 20:00 Mechanical Ventilator 06/03/20 20:00 40 06/03/20 20:00 93/57 06/03/20 20:00 101 06/03/20 20:00 98.3 101 15 93/57 (69) 100 06/03/20 19:30 98 18 97/56 (70) 100 06/03/20 19:22 100 16 30 06/03/20 19:00 107 18 106/61 (76) 100 06/03/20 19:00 106/61 06/03/20 18:00 105 16 104/60 (75) 100 06/03/20 18:00 104 17 104/61 (75) 100 06/03/20 18:00 104/61 06/03/20 17:30 109 17 108/60 (76) 100 06/03/20 17:30 107 17 108/60 (76) 100 06/03/20 17:00 108 18 105/62 (76) 100 06/03/20 17:00 105/62 06/03/20 16:30 110 18 110/61 (77) 100 06/03/20 16:00 40 06/03/20 16:00 Mechanical Ventilator 06/03/20 16:00 110 06/03/20 16:00 98.1 110 16 109/65 (80) 100 06/03/20 16:00 109/65 06/03/20 15:30 112 17 110/57 (74) 100 06/03/20 15:09 110 16 40 06/03/20 15:00 109 16 101/55 (70) 100 06/03/20 15:00 101/55 06/03/20 14:30 108 18 115/61 (79) 100 06/03/20 14:00 118/70 06/03/20 14:00 104 17 118/70 (86) 100 06/03/20 13:30 98 16 115/66 (82) 100 06/03/20 13:00 94 16 109/64 (79) 100 06/03/20 13:00 109/64 06/03/20 12:30 101 16 110/65 (80) 100 06/03/20 12:00 99.0 99 16 104/62 (76) 100 06/03/20 12:00 Mechanical Ventilator 06/03/20 12:00 104/62 06/03/20 12:00 40 06/03/20 11:40 40 06/03/20 11:31 100 06/03/20 11:30 101 16 103/56 (72) 100 06/03/20 11:21 101/54 06/03/20 11:00 105 12 96/58 (71) 100 06/03/20 11:00 103 16 40 06/03/20 11:00 96/58 06/03/20 10:45 101 16 87/58 (68) 100 06/03/20 10:30 100 16 93/53 (66) 100 06/03/20 10:15 101 15 103/57 (72) 100 06/03/20 10:00 100 17 107/59 (75) 100 06/03/20 10:00 107/59 06/03/20 09:45 97 16 112/68 (83) 100 I&O Intake and Output 06/03/20 06/04/20 19:00 07:00 Intake Total 1383.66 ml 1815 ml Output Total 340 ml 350 ml Balance 1043.66 ml 1465 ml IV Total 1383.66 ml 1735 ml Other 80 ml Output Urine Total 340 ml 350 ml # Bowel Movements 1 2 Dressing: other Wound: other Drains: other Cardiovascular: RSR Respiratory: decreased breath sounds Abdomen: soft, non-tender, present bowel sounds Extremities: no tenderness, no cyanosis Laboratory Tests Test 06/03/20 10:00 06/03/20 16:30 06/04/20 03:10 06/04/20 08:00 Lactic Acid Level 3.20 mmol/L (0.4-2.0) H 2.80 mmol/L (0.4-2.0) H 1.30 mmol/L (0.4-2.0) White Blood Count 7.6 K/UL (4.8-10.8) Red Blood Count 2.74 M/UL (4.70-6.10) L Hemoglobin 7.4 G/DL (14.2-18.0) L Hematocrit 24.3 % (42.0-52.0) L Mean Corpuscular Volume 89 FL (80-99) Mean Corpuscular Hemoglobin 27.1 PG (27.0-31.0) Mean Corpuscular Hemoglobin Concent 30.5 G/DL (32.0-36.0) L Red Cell Distribution Width 17.2 % (11.6-14.8) H Platelet Count 88 K/UL (150-450) L Mean Platelet Volume 10.5 FL (6.5-10.1) H Neutrophils (%) (Auto) % (45.0-75.0) Lymphocytes (%) (Auto) % (20.0-45.0) Monocytes (%) (Auto) % (1.0-10.0) Eosinophils (%) (Auto) % (0.0-3.0) Basophils (%) (Auto) % (0.0-2.0) Sodium Level 147 MMOL/L (136-145) H Potassium Level 3.5 MMOL/L (3.5-5.1) Chloride Level 112 MMOL/L (98-107) H Carbon Dioxide Level 24 MMOL/L (21-32) Anion Gap 11 mmol/L (5-15) Blood Urea Nitrogen 65 mg/dL (7-18) H Creatinine 3.2 MG/DL (0.55-1.30) H Estimat Glomerular Filtration Rate 24.0 mL/min (>60) Glucose Level 120 MG/DL (74-106) #H Calcium Level 8.1 MG/DL (8.5-10.1) L Total Bilirubin 0.4 MG/DL (0.2-1.0) Aspartate Amino Transf (AST/SGOT) 403 U/L (15-37) H Alanine Aminotransferase (ALT/SGPT) 51 U/L (12-78) Alkaline Phosphatase 93 U/L (46-116) Pro-B-Type Natriuretic Peptide 1036 pg/mL (0-125) H Total Protein 7.6 G/DL (6.4-8.2) Albumin 1.5 G/DL (3.4-5.0) L Globulin 6.1 g/dL Albumin/Globulin Ratio 0.2 (1.0-2.7) L Random Amikacin Level Pending Plan Problems: (1) PVD (peripheral vascular disease) (2) Chronic vegetative state (3) Acute respiratory failure (4) Hypothyroidism (5) Cardiopulmonary arrest (6) Hypernatremia (7) Sepsis Assessment & Plan: 60-year-old male [facility] facility patient respiratory insufficiency leukocytosis, lactic acidosis, abnormal labs renal insufficiency. Difficult stick currently I/O pending PEG placement. Intubated on vent support. Max pressors at this time Levophed. Likely etiology of patient's sepsis is respiratory in nature. Urine noted. Continue antibiotics as per infectious disease. Will monitor closely. Wounds evaluated poor and declining but unlikely etiology. She in sepsis. Will monitor and provide continued care nutritionally and local thank you for let me participate in patient's care will follow with recommendations (8) ACE (acute kidney injury) (9) Hypomagnesemia (10) Rhabdomyolysis (11) Decubital ulcer Assessment & Plan: Pt presented on admission with Multiple Pressure Injuries, Dry Necrosis tips of R thumb, R Index and R 2nd metacarpals, R hand contracture. Hypopigmentation with Xerosis Skin noted to both lower extremities. At base of necrotic tip of R index finger is open wound wound that is taty with small amt sanguineous exudate. Tortuous Pressure injury which encompasses Sacrum, R and L gluteal cheek and extends into Both Ischial Tuberosities. At Sarbjit cleft ,Full thickness wound that is 40% soft necrosis at base with surrounding beefy red base, marked with irregular and ill defined borders that are taty with abdalla macerated areas to both outer aspects of each gluteal cheeks (L)10.7cm x (W)10.7cm. Full thickness wound L gluteal cleft . Base of wound is beefy red (L)2.5cm x (W) 2cm. Both Ischial tuberosities presents with ridges in layers of skin that are taty ,and masking wounds at base of each ischium. Full thickness (R) Ischial wound(L)4cm x (W)6.6cm.Base of wound is 80% beefy red 20% soft necrosis. No odor or exudate noted. Resolving Full thickness Wound R Ischium.75%[place] epithelial , 25% slough noted at base of wound (L)2cm x (W)6.4cm. NO odor or exudate noted. Necrotic dry wound noted to R side of thoracic Spine(L) 2cm x (W)6cm. Full thickness wound noted to dorsal aspect of R foot at Hallux (L)3.2cm x (W) 2.8cm. 80% mixed necrosis slough, surrounding 20% taty. dry brown borders without fluctuance. No odor or exudate noted. Wound noted to dorsal R 3rd metatarsal(L)0.8cm x (W)0.5cm. Small amt Biofilm noted at base of wound . Borders are macerated. NO odor or exudate noted. Unstageable Pressure injury R Heel. Base of wound is 90% mixed necrosis and slough,10% taty.Surrounding hypertrophic scarring resembling shaved off appearance of R heel. Full thickness Pressure injury L Heel. Base of wound is 75% taty,25% necrotic. Surrounding epithelial(L)6.5cm x (W)4.5cm. NO odor or exudate noted. Tx.Plan: Cleanse Wound R thoracic with Saline. Apply TheraHoney. Apply Cavilon Skin Barrier periwound. Cover with Optifoam drsg every 3 days and prn. Cleanse wound Buttocks and both Ischium with Saline. Apply TheraHoney to wounds Sacrum, L buttocks,R and L Ischium. Apply Moisture Barrier Paste to surrounding areas of wound. Cover with ABD Pads and secure with Paper Tape or Tegaderm Daily and prn. Apply Betadine to dorsal R foot, R heel, R 3rd Metatarsal.Cover with Optifoam drsgs every 3 days and prn. Apply Betadine to R Heel. Cover with Optifoam drsg. Change every 3 days and prn. Apply Betadine to Necrotic tips of R index, R 3rd metacarpals, R thumb. Place Rolled Kerlix in palm of hand. Wrap R Hand with Kerlix every 3 days and prn. Reposition at least every 2hours or as tolerated. Place pillow between legs. Off-load heels with Pillow. APM/NORM Mattress overlay. (12) Pleural effusion (13) Seizure disorder (14) Pneumonia (15) Septic shock Gary Vicente Jun 04, 2020 09:40
--- NOTE | 2020-06-04 10:38 | Pulmonolgy Critical Care Note ---
Critical Care - Asmt/Plan Problems: (1) Acute respiratory failure (2) Cardiopulmonary arrest (3) Septic shock (4) ACE (acute kidney injury) (5) Chronic vegetative state (6) Hypothyroidism (7) Decubital ulcer (8) Seizure disorder (9) PVD (peripheral vascular disease) Respiratory: monitor respiratory rate, adjust FIO2, CXR Cardiac: continue pressors, continue to monitor HR/BP Renal: F/U I&O, check electrolytes Infectious Disease: check cultures, continue antibiotics Gastrointestinal: continue feedings/current rate Endocrine: monitor blood sugar Hematologic: monitor H/H, transfuse if hgb<8.5 Neurologic: PRN Ativan, PRN Morphine Affect: PRN ativan Prophylaxis: Protonix Disposition: keep in ICU Time Spent (Minutes): 40 Notes Reviewed: ship engineer, cardio, renal Discussed with: nurses, consultants, pillowcase cleanercampus manager - Objective Last 24 Hour Vital Signs Date Time Temp Pulse Resp B/P (MAP) Pulse Ox O2 Delivery O2 Flow Rate FiO2 06/04/20 10:00 91 16 112/68 (83) 100 06/04/20 09:30 92 19 128/74 (92) 100 06/04/20 09:00 93 18 109/93 (98) 100 06/04/20 08:30 96 16 116/74 (88) 100 06/04/20 08:00 Mechanical Ventilator 06/04/20 08:00 97.3 95 16 116/70 (85) 100 06/04/20 08:00 40 06/04/20 08:00 121/74 06/04/20 07:32 90 17 30 06/04/20 07:30 89 16 113/68 (83) 100 06/04/20 07:00 112/72 06/04/20 07:00 94 16 112/72 (85) 100 06/04/20 06:30 94 16 06/04/20 06:30 94 16 102/64 (77) 100 06/04/20 06:00 99 16 101/63 (76) 100 06/04/20 06:00 101/63 06/04/20 05:30 101 16 103/60 (74) 100 06/04/20 05:00 99 16 97/54 (68) 100 06/04/20 05:00 97/54 06/04/20 04:45 100 16 90/58 (69) 100 06/04/20 04:30 100 16 93/60 (71) 100 06/04/20 04:15 99 15 89/57 (68) 100 06/04/20 04:00 Mechanical Ventilator 06/04/20 04:00 98.0 100 16 90/55 (67) 100 06/04/20 04:00 90/55 06/04/20 04:00 100 06/04/20 04:00 40 06/04/20 03:30 103 17 99/58 (72) 100 06/04/20 03:09 104 17 30 06/04/20 03:00 100/57 06/04/20 03:00 106 19 100/57 (71) 100 06/04/20 02:30 109 16 127/65 (85) 100 06/04/20 02:21 108/64 06/04/20 02:00 103 16 104/59 (74) 100 06/04/20 02:00 104/59 06/04/20 01:30 104 16 98/57 (71) 100 06/04/20 01:00 105/65 06/04/20 01:00 109 18 105/65 (78) 100 06/04/20 00:30 106 16 108/59 (75) 100 06/04/20 00:00 99/57 06/04/20 00:00 Mechanical Ventilator 06/04/20 00:00 40 06/04/20 00:00 103 16 99/57 (71) 100 06/03/20 23:30 98.4 104 16 90/55 (67) 100 06/03/20 23:00 109/64 06/03/20 23:00 99 16 109/64 (79) 100 06/03/20 22:54 99 16 30 06/03/20 22:30 102 16 97/64 (75) 100 06/03/20 22:00 102 18 108/60 (76) 100 06/03/20 22:00 108/60 06/03/20 21:30 100 16 100/59 (73) 100 06/03/20 21:00 99 16 92/58 (69) 100 06/03/20 21:00 92/58 06/03/20 20:30 100 16 99/59 (72) 100 06/03/20 20:00 Mechanical Ventilator 06/03/20 20:00 40 06/03/20 20:00 93/57 06/03/20 20:00 101 06/03/20 20:00 98.3 101 15 93/57 (69) 100 06/03/20 19:30 98 18 97/56 (70) 100 06/03/20 19:22 100 16 30 06/03/20 19:00 107 18 106/61 (76) 100 06/03/20 19:00 106/61 06/03/20 18:00 105 16 104/60 (75) 100 06/03/20 18:00 104 17 104/61 (75) 100 06/03/20 18:00 104/61 06/03/20 17:30 109 17 108/60 (76) 100 06/03/20 17:30 107 17 108/60 (76) 100 06/03/20 17:00 108 18 105/62 (76) 100 06/03/20 17:00 105/62 06/03/20 16:30 110 18 110/61 (77) 100 06/03/20 16:00 40 06/03/20 16:00 Mechanical Ventilator 06/03/20 16:00 110 06/03/20 16:00 98.1 110 16 109/65 (80) 100 06/03/20 16:00 109/65 06/03/20 15:30 112 17 110/57 (74) 100 06/03/20 15:09 110 16 40 06/03/20 15:00 109 16 101/55 (70) 100 06/03/20 15:00 101/55 06/03/20 14:30 108 18 115/61 (79) 100 06/03/20 14:00 118/70 06/03/20 14:00 104 17 118/70 (86) 100 06/03/20 13:30 98 16 115/66 (82) 100 06/03/20 13:00 94 16 109/64 (79) 100 06/03/20 13:00 109/64 06/03/20 12:30 101 16 110/65 (80) 100 06/03/20 12:00 99.0 99 16 104/62 (76) 100 06/03/20 12:00 Mechanical Ventilator 06/03/20 12:00 104/62 06/03/20 12:00 40 06/03/20 11:40 40 06/03/20 11:31 100 06/03/20 11:30 101 16 103/56 (72) 100 06/03/20 11:21 101/54 06/03/20 11:00 105 12 96/58 (71) 100 06/03/20 11:00 103 16 40 06/03/20 11:00 96/58 06/03/20 10:45 101 16 87/58 (68) 100 Status: sedated Condition: critical HEENT: atraumatic, normocephalic Neck: full ROM, trach Lungs: clear Heart: HR/BP stable Abdomen: soft, non-tender Micro: Microbiology Date/Time Source Procedure Growth Status 06/02/20 10:10 Blood Blood Culture - Preliminary NO GROWTH AFTER 24 HOURS Resulted 06/02/20 10:00 Blood Blood Culture - Preliminary NO GROWTH AFTER 24 HOURS Resulted 06/03/20 03:50 Nasopharynx SARS-CoV-2 RdRp Gene Assay - Final Complete 06/02/20 12:00 Nasal Nares Right MRSA Culture - Final Staphylococcus Aureus - Mrsa Complete 06/02/20 11:00 Sputum Gram Stain - Final Resulted 06/02/20 11:00 Sputum Culture - Preliminary Gram Negative Bacillus 1 Staphylococcus Aureus Usual Respiratory Cocnhis Resulted 06/02/20 03:50 Nasopharynx SARS-CoV-2 RdRp Gene Assay - Final Complete 06/02/20 05:34 Urine,Clean Catch Urine Culture - Preliminary Gram Negative Bacillus 1 Gram Negative Bacillus 2 Resulted 06/02/20 12:00 Rectum Received Critical Care - Subjective ROS Limited/Unobtainable: Yes Condition: critical IV Access: PICC EKG Rhythm: Sinus Rhythm FI02: 40 Vent Support Breath Rate: 16 Vent Support Mode: AC Vent Tidal Volume: 600 Sputum Amount: Moderate PEEP: 0.0 PIP: 31 I&O: Intake and Output 06/03/20 06/04/20 19:00 07:00 Intake Total 1383.66 ml 1815 ml Output Total 340 ml 350 ml Balance 1043.66 ml 1465 ml IV Total 1383.66 ml 1735 ml Other 80 ml Output Urine Total 340 ml 350 ml # Bowel Movements 1 2 ET-Tube: 7.0 ET Position: 24 Labs: Laboratory Tests Test 06/03/20 16:30 06/04/20 03:10 06/04/20 08:00 Lactic Acid Level 2.80 mmol/L (0.4-2.0) H 1.30 mmol/L (0.4-2.0) White Blood Count 7.6 K/UL (4.8-10.8) Red Blood Count 2.74 M/UL (4.70-6.10) L Hemoglobin 7.4 G/DL (14.2-18.0) L Hematocrit 24.3 % (42.0-52.0) L Mean Corpuscular Volume 89 FL (80-99) Mean Corpuscular Hemoglobin 27.1 PG (27.0-31.0) Mean Corpuscular Hemoglobin Concent 30.5 G/DL (32.0-36.0) L Red Cell Distribution Width 17.2 % (11.6-14.8) H Platelet Count 88 K/UL (150-450) L Mean Platelet Volume 10.5 FL (6.5-10.1) H Neutrophils (%) (Auto) % (45.0-75.0) Lymphocytes (%) (Auto) % (20.0-45.0) Monocytes (%) (Auto) % (1.0-10.0) Eosinophils (%) (Auto) % (0.0-3.0) Basophils (%) (Auto) % (0.0-2.0) Sodium Level 147 MMOL/L (136-145) H Potassium Level 3.5 MMOL/L (3.5-5.1) Chloride Level 112 MMOL/L (98-107) H Carbon Dioxide Level 24 MMOL/L (21-32) Anion Gap 11 mmol/L (5-15) Blood Urea Nitrogen 65 mg/dL (7-18) H Creatinine 3.2 MG/DL (0.55-1.30) H Estimat Glomerular Filtration Rate 24.0 mL/min (>60) Glucose Level 120 MG/DL (74-106) #H Calcium Level 8.1 MG/DL (8.5-10.1) L Total Bilirubin 0.4 MG/DL (0.2-1.0) Aspartate Amino Transf (AST/SGOT) 403 U/L (15-37) H Alanine Aminotransferase (ALT/SGPT) 51 U/L (12-78) Alkaline Phosphatase 93 U/L (46-116) Pro-B-Type Natriuretic Peptide 1036 pg/mL (0-125) H Total Protein 7.6 G/DL (6.4-8.2) Albumin 1.5 G/DL (3.4-5.0) L Globulin 6.1 g/dL Albumin/Globulin Ratio 0.2 (1.0-2.7) L Random Amikacin Level Pending Lainey Harley MD Jun 04, 2020 10:38
--- NOTE | 2020-06-04 12:21 | Internal Med Progress Note ---
Subjective Date of Service: Jun 04, 2020 Physician Name Allen Coronel Attending Physician Star Wagoner MD Current Medications Medications (Trade) Dose Ordered Sig/Kolby Route PRN Reason Start Time Stop Time Status Last Admin Dose Admin Acetaminophen (Tylenol) 650 mg Q4H PRN GT fever 06/03/20 11:30 07/02/20 11:29 Albuterol/ Ipratropium (Albuterol/ Ipratropium) 3 ml Q4H PRN HHN Shortness of Breath 06/03/20 11:30 06/07/20 11:29 Amikacin Protocol (Amikacin pharmacy to dose) 1 ea DAILY PRN MISC PER RX PROTOCOL 06/04/20 09:00 07/03/20 10:29 Amikacin Sulfate 500 mg/Sodium Chloride 112 ml @ 224 mls/hr ONCE ONCE IV 06/05/20 09:00 06/05/20 09:29 Chlorhexidine Gluconate (Brandy-Hex 2%) 1 applic DAILY@1999 TOPIC 06/03/20 20:00 08/31/20 19:59 06/03/20 19:48 Heparin Sodium (Porcine) (Heparin 5000 units/ml) 5,000 units EVERY 12 HOURS SUBQ 06/03/20 21:00 07/17/20 08:59 06/03/20 20:49 Levetiracetam (Keppra) 1,500 mg Q12HR GT 06/03/20 21:00 07/02/20 08:59 06/04/20 08:09 Levothyroxine Sodium (Synthroid) 75 mcg DAILY GT 06/04/20 09:00 07/02/20 08:59 06/04/20 08:11 Linezolid (Zyvox) 600 mg EVERY 12 HOURS GT 06/03/20 21:00 06/07/20 12:14 06/04/20 08:08 Lorazepam (Ativan 2mg/ml 1ml) 2 mg Q2H PRN IV For Anxiety 06/03/20 11:30 06/09/20 11:29 Meropenem 1 gm/ Sodium Chloride 55 ml @ 110 mls/hr Q12HR IVPB 06/03/20 21:00 06/07/20 13:59 06/04/20 08:09 Norepinephrine Bitartrate 8 mg/ Sodium Chloride 500 ml @ 0 mls/hr Q24H IV 8/4/20 11:30 07/02/20 11:29 06/04/20 02:21 Ondansetron HCl (Zofran) 4 mg Q6H PRN IVP Nausea & Vomiting 06/03/20 11:30 07/02/20 11:29 Pantoprazole (Protonix) 40 mg Q12HR IVP 06/03/20 21:00 07/02/20 09:29 06/04/20 08:08 Phenytoin (Dilantin) 125 mg Q12HR GT 06/03/20 21:00 07/02/20 08:59 06/04/20 08:09 Polyethylene Glycol (Miralax) 17 gm DAILYPRN PRN GT Constipation 06/03/20 11:30 07/03/20 11:29 Sodium Chloride 1,000 ml @ 125 mls/hr Q8H IV 06/03/20 11:15 07/02/20 12:29 06/04/20 10:34 Allergies: Coded Allergies: HYDROCODONE (Verified Allergy, Unknown, 07/04/17) ROS Limited/Unobtainable: Yes Subjective 60 YO M admitted with respiratory failure. Now pneumonia. Cover for Int Med- Dr Wagoner. Intubated and sedated. ICU Objective Last Vital Signs Date Time Temp Pulse Resp B/P (MAP) Pulse Ox O2 Delivery O2 Flow Rate FiO2 06/04/20 12:00 98.3 101 19 101/59 (73) 100 06/04/20 12:00 Mechanical Ventilator 06/04/20 12:00 40 06/02/20 04:55 15.0 Laboratory Tests Test 06/03/20 16:30 06/04/20 03:10 06/04/20 08:00 Lactic Acid Level 2.80 mmol/L (0.4-2.0) H 1.30 mmol/L (0.4-2.0) White Blood Count 7.6 K/UL (4.8-10.8) Red Blood Count 2.74 M/UL (4.70-6.10) L Hemoglobin 7.4 G/DL (14.2-18.0) L Hematocrit 24.3 % (42.0-52.0) L Mean Corpuscular Volume 89 FL (80-99) Mean Corpuscular Hemoglobin 27.1 PG (27.0-31.0) Mean Corpuscular Hemoglobin Concent 30.5 G/DL (32.0-36.0) L Red Cell Distribution Width 17.2 % (11.6-14.8) H Platelet Count 88 K/UL (150-450) L Mean Platelet Volume 10.5 FL (6.5-10.1) H Neutrophils (%) (Auto) % (45.0-75.0) Lymphocytes (%) (Auto) % (20.0-45.0) Monocytes (%) (Auto) % (1.0-10.0) Eosinophils (%) (Auto) % (0.0-3.0) Basophils (%) (Auto) % (0.0-2.0) Sodium Level 147 MMOL/L (136-145) H Potassium Level 3.5 MMOL/L (3.5-5.1) Chloride Level 112 MMOL/L (98-107) H Carbon Dioxide Level 24 MMOL/L (21-32) Anion Gap 11 mmol/L (5-15) Blood Urea Nitrogen 65 mg/dL (7-18) H Creatinine 3.2 MG/DL (0.55-1.30) H Estimat Glomerular Filtration Rate 24.0 mL/min (>60) Glucose Level 120 MG/DL (74-106) #H Calcium Level 8.1 MG/DL (8.5-10.1) L Total Bilirubin 0.4 MG/DL (0.2-1.0) Aspartate Amino Transf (AST/SGOT) 403 U/L (15-37) H Alanine Aminotransferase (ALT/SGPT) 51 U/L (12-78) Alkaline Phosphatase 93 U/L (46-116) Pro-B-Type Natriuretic Peptide 1036 pg/mL (0-125) H Total Protein 7.6 G/DL (6.4-8.2) Albumin 1.5 G/DL (3.4-5.0) L Globulin 6.1 g/dL Albumin/Globulin Ratio 0.2 (1.0-2.7) L Random Amikacin Level 8.9 MG/L Microbiology Date/Time Source Procedure Growth Status 06/02/20 10:10 Blood Blood Culture - Preliminary NO GROWTH AFTER 24 HOURS Resulted 06/02/20 10:00 Blood Blood Culture - Preliminary NO GROWTH AFTER 24 HOURS Resulted 06/03/20 03:50 Nasopharynx SARS-CoV-2 RdRp Gene Assay - Final Complete 06/02/20 12:00 Nasal Nares Right MRSA Culture - Final Staphylococcus Aureus - Mrsa Complete 06/02/20 11:00 Sputum Gram Stain - Final Resulted 06/02/20 11:00 Sputum Culture - Preliminary Gram Negative Bacillus 1 Staphylococcus Aureus Usual Respiratory Conchis Resulted 06/02/20 03:50 Nasopharynx SARS-CoV-2 RdRp Gene Assay - Final Complete 06/02/20 05:34 Urine,Clean Catch Urine Culture - Preliminary Gram Negative Bacillus 1 Gram Negative Bacillus 2 Resulted 06/02/20 12:00 Rectum Received Intake and Output 06/03/20 06/04/20 19:00 07:00 Intake Total 1383.66 ml 1815 ml Output Total 340 ml 350 ml Balance 1043.66 ml 1465 ml IV Total 1383.66 ml 1735 ml Other 80 ml Output Urine Total 340 ml 350 ml # Bowel Movements 1 2 Objective PHYSICAL EXAMINATION: GENERAL: The patient is a well-developed and well-nourished slightly obese male, who is intubated and sedated. HEENT: Eyes, pupils are equal and responsive to light and accommodation. Extraocular movements are intact. NECK: Supple without lymphadenopathy. CHEST: Mech Vent; Coarse breath sounds with expiratory wheezes bilaterally. Mechanical vent sounds auscultated bilaterally. CARDIOVASCULAR: Tachycardic, regular rate. S1, S2 normal without murmurs, rubs, or gallops. ABDOMINAL: Soft, nontender, and nondistended. Positive bowel sounds. No evidence of hepatosplenomegaly. Currently, no rebound or guarding noted. EXTREMITIES: Negative for clubbing, cyanosis, or edema. RECTAL/GENITAL: Not performed. NEUROLOGICAL: Unable to assess. Assessment/Plan Assessment/Plan ASSESSMENT: This is a 60-year-old male. 1. Respiratory failure. 2. Right lower lobe pneumonia. 3. Renal failure. 4. Developmental delay. 5. Seizure disorder. 6. Hypertension. 7. Hypothyroidism. 8. Hypercholesterolemia. 9. Dysphagia. 10. Sleep apnea. TREATMENT: 1. Respiratory failure/right lower lobe pneumonia. A Pulmonary consultation has been obtained with Dr. Lainey Harley. The patient is currently intubated and sedated in the intensive care unit. ABX= amikacin, vancomycin, and meropenem. An Infectious Disease consultation has been obtained with Dr. Villalba. 2. Seizure disorder. Continue Keppra and Dilantin as above. 3. Renal failure. A Nephrology consultation has been obtained with Dr. Aniket Ku. 4. Hypertension. The patient is currently hypotensive, probably secondary to septic shock. 5. Hypothyroidism. Continue Levoxyl as above. 6. Hypercholesterolemia. Continue simvastatin as above. 7. Dysphagia. Continue G-tube feedings. 8. History of sleep apnea. Allen Coronel MD Jun 04, 2020 12:21
--- NOTE | 2020-06-04 12:34 | Infectious Diseases Prog Note ---
Assessment/Plan Assessment: Septic Shock- pressors going down Acute hypoxic resp failure- sp VDRF 06/02 Pneumonia- COVID19 neg x2 -06/03 rapid COVID PCR -06/02 CXR: Bibasilar airspace opacities, progressed at the right base. rapid COVID19 PCR neg (previously neg on 03/04 &03/08) sp cx GNR , S. aureus (sensi p) UTI -u.a wbc 5-10, nit neg, leuk +3; ucx >100k GNR #1 & #2 R/o probable bacteremia -06/02 Bcx NTD Fever; improving Leukocytosis, SP Lactic acidosis,SP ACE -Renal US: * No hydronephrosis or sonographically appreciable renal stone. Renal echogenicity within normal limits. Bladder decompressed, precluding reliable evaluation. Rhabdomyolisis Elevated AST, worsening multiple decubit ulcers Recent MRSA and Pseudomonas pneumonia -03/05 Sp cx MRSA (S Vanco, linezolid, bactrim, tetracycline); PsA (R Ceftazidime, Zosyn; otherwise S) HTN HLD CARMEN CVA seizure disorder hypothyroidism Dysphagia s/p GT chronic indwelling Penaloza catheter PR resident ([facility]) Plan: -Switch empiric ZYvox #3 to IV Vancomycin given thrombocytopenia -Meropenem #3 -Continue empiric AMikacin #3 for now pending cultures -06/02 SP IV Vancomycin #1, Cefepime x1, Flagyl x1 -f/u cx -Monitor CBC/CMP, temperatures -ETT/ICU care -COVID19 testing and isolation; keep isolation for now until afebrile >72hrs -aspiration precautions -wound care per surgical team -Abd US, HIV ab screen, acute hep panel Thank you for this consultation. Will continue to follow along with you. Discussed with RN. Subjective Allergies: Coded Allergies: HYDROCODONE (Verified Allergy, Unknown, 07/04/17) afebrile >24hrs FIo2 40% levo at 4 Bcx NTD Objective Last 24 Hour Vital Signs Date Time Temp Pulse Resp B/P (MAP) Pulse Ox O2 Delivery O2 Flow Rate FiO2 06/04/20 12:00 98.3 101 19 101/59 (73) 100 06/04/20 12:00 Mechanical Ventilator 06/04/20 12:00 40 06/04/20 11:30 93 18 91/59 (70) 100 06/04/20 11:03 96 19 30 06/04/20 11:00 99 23 99/63 (75) 100 06/04/20 10:30 92 18 105/60 (75) 100 06/04/20 10:00 91 16 112/68 (83) 100 06/04/20 09:30 92 19 128/74 (92) 100 06/04/20 09:00 93 18 109/93 (98) 100 06/04/20 08:30 96 16 116/74 (88) 100 06/04/20 08:00 Mechanical Ventilator 06/04/20 08:00 97.3 95 16 116/70 (85) 100 06/04/20 08:00 40 06/04/20 08:00 121/74 06/04/20 07:32 90 17 30 06/04/20 07:30 89 16 113/68 (83) 100 06/04/20 07:00 112/72 06/04/20 07:00 94 16 112/72 (85) 100 06/04/20 06:30 94 16 06/04/20 06:30 94 16 102/64 (77) 100 06/04/20 06:00 99 16 101/63 (76) 100 06/04/20 06:00 101/63 06/04/20 05:30 101 16 103/60 (74) 100 06/04/20 05:00 99 16 97/54 (68) 100 06/04/20 05:00 97/54 06/04/20 04:45 100 16 90/58 (69) 100 06/04/20 04:30 100 16 93/60 (71) 100 06/04/20 04:15 99 15 89/57 (68) 100 06/04/20 04:00 Mechanical Ventilator 06/04/20 04:00 98.0 100 16 90/55 (67) 100 06/04/20 04:00 90/55 06/04/20 04:00 100 06/04/20 04:00 40 06/04/20 03:30 103 17 99/58 (72) 100 06/04/20 03:09 104 17 30 06/04/20 03:00 100/57 06/04/20 03:00 106 19 100/57 (71) 100 06/04/20 02:30 109 16 127/65 (85) 100 06/04/20 02:21 108/64 06/04/20 02:00 103 16 104/59 (74) 100 06/04/20 02:00 104/59 06/04/20 01:30 104 16 98/57 (71) 100 06/04/20 01:00 105/65 06/04/20 01:00 109 18 105/65 (78) 100 06/04/20 00:30 106 16 108/59 (75) 100 06/04/20 00:00 99/57 06/04/20 00:00 Mechanical Ventilator 06/04/20 00:00 40 06/04/20 00:00 103 16 99/57 (71) 100 06/03/20 23:30 98.4 104 16 90/55 (67) 100 06/03/20 23:00 109/64 06/03/20 23:00 99 16 109/64 (79) 100 06/03/20 22:54 99 16 30 06/03/20 22:30 102 16 97/64 (75) 100 06/03/20 22:00 102 18 108/60 (76) 100 06/03/20 22:00 108/60 06/03/20 21:30 100 16 100/59 (73) 100 06/03/20 21:00 99 16 92/58 (69) 100 06/03/20 21:00 92/58 06/03/20 20:30 100 16 99/59 (72) 100 06/03/20 20:00 Mechanical Ventilator 06/03/20 20:00 40 06/03/20 20:00 93/57 06/03/20 20:00 101 06/03/20 20:00 98.3 101 15 93/57 (69) 100 06/03/20 19:30 98 18 97/56 (70) 100 06/03/20 19:22 100 16 30 06/03/20 19:00 107 18 106/61 (76) 100 06/03/20 19:00 106/61 06/03/20 18:00 105 16 104/60 (75) 100 06/03/20 18:00 104 17 104/61 (75) 100 06/03/20 18:00 104/61 06/03/20 17:30 109 17 108/60 (76) 100 06/03/20 17:30 107 17 108/60 (76) 100 06/03/20 17:00 108 18 105/62 (76) 100 06/03/20 17:00 105/62 06/03/20 16:30 110 18 110/61 (77) 100 06/03/20 16:00 40 06/03/20 16:00 Mechanical Ventilator 06/03/20 16:00 110 06/03/20 16:00 98.1 110 16 109/65 (80) 100 06/03/20 16:00 109/65 06/03/20 15:30 112 17 110/57 (74) 100 06/03/20 15:09 110 16 40 06/03/20 15:00 109 16 101/55 (70) 100 06/03/20 15:00 101/55 06/03/20 14:30 108 18 115/61 (79) 100 06/03/20 14:00 118/70 06/03/20 14:00 104 17 118/70 (86) 100 06/03/20 13:30 98 16 115/66 (82) 100 06/03/20 13:00 94 16 109/64 (79) 100 06/03/20 13:00 109/64 06/03/20 12:30 101 16 110/65 (80) 100 Height (Feet): 5 Height (Inches): 10.00 Weight (Pounds): 227 HEENT: atraumatic Lungs: rales, rhonchi Heart: HR/BP stable Abdomen: soft Extremities: no C/C/E Decubiti: extensive ulcer on sacral area; other additional ulcers on b/l heel Microbiology Date/Time Source Procedure Growth Status 06/02/20 10:10 Blood Blood Culture - Preliminary NO GROWTH AFTER 24 HOURS Resulted 06/02/20 10:00 Blood Blood Culture - Preliminary NO GROWTH AFTER 24 HOURS Resulted 06/03/20 03:50 Nasopharynx SARS-CoV-2 RdRp Gene Assay - Final Complete 06/02/20 12:00 Nasal Nares Right MRSA Culture - Final Staphylococcus Aureus - Mrsa Complete 06/02/20 11:00 Sputum Gram Stain - Final Resulted 06/02/20 11:00 Sputum Culture - Preliminary Gram Negative Bacillus 1 Staphylococcus Aureus Usual Respiratory Conchis Resulted 06/02/20 03:50 Nasopharynx SARS-CoV-2 RdRp Gene Assay - Final Complete 06/02/20 05:34 Urine,Clean Catch Urine Culture - Preliminary Gram Negative Bacillus 1 Gram Negative Bacillus 2 Resulted 06/02/20 12:00 Rectum Received Laboratory Tests Test 06/03/20 16:30 06/04/20 03:10 06/04/20 08:00 Lactic Acid Level 2.80 mmol/L (0.4-2.0) H 1.30 mmol/L (0.4-2.0) White Blood Count 7.6 K/UL (4.8-10.8) Red Blood Count 2.74 M/UL (4.70-6.10) L Hemoglobin 7.4 G/DL (14.2-18.0) L Hematocrit 24.3 % (42.0-52.0) L Mean Corpuscular Volume 89 FL (80-99) Mean Corpuscular Hemoglobin 27.1 PG (27.0-31.0) Mean Corpuscular Hemoglobin Concent 30.5 G/DL (32.0-36.0) L Red Cell Distribution Width 17.2 % (11.6-14.8) H Platelet Count 88 K/UL (150-450) L Mean Platelet Volume 10.5 FL (6.5-10.1) H Neutrophils (%) (Auto) % (45.0-75.0) Lymphocytes (%) (Auto) % (20.0-45.0) Monocytes (%) (Auto) % (1.0-10.0) Eosinophils (%) (Auto) % (0.0-3.0) Basophils (%) (Auto) % (0.0-2.0) Sodium Level 147 MMOL/L (136-145) H Potassium Level 3.5 MMOL/L (3.5-5.1) Chloride Level 112 MMOL/L (98-107) H Carbon Dioxide Level 24 MMOL/L (21-32) Anion Gap 11 mmol/L (5-15) Blood Urea Nitrogen 65 mg/dL (7-18) H Creatinine 3.2 MG/DL (0.55-1.30) H Estimat Glomerular Filtration Rate 24.0 mL/min (>60) Glucose Level 120 MG/DL (74-106) #H Calcium Level 8.1 MG/DL (8.5-10.1) L Total Bilirubin 0.4 MG/DL (0.2-1.0) Aspartate Amino Transf (AST/SGOT) 403 U/L (15-37) H Alanine Aminotransferase (ALT/SGPT) 51 U/L (12-78) Alkaline Phosphatase 93 U/L (46-116) Pro-B-Type Natriuretic Peptide 1036 pg/mL (0-125) H Total Protein 7.6 G/DL (6.4-8.2) Albumin 1.5 G/DL (3.4-5.0) L Globulin 6.1 g/dL Albumin/Globulin Ratio 0.2 (1.0-2.7) L Random Amikacin Level 8.9 MG/L Current Medications Medications (Trade) Dose Ordered Sig/Kolby Route PRN Reason Start Time Stop Time Status Last Admin Dose Admin Acetaminophen (Tylenol) 650 mg Q4H PRN GT fever 06/03/20 11:30 07/02/20 11:29 Albuterol/ Ipratropium (Albuterol/ Ipratropium) 3 ml Q4H PRN HHN Shortness of Breath 06/03/20 11:30 06/07/20 11:29 Amikacin Protocol (Amikacin pharmacy to dose) 1 ea DAILY PRN MISC PER RX PROTOCOL 06/04/20 09:00 07/03/20 10:29 Amikacin Sulfate 500 mg/Sodium Chloride 112 ml @ 224 mls/hr ONCE ONCE IV 06/05/20 09:00 06/05/20 09:29 Chlorhexidine Gluconate (Brandy-Hex 2%) 1 applic DAILY@2000 TOPIC 06/03/20 20:00 08/31/20 19:59 06/03/20 19:48 Heparin Sodium (Porcine) (Heparin 5000 units/ml) 5,000 units EVERY 12 HOURS SUBQ 06/03/20 21:00 07/17/20 08:59 06/03/20 20:49 Levetiracetam (Keppra) 1,500 mg Q12HR GT 06/03/20 21:00 07/02/20 08:59 06/04/20 08:09 Levothyroxine Sodium (Synthroid) 75 mcg DAILY GT 06/04/20 09:00 07/02/20 08:59 06/04/20 08:11 Linezolid (Zyvox) 600 mg EVERY 12 HOURS GT 06/03/20 21:00 06/07/20 12:14 06/04/20 08:08 Lorazepam (Ativan 2mg/ml 1ml) 2 mg Q2H PRN IV For Anxiety 06/03/20 11:30 06/09/20 11:29 Meropenem 1 gm/ Sodium Chloride 55 ml @ 110 mls/hr Q12HR IVPB 06/03/20 21:00 06/07/20 13:59 06/04/20 08:09 Norepinephrine Bitartrate 8 mg/ Sodium Chloride 500 ml @ 0 mls/hr Q24H IV 06/03/20 11:30 07/02/20 11:29 06/04/20 02:21 Ondansetron HCl (Zofran) 4 mg Q6H PRN IVP Nausea & Vomiting 06/03/20 11:30 07/02/20 11:29 Pantoprazole (Protonix) 40 mg Q12HR IVP 06/03/20 21:00 07/02/20 09:29 06/04/20 08:08 Phenytoin (Dilantin) 125 mg Q12HR GT 06/03/20 21:00 07/02/20 08:59 06/04/20 08:09 Polyethylene Glycol (Miralax) 17 gm DAILYPRN PRN GT Constipation 06/03/20 11:30 07/03/20 11:29 Sodium Chloride 1,000 ml @ 125 mls/hr Q8H IV 06/03/20 11:15 07/02/20 12:29 06/04/20 10:34 Nena Villlaba M.D. Jun 04, 2020 12:34
--- NOTE | 2020-06-04 12:42 | Nephrology Progress Note ---
Assessment/Plan Problem List: (1) ACE (acute kidney injury) (2) Cardiopulmonary arrest (3) Hypothyroidism (4) Septic shock (5) Seizure disorder (6) Decubital ulcer (7) Rhabdomyolysis Assessment 60-year-old male, in ICU Cardiopulmonary arrest, acute respiratory distress, septic shock ACE Hypothyroidism Decubitus ulcers Seizure disorder Peripheral vascular disease Elevated CPK, rhabdo I Plan June 04: Labs reviewed. Status quo. Medication list reviewed. Continue per consultants. Continue to monitor renal parameters. IV hydration, will monitor CPK levels Monitor renal parameters Urine studies hemodynamic support Antiseizure medication Check Dilantin level and TSH level Per orders Subjective ROS Limited/Unobtainable: Yes Objective Objective Last 24 Hour Vital Signs Date Time Temp Pulse Resp B/P (MAP) Pulse Ox O2 Delivery O2 Flow Rate FiO2 06/04/20 12:00 98.3 101 19 101/59 (73) 100 06/04/20 12:00 Mechanical Ventilator 06/04/20 12:00 40 06/04/20 11:30 93 18 91/59 (70) 100 06/04/20 11:03 96 19 30 06/04/20 11:00 99 23 99/63 (75) 100 06/04/20 10:30 92 18 105/60 (75) 100 06/04/20 10:00 91 16 112/68 (83) 100 06/04/20 09:30 92 19 128/74 (92) 100 06/04/20 09:00 93 18 109/93 (98) 100 06/04/20 08:30 96 16 116/74 (88) 100 06/04/20 08:00 Mechanical Ventilator 06/04/20 08:00 97.3 95 16 116/70 (85) 100 06/04/20 08:00 40 06/04/20 08:00 121/74 06/04/20 07:32 90 17 30 06/04/20 07:30 89 16 113/68 (83) 100 06/04/20 07:00 112/72 06/04/20 07:00 94 16 112/72 (85) 100 06/04/20 06:30 94 16 06/04/20 06:30 94 16 102/64 (77) 100 06/04/20 06:00 99 16 101/63 (76) 100 06/04/20 06:00 101/63 06/04/20 05:30 101 16 103/60 (74) 100 06/04/20 05:00 99 16 97/54 (68) 100 06/04/20 05:00 97/54 06/04/20 04:45 100 16 90/58 (69) 100 06/04/20 04:30 100 16 93/60 (71) 100 06/04/20 04:15 99 15 89/57 (68) 100 06/04/20 04:00 Mechanical Ventilator 06/04/20 04:00 98.0 100 16 90/55 (67) 100 06/04/20 04:00 90/55 06/04/20 04:00 100 06/04/20 04:00 40 06/04/20 03:30 103 17 99/58 (72) 100 06/04/20 03:09 104 17 30 06/04/20 03:00 100/57 06/04/20 03:00 106 19 100/57 (71) 100 06/04/20 02:30 109 16 127/65 (85) 100 06/04/20 02:21 108/64 06/04/20 02:00 103 16 104/59 (74) 100 06/04/20 02:00 104/59 06/04/20 01:30 104 16 98/57 (71) 100 06/04/20 01:00 105/65 06/04/20 01:00 109 18 105/65 (78) 100 06/04/20 00:30 106 16 108/59 (75) 100 06/04/20 00:00 99/57 06/04/20 00:00 Mechanical Ventilator 06/04/20 00:00 40 06/04/20 00:00 103 16 99/57 (71) 100 06/03/20 23:30 98.4 104 16 90/55 (67) 100 06/03/20 23:00 109/64 06/03/20 23:00 99 16 109/64 (79) 100 06/03/20 22:54 99 16 30 06/03/20 22:30 102 16 97/64 (75) 100 06/03/20 22:00 102 18 108/60 (76) 100 06/03/20 22:00 108/60 06/03/20 21:30 100 16 100/59 (73) 100 06/03/20 21:00 99 16 92/58 (69) 100 06/03/20 21:00 92/58 06/03/20 20:30 100 16 99/59 (72) 100 06/03/20 20:00 Mechanical Ventilator 06/03/20 20:00 40 06/03/20 20:00 93/57 06/03/20 20:00 101 06/03/20 20:00 98.3 101 15 93/57 (69) 100 06/03/20 19:30 98 18 97/56 (70) 100 06/03/20 19:22 100 16 30 06/03/20 19:00 107 18 106/61 (76) 100 06/03/20 19:00 106/61 06/03/20 18:00 105 16 104/60 (75) 100 06/03/20 18:00 104 17 104/61 (75) 100 06/03/20 18:00 104/61 06/03/20 17:30 109 17 108/60 (76) 100 06/03/20 17:30 107 17 108/60 (76) 100 06/03/20 17:00 108 18 105/62 (76) 100 06/03/20 17:00 105/62 06/03/20 16:30 110 18 110/61 (77) 100 06/03/20 16:00 40 06/03/20 16:00 Mechanical Ventilator 06/03/20 16:00 110 06/03/20 16:00 98.1 110 16 109/65 (80) 100 06/03/20 16:00 109/65 06/03/20 15:30 112 17 110/57 (74) 100 06/03/20 15:09 110 16 40 06/03/20 15:00 109 16 101/55 (70) 100 06/03/20 15:00 101/55 06/03/20 14:30 108 18 115/61 (79) 100 06/03/20 14:00 118/70 06/03/20 14:00 104 17 118/70 (86) 100 06/03/20 13:30 98 16 115/66 (82) 100 06/03/20 13:00 94 16 109/64 (79) 100 06/03/20 13:00 109/64 Intake and Output 06/03/20 06/04/20 19:00 07:00 Intake Total 1383.66 ml 1815 ml Output Total 340 ml 350 ml Balance 1043.66 ml 1465 ml IV Total 1383.66 ml 1735 ml Other 80 ml Output Urine Total 340 ml 350 ml # Bowel Movements 1 2 Laboratory Tests 06/03/20 16:30: Lactic Acid Level 2.80H 06/04/20 03:10: White Blood Count 7.6, Red Blood Count 2.74L, Hemoglobin 7.4L, Hematocrit 24.3L , Mean Corpuscular Volume 89, Mean Corpuscular Hemoglobin 27.1, Mean Corpuscular Hemoglobin Concent 30.5L, Red Cell Distribution Width 17.2H, Platelet Count 88L, Mean Platelet Volume 10.5H, Neutrophils (%) (Auto) , Lymphocytes (%) (Auto) , Monocytes (%) (Auto) , Eosinophils (%) (Auto) , Basophils (%) (Auto) , Sodium Level 147H, Potassium Level 3.5, Chloride Level 112H, Carbon Dioxide Level 24, Anion Gap 11, Blood Urea Nitrogen 65H, Creatinine 3.2H, Estimat Glomerular Filtration Rate 24.0, Glucose Level 120#H, Calcium Level 8.1L, Total Bilirubin 0.4, Aspartate Amino Transf (AST/SGOT) 403H , Alanine Aminotransferase (ALT/SGPT) 51, Alkaline Phosphatase 93, Pro-B-Type Natriuretic Peptide 1036H, Total Protein 7.6, Albumin 1.5L, Globulin 6.1, Albumin/Globulin Ratio 0.2L, Random Amikacin Level 8.9 06/04/20 08:00: Lactic Acid Level 1.30 Height (Feet): 5 Height (Inches): 10.00 Weight (Pounds): 227 General Appearance: no apparent distress, lethargic EENT: other - Vented Cardiovascular: tachycardia Respiratory/Chest: decreased breath sounds Abdomen: distended Aniket Ku MD Jun 04, 2020 12:42
--- NOTE | 2020-06-04 14:45 | Diagnostic Imaging Report ---
Indication: Dyspnea Technique: XRAY Chest 1v Comparison: 06/03/2020 Findings: Heart size is stable. Endotracheal tube and left IJ central line remains in place. There is no evidence of pneumothorax. Bilateral pleural effusions and bibasilar airspace opacities are again seen. Unchanged metallic density structure projecting over the right lower lung. Osseous structures are stable. Impression: No significant interval change in the radiographic appearance of the chest compared to one day prior.
[2020-06-04] MEDS ORDERED: Vancomycin 1.25gm/NS Premix IVPB SCH (15:00)
--- NOTE | 2020-06-04 15:24 | Diagnostic Imaging Report ---
Indication: Abdominal pain and distention Technique: Multiplanar grayscale and duplex Doppler imaging of the abdomen Comparison: None Findings: Imaged portions of the aorta are normal in caliber. Imaged portions of the pancreatic head grossly unremarkable in appearance. Body and tail are not well visualized. Equivocal subtle nodular contour of the liver which, if real, may suggest early cirrhotic change. Hepatic echogenicity is heterogeneous. No focal hepatic mass lesion is appreciated sonographically. No cholelithiasis or gallbladder sludge is demonstrated. No gallbladder wall thickening or pericholecystic fluid. No intrahepatic or extrahepatic biliary ductal dilatation. Common bile duct measures 3 mm diameter. Sonographic Hyde sign reported as negative. Kidneys demonstrate normal echogenicity. There is no hydronephrosis or sonographically appreciable renal stone. Spleen is enlarged measuring 13.6 cm in length. No ascites is demonstrated. IMPRESSION: Equivocal subtle nodular contour of the liver which, if real, may suggest early cirrhotic change. Clinical correlation recommended. Mild splenomegaly with the spleen measuring 13.6 cm in length.
[2020-06-04] MEDS: Dyna-Hex 2% Top Sol 2oz TOPIC SCH (20:00)
[2020-06-05] MEDS ORDERED: Amikacin 500 MG in NS 110 ML IV ONE (09:00)
[2020-06-05] MEDS ORDERED: Vancomycin 1gm in D5W 275ml IVPB SCH (14:00)
--- NOTE | 2020-06-05 15:00 | Discharge Summary ---
Discharge Summary Discharge Summary _ DATE OF ADMISSION: 06/02/2020 DATE OF DISCHARGE: 06/04/2020 DISCHARGED BY: Dr Wagoner REASON FOR ADMISSION: 60 years old male with past medical history of CVA, seizure disorder, hypertension, asthma , end-stage renal disease, on hemodialysis, hypothyroidism , obstructive sleep apnea, dysphagia, feeding by G-tube, [facility] with acute onset of hypoxia. Patient started on nonrebreather mask by paramedics. Upon evaluation patient was tachycardic ,febrile with temperature 103, hypotensive with blood pressure 50/33 and hypoxic. He required emergency oral intubation Patient was orally intubated in emergency department. Septic work-up initiated. Laboratory work-up revealed significant leukocytosis WBC 23.7, hemoglobin 9, hematocrit 30.0. Platelet count 191. Lactic acid 3.5. Sodium 155, chloride 112. BUN 55, creatinine 3.1. Glucose 316. AST 47 ALT 17. CK 1630. Troponin 0.042, pro BNP 1628. EKG showed sinus tachycardia without acute changes Amylase 298 lipase 365 Dilantin level 7.7. Urinalysis revealed evidence of urinary tract infection. INR 1.2. Chest x-ray demonstrated adequate endotracheal tube position with bibasilar effusion , no evidence of pneumothorax, possible pneumonia . Rapid coronavirus test was negative. Septic work-up initiated. Patient started on pressors and IV fluids. Patient pancultured , started on empiric antibiotic and admitted to ICU for further management. Patient was not medically stable for transfer to [place] as per his insurance at that time. CONSULTANTS: pulmonary Dr. Harley ID specialist Dr. Villalba case managers Dr. Ku [facility] COURSE: Patient admitted to intensive care unit. Hemodynamic status was closely monitored with goal to keep mean arterial blood pressure above 65. Pressor appropriately titrated. Ventilator support and pulmonary toilet provided. Patient was followed-up with ABG anad CXR. Settings titrated based on results of the ABG. Patient started on empiric antibiotics. Urine culture revealed Pseudomonas and Citrobacter. Blood cultures were negative. Sputum culture revealed MRSA and Pseudomonas. Repeated COVID-19 was negative. Patient was on IV hydration. Renal parameters and electrolytes were closely monitored , electrolytes corrected as needed. Renal ultrasound revealed no hydronephrosis or sonographically appreciable renal stone. Renal echogenicity within normal limits. Creatinine remained in the same range of 3.2 Process Artist followed CK trended up. AST worsened to 402 Abdominal ultrasound demonstrated subtle nodular contour of the liver, may suggest early cirrhotic changes. Mild splenomegaly. No cholelithiasis or gallbladder sludge. No gallbladder wall thickening or pericholecystic fluid. No intrahepatic or extrahepatic biliary ductal dilatation. Normal bilateral kidney echogenicity. No hydronephrosis. No sonographically appreciable renal stone. Patient had persistent lactic acidosis with highest being 5.2 and then started to trend down. TSH within normal limits . Current dose of levothyroxine continued. DVT and GI prophylaxis provided. Seizure precaution maintained. Patient was continued on Dilantin and Keppra. No evidence of seizure activity while in the hospital. Hemoglobin and hematocrit were closely monitored with goal to keep hemoglobin above 7. Aspiration precaution maintained. Patient presented on admission with multiply pressure injury. Wound care provided as per surgeon recommendation , continue wound care at accepting facility . Pressors down titrated. Patient was stable for transfer. Patient subsequently was transferred to [facility] via [facility] ambulance. FINAL DIAGNOSES: Acute hypoxemic respiratory failure required intubation Septic shock Pneumonia UTI Acute kidney injury Lactic acidosis Rhabdomyolysis Elevated AST /worsened Chronic vegetative state Seizure disorder Hypothyroidism PVD History of hypertension Dysphagia , feeding by G-tube Decubitus ulcer DISCHARGE MEDICATIONS: See Medication Reconciliation list. DISCHARGE INSTRUCTIONS: Patient was discharged to [facility] for further management as per insurance. I have been assigned to dictate discharge summary for this account. I was not involved in the patient's management. Juliette Sheffield NP Jun 05, 2020 15:00
== END 2020-06-04 21:00 | DRG 871 ==
LOC: EDUNIT# 03:44 → EDBD 03:44 → EMR 03:55 → ICU 05:30 → EDBEDREQ 05:59
PROC: 5A1945Z Respiratory Ventilation, 24-96 Consecutive Hours (ICD-10-PCS; principal; 2020-06-02)
PROC: 0BH17EZ Insertion of Endotracheal Airway into Trachea, Via Natural or Artificial Opening (ICD-10-PCS; principal; 2020-06-02)
DX: A41.9 Sepsis, unspecified organism (principal); L89.893 Pressure ulcer of other site, stage 3; J96.01 Acute respiratory failure with hypoxia; L89.613 Pressure ulcer of right heel, stage 3; L89.513 Pressure ulcer of right ankle, stage 3; R65.21 Severe sepsis with septic shock; J18.9 Pneumonia, unspecified organism; N18.6 End stage renal disease; N17.9 Acute kidney failure, unspecified; E87.0 Hyperosmolality and hypernatremia; Z43.1 Encounter for attention to gastrostomy; M62.82 Rhabdomyolysis; R40.3 Persistent vegetative state; I12.0 Hypertensive chronic kidney disease with stage 5 chronic kidney disease or end stage renal disease; L89.322 Pressure ulcer of left buttock, stage 2; L89.312 Pressure ulcer of right buttock, stage 2; Z88.8 Allergy status to other drugs, medicaments and biological substances; L89.152 Pressure ulcer of sacral region, stage 2; L89.100 Pressure ulcer of unspecified part of back, unstageable; Z86.74 Personal history of sudden cardiac arrest; G40.909 Epilepsy, unspecified, not intractable, without status epilepticus; F79 Unspecified intellectual disabilities; E78.00 Pure hypercholesterolemia, unspecified; E03.9 Hypothyroidism, unspecified; R13.10 Dysphagia, unspecified; I73.9 Peripheral vascular disease, unspecified; G47.33 Obstructive sleep apnea (adult) (pediatric); Z86.14 Personal history of Methicillin resistant Staphylococcus aureus infection; Z79.01 Long term (current) use of anticoagulants; Z79.4 Long term (current) use of insulin; E83.42 Hypomagnesemia; Z86.73 Personal history of transient ischemic attack (TIA), and cerebral infarction without residual deficits; Z99.2 Dependence on renal dialysis
CPT/HCPCS: 31500; 36415; 36569; 36600; 71045; 76700; 76770; 80053; 80061; 80150; 80185; 81003; 82043; 82150; 82248; 82550; 82553; 82607; 82728; 82746; 82803; 82977; 83540; 83550; 83605; 83690; 83735; 83880; 83935; 84100; 84300; 84443; 84484; 84550; 85007; 85025; 85610; 85730; 86140; 86850; 86870; 86900; 86901; 86920; 87040; 87070; 87081; 87086; 87181; 87205; 89050; 93005; 93306; 94002; 94003; 96365; 96368; 96372; 99291; J0171; J7030; U0002